=== PATIENT | male | born 1940 | race American Indian/Alaskan Native ===

== ENCOUNTER 2020-10-02 13:36 | Inpatient (IN) | payer MEDICARE ==
[2020-10-02] MEDS ORDERED: MIDAZOLAM 5 MG/5 ML INJ MDV IV ONE (13:39)
--- NOTE | 2020-10-02 13:55 | Emergency Department Report ---
ED Shortness of Breath HPI - General Stated Complaint: CARDIAC ARREST Time Seen by Provider: 10/02/20 13:39 - History of Present Illness Initial Comments: Chief complaint: Respiratory cardiac arrest HPI: This is an 80-year-old male with history of dementia who presents via EMS status post respiratory cardiac arrest. EMS was called for difficulty breathing. First responders found patient unresponsive. Cardiac arrest was witnessed. First responders. Chest compressions were initiated. Upon EMS arrival, patient had thready radial pulse with pulse rate 30 bpm. Patient was intubated with 7-0 ETT. Capnography confirmed successful intubation. Patient's heart rate and blood pressure normalized. Patient received Versed 5 mg in route. Patient also received 2 mg of naloxone. Patient is breathing spontaneously. He is moving his upper extremities. MD Complaint: shortness of breath -: Sudden Severity: severe Consistency: other (Intubated patient received chest compressions without medications) - Related Data Home Medications Medication Instructions Recorded Confirmed Last Taken No Known Home Medications [No 10/02/20 10/02/20 Unknown Reported Home Medications] Allergies Allergy/AdvReac Type Severity Reaction Status Date / Time No Known Allergies Allergy Unverified 10/02/20 16:50 ED Review of Systems ROS: Stated complaint: CARDIAC ARREST Other details as noted in HPI Comment: Unobtainable due to pts medical conditions (Cardiac arrest demented patient) ED Past Medical Hx - Past Medical History Previous Medical History?: Yes Additional medical history: Dementia - Medications Home Medications: Home Medications Medication Instructions Recorded Confirmed Last Taken Type No Known Home Medications [No 10/02/20 10/02/20 Unknown History Reported Home Medications] ED Physical Exam - General Limitations: Other (Intubated unresponsive patient) General appearance: other (Intubated eyes closed spontaneous respirations) - Head Head exam: Present: atraumatic, normocephalic - Eye Eye exam: Present: normal appearance - ENT ENT exam: Present: mucous membranes moist, other (ETT in place) - Neck Neck exam: Present: normal inspection, other (JVD) - Respiratory Respiratory exam: Present: rales, rhonchi, accessory muscle use - Cardiovascular Cardiovascular Exam: Present: regular rate, normal rhythm, normal heart sounds. Absent: systolic murmur, diastolic murmur, rubs, gallop - GI/Abdominal GI/Abdominal exam: Present: soft, normal bowel sounds. Absent: distended, tenderness, guarding, rebound - Rectal Rectal exam: Present: deferred - Extremities Exam Extremities exam: Present: normal inspection - Neurological Exam Neurological exam: Present: altered, other (Unresponsive to voice or pain) - Psychiatric Psychiatric exam: Present: other (Unresponsive to voice or pain) - Skin Skin exam: Present: warm, dry, intact, normal color. Absent: rash ED Course Vital Signs 10/02/20 10/02/20 10/02/20 13:42 13:46 13:55 Temperature Pulse Rate 67 68 63 Respiratory 19 20 Rate Blood Pressure 130/55 O2 Sat by Pulse 100 100 Oximetry 10/02/20 10/02/20 10/02/20 14:00 14:16 14:30 Temperature Pulse Rate 60 54 L 53 L Respiratory 15 15 19 Rate Blood Pressure 122/75 112/80 108/72 O2 Sat by Pulse 100 100 100 Oximetry 10/02/20 10/02/20 10/02/20 14:33 14:46 15:00 Temperature 96.3 F L Pulse Rate 56 L 61 Respiratory 18 19 Rate Blood Pressure 115/61 109/67 O2 Sat by Pulse 100 100 Oximetry 10/02/20 10/02/20 10/02/20 15:16 15:30 15:54 Temperature Pulse Rate 57 L 58 L 60 Respiratory 15 19 23 Rate Blood Pressure 146/61 142/61 109/67 O2 Sat by Pulse 100 100 100 Oximetry 10/02/20 10/02/20 10/02/20 16:00 16:01 16:16 Temperature Pulse Rate 58 L 58 L 60 Respiratory 22 19 Rate Blood Pressure 138/65 138/65 138/65 O2 Sat by Pulse 99 100 100 Oximetry 10/02/20 16:30 Temperature Pulse Rate 62 Respiratory 20 Rate Blood Pressure 139/63 O2 Sat by Pulse 100 Oximetry - ABG Interpretation Ph: 7.35 PCO2: 41 PO2: 543 Interpretation: normal ED Medical Decision Making - Lab Data Result diagrams: 10/02/20 13:45 10/02/20 13:45 - EKG Data -: EKG Interpreted by Ok EKG shows normal: sinus rhythm, intervals Rate: normal - EKG Data 10/02/20 16:54 EKG obtained at 1348 EKG interpreted by Rate 60 bpm left axis deviation normal intervals inferior Q waves poor R wave progression anterior leads 10/02/20 16:55 EKG obtained at 1348 EKG interpreted by me Rate 60 bpm left axis deviation normal intervals inferior Q waves poor R wave progression anterior leads - Radiology Data Radiology results: report reviewed CT head without contrast: Disproportionate temporoparietal lobe atrophy suggest possibility of Alzheimer's disease, moderate global parenchymal atrophy, no acute intracranial abnormalities Chest CT angiogram no evidence of pulmonary aneurysm, no evidence of acute findings Chest 1 view: Endotracheal tube #8 above the george. NG tube extending below the diaphragm. - Medical Decision Making Respiratory arrest leading to cardiac arrest pulseless electrical activity which responded to chest compressions without need for pharmacological resuscitation. Differential diagnosis includes sick sinus syndrome, heart failure, unintentional overdose progressive end-stage Alzheimer's dementia. No evidence of pulmonary embolism on CT scan, troponin negative. Patient continues to require mechanical ventilation. Patient is admitted to the hospital service in fair condition. Critical Care Time: Yes Critical care time in (mins) excluding proc time.: 40 Critical care attestation.: If time is entered above; I have spent that time in minutes in the direct care of this critically ill patient, excluding procedure time. 40 minutes of critical care time excluding procedures were used in the care of the patient. After hearing EMS report over the radio, I asked charge nurse to contact respiratory therapist. I met the patient in saw feeder team in treatment room upon arrival. I obtained history from EMS at the bedside. I discussed treatment plan with the nursing team members. I reviewed electronic record. I kept the family members informed. Patient required multiple interventions and reassessments. ED Disposition Clinical Impression: Acute hypoxemic respiratory failure, Cardiac arrest, Alzheimer's dementia Disposition: OP ADMIT IP TO THIS HOSP Is pt being admited?: Yes Does the pt Need Aspirin: No Condition: Fair
[2020-10-02] MEDS ORDERED: MIDAZOLAM 5 MG/5 ML INJ MDV IV NR (14:00)
[2020-10-02 14:19] LABS: Bilirubin,Urine NEG (Negative); Blood,Urine SM (Negative); Color,Urine Yellow (Yellow); Mucus,Urine FEW /HPF; Protein,Urine <15 mg/dL mg/dL (Negative); Urobilinogen,Urine < 2.0 mg/dL (<2.0)
[2020-10-02 14:25] LABS: Basophils % (Auto) 0.3 % (0.0-1.8); Eosinophils % (Auto) 0.4 % (0.0-4.3); Hematocrit 39.3 % (35.5-45.6); Hemoglobin 12.8 gm/dl (11.8-15.2); Lymphocytes # (Auto) 0.5 K/mm3 (1.2-5.4); Lymphocytes % (Auto) 7.6 % (13.4-35.0); Mean Corpuscular HGB Conc 33 % (32-34); Mean Corpuscular Volume 92 fl (84-94); Monocytes # (Auto) 0.6 K/mm3 (0.0-0.8); Monocytes % (Auto) 9.1 % (0.0-7.3); Platelet Count 187 K/mm3 (140-440); Red Blood Count 4.26 M/mm3 (3.65-5.03); Red Cell Distribution Width 16.2 % (13.2-15.2)
[2020-10-02 14:27] LABS: Amphetamine Screen,Urine Negative; Cannabinoid Screen,Urine Negative; Cocaine Screen,Urine Negative; Methadone Screen,Urine Negative; Opiate Screen,Urine Negative
[2020-10-02 14:44] LABS: Alanine Aminotransferase 10 units/L (7-56); Albumin 3.1 g/dL (3.9-5); BUN/Creatinine Ratio 15; Blood Urea Nitrogen 12 mg/dL (9-20); Calcium 9.2 mg/dL (8.4-10.2); Hemolysis Index 9
[2020-10-02 14:45] LABS: Benzodiazepines Screen,Urine PRESUMPTIVE POSITIVE
--- NOTE | 2020-10-02 14:51 | XRay Report ---
CHEST 1 VIEW 10/02/2020 2:42 PM INDICATION / CLINICAL INFORMATION: bradycardia respiratory arrest. COMPARISON: None available. FINDINGS: SUPPORT DEVICES: Endotracheal tube tip is about 5 cm above the george. NG tube is seen extending belo w the diaphragm. HEART / MEDIASTINUM: No significant abnormality. LUNGS / PLEURA: No significant pulmonary or pleural abnormality. No pneumothorax. ADDITIONAL FINDINGS: No significant additional findings. IMPRESSION: 1. No acute findings. Signer Name: Jimmy Duke MD Signed: 10/02/2020 2:47 PM Workstation Name: [email or web address]
--- NOTE | 2020-10-02 14:56 | History and Physical Report ---
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 Patient is intubated and ambulatory support at time of my evaluation and is unable to provide history. Patient history taken from EMS staff, ED staff, as well as patient family members who are made available via telephone. As per family the patient was found to be unresponsive today. EMS was notified and upon arrival the patient was found to be in distress and subsequently developed cardiac arrest. Patient treated" with ACLS protocol with eventual return of perfusing cardiac rhythm. Patient transported to [facility] for further care and evaluation. Patient seen and evaluated in the emergency department. All lab and imaging studies reviewed. Patient found to have acute respiratory failure secondary to cardiac arrest and is unable able to protect his airway. Patient intubated and placed on ventilatory support. Patient admitted to ICU for further care and evaluation. Critical care team consulted in ED. No further history is obtainable. No prior admission for review. No medication listed at time of admission for reconciliation. Advanced care planning conducted in ED. Past History Past Medical History: other (See HPI) Past Surgical History: No surgical history, Other (Unable to obtain) Social history: no significant social history, other (Unable to obtain) Family history: diabetes, hypertension Medications and Allergies Allergies Allergy/AdvReac Type Severity Reaction Status Date / Time Unable to Assess Allergy Unverified 10/02/20 14:26 Home Medications Medication Instructions Recorded Confirmed Last Taken Type No Known Home Medications [No 10/02/20 10/02/20 Unknown History Reported Home Medications] Active Meds: Active Medications Famotidine (Famotidine 20 Mg/2 Ml Inj) 20 mg IV BID MARCIE Hydrophilic Ointment (Lip Therapy Vaseline) 1 applic TP Q2HR PRN PRN Reason: Dry Lips Propofol (Diprivan 10 Mg/Ml) 1,000 mg in 100 mls @ 0 mls/hr IV TITR MARCIE; Protocol Midazolam HCl (Midazolam 5 Mg/5 Ml Inj Mdv) 5 mg IV ONCE NR Multi-Ingred Cream/Lotion/Oil/Oint (Mineral Oil/Petrolatum, White Ophth Oint 3.5 Gm) 1 applic OU Q4HR PRN PRN Reason: Dry Eye(s) Senna/Docusate Sodium (Sennosides/Docusate Sodium 8.6/50 Mg Tab) 1 tab FEEDTUBE BID MARCIE Review of Systems ROS unobtainable: due to endotracheal tube, due to mental status Exam - Constitutional Vitals: Temp Pulse Resp BP Pulse Ox 96.3 F L 56 L 18 115/61 100 10/02/20 14:33 10/02/20 14:46 10/02/20 14:46 10/02/20 14:46 10/02/20 14:46 General appearance: Present: severe distress - EENT Eyes: Present: miosis ENT: hearing decreased - Neck Neck: Present: supple, normal ROM - Respiratory Respiratory effort: labored Respiratory: bilateral: diminished, rhonchi - Cardiovascular Heart Sounds: Present: S1 & S2. Absent: rub, click - Extremities Extremities: pulses symmetrical, No edema Peripheral Pulses: within normal limits - Abdominal General gastrointestinal: Present: soft, non-tender, non-distended, normal bowel sounds Male genitourinary: Present: normal - Integumentary Integumentary: Present: clear, dry, clammy, decreased turgor - Musculoskeletal Musculoskeletal: generalized weakness - Psychiatric Psychiatric: no appropriate mood/affect, no intact judgment & insight, no memory intact - Neurologic Neurologic: CNII-XII intact, no focal deficits, moves all extremities, no gait normal HEART Score - HEART Score Troponin: Troponin T < 0.010 ng/mL (0.00-0.029) 10/02/20 13:45 Results - Labs CBC & Chem 7: 10/02/20 13:45 10/02/20 13:45 Labs: Abnormal lab results 10/02/20 10/02/20 10/02/20 Range/Units 13:45 13:45 14:00 RDW 16.2 H (13.2-15.2) % Lymph % (Auto) 7.6 L (13.4-35.0) % [place] % (Auto) 9.1 H (0.0-7.3) % Lymph # (Auto) 0.5 L (1.2-5.4) K/mm3 Seg Neutrophils % 82.6 H (40.0-70.0) % POC ABG pO2 543.4 H (83-108) mmHg ABG Hemoglobin 11.7 L (12.0-17.5) ABG Oxyhemoglobin 99.4 H (94-98) ABG Potassium 3.3 L (3.40-4.50) mmol/L ABG Chloride 110.0 H (98-107) mmol/L ABG Glucose 102 H (65-95) mg/dL Carboxyhemoglobin 0.3 L (0.5-1.5) Potassium 3.4 L (3.6-5.0) mmol/L Carbon Dioxide 21 L (22-30) mmol/L Glucose 112 H (75-100) mg/dL Total Protein 5.7 L (6.3-8.2) g/dL Albumin 3.1 L (3.9-5) g/dL Arterial Blood Glucose 102 H (65-95) mg/dL Assessment and Plan - Patient Problems (1) Acute hypoxemic respiratory failure Status: Acute Plan to address problem: Patient independent ambulatory support, wean vent as tolerated, daily spontaneous breathing trial, sedation holiday, critical care team consulted in ED. The high probability of a clinically significant, sudden or life threatening deterioration of the [neuro, pulmonary,] system(s) required my full and direct attention, intervention and personal management. The aggregate critical care time was [65] minutes. This time is in addition to time spent performing reported procedures but includes the following: [x] Data Review and interpretation [x] Patient assessment and monitoring of vital signs [x] Documentation [x] Medication orders and management (2) Cardiac arrest Status: Acute Plan to address problem: Patient treated) protocol with return of perfusing cardiac rhythm. Remote telemetry, continue medical management. (3) Malnutrition Status: Acute Qualifiers: Protein-calorie malnutrition severity: moderate Plan to address problem: Increase protein intake, dietary segmentation. (4) DVT prophylaxis Status: Acute Plan to address problem: SCDs bilateral lower extremities while in bed, prophylactic anticoagulation (5) Advance care planning Status: Acute Plan to address problem: Disease education conducted, care plan discussed, diagnoses discussed, poor prognosis discussed, patient is full code, patient family knowledges understanding and agreement with care plan, +30 minutes.
[2020-10-02] MEDS ORDERED: HYDROmorphone 1 MG/1 ML INJ IV PRN (15:30)
[2020-10-02] MEDS ORDERED: MINERAL OIL/PETROLATUM, WHITE OPHTH OINT 3.5 GM OU PRN (15:30)
[2020-10-02] MEDS ORDERED: LIP THERAPY VASELINE TP PRN (16:00)
[2020-10-02] MEDS ORDERED: oxyCODONE /ACETAMINOPHEN 5-325MG TAB PO PRN (16:00)
--- NOTE | 2020-10-02 16:13 | Cat Scan Report ---
CT HEAD WITHOUT CONTRAST INDICATION / CLINICAL INFORMATION: Unresponsive patient following cardiac arrest. TECHNIQUE: All CT scans at this location are performed using CT dose reduction for ALARA by means of automated e xposure control. COMPARISON: None available. FINDINGS: HEMORRHAGE: No evidence of intracranial hemorrhage or extra-axial fluid collection. EXTRA-AXIAL SPACES: Cortical sulci and sylvian fissures are enlarged reflecting a degree of parenchym al volume loss which is prominent even given the patient's age of 80 years. There is pronounced dispr oportionate bilateral temporal and parietal lobe atrophy suggesting a diagnosis of Alzheimer's scar ia. Basilar cisterns have an unremarkable appearance. VENTRICULAR SYSTEM: The third and lateral ventricles are mildly enlarged reflecting presence of age r elated parenchymal volume loss. CEREBRAL PARENCHYMA: Periventricular and deep white matter lucency is observed. This is probably seco ndary to microvascular ischemic change. There is no indication of recent infarction. No areas of ence phalomalacia are identified. MIDLINE SHIFT OR HERNIATION: There is no mass effect. CEREBELLUM / BRAINSTEM: Brainstem has an unremarkable appearance. Age related cerebellar atrophy is n oted. MIDLINE STRUCTURES:Pituitary gland has an unremarkable appearance. No abnormalities are seen in the p ineal region. INTRACRANIAL VESSELS: No significant abnormalities identified on this noncontrast head CT examination .. ORBITS: Status post left-sided cataract surgery. No additional abnormality. SOFT TISSUES of HEAD: No significant abnormality. CALVARIUM: Evaluation of bone windows reveals no abnormalities. PARANASAL SINUSES / MASTOID AIR CELLS: Paranasal sinuses are free from inflammatory mucosal disease. Mastoid air cells are normally pneumatized. IMPRESSION: 1. Disproportionate temporal and parietal lobe atrophy suggests possibility of Alzheimer's dementia. 2. Moderate global parenchymal atrophy. 3. No acute intracranial abnormalities are identified. Signer Name: Dwaine Irizarry MD Signed: 10/02/2020 4:09 PM Workstation Name: [id number]
--- NOTE | 2020-10-02 16:27 | Cat Scan Report ---
CTA CHEST WITH CONTRAST INDICATION / CLINICAL INFORMATION: OMNI 350 100 ML respiratory cardiac arrest. TECHNIQUE: Axial CT images were obtained through the chest after injection of 100 cc of Omnipaque 350 IV contrast. 3 plane MIP and/or 3D reconstructions were produced. All CT scans at this location are performed using CT dose reduction for ALARA by means of automated exposure control. COMPARISON: None available. FINDINGS: PULMONARY ARTERIES: No pulmonary emboli. THORACIC AORTA: No significant abnormality. HEART: No significant abnormality. CORONARY ARTERY CALCIFICATION: None. MEDIASTINUM / ROXIE: No significant abnormality. PLEURA: No pleural effusion. No pneumothorax. LUNGS: There is mild dependent atelectasis. ADDITIONAL FINDINGS: Endotracheal tube and nasogastric tube appear in satisfactory position. UPPER ABDOMEN: No acute findings. SKELETAL STRUCTURES: No acute abnormality IMPRESSION: 1. No CT evidence for pulmonary embolism. 2. No acute findings. Signer Name: Gopal Morales MD Signed: 10/02/2020 4:23 PM Workstation Name: [id number]
[2020-10-02] MEDS ORDERED: ALBUTEROL 2.5 MG/3 ML NEBU IH PRN (17:00)
[2020-10-02] MEDS: FAMOTIDINE 20 MG/2 ML INJ IV SCH ×2 (17:11→21:59)
[2020-10-02] MEDS: SENNOSIDES/DOCUSATE SODIUM 8.6/50 MG TAB FEEDTUBE SCH ×2 (17:11→21:59)
--- NOTE | 2020-10-03 03:03 | XRay Report ---
XR chest 1V ap INDICATION / CLINICAL INFORMATION: follow up respiratory failure. COMPARISON: Radiograph from yesterday. FINDINGS: SUPPORT DEVICES: Unchanged. HEART /PULMONARY VASCULATURE: No significant abnormality. LUNGS / PLEURA: Lungs are clear. No pneumothorax. IMPRESSION: 1. No acute findings. No interval change. Signer Name: Manjit Mantilla MD Signed: 10/03/2020 2:58 AM Workstation Name: [employer] [id number]
[2020-10-03 05:10] LABS: Basophils % (Auto) 0.2 % (0.0-1.8); Hematocrit 38.1 % (35.5-45.6); Hemoglobin 12.6 gm/dl (11.8-15.2); Lymphocytes # (Auto) 0.7 K/mm3 (1.2-5.4); Lymphocytes % (Auto) 5.1 % (13.4-35.0); Mean Corpuscular HGB Conc 33 % (32-34); Mean Corpuscular Volume 91 fl (84-94); Monocytes % (Auto) 7.9 % (0.0-7.3); Platelet Count 201 K/mm3 (140-440); Red Cell Distribution Width 15.9 % (13.2-15.2)
[2020-10-03 05:32] LABS: Alanine Aminotransferase 13 units/L (7-56); Albumin 3.4 g/dL (3.9-5); Blood Urea Nitrogen 13 mg/dL (9-20); Calcium 10.3 mg/dL (8.4-10.2); Hemolysis Index 19
[2020-10-03 05:36] LABS: BUN/Creatinine Ratio 19
--- NOTE | 2020-10-03 07:26 | Consultation ---
History of Present Illness Consult date: 10/03/20 Requesting physician: JULIO NESS Reason for consult: other (Cardiopulmoanry arrest with ROSC, critical care management) History of present illness: HISTORY PER MEDICAL RECORDS 80 YO Male with Vascular Dementia, Cerebral Atherosclerosis, Malnutrition presents to ED for evaluation. Patient is intubated and ambulatory support at time of my evaluation and is unable to provide history. Patient history taken from EMS staff, ED staff, as well as patient family members who are made available via telephone. As per family the patient was found to be unresponsive today. EMS was notified and upon arrival the patient was found to be in distress and subsequently developed cardiac arrest. Patient treated" with ACLS protocol with eventual return of perfusing cardiac rhythm. Patient transported to [facility] for further care and evaluation. Patient seen and evaluated in the emergency department. All lab and imaging studies reviewed. Patient found to have acute respiratory failure secondary to cardiac arrest and is unable able to protect his airway. Patient intubated and placed on ventilatory support. Patient admitted to ICU for further care and evaluation. Critical care team consulted in ED. No further history is obtainable. No prior admission for review. No medication listed at time of admission for reconciliation. Advanced care planning conducted in ED. Patient seen and examined. Vitals, labs, medications, chart and imaging reviewed. He is orally intubated, on Propofol infusion. Discussed with nursing and respiratory staff. No acute overnight events reported. Past History Past Medical History: other (See HPI) Past Surgical History: No surgical history, Other (Unable to obtain) Social history: no significant social history, other (Unable to obtain) Family history: diabetes, hypertension Medications and Allergies Allergies Allergy/AdvReac Type Severity Reaction Status Date / Time No Known Allergies Allergy Unverified 10/02/20 16:50 Home Medications Medication Instructions Recorded Confirmed Last Taken Type Aspirin [Aspirin BABY CHEW TAB] 81 mg PO QDAY 10/02/20 10/02/20 Unknown History Donepezil HCl [Donepezil HCl Odt] 10 mg PO QDAY 10/02/20 10/02/20 Unknown History Finasteride [Proscar] 5 mg PO QDAY 10/02/20 10/02/20 Unknown History Tamsulosin [Flomax] 0.8 mg PO QDAY 10/02/20 10/02/20 Unknown History amLODIPine [Norvasc] 5 mg PO DAILY 10/02/20 10/02/20 Unknown History Active Meds: Active Medications Acetaminophen (Acetaminophen 650 Mg Rect Supp) 650 mg [place] Q6H PRN PRN Reason: Pain MILD(1-3)/Fever >100.5/HERNANDEZ Albuterol (Albuterol 2.5 Mg/3 Ml Nebu) 2.5 mg IH Q3HRT PRN PRN Reason: Shortness Of Breath Famotidine (Famotidine 20 Mg/2 Ml Inj) 20 mg IV BID [facility] Last Admin: 10/02/20 21:59 Dose: 20 mg Documented by: Hydromorphone HCl (Hydromorphone 1 Mg/1 Ml Inj) 0.5 mg IV Q12H PRN PRN Reason: Pain , Severe (7-10) Hydrophilic Ointment (Lip Therapy Vaseline) 1 applic TP Q2HR PRN PRN Reason: Dry Lips Propofol (Diprivan 10 Mg/Ml) 1,000 mg in 100 mls @ 1.905 mls/hr IV TITR [facility]; Protocol Last Admin: 10/03/20 04:03 Dose: 15 mcg/kg/min, 5.715 mls/hr Documented by: Multi-Ingred Cream/Lotion/Oil/Oint (Mineral Oil/Petrolatum, White Ophth Oint 3.5 Gm) 1 applic OU Q4H PRN PRN Reason: Dry Eye(s) Oxycodone/Acetaminophen (Oxycodone /Acetaminophen 5-325mg Tab) 1 tab PO Q12H PRN PRN Reason: Pain, Moderate (4-6) Senna/Docusate Sodium (Sennosides/Docusate Sodium 8.6/50 Mg Tab) 1 tab FEEDTUBE BID [facility] Last Admin: 10/02/20 21:59 Dose: 1 tab Documented by: Sodium Chloride (Sodium Chloride 0.9% 10 Ml Flush Syringe) 10 ml IV BID [facility] Last Admin: 10/02/20 22:00 Dose: 10 ml Documented by: Sodium Chloride (Sodium Chloride 0.9% 10 Ml Flush Syringe) 10 ml IV PRN PRN PRN Reason: LINE FLUSH Review of Systems ROS unobtainable: due to endotracheal tube, due to mental status Physical Examination Vital signs: Vital Signs Pulse Resp 67 19 10/02/20 13:42 10/02/20 13:42 General appearance: no acute distress, other (elderly) Eyes: non-icteric ENT: oropharynx dry, other (ETT 23 cm at the lip) Neck: supple, no lymphadenopathy, no JVD Effort: normal Ascultation: Bilateral: diminished breath sounds Cardiovascular: regular rate and rhythm, other (S1,S2) Gastrointestinal: normoactive bowel sounds, soft, non-tender Integumentary: normal Extremities: no cyanosis, no edema, pulses normal pupils equal and round, other (awake, alert, obeys simple commands) affect normal Results - Laboratory Findings CBC and BMP: 10/03/20 04:35 10/03/20 04:35 ABG ABG pH 7.478 (7.320-7.450) H 10/03/20 03:04 POC ABG pCO2 35.1 mmHg (32.0-48.0) 10/03/20 03:04 POC ABG pO2 173.1 mmHg (83-108) H 10/03/20 03:04 POC ABG HCO3 25.4 10/03/20 03:04 ABG O2 Saturation 99.5 (0-100) 10/03/20 03:04 PT/INR, D-dimer D-Dimer 5468.25 ng/mlDDU (0-234) H 10/02/20 13:45 Abnormal lab findings: Abnormal Labs 10/02/20 10/02/20 10/02/20 13:45 13:45 13:45 WBC RDW 16.2 H Lymph % (Auto) 7.6 L [place] % (Auto) 9.1 H Lymph # (Auto) 0.5 L [place] # (Auto) Seg Neutrophils % 82.6 H Seg Neutrophils # D-Dimer 5468.25 H ABG pH POC ABG pO2 ABG Hemoglobin ABG Oxyhemoglobin ABG Sodium ABG Potassium ABG Chloride ABG Glucose Carboxyhemoglobin Potassium 3.4 L Carbon Dioxide 21 L Creatinine Glucose 112 H Calcium Total Protein 5.7 L Albumin 3.1 L Arterial Blood Glucose 10/02/20 10/03/20 10/03/20 14:00 03:04 04:35 WBC 13.2 H RDW 15.9 H Lymph % (Auto) 5.1 L [place] % (Auto) 7.9 H Lymph # (Auto) 0.7 L [place] # (Auto) 1.0 H Seg Neutrophils % 86.8 H Seg Neutrophils # 11.5 H D-Dimer ABG pH 7.478 H POC ABG pO2 543.4 H 173.1 H ABG Hemoglobin 11.7 L ABG Oxyhemoglobin 99.4 H 98.8 H ABG Sodium 131.7 L ABG Potassium 3.3 L ABG Chloride 110.0 H ABG Glucose 102 H 124 H Carboxyhemoglobin 0.3 L Potassium Carbon Dioxide Creatinine Glucose Calcium Total Protein Albumin Arterial Blood Glucose 102 H 124 H 10/03/20 04:35 WBC RDW Lymph % (Auto) [place] % (Auto) Lymph # (Auto) [place] # (Auto) Seg Neutrophils % Seg Neutrophils # D-Dimer ABG pH POC ABG pO2 ABG Hemoglobin ABG Oxyhemoglobin ABG Sodium ABG Potassium ABG Chloride ABG Glucose Carboxyhemoglobin Potassium Carbon Dioxide Creatinine 0.7 L Glucose 109 H Calcium 10.3 H Total Protein Albumin 3.4 L Arterial Blood Glucose - Diagnostic Findings Chest x-ray: image reviewed CT scan - chest: image reviewed Additional studies: CT head without contrast: Disproportionate temporoparietal lobe atrophy suggest possibility of Alzheimer's disease, moderate global parenchymal atrophy, no acute intracranial abnormalities Chest CT angiogram no evidence of pulmonary aneurysm, no evidence of acute findings Assessment and Plan Acute hypoxemic respiratory failure on MVS Cardiopulmonary arrest with ROSC Protein calorie malnutrition h/o Dementia -Titrate supplemental oxygen to keep SpO2 89-92% -VAP bundle addressed, aspiration precautions HOB >30 -Lung protective strategies -Stop Propofol for SAT and to assess neurology post cardiac arrest -SBT today -Get transthoracic echocardiogram to evaluate for valvular heart disease, assess LVEF and pulmonary pressures -Nutritional support- Custom Furrier for tube feeding -VTE prophylaxis -Stress ulcer prophylaxis -Mobility, off loading with frequent turning per facility protocol for pressure ulcer prevention (he is a high risk patient) -Nutritional support, OGT in place . Will start enteric nutritional support -Avoid delirium, maintain sleep-wake cycle, avoid benzodiazepines -Supportive transfusions to keep HgB >7g/dL -Chronic home medications as clinically indicated CONDITION: CRITICAL PROGNOSIS: GUARDED CODE STATUS: FULL CODE The high probability of a clinically significant, sudden or life threatening deterioration of the [pulmonary,cardiovascular, neurology] system(s) required my full and direct attention, intervention and personal management. The aggregate critical care time was [45] minutes. This time is in addition to time spent performing reported procedures but includes the following: [x] Data Review and interpretation [x] Patient assessment and monitoring of vital signs [x] Documentation [x] Medication orders and management
[2020-10-03] MEDS: FAMOTIDINE 20 MG/2 ML INJ IV SCH ×2 (11:14→21:47)
[2020-10-03] MEDS: SENNOSIDES/DOCUSATE SODIUM 8.6/50 MG TAB FEEDTUBE SCH ×2 (11:14→21:47)
[2020-10-03 11:55] LABS: ABG Base Excess -0.6 mmol/L (-2.0-3.0); ABG HCO3 23.3 mmol/L (20.0-26.0); ABG Methemoglobin 0.6 % (0.0-1.5); ABG Oxygen Saturation 98.1 % (95.0-99.0); ABG PCO2 35.7 mm Hg; ABG PH 7.432 pH Units (7.350-7.450); ABG PO2 109.5 mm Hg (80.0-90.0)
[2020-10-03] MEDS ORDERED: amLODIPine 5 MG TAB PO ONE (12:00)
--- NOTE | 2020-10-03 12:03 | Progress Note ---
Assessment and Plan Assessment and plan: 80 YO Male with Vascular Dementia, Cerebral Atherosclerosis, Malnutrition presents to ED for evaluation. Patient is intubated and ambulatory support at time of my evaluation and is unable to provide history. Patient history taken from EMS staff, ED staff, as well as patient family members who are made available via telephone. As per family the patient was found to be unresponsive today. EMS was notified and upon arrival the patient was found to be in distress and subsequently developed cardiac arrest. Patient treated" with ACLS protocol with eventual return of perfusing cardiac rhythm. Patient transported to [facility] for further care and evaluation. Patient seen and evaluated in the emergency department. All lab and imaging studies reviewed. Patient found to have acute respiratory failure secondary to cardiac arrest and is unable able to protect his airway. Patient intubated and placed on ventilatory support. Patient admitted to ICU for further care and evaluation. Critical care team consulted in ED. No further history is obtainable. No prior admission for review. No medication listed at time of admission for reconciliation. Advanced care planning conducted in ED. 10/03: Continue supportive care, noted leukoctosis, ?reactive. Will continue to assess, consult cardiology in am. 1) Acute hypoxemic respiratory failure Status: Acute Plan to address problem: Patient independent ambulatory support, wean vent as tolerated, daily spontaneous breathing trial, sedation holiday, critical care team consulted in ED. (2) Cardiac arrest Status: Acute Plan to address problem: Patient treated) protocol with return of perfusing cardiac rhythm. Remote telemetry, continue medical management. (3) Malnutrition Status: Acute Qualifiers: Protein-calorie malnutrition severity: moderate Plan to address problem: Increase protein intake, dietary segmentation. (4) DVT prophylaxis Status: Acute Plan to address problem: SCDs bilateral lower extremities while in bed, prophylactic anticoagulation (5) Advance care planning Status: Acute Plan to address problem: Disease education conducted, care plan discussed, diagnoses discussed, poor prognosis discussed, patient is full code, patient family knowledges understand ing and agreement with care plan, +30 minutes. The high probability of a clinically significant, sudden or life threatening deterioration of the [neuro, pulmonary,] system(s) required my full and direct attention, intervention and personal management. The aggregate critical care time was [65] minutes. This time is in addition to time spent performing reported procedures but includes the following: [x] Data Review and interpretation [x] Patient assessment and monitoring of vital signs [x] Documentation [x] Medication orders and management History Interval history: Patient seen and examined, remains on the ventilator, following commands. No new acute issues reported Hospitalist Physical - Physical exam Narrative exam: General appearance: Present: Resting on the ventilator - EENT- Eyes: Present: miosis ENT: hearing decreased - Neck Neck: Present: supple, normal ROM - Respiratory Respiratory effort:stable on Mechanical ventilation Respiratory: bilateral: diminished, rhonchi - Cardiovascular Heart Sounds: Present: S1 & S2. Absent: rub, click - Extremities Extremities: pulses symmetrical, No edema Peripheral Pulses: within normal limits - Abdominal General gastrointestinal: Present: soft, non-tender, non-distended, normal bowel sounds Male genitourinary: Present: normal - Integumentary Integumentary: Present: clear, dry, clammy, decreased turgor - Musculoskeletal Musculoskeletal: generalized weakness - Psychiatric Psychiatric: no appropriate mood/affect, no intact judgment & insight, no memory intact - Neurologic Neurologic: CNII-XII intact, no focal deficits, moves all extremities, no gait normal - Constitutional Vitals: Temp Pulse Resp BP Pulse Ox 99.9 F H 66 12 169/84 100 10/03/20 07:52 10/03/20 11:47 10/03/20 11:10 10/03/20 11:47 10/03/20 11:10 General appearance: Present: severe distress HEART Score - HEART Score Troponin: Troponin T < 0.010 ng/mL (0.00-0.029) 10/02/20 13:45 Results - Labs CBC & Chem 7: 10/03/20 04:35 10/03/20 04:35 Labs: Laboratory Last Values WBC 13.2 K/mm3 (4.5-11.0) H 10/03/20 04:35 RBC 4.20 M/mm3 (3.65-5.03) 10/03/20 04:35 Hgb 12.6 gm/dl (11.8-15.2) 10/03/20 04:35 Hct 38.1 % (35.5-45.6) 10/03/20 04:35 MCV 91 fl (84-94) 10/03/20 04:35 MCH 30 pg (28-32) 10/03/20 04:35 MCHC 33 % (32-34) 10/03/20 04:35 RDW 15.9 % (13.2-15.2) H 10/03/20 04:35 Plt Count 201 K/mm3 (140-440) 10/03/20 04:35 Lymph % (Auto) 5.1 % (13.4-35.0) L 10/03/20 04:35 [place] % (Auto) 7.9 % (0.0-7.3) H 10/03/20 04:35 Eos % (Auto) 0.0 % (0.0-4.3) 10/03/20 04:35 Baso % (Auto) 0.2 % (0.0-1.8) 10/03/20 04:35 Lymph # (Auto) 0.7 K/mm3 (1.2-5.4) L 10/03/20 04:35 [place] # (Auto) 1.0 K/mm3 (0.0-0.8) H 10/03/20 04:35 Eos # (Auto) 0.0 K/mm3 (0.0-0.4) 10/03/20 04:35 Baso # (Auto) 0.0 K/mm3 (0.0-0.1) 10/03/20 04:35 Seg Neutrophils % 86.8 % (40.0-70.0) H 10/03/20 04:35 Seg Neutrophils # 11.5 K/mm3 (1.8-7.7) H 10/03/20 04:35 D-Dimer 5468.25 ng/mlDDU (0-234) H 10/02/20 13:45 ABG pH 7.432 pH Units (7.350-7.450) 10/03/20 11:20 POC ABG pCO2 35.1 mmHg (32.0-48.0) 10/03/20 03:04 ABG pCO2 35.7 mm Hg 10/03/20 11:20 POC ABG pO2 173.1 mmHg (83-108) H 10/03/20 03:04 ABG pO2 109.5 mm Hg (80.0-90.0) H 10/03/20 11:20 POC ABG HCO3 25.4 10/03/20 03:04 ABG HCO3 23.3 mmol/L (20.0-26.0) 10/03/20 11:20 ABG O2 Saturation 98.1 % (95.0-99.0) 10/03/20 11:20 ABG O2 Content 16.0 (0.0-44) 10/03/20 11:20 POC ABG Base Excess 2.2 10/03/20 03:04 ABG Base Excess -0.6 mmol/L (-2.0-3.0) 10/03/20 11:20 ABG Hemoglobin 11.7 gm/dl (14.0-18.0) L 10/03/20 11:20 ABG Oxyhemoglobin 98.8 (94-98) H 10/03/20 03:04 ABG Carboxyhemoglobin 1.4 % (0.0-5.0) 10/03/20 11:20 ABG Methemoglobin 0.6 % (0.0-1.5) 10/03/20 11:20 ABG Sodium 131.7 mmol/L (136.0-145.0) L 10/03/20 03:04 ABG Potassium 3.9 mmol/L (3.40-4.50) 10/03/20 03:04 ABG Chloride 105.0 mmol/L (98-107) 10/03/20 03:04 ABG Glucose 124 mg/dL (65-95) H 10/03/20 03:04 ABG Lactate 1.32 (0.18-30.0) 10/02/20 14:00 Oxyhemoglobin 96.2 % (95.0-99.0) 10/03/20 11:20 Carboxyhemoglobin 0.6 (0.5-1.5) 10/03/20 03:04 FiO2 25 % 10/03/20 11:20 FiO2 % 40.0 10/03/20 03:04 Sodium 140 mmol/L (137-145) 10/03/20 04:35 Potassium 4.3 mmol/L (3.6-5.0) D 10/03/20 04:35 Chloride 103.8 mmol/L (98-107) 10/03/20 04:35 Carbon Dioxide 26 mmol/L (22-30) 10/03/20 04:35 Anion Gap 15 mmol/L 10/03/20 04:35 BUN 13 mg/dL (9-20) 10/03/20 04:35 Creatinine 0.7 mg/dL (0.8-1.3) L 10/03/20 04:35 Estimated GFR > 60 ml/min 10/03/20 04:35 BUN/Creatinine Ratio 19 % 10/03/20 04:35 Glucose 109 mg/dL (75-100) H 10/03/20 04:35 POC Glucose 103 mg/dL (70-105) 10/03/20 11:55 Calcium 10.3 mg/dL (8.4-10.2) H 10/03/20 04:35 Total Bilirubin 0.90 mg/dL (0.1-1.2) 10/03/20 04:35 AST 38 units/L (5-40) 10/03/20 04:35 ALT 13 units/L (7-56) 10/03/20 04:35 Alkaline Phosphatase 93 units/L (35-129) 10/03/20 04:35 Troponin T < 0.010 ng/mL (0.00-0.029) 10/02/20 13:45 NT-Pro-B Natriuret Pep 208.4 pg/mL (0-900) 10/02/20 13:45 Total Protein 6.4 g/dL (6.3-8.2) 10/03/20 04:35 Albumin 3.4 g/dL (3.9-5) L 10/03/20 04:35 Albumin/Globulin Ratio 1.1 % 10/03/20 04:35 Arterial Blood Glucose 124 mg/dL (65-95) H 10/03/20 03:04 Arterial Blood Ionized Calcium 5.2 mg/dL (4.6-5.3) 10/03/20 03:04 Urine Color Yellow (Yellow) 10/02/20 14:00 Urine Turbidity Clear (Clear) 10/02/20 14:00 Urine pH 5.0 (5.0-7.0) 10/02/20 14:00 Ur Specific [place] 1.014 (1.003-1.030) 10/02/20 14:00 Urine Protein <15 mg/dl mg/dL (Negative) 10/02/20 14:00 Urine Glucose (UA) Neg mg/dL (Negative) 10/02/20 14:00 Urine Ketones Neg mg/dL (Negative) 10/02/20 14:00 Urine Blood Sm (Negative) 10/02/20 14:00 Urine Nitrite Neg (Negative) 10/02/20 14:00 Urine Bilirubin Neg (Negative) 10/02/20 14:00 Urine Urobilinogen < 2.0 mg/dL (<2.0) 10/02/20 14:00 Ur Leukocyte Esterase Neg (Negative) 10/02/20 14:00 Urine WBC (Auto) 2.0 /HPF (0.0-6.0) 10/02/20 14:00 Urine RBC (Auto) 2.0 /HPF (0.0-6.0) 10/02/20 14:00 U Epithel Cells (Auto) < 1.0 /HPF (0-13.0) 10/02/20 14:00 Urine Mucus Few /HPF 10/02/20 14:00 Urine Opiates Screen Negative 10/02/20 14:00 Urine Methadone Screen Negative 10/02/20 14:00 Ur Barbiturates Screen Negative 10/02/20 14:00 Ur Phencyclidine Scrn Negative 10/02/20 14:00 Ur Amphetamines Screen Negative 10/02/20 14:00 U Benzodiazepines Scrn Presumptive positive 10/02/20 14:00 Urine Cocaine Screen Negative 10/02/20 14:00 U Marijuana (THC) Screen Negative 10/02/20 14:00 Drugs of Abuse Note Disclamer 10/02/20 14:00 [place]/IV: Voiding Method Indwelling Catheter Active Medications - Current Medications Current Medications: Generic Name Dose Route Start Last Admin Trade Name Freq PRN Reason Stop Dose Admin Acetaminophen 650 mg 10/02/20 15:30 Acetaminophen 650 Mg Rect Supp [place] Q6H PRN Pain MILD(1-3)/Fever >100.5/HERNANDEZ Albuterol 2.5 mg 10/02/20 17:00 Albuterol 2.5 Mg/3 Ml Nebu IH Q3HRT PRN Shortness Of Breath Famotidine 20 mg 10/02/20 16:00 10/03/20 11:14 Famotidine 20 Mg/2 Ml Inj IV 20 mg BID MARCIE Administration Hydromorphone HCl 0.5 mg 10/02/20 15:30 Hydromorphone 1 Mg/1 Ml Inj IV Q12H PRN Pain , Severe (7-10) Hydrophilic Ointment 1 applic 10/02/20 16:00 Lip Therapy Vaseline TP Q2HR PRN Dry Lips Propofol 1,000 mg in 100 mls @ 1.905 mls/hr 10/02/20 15:30 10/03/20 07:43 Diprivan 10 Mg/Ml IV 0 mcg/kg/min TITR MARCIE 0 mls/hr Titration Protocol 5 MCG/KG/MIN Multi-Ingred Cream/Lotion/Oil/Oint 1 applic 10/02/20 15:30 Mineral Oil/Petrolatum, White Ophth Oint 3.5 Gm OU Q4H PRN Dry Eye(s) Oxycodone/Acetaminophen 1 tab 10/02/20 16:00 Oxycodone /Acetaminophen 5-325mg Tab PO Q12H PRN Pain, Moderate (4-6) Senna/Docusate Sodium 1 tab 10/02/20 16:00 10/03/20 11:14 Sennosides/Docusate Sodium 8.6/50 Mg Tab FEEDTUBE 1 tab BID MARCIE Administration Sodium Chloride 10 ml 10/02/20 22:00 10/03/20 11:14 Sodium Chloride 0.9% 10 Ml Flush Syringe IV 10 ml BID MARCIE Administration Sodium Chloride 10 ml 10/02/20 15:30 Sodium Chloride 0.9% 10 Ml Flush Syringe IV PRN PRN LINE FLUSH
[2020-10-03] MEDS ORDERED: hydrALAZINE 10 MG TAB PO PRN (15:17)
--- NOTE | 2020-10-04 04:25 | XRay Report ---
XR chest 1V ap INDICATION / CLINICAL INFORMATION: follow up respiratory failure. COMPARISON: Radiograph from yesterday. FINDINGS: SUPPORT DEVICES: Unchanged. HEART /PULMONARY VASCULATURE: Unchanged. LUNGS / PLEURA: Lungs are clear. No pneumothorax. IMPRESSION: 1. No acute findings. No interval change. Signer Name: Manjit Mantilla MD Signed: 10/04/2020 4:21 AM Workstation Name: [id number]
[2020-10-04 08:48] LABS: Basophils % (Auto) 0.3 % (0.0-1.8); Eosinophils % (Auto) 0.1 % (0.0-4.3); Hematocrit 39.2 % (35.5-45.6); Hemoglobin 13.2 gm/dl (11.8-15.2); Lymphocytes # (Auto) 0.8 K/mm3 (1.2-5.4); Lymphocytes % (Auto) 8.5 % (13.4-35.0); Mean Corpuscular HGB Conc 34 % (32-34); Mean Corpuscular Volume 90 fl (84-94); Monocytes # (Auto) 1.2 K/mm3 (0.0-0.8); Monocytes % (Auto) 12.7 % (0.0-7.3); Platelet Count 219 K/mm3 (140-440); Red Blood Count 4.35 M/mm3 (3.65-5.03); Red Cell Distribution Width 15.4 % (13.2-15.2)
--- NOTE | 2020-10-04 09:03 | Progress Note ---
Assessment and Plan Assessment and plan: 80 YO Male with Vascular Dementia, Cerebral Atherosclerosis, Malnutrition presents to ED for evaluation. Patient is intubated and ambulatory support at time of my evaluation and is unable to provide history. Patient history taken from EMS staff, ED staff, as well as patient family members who are made available via telephone. As per family the patient was found to be unresponsive today. EMS was notified and upon arrival the patient was found to be in distress and subsequently developed cardiac arrest. Patient treated" with ACLS protocol with eventual return of perfusing cardiac rhythm. Patient transported to [facility] for further care and evaluation. Patient seen and evaluated in the emergency department. All lab and imaging studies reviewed. Patient found to have acute respiratory failure secondary to cardiac arrest and is unable able to protect his airway. Patient intubated and placed on ventilatory support. Patient admitted to ICU for further care and evaluation. Critical care team consulted in ED. No further history is obtainable. No prior admission for review. No medication listed at time of admission for reconciliation. Advanced care planning conducted in ED. 10/03: Continue supportive care, noted leukoctosis, ?reactive. Will continue to assess, consult cardiology in am. 10/04: Continues on full ventilatory support awake alert oriented will attempt extubation today according to the nursing staff plan discussed with colorman. Curtain Worker consulted for further input considering out of hospital cardiac arrest. Echocardiogram completed awaiting results 1) Acute hypoxemic respiratory failure Status: Acute Plan to address problem: Patient independent ambulatory support, wean vent as tolerated, daily spontaneous breathing trial, sedation holiday, critical care team consulted in ED. (2) Cardiac arrest Status: Acute Plan to address problem: Patient treated) protocol with return of perfusing cardiac rhythm. Remote telemetry, continue medical management. (3) Malnutrition Status: Acute Qualifiers: Protein-calorie malnutrition severity: moderate Plan to address problem: Increase protein intake, dietary segmentation. (4) DVT prophylaxis Status: Acute Plan to address problem: SCDs bilateral lower extremities while in bed, prophylactic anticoagulation (5) Advance care planning Status: Acute Plan to address problem: Disease education conducted, care plan discussed, diagnoses discussed, poor prognosis discussed, patient is full code, patient family knowledges understanding and agreement with care plan, +30 minutes. The high probability of a clinically significant, sudden or life threatening deterioration of the [neuro, pulmonary,] system(s) required my full and direct attention, intervention and personal management. The aggregate critical care time was [65] minutes. This time is in addition to time spent performing reported procedures but includes the following: [x] Data Review and interpretation [x] Patient assessment and monitoring of vital signs [x] Documentation [x] Medication orders and management History Interval history: Patient seen and examined, remains on the ventilator, following commands. No new acute issues reported per nursing staff plan will be to extubate today if able. Hospitalist Physical - Physical exam Narrative exam: General appearance: Present: Resting on the ventilator - EENT- Eyes: Present: miosis ENT: hearing decreased - Neck Neck: Present: supple, normal ROM - Respiratory Respiratory effort:stable on Mechanical ventilation Respiratory: bilateral: diminished, rhonchi - Cardiovascular Heart Sounds: Present: S1 & S2. Absent: rub, click - Extremities Extremities: pulses symmetrical, No edema Peripheral Pulses: within normal limits - Abdominal General gastrointestinal: Present: soft, non-tender, non-distended, normal bowel sounds Male genitourinary: Present: normal - Integumentary Integumentary: Present: clear, dry, clammy, decreased turgor - Musculoskeletal Musculoskeletal: generalized weakness - Psychiatric Psychiatric: no appropriate mood/affect, no intact judgment & insight, no memory intact - Neurologic Neurologic: CNII-XII intact, no focal deficits, moves all extremities, no gait normal - Constitutional Vitals: Temp Pulse Resp BP Pulse Ox 98.7 F 73 19 148/87 100 10/04/20 08:03 10/04/20 08:29 10/04/20 08:29 10/04/20 08:29 10/04/20 08:29 General appearance: Present: severe distress HEART Score - HEART Score Troponin: Troponin T < 0.010 ng/mL (0.00-0.029) 10/02/20 13:45 Results - Labs CBC & Chem 7: 10/04/20 08:32 10/03/20 04:35 Labs: Laboratory Last Values WBC 9.4 K/mm3 (4.5-11.0) 10/04/20 08:32 RBC 4.35 M/mm3 (3.65-5.03) 10/04/20 08:32 Hgb 13.2 gm/dl (11.8-15.2) 10/04/20 08:32 Hct 39.2 % (35.5-45.6) 10/04/20 08:32 MCV 90 fl (84-94) 10/04/20 08:32 MCH 30 pg (28-32) 10/04/20 08:32 MCHC 34 % (32-34) 10/04/20 08:32 RDW 15.4 % (13.2-15.2) H 10/04/20 08:32 Plt Count 219 K/mm3 (140-440) 10/04/20 08:32 Lymph % (Auto) 8.5 % (13.4-35.0) L 10/04/20 08:32 [place] % (Auto) 12.7 % (0.0-7.3) H 10/04/20 08:32 Eos % (Auto) 0.1 % (0.0-4.3) 10/04/20 08:32 Baso % (Auto) 0.3 % (0.0-1.8) 10/04/20 08:32 Lymph # (Auto) 0.8 K/mm3 (1.2-5.4) L 10/04/20 08:32 [place] # (Auto) 1.2 K/mm3 (0.0-0.8) H 10/04/20 08:32 Eos # (Auto) 0.0 K/mm3 (0.0-0.4) 10/04/20 08:32 Baso # (Auto) 0.0 K/mm3 (0.0-0.1) 10/04/20 08:32 Seg Neutrophils % 78.4 % (40.0-70.0) H 10/04/20 08:32 Seg Neutrophils # 7.3 K/mm3 (1.8-7.7) 10/04/20 08:32 D-Dimer 5468.25 ng/mlDDU (0-234) H 10/02/20 13:45 ABG pH 7.432 pH Units (7.350-7.450) 10/03/20 11:20 POC ABG pCO2 35.1 mmHg (32.0-48.0) 10/03/20 03:04 ABG pCO2 35.7 mm Hg 10/03/20 11:20 POC ABG pO2 173.1 mmHg (83-108) H 10/03/20 03:04 ABG pO2 109.5 mm Hg (80.0-90.0) H 10/03/20 11:20 POC ABG HCO3 25.4 10/03/20 03:04 ABG HCO3 23.3 mmol/L (20.0-26.0) 10/03/20 11:20 ABG O2 Saturation 98.1 % (95.0-99.0) 10/03/20 11:20 ABG O2 Content 16.0 (0.0-44) 10/03/20 11:20 POC ABG Base Excess 2.2 10/03/20 03:04 ABG Base Excess -0.6 mmol/L (-2.0-3.0) 10/03/20 11:20 ABG Hemoglobin 11.7 gm/dl (14.0-18.0) L 10/03/20 11:20 ABG Oxyhemoglobin 98.8 (94-98) H 10/03/20 03:04 ABG Carboxyhemoglobin 1.4 % (0.0-5.0) 10/03/20 11:20 ABG Methemoglobin 0.6 % (0.0-1.5) 10/03/20 11:20 ABG Sodium 131.7 mmol/L (136.0-145.0) L 10/03/20 03:04 ABG Potassium 3.9 mmol/L (3.40-4.50) 10/03/20 03:04 ABG Chloride 105.0 mmol/L (98-107) 10/03/20 03:04 ABG Glucose 124 mg/dL (65-95) H 10/03/20 03:04 ABG Lactate 1.32 (0.18-30.0) 10/02/20 14:00 Oxyhemoglobin 96.2 % (95.0-99.0) 10/03/20 11: Carboxyhemoglobin 0.6 (0.5-1.5) 10/03/20 03:04 FiO2 25 % 10/03/20 11:20 FiO2 % 40.0 10/03/20 03:04 Sodium 140 mmol/L (137-145) 10/03/20 04:35 Potassium 4.3 mmol/L (3.6-5.0) D 10/03/20 04:35 Chloride 103.8 mmol/L (98-107) 10/03/20 04:35 Carbon Dioxide 26 mmol/L (22-30) 10/03/20 04:35 Anion Gap 15 mmol/L 10/03/20 04:35 BUN 13 mg/dL (9-20) 10/03/20 04:35 Creatinine 0.7 mg/dL (0.8-1.3) L 10/03/20 04:35 Estimated GFR > 60 ml/min 10/03/20 04:35 BUN/Creatinine Ratio 19 % 10/03/20 04:35 Glucose 109 mg/dL (75-100) H 10/03/20 04:35 POC Glucose 110 mg/dL (70-105) H 10/03/20 23:18 Calcium 10.3 mg/dL (8.4-10.2) H 10/03/20 04:35 Total Bilirubin 0.90 mg/dL (0.1-1.2) 10/03/20 04:35 AST 38 units/L (5-40) 10/03/20 04:35 ALT 13 units/L (7-56) 10/03/20 04:35 Alkaline Phosphatase 93 units/L (35-129) 10/03/20 04:35 Troponin T < 0.010 ng/mL (0.00-0.029) 10/02/20 13:45 NT-Pro-B Natriuret Pep 208.4 pg/mL (0-900) 10/02/20 13:45 Total Protein 6.4 g/dL (6.3-8.2) 10/03/20 04:35 Albumin 3.4 g/dL (3.9-5) L 10/03/20 04:35 Albumin/Globulin Ratio 1.1 % 10/03/20 04:35 Arterial Blood Glucose 124 mg/dL (65-95) H 10/03/20 03:04 Arterial Blood Ionized Calcium 5.2 mg/dL (4.6-5.3) 10/03/20 03:04 Urine Color Yellow (Yellow) 10/02/20 14:00 Urine Turbidity Clear (Clear) 10/02/20 14:00 Urine pH 5.0 (5.0-7.0) 10/02/20 14:00 Ur Specific [place] 1.014 (1.003-1.030) 10/02/20 14:00 Urine Protein <15 mg/dl mg/dL (Negative) 10/02/20 14:00 Urine Glucose (UA) Neg mg/dL (Negative) 10/02/20 14:00 Urine Ketones Neg mg/dL (Negative) 10/02/20 14:00 Urine Blood Sm (Negative) 10/02/20 14:00 Urine Nitrite Neg (Negative) 10/02/20 14:00 Urine Bilirubin Neg (Negative) 10/02/20 14:00 Urine Urobilinogen < 2.0 mg/dL (<2.0) 10/02/20 14:00 Ur Leukocyte Esterase Neg (Negative) 10/02/20 14:00 Urine WBC (Auto) 2.0 /HPF (0.0-6.0) 10/02/20 14:00 Urine RBC (Auto) 2.0 /HPF (0.0-6.0) 10/02/20 14:00 U Epithel Cells (Auto) < 1.0 /HPF (0-13.0) 10/02/20 14:00 Urine Mucus Few /HPF 10/02/20 14:00 Urine Opiates Screen Negative 10/02/20 14:00 Urine Methadone Screen Negative 10/02/20 14:00 Ur Barbiturates Screen Negative 10/02/20 14:00 Ur Phencyclidine Scrn Negative 10/02/20 14:00 Ur Amphetamines Screen Negative 10/02/20 14:00 U Benzodiazepines Scrn Presumptive positive 10/02/20 14:00 Urine Cocaine Screen Negative 10/02/20 14:00 U Marijuana (THC) Screen Negative 10/02/20 14:00 Drugs of Abuse Note Disclamer 10/02/20 14:00 Microbiology: Microbiology 10/02/20 16:00 Tracheal Aspirate Sputum Culture - Preliminary [place]/IV: Voiding Method Indwelling Catheter Active Medications - Current Medications Current Medications: Generic Name Dose Route Start Last Admin Trade Name Freq PRN Reason Stop Dose Admin Acetaminophen 650 mg 10/02/20 15:30 Acetaminophen 650 Mg Rect Supp MS Q6H PRN Pain MILD(1-3)/Fever >100.5/HERNANDEZ Albuterol 2.5 mg 10/02/20 17:00 Albuterol 2.5 Mg/3 Ml Nebu IH Q3HRT PRN Shortness Of Breath Famotidine 20 mg 10/02/20 16:00 10/03/20 21:47 Famotidine 20 Mg/2 Ml Inj IV 20 mg BID MARCIE Administration Hydralazine HCl 10 mg 10/03/20 15:17 10/04/20 03:40 Hydralazine 10 Mg Tab PO 10 mg Q6H PRN Administration Hypertension SBP > 160 Hydromorphone HCl 0.5 mg 10/02/20 15:30 Hydromorphone 1 Mg/1 Ml Inj IV Q12H PRN Pain , Severe (7-10) Hydrophilic Ointment 1 applic 10/02/20 16:00 Lip Therapy Vaseline TP Q2HR PRN Dry Lips Propofol 1,000 mg in 100 mls @ 1.905 mls/hr 10/02/20 15:30 10/03/20 17:54 Diprivan 10 Mg/Ml IV 0 mcg/kg/min TITR MARCIE 0 mls/hr Titration Protocol 5 MCG/KG/MIN Multi-Ingred Cream/Lotion/Oil/Oint 1 applic 10/02/20 15:30 Mineral Oil/Petrolatum, White Ophth Oint 3.5 Gm OU Q4H PRN Dry Eye(s) Oxycodone/Acetaminophen 1 tab 10/02/20 16:00 Oxycodone /Acetaminophen 5-325mg Tab PO Q12H PRN Pain, Moderate (4-6) Senna/Docusate Sodium 1 tab 10/02/20 16:00 10/03/20 21:47 Sennosides/Docusate Sodium 8.6/50 Mg Tab FEEDTUBE 1 tab BID MARCIE Administration Sodium Chloride 10 ml 10/02/20 22:00 10/03/20 21:47 Sodium Chloride 0.9% 10 Ml Flush Syringe IV 10 ml BID MARCIE Administration Sodium Chloride 10 ml 10/02/20 15:30 Sodium Chloride 0.9% 10 Ml Flush Syringe IV PRN PRN LINE FLUSH Nutrition/Malnutrition Assess - Dietary Evaluation Nutrition/Malnutrition Findings: Nutrition Notes Start: 10/03/20 12:08 Freq: Status: Active Protocol: Document 10/03/20 12:08 CW (Rec: 10/03/20 12:19 CW [id number]) Nutrition Notes Need for Assessment generated from: MD Order Initial or Follow up Assessment Current Diagnosis Respiratory Failure Other Pertinent Diagnosis cardiac arrest, malnutrition, alzheimer's Current Diet NPO Labs/Tests reviewed Pertinent Medications senokot propofol (not running at this time but ordered) Height 5 ft 11 in Weight 61.4 kg [place] Body Weight (kg) 78.18 BMI 18.8 Weight Status Underweight Subjective/Other Information MD consult for evaluate nutritional intake. Pt is currently on mechanical vent. Recommend initiating nutrition support. GI Symptoms None Difficulty In Swallowing Current % PO Negligible Minimum of two criteria No physical signs of malnutrition #1 Nutrition Diagnosis Inadequate oral intake Etiology respiratory failure As Evidenced by Signs and Symptoms pt on mechanical vent at this time Is patient on ventilator? Yes Is Patient Ambulatory and/or Out of Bed No REE-([facility]-confined to bed) 1616.388 Kcal/Kg value to use for calculation 35 Approximate Energy Requirements Using 2149 kcal/Kg Calculation Used for Recommendations Kcal/kg Additional Notes protein needs: 74 - 123 g (1.2 - 2g/kg) fluids needs: 1 ml/kcal or per MD Nutrition Intervention Change Diet Order: Diet advancement if medically feasible or nutrition support Nutrition Support: Vital AF at 65 ml/hr with a free water flush of 100 ml q4h . Kcal 1,872 Protein (gm) 117 Fluid (mL) 1,265 Goal #1 Initiate feeding Goal #2 Meet at least 75% of kcal and protein needs Anticipated Discharge Needs: unable to determine at this time Follow-Up By: 10/05/20 Additional Comments F/U extubation or TF consult
[2020-10-04 09:07] LABS: Blood Urea Nitrogen 20 mg/dL (9-20); Calcium 10.3 mg/dL (8.4-10.2); Hemolysis Index 5
[2020-10-04 09:08] LABS: BUN/Creatinine Ratio 29
[2020-10-04] MEDS: FAMOTIDINE 20 MG/2 ML INJ IV SCH ×2 (09:33→22:18)
[2020-10-04] MEDS: SENNOSIDES/DOCUSATE SODIUM 8.6/50 MG TAB FEEDTUBE SCH ×2 (09:33→22:11)
--- NOTE | 2020-10-04 11:20 | Progress Note ---
Assessment and Plan Acute hypoxemic respiratory failure on MVS Cardiopulmonary arrest with ROSC Protein calorie malnutrition h/o Dementia SBT today with plan to liberate from MVS if he tolerates it and meets weaning criteria -Titrate supplemental oxygen to keep SpO2 89-92% -VAP bundle addressed, aspiration precautions HOB >30 -Lung protective strategies -Follow up transthoracic echocardiogram - essentially normal -Nutritional support- Environmental Solutions Engineer for tube feeding. If liberated will get HIGH RIGGER for swallow evaluation, PT/OT to evaluate and treat -VTE prophylaxis -Stress ulcer prophylaxis -Mobility, off loading with frequent turning per facility protocol for pressure ulcer prevention (he is a high risk patient) -Nutritional support, OGT in place . Will start enteric nutritional support -Continue to avoid delirium, maintain sleep-wake cycle, avoid benzodiazepines -Supportive transfusions to keep HgB >7g/dL -Chronic home medications as clinically indicated CONDITION: CRITICAL PROGNOSIS: GUARDED CODE STATUS: FULL CODE The high probability of a clinically significant, sudden or life threatening deterioration of the [pulmonary,cardiovascular, neurology] system(s) required my full and direct attention, intervention and personal management. The aggregate critical care time was [33] minutes. This time is in addition to time spent performing reported procedures but includes the following: [x] Data Review and interpretation [x] Patient assessment and monitoring of vital signs [x] Documentation [x] Medication orders and management Subjective Date of service: 10/04/20 Interval history: Follow up for Cardiopulmonary arrest with ROSC, acute hypoxemic resp failure on MVS Seen and examined. Vitals, labs, medications, chart reviewed. Discussed with nursing and respiratory staff. No adverse overnight events. Patient is resting peacefully in bed, remains on mechanical vent support but obeys simple commands. No fevers, no diarrhea, no vomiting. NGT to LIS, no drainage Objective Vital Signs - 12hr 10/03/20 10/03/20 10/04/20 23:34 23:43 00:00 Temperature 99.2 F Pulse Rate 65 74 Respiratory 16 Rate Blood Pressure 157/84 160/85 O2 Sat by Pulse 100 99 Oximetry 10/04/20 10/04/20 10/04/20 00:05 00:06 01:00 Temperature Pulse Rate 78 69 Respiratory 18 17 Rate Blood Pressure 160/85 169/96 O2 Sat by Pulse 100 100 100 Oximetry 10/04/20 10/04/20 10/04/20 02:00 03:01 03:40 Temperature Pulse Rate 72 57 L 70 Respiratory 17 16 Rate Blood Pressure 185/102 172/85 172/85 O2 Sat by Pulse 100 100 Oximetry 10/04/20 10/04/20 10/04/20 04:00 04:20 05:00 Temperature 97.5 F L Pulse Rate 66 68 66 Respiratory 16 12 12 Rate Blood Pressure 160/86 160/86 160/86 O2 Sat by Pulse 100 100 100 Oximetry 10/04/20 10/04/20 10/04/20 06:00 07:00 08:00 Temperature Pulse Rate 101 H 66 70 Respiratory 19 17 13 Rate Blood Pressure 185/102 132/79 148/87 O2 Sat by Pulse 100 100 100 Oximetry 10/04/20 10/04/20 10/04/20 08:03 08:29 09:00 Temperature 98.7 F Pulse Rate 73 65 Respiratory 19 13 Rate Blood Pressure 148/87 136/76 O2 Sat by Pulse 100 100 Oximetry Constitutional: no acute distress, other (elderly) Eyes: non-icteric ENT: oropharynx dry, other (ETT 23 cm at the lip) Neck: supple, no lymphadenopathy, no JVD Effort: normal Ascultation: Bilateral: diminished breath sounds Cardiovascular: regular rate and rhythm, other (S1,S2) Gastrointestinal: normoactive bowel sounds, soft, non-tender Integumentary: normal Extremities: no cyanosis, no edema, pulses normal Neurologic: pupils equal and round, other (awake, alert, obeys simple commands) Psychiatric: affect normal CBC and BMP: 10/04/20 08:32 10/04/20 08:32 ABG, PT/INR, D-dimer: ABG ABG pH 7.432 pH Units (7.350-7.450) 10/03/20 11:20 POC ABG pCO2 35.1 mmHg (32.0-48.0) 10/03/20 03:04 ABG pCO2 35.7 mm Hg 10/03/20 11:20 POC ABG pO2 173.1 mmHg (83-108) H 10/03/20 03:04 ABG pO2 109.5 mm Hg (80.0-90.0) H 10/03/20 11:20 POC ABG HCO3 25.4 10/03/20 03:04 ABG O2 Saturation 98.1 % (95.0-99.0) 10/03/20 11:20 PT/INR, D-dimer D-Dimer 5468.25 ng/mlDDU (0-234) H 10/02/20 13:45 Abnormal lab findings: Abnormal Labs 10/02/20 10/02/20 10/02/20 13:45 13:45 13:45 WBC RDW 16.2 H Lymph % (Auto) 7.6 L [place] % (Auto) 9.1 H Lymph # (Auto) 0.5 L [place] # (Auto) Seg Neutrophils % 82.6 H Seg Neutrophils # D-Dimer 5468.25 H ABG pH POC ABG pO2 ABG pO2 ABG Hemoglobin ABG Oxyhemoglobin ABG Sodium ABG Potassium ABG Chloride ABG Glucose Carboxyhemoglobin Potassium 3.4 L Carbon Dioxide 21 L Creatinine Glucose 112 H POC Glucose Calcium Total Protein 5.7 L Albumin 3.1 L Arterial Blood Glucose 10/02/20 10/03/20 10/03/20 14:00 03:04 04:35 WBC 13.2 H RDW 15.9 H Lymph % (Auto) 5.1 L [place] % (Auto) 7.9 H Lymph # (Auto) 0.7 L [place] # (Auto) 1.0 H Seg Neutrophils % 86.8 H Seg Neutrophils # 11.5 H D-Dimer ABG pH 7.478 H POC ABG pO2 543.4 H 173.1 H ABG pO2 ABG Hemoglobin 11.7 L ABG Oxyhemoglobin 99.4 H 98.8 H ABG Sodium 131.7 L ABG Potassium 3.3 L ABG Chloride 110.0 H ABG Glucose 102 H 124 H Carboxyhemoglobin 0.3 L Potassium Carbon Dioxide Creatinine Glucose POC Glucose Calcium Total Protein Albumin Arterial Blood Glucose 102 H 124 H 10/03/20 10/03/20 10/03/20 04:35 11:20 23:18 WBC RDW Lymph % (Auto) [place] % (Auto) Lymph # (Auto) [place] # (Auto) Seg Neutrophils % Seg Neutrophils # D-Dimer ABG pH POC ABG pO2 ABG pO2 109.5 H ABG Hemoglobin 11.7 L ABG Oxyhemoglobin ABG Sodium ABG Potassium ABG Chloride ABG Glucose Carboxyhemoglobin Potassium Carbon Dioxide Creatinine 0.7 L Glucose 109 H POC Glucose 110 H Calcium 10.3 H Total Protein Albumin 3.4 L Arterial Blood Glucose 10/04/20 10/04/20 08:32 08:32 WBC RDW 15.4 H Lymph % (Auto) 8.5 L [place] % (Auto) 12.7 H Lymph # (Auto) 0.8 L [place] # (Auto) 1.2 H Seg Neutrophils % 78.4 H Seg Neutrophils # D-Dimer ABG pH POC ABG pO2 ABG pO2 ABG Hemoglobin ABG Oxyhemoglobin ABG Sodium ABG Potassium ABG Chloride ABG Glucose Carboxyhemoglobin Potassium Carbon Dioxide Creatinine 0.7 L Glucose POC Glucose Calcium 10.3 H Total Protein Albumin Arterial Blood Glucose Chest x-ray: image reviewed Allied health notes reviewed: RT
--- NOTE | 2020-10-04 12:48 | Consultation ---
History of Present Illness Consult date: 10/04/20 Requesting physician: MARK CALVERT Consult reason: cardiac arrest History of present illness: This patient is a 83-year-old male with a significant history of dementia, cerebral atherosclerosis, malnutrition. He is previously unknown to our practice. Patient presents to [facility] ER via EMS s/p cardiac arrest of unknown rhythm. ROSC was obtained in the field. Patient was intubated due to respiratory failure secondary to cardiac arrest but has been extubated at this point. Thus history is obtained via the chart. Cardiology is consulted for post cardiac arrest care. At time of interview patient was awake and interactive but unable to answer questions due to to confusion. Past History Past Medical History: other (See HPI) Past Surgical History: No surgical history, Other (Unable to obtain) Social history: no significant social history, other (Unable to obtain) Family history: diabetes, hypertension Medications and Allergies Allergies Allergy/AdvReac Type Severity Reaction Status Date / Time No Known Allergies Allergy Unverified 10/02/20 16:50 Home Medications Medication Instructions Recorded Confirmed Last Taken Type Aspirin [Aspirin BABY CHEW TAB] 81 mg PO QDAY 10/02/20 10/02/20 Unknown History Donepezil HCl [Donepezil HCl Odt] 10 mg PO QDAY 10/02/20 10/02/20 Unknown History Finasteride [Proscar] 5 mg PO QDAY 10/02/20 10/02/20 Unknown History Tamsulosin [Flomax] 0.8 mg PO QDAY 10/02/20 10/02/20 Unknown History amLODIPine [Norvasc] 5 mg PO DAILY 10/02/20 10/02/20 Unknown History Active Meds: Active Medications Acetaminophen (Acetaminophen 650 Mg Rect Supp) 650 mg IA Q6H PRN PRN Reason: Pain MILD(1-3)/Fever >100.5/HERNANDEZ Albuterol (Albuterol 2.5 Mg/3 Ml Nebu) 2.5 mg IH Q3HRT PRN PRN Reason: Shortness Of Breath Famotidine (Famotidine 20 Mg/2 Ml Inj) 20 mg IV BID MARCIE Last Admin: 10/04/20 09:33 Dose: 20 mg Documented by: Hydralazine HCl (Hydralazine 10 Mg Tab) 10 mg PO Q6H PRN PRN Reason: Hypertension SBP > 160 Last Admin: 10/04/20 03:40 Dose: 10 mg Documented by: Hydromorphone HCl (Hydromorphone 1 Mg/1 Ml Inj) 0.5 mg IV Q12H PRN PRN Reason: Pain , Severe (7-10) Hydrophilic Ointment (Lip Therapy Vaseline) 1 applic TP Q2HR PRN PRN Reason: Dry Lips Propofol (Diprivan 10 Mg/Ml) 1,000 mg in 100 mls @ 1.905 mls/hr IV TITR [facility]; Protocol Last Titration: 10/03/20 17:54 Dose: 0 mcg/kg/min, 0 mls/hr Documented by: Multi-Ingred Cream/Lotion/Oil/Oint (Mineral Oil/Petrolatum, White Ophth Oint 3.5 Gm) 1 applic OU Q4H PRN PRN Reason: Dry Eye(s) Oxycodone/Acetaminophen (Oxycodone /Acetaminophen 5-325mg Tab) 1 tab PO Q12H PRN PRN Reason: Pain, Moderate (4-6) Senna/Docusate Sodium (Sennosides/Docusate Sodium 8.6/50 Mg Tab) 1 tab FEEDTUBE BID [facility] Last Admin: 10/04/20 09:33 Dose: 1 tab Documented by: Sodium Chloride (Sodium Chloride 0.9% 10 Ml Flush Syringe) 10 ml IV BID [facility] Last Admin: 10/04/20 09:33 Dose: 10 ml Documented by: Sodium Chloride (Sodium Chloride 0.9% 10 Ml Flush Syringe) 10 ml IV PRN PRN PRN Reason: LINE FLUSH Review of Systems ROS unobtainable: due to mental status Physical Examination Last Vital Signs Temp 98.8 F 10/04/20 11:56 Pulse 76 10/04/20 12:00 Resp 16 10/04/20 12:00 BP 143/89 10/04/20 12:00 Pulse Ox 99 10/04/20 12:00 General appearance: no acute distress HEENT: Positive: Normocephaly, Mucus Membranes Moist Neck: Positive: neck supple, trachea midline Cardiac: Positive: Reg Rate and Rhythm, S1/S2 Lungs: Positive: Normal Exam, Normal Breath Sounds Neuro: Positive: Grossly Intact Abdomen: Positive: Unremarkable, Soft Skin: Negative: Rash Musculoskeletal: No Pain Extremities: Present: upper extr. pulses, lower extr. pulses. Absent: edema Results 10/04/20 08:32 10/04/20 08:32 CBC 10/04/20 Range/Units 08:32 WBC 9.4 (4.5-11.0) K/mm3 RBC 4.35 (3.65-5.03) M/mm3 Hgb 13.2 (11.8-15.2) gm/dl Hct 39.2 (35.5-45.6) % Plt Count 219 (140-440) K/mm3 Lymph # (Auto) 0.8 L (1.2-5.4) K/mm3 [place] # (Auto) 1.2 H (0.0-0.8) K/mm3 Eos # (Auto) 0.0 (0.0-0.4) K/mm3 Baso # (Auto) 0.0 (0.0-0.1) K/mm3 Comprehensive Metabolic Panel 10/04/20 Range/Units 08:32 Sodium 138 (137-145) mmol/L Potassium 4.2 (3.6-5.0) mmol/L Chloride 102.6 (98-107) mmol/L Carbon Dioxide 25 (22-30) mmol/L BUN 20 (9-20) mg/dL Creatinine 0.7 L (0.8-1.3) mg/dL Glucose 94 (75-100) mg/dL Calcium 10.3 H (8.4-10.2) mg/dL - Imaging and Cardiology Echo: report reviewed (Echocardiogram 10/03/2020: LVEF is 55 to 60%. LV normal size. LV SF normal. RV SF normal. No valvular abnormalities) EKG: report reviewed, image reviewed EKG interpretations - Telemetry EKG Rhythm: Sinus Rhythm - EKG Sinus rhythms and dysrhythmias: sinus rhythm Assessment and Plan S/p cardiac arrest with ROSC in the field * Cardiac arrhythmia during arrest is unknown. Patient is currently extubated and interactive, but unable to answer questions due to advanced dementia/conf usion * Review of telemetry shows sinus rhythm 85 with no events. Continue to monitor on telemetry * Patient is in no apparent distress. Twelve-lead ECG shows sinus rhythm 64 with no acute ischemic changes. Troponins negative x1. Will repeat troponin. * Echocardiogram 10/03/2020: LVEF is 55 to 60%. LV normal size. LV SF normal. RV SF normal. No valvular abnormalities We will follow This patient was seen in conjunction with Dr Espinoza who agrees with this assessment and plan of care - Patient Problems (1) Acute hypoxemic respiratory failure Current Visit: Yes Status: Acute (2) Alzheimer's dementia Current Visit: Yes Status: Chronic (3) Cardiac arrest Current Visit: Yes Status: Acute (4) DVT prophylaxis Current Visit: Yes Status: Acute
[2020-10-04] MEDS: ACETAMINOPHEN 650 MG RECT SUPP PR PRN (20:18)
[2020-10-05 05:21] LABS: Hemoglobin 13.9 gm/dl (11.8-15.2); Mean Corpuscular HGB Conc 33 % (32-34); Mean Corpuscular Volume 91 fl (84-94); Platelet Count 227 K/mm3 (140-440); Red Blood Count 4.65 M/mm3 (3.65-5.03); Red Cell Distribution Width 15.5 % (13.2-15.2)
[2020-10-05 05:36] LABS: Blood Urea Nitrogen 24 mg/dL (9-20); Calcium 10.2 mg/dL (8.4-10.2); Hemolysis Index 7
[2020-10-05 05:41] LABS: BUN/Creatinine Ratio 34
--- NOTE | 2020-10-05 06:21 | XRay Report ---
XR chest 1V ap INDICATION / CLINICAL INFORMATION: follow up respiratory failure. COMPARISON: Radiograph from yesterday. FINDINGS: Patient is rotated to the right. SUPPORT DEVICES: Endotracheal tube and enteric catheter has been removed. HEART /PULMONARY VASCULATURE: The thoracic aorta is tortuous. There is mild cardiac enlargement witho ut pulmonary vasculature congestion. LUNGS / PLEURA: New moderate right pleural effusion and adjacent airspace opacity. No pneumothorax. IMPRESSION: New moderate right pleural effusion and adjacent airspace opacity, which may reflect atelectasis or p neumonia. Signer Name: Manjit Mantilla MD Signed: 10/05/2020 6:17 AM Workstation Name: [id number]
[2020-10-05] MEDS ORDERED: HALOPERIDOL LACTATE 5 MG/1 ML INJ IV PRN (08:52)
--- NOTE | 2020-10-05 09:50 | Progress Note ---
Assessment and Plan Acute hypoxemic respiratory failure s/p MVS -extubated 10/04/2020 Cardiopulmonary arrest with ROSC Protein calorie malnutrition h/o Dementia -Titrate supplemental oxygen to keep SpO2 89-92% -Aspiration precautions, HOB >30 -Airway clearance, incentive spirometry -If he fails dysphagia screen today, will place a small bowel feeding tube for nutritional support -Resume Flomax/Proscar and discontinue [place] catheter -VTE prophylaxis -Stress ulcer prophylaxis -Mobility, off loading with frequent turning per facility protocol for pressure ulcer prevention (he is a high risk patient) -Continue to avoid delirium, maintain sleep-wake cycle, avoid benzodiazepines -Supportive transfusions to keep HgB >7g/dL -Chronic home medications as clinically indicated -Discharge planning CONDITION: FAIR PROGNOSIS: FAIR CODE STATUS: FULL CODE Subjective Date of service: 10/05/20 Interval history: Follow up for Cardiopulmonary arrest with ROSC, acute hypoxemic resp failure s/p MVS Seen and examined. Vitals, labs, medications, chart reviewed. Discussed with nursing and respiratory staff. No adverse overnight events. Patient is resting peacefully in bed, extubated yesterday and is doing well. Has required NT suctioning, voice has a nasal quality. Very soft voice. Failed dysphagia screen by [employer] yesterday No fevers, no diarrhea, no vomiting. Discussed in MDR Objective Vital Signs - 12hr 10/04/20 10/04/20 10/05/20 22:00 23:00 00:00 Temperature 97.8 F Pulse Rate 105 H 103 H 102 H Pulse Rate [ 102 H From Monitor] Respiratory 32 H 43 H 29 H Rate Blood Pressure 134/83 143/87 154/95 O2 Sat by Pulse 97 95 93 Oximetry 10/05/20 10/05/20 10/05/20 00:04 01:00 02:00 Temperature Pulse Rate 102 H 99 H 89 Pulse Rate [ From Monitor] Respiratory 35 H 28 H 25 H Rate Blood Pressure 154/95 150/93 147/88 O2 Sat by Pulse 94 94 96 Oximetry 10/05/20 10/05/20 10/05/20 03:00 04:00 05:00 Temperature 98 F Pulse Rate 79 81 73 Pulse Rate [ 69 From Monitor] Respiratory 24 26 H 25 H Rate Blood Pressure 148/88 149/93 149/83 O2 Sat by Pulse 97 96 96 Oximetry 10/05/20 10/05/20 10/05/20 06:00 07:00 08:00 Temperature 98.2 F Pulse Rate 69 62 73 Pulse Rate [ 69 From Monitor] Respiratory 23 20 25 H Rate Blood Pressure 156/80 159/68 154/78 O2 Sat by Pulse 95 97 95 Oximetry 10/05/20 10/05/20 08:22 09:00 Temperature Pulse Rate 81 Pulse Rate [ From Monitor] Respiratory 26 H Rate Blood Pressure 154/82 O2 Sat by Pulse 96 97 Oximetry Constitutional: no acute distress, alert Eyes: non-icteric ENT: oropharynx dry, other (soft voice) Neck: supple, no lymphadenopathy, no JVD Effort: normal Ascultation: Bilateral: diminished breath sounds Cardiovascular: regular rate and rhythm, other (S1,S2) Gastrointestinal: normoactive bowel sounds, soft, non-tender Integumentary: normal Extremities: no cyanosis, no edema, pulses normal Neurologic: normal mental status, non-focal exam, pupils equal and round, CN II- XII normal, motor strength normal and Psychiatric: mood appropriate, affect normal CBC and BMP: 10/05/20 04:43 10/05/20 04:43 ABG, PT/INR, D-dimer: ABG ABG pH 7.432 pH Units (7.350-7.450) 10/03/20 11:20 POC ABG pCO2 35.1 mmHg (32.0-48.0) 10/03/20 03:04 ABG pCO2 35.7 mm Hg 10/03/20 11:20 POC ABG pO2 173.1 mmHg (83-108) H 10/03/20 03:04 ABG pO2 109.5 mm Hg (80.0-90.0) H 10/03/20 11:20 POC ABG HCO3 25.4 10/03/20 03:04 ABG O2 Saturation 98.1 % (95.0-99.0) 10/03/20 11:20 PT/INR, D-dimer D-Dimer 5468.25 ng/mlDDU (0-234) H 10/02/20 13:45 Abnormal lab findings: Abnormal Labs 10/02/20 10/02/20 10/02/20 13:45 13:45 13:45 WBC RDW 16.2 H Lymph % (Auto) 7.6 L Cherry % (Auto) 9.1 H Lymph # (Auto) 0.5 L Cherry # (Auto) Seg Neutrophils % 82.6 H Seg Neutrophils # D-Dimer 5468.25 H ABG pH POC ABG pO2 ABG pO2 ABG Hemoglobin ABG Oxyhemoglobin ABG Sodium ABG Potassium ABG Chloride ABG Glucose Carboxyhemoglobin Potassium 3.4 L Carbon Dioxide 21 L BUN Creatinine Glucose 112 H POC Glucose Calcium Total Protein 5.7 L Albumin 3.1 L Arterial Blood Glucose 10/02/20 10/03/20 10/03/20 14:00 03:04 04:35 WBC 13.2 H RDW 15.9 H Lymph % (Auto) 5.1 L Cherry % (Auto) 7.9 H Lymph # (Auto) 0.7 L Cherry # (Auto) 1.0 H Seg Neutrophils % 86.8 H Seg Neutrophils # 11.5 H D-Dimer ABG pH 7.478 H POC ABG pO2 543.4 H 173.1 H ABG pO2 ABG Hemoglobin 11.7 L ABG Oxyhemoglobin 99.4 H 98.8 H ABG Sodium 131.7 L ABG Potassium 3.3 L ABG Chloride 110.0 H ABG Glucose 102 H 124 H Carboxyhemoglobin 0.3 L Potassium Carbon Dioxide BUN Creatinine Glucose POC Glucose Calcium Total Protein Albumin Arterial Blood Glucose 102 H 124 H 10/03/20 10/03/20 10/03/20 04:35 11:20 23:18 WBC RDW Lymph % (Auto) Cherry % (Auto) Lymph # (Auto) Cherry # (Auto) Seg Neutrophils % Seg Neutrophils # D-Dimer ABG pH POC ABG pO2 ABG pO2 109.5 H ABG Hemoglobin 11.7 L ABG Oxyhemoglobin ABG Sodium ABG Potassium ABG Chloride ABG Glucose Carboxyhemoglobin Potassium Carbon Dioxide BUN Creatinine 0.7 L Glucose 109 H POC Glucose 110 H Calcium 10.3 H Total Protein Albumin 3.4 L Arterial Blood Glucose 10/04/20 10/04/20 10/05/20 08:32 08:32 04:43 WBC 12.8 H RDW 15.4 H 15.5 H Lymph % (Auto) 8.5 L Cherry % (Auto) 12.7 H Lymph # (Auto) 0.8 L [place] # (Auto) 1.2 H Seg Neutrophils % 78.4 H Seg Neutrophils # D-Dimer ABG pH POC ABG pO2 ABG pO2 ABG Hemoglobin ABG Oxyhemoglobin ABG Sodium ABG Potassium ABG Chloride ABG Glucose Carboxyhemoglobin Potassium Carbon Dioxide BUN Creatinine 0.7 L Glucose POC Glucose Calcium 10.3 H Total Protein Albumin Arterial Blood Glucose 10/05/20 04:43 WBC RDW Lymph % (Auto) Cherry % (Auto) Lymph # (Auto) [place] # (Auto) Seg Neutrophils % Seg Neutrophils # D-Dimer ABG pH POC ABG pO2 ABG pO2 ABG Hemoglobin ABG Oxyhemoglobin ABG Sodium ABG Potassium ABG Chloride ABG Glucose Carboxyhemoglobin Potassium Carbon Dioxide BUN 24 H Creatinine 0.7 L Glucose 104 H POC Glucose Calcium Total Protein Albumin Arterial Blood Glucose Allied health notes reviewed: RT
[2020-10-05] MEDS ORDERED: DONEPEZIL 10 MG TAB PO SCH (10:00)
[2020-10-05] MEDS ORDERED: amLODIPine 5 MG TAB PO SCH (10:00)
[2020-10-05] MEDS: FAMOTIDINE 20 MG/2 ML INJ IV SCH ×2 (11:09→21:11)
[2020-10-05] MEDS: TAMSULOSIN 0.4 MG CAP PO SCH (11:09)
[2020-10-05] MEDS: FINASTERIDE 5 MG TAB PO SCH (12:43)
--- NOTE | 2020-10-05 12:58 | Progress Note ---
Assessment and Plan S/p cardiac arrest with ROSC in the field * Cardiac arrhythmia during arrest is unknown. Patient is currently extubated and interactive, but unable to answer questions due to advanced dementia/confusion * Patient is in no apparent distress. Twelve-lead ECG shows sinus rhythm 64 with no acute ischemic changes. Troponins negative x2. AMI ruled out * Echocardiogram 10/03/2020: LVEF is 55 to 60%. LV normal size. LV SF normal. RV SF normal. No valvular abnormalities CODE BLUE was called and the 1452 this day. Initial rhythm appears to be A. fib with significant ventricular ectopy versus polymorphic V. tach. ROSC was obtained after several rounds of ACLS. Patient is currently intubated with central venous line placed. Patient received 2 g of mag after ROSC. Stat twelve-lead EKG and repeat labs are pending. Post ROSC telemetry reveals atrial fibrillation RVR with a rate of 140 with frequent PVCs. Will initiate amiodarone drip with 150 mg loading dose with target heart rate under 110. Recommend discontinuing QT prolonging medications Aricept and Haldol. Caution with other QT prolonging medications. Review of telemetry shows no ectopy. Will follow This patient was seen in conjunction with Dr Espinoza who agrees with this assessment and plan of care - Patient Problems (1) Acute hypoxemic respiratory failure Current Visit: Yes Status: Acute (2) Alzheimer's dementia Current Visit: Yes Status: Chronic (3) Cardiac arrest Current Visit: Yes Status: Acute (4) DVT prophylaxis Current Visit: Yes Status: Acute Subjective Date of service: 10/05/20 Principal diagnosis: s/p cardiac arrest Interval history: Patient resting in bed alert and confused. Unknown baseline mental status in setting of known severe dementia Telemetry reviewed shows sinus rhythm 66. No events Objective Last Vital Signs Temp 99.7 F H 10/05/20 12:00 Pulse 81 10/05/20 09:00 Resp 26 H 10/05/20 09:00 BP 154/82 10/05/20 09:00 Pulse Ox 97 10/05/20 09:00 - Physical Examination HEENT: Positive: Normocephaly, Mucus Membranes Moist Neck: Positive: neck supple, trachea midline Cardiac: Positive: Reg Rate and Rhythm, S1/S2 Lungs: Positive: Normal Exam, Normal Breath Sounds Neuro: Positive: Grossly Intact Abdomen: Positive: Unremarkable, Soft Skin: Negative: Rash Musculoskeletal: No Pain Extremities: Present: upper extr. pulses, lower extr. pulses. Absent: edema - Labs and Meds CBC 10/05/20 Range/Units 04:43 WBC 12.8 H (4.5-11.0) K/mm3 RBC 4.65 (3.65-5.03) M/mm3 Hgb 13.9 (11.8-15.2) gm/dl Hct 42.0 (35.5-45.6) % Plt Count 227 (140-440) K/mm3 Comprehensive Metabolic Panel 10/05/20 Range/Units 04:43 Sodium 141 (137-145) mmol/L Potassium 4.1 (3.6-5.0) mmol/L Chloride 105.4 (98-107) mmol/L Carbon Dioxide 25 (22-30) mmol/L BUN 24 H (9-20) mg/dL Creatinine 0.7 L (0.8-1.3) mg/dL Glucose 104 H (75-100) mg/dL Calcium 10.2 (8.4-10.2) mg/dL - Imaging and Cardiology EKG: report reviewed, image reviewed Echo: report reviewed (Echocardiogram 10/03/2020: LVEF is 55 to 60%. LV normal size. LV SF normal. RV SF normal. No valvular abnormalities) - Telemetry EKG Rhythm: Sinus Rhythm - EKG Sinus rhythms and dysrhythmias: sinus rhythm - Allied health notes Allied health notes reviewed: RT
[2020-10-05] MEDS ORDERED: EPINEPHrine 1 MG/10 ML SYRINGE ONE (14:00)
[2020-10-05] MEDS ORDERED: ATROPINE 0.1% (1 MG/10 ML) CARDIAC SYRINGE ONE (14:41)
[2020-10-05] MEDS ORDERED: DOPamine/D5W 800 MG/250 ML 800 MG/250 ML BAG IV ONE (14:43)
[2020-10-05] MEDS ORDERED: LACTATED RINGERS 1,000 ML ONE (14:49)
[2020-10-05] MEDS ORDERED: NORepinephrine/NS 4 MG-250 ML 4 MG/250 ML BAG IV ONE (14:50)
[2020-10-05] MEDS ORDERED: ATROPINE 0.1% (1 MG/10 ML) CARDIAC SYRINGE IV ONE (14:58)
[2020-10-05] MEDS ORDERED: SUCCINYLCHOLINE CHLORIDE 200 MG/10 ML INJ MDV ONE (14:58)
[2020-10-05] MEDS ORDERED: ROCURONIUM 50 MG/5 ML INJ IV ONE (14:58)
[2020-10-05] MEDS ORDERED: ETOMIDATE 20 MG/10 ML INJ IV ONE ×2 (14:58→15:21)
[2020-10-05] MEDS ORDERED: LACTATED RINGERS 1,000 ML IV ONE ×2 (15:00→20:15)
[2020-10-05] MEDS ORDERED: NORepinephrine/NS 4 MG-250 ML 4 MG/250 ML BAG IV SCH (15:00)
--- NOTE | 2020-10-05 15:21 | Event Note ---
Date: 10/05/20 LONNIE LLOYD was called and the 1452 this day. Initial rhythm appears to be A. fib with significant ventricular ectopy versus polymorphic V. tach. ROSC was obtained after several rounds of ACLS. Patient is currently intubated with central venous line placed. Patient received 2 g of mag after ROSC. Stat twelve-lead EKG and repeat labs are pending. Post ROSC telemetry reveals atrial fibrillation RVR with a rate of 140 with frequent PVCs. Will initiate amiodarone drip with 150 mg loading dose with target heart rate under 110. Recommend discontinuing QT prolonging medications Aricept and Haldol. Caution with other QT prolonging medications. NELLIE Baptiste [facility] heart specialists collaborating with Dr Espinoza [facility] heart specialists
[2020-10-05 15:50] LABS: Basophils % (Auto) 0.4 % (0.0-1.8); Eosinophils % (Auto) 0.1 % (0.0-4.3); Hematocrit 39.4 % (35.5-45.6); Hemoglobin 12.5 gm/dl (11.8-15.2); Lymphocytes % (Auto) 8.3 % (13.4-35.0); Mean Corpuscular HGB Conc 32 % (32-34); Mean Corpuscular Volume 93 fl (84-94); Monocytes % (Auto) 8.4 % (0.0-7.3); Platelet Count 220 K/mm3 (140-440); Red Blood Count 4.25 M/mm3 (3.65-5.03); Red Cell Distribution Width 15.4 % (13.2-15.2)
[2020-10-05] MEDS ORDERED: SUCCINYLCHOLINE CHLORIDE 200 MG/10 ML INJ MDV IV ONE (15:51)
[2020-10-05] MEDS ORDERED: AMIODARONE 150 MG in DEXTROSE 5% IN WATER 97 ML IV ONE (16:00)
[2020-10-05] MEDS ORDERED: MAGNESIUM SULFATE 2 GM/50 ML BAG IV ONE (16:00)
[2020-10-05] MEDS ORDERED: AMIODARONE 900 MG in DEXTROSE 5% IN WATER 482 ML IV SCH (16:00)
[2020-10-05] MEDS ORDERED: VASOPRESSIN 20 UNIT in SODIUM CHLORIDE 0.9% 100 ML IV SCH (16:00)
--- NOTE | 2020-10-05 16:11 | XRay Report ---
CHEST 1 VIEW 10/05/2020 3:04 PM INDICATION / CLINICAL INFORMATION: intubation/ right femoral central line/ NG tube. COMPARISON: 10/05/2020, 0556 hours FINDINGS: Patient is rotated SUPPORT DEVICES: Tip of endotracheal tube is approximately 5 cm above the george. Nasogastric tube pr ojects over the left aspect of the mediastinum and the tip descends below the diaphragm. The tip belo w the level of the radiograph. HEART / MEDIASTINUM: No significant abnormality. LUNGS / PLEURA: Patchy airspace opacity noted in the right lower lung zone in the left base. No pneum othorax. ADDITIONAL FINDINGS: No significant additional findings. IMPRESSION: 1. No pneumothorax is seen. There is patchy airspace opacity in the right lower lung zone and the lef t Signer Name: Gopal Morales MD Signed: 10/05/2020 4:07 PM Workstation Name: [id number]
--- NOTE | 2020-10-05 16:14 | Event Note ---
Date: 10/05/20 Approx 1450--Called to pt's room for SB to 38 with hypotension (MAP 40) AMS, not following commands unable to control secretions- drooling initially femoral pulse was palpable QT < 500 per EKG Atropine x 1 given for bradycardia 1L LR pacing pads placed dopamine started- HR increased HR then became tachycardic with torsades (short run) ... then afib RVR but with no pulse (PEA) CPR started per ACLS protocol epi x 1 given See code sheet Cardiology on the unit- orders noted Dr Chacon at bedside On first pulse check pt had regained femoral pulse NE started for MAP goal 70 Medicated with etomidate and succinycholine given pre intubation Intubated with 7.5 ETT 22 cm at teeth with glidescope cords visualized; on first attempt Color change noted on end tidal monitor xray ordered pulm critical care updated on events horace esqueda placed r fem central line and l radial joao inserted by Lady Bustillo RN CARDIOVASCULAR family updated on events PLAN stat labs EKG culture- blood, sputum, urine vanc/cefipime initiated
--- NOTE | 2020-10-05 16:27 | Procedure Note ---
Date of procedure: 10/05/20 Pre-op diagnosis: s/p cardiac arrest, acute respiratory failure s/p MV Post-op diagnosis: same Procedure: Right radial joao inserted using sterile technique. Ulnar pulse palpable. David test completed. Area prepped with chlorhexidine and the site was infiltrated with 1ml 1% lidocaine. Arterial line was placed using ultrasound; catheter advanced without difficulty. Line was sutured, biopatch placed and tegaderm dressing applied. No stat-lock a vailable to be applied. Arm board placed. Arterial waveform observed on bedside monitor. Line flushed and zeroed. RN at bedside. Pt tolerated procedure well. Anesthesia: local Surgeon: IGLESIA PADILLA Pelts Skinner: SHONA LOONEY Estimated blood loss: minimal Pathology: none Condition: critical Disposition: ICU
[2020-10-05 16:31] LABS: INR 1.21 (0.87-1.13)
--- NOTE | 2020-10-05 16:32 | Procedure Note ---
Date of procedure: 10/05/20 Post-op diagnosis: same Procedure: Emergent femoral central venous line placement during Respiratory arrest Right femoral CVL TLC placed, over the wire without difficulty using ultrasound guidance. Area prepped with chlorhexidine. Line was sutured, biopatch placed and tegaderm dressing applied. Pt tolerated procedure well. VS remained stable throughout procedure. (time spent placing line not included in daily critical care time) Anesthesia: local Surgeon: IGLESIA PADILLA Order Schedule Clerk: SHONA LOONEY Estimated blood loss: minimal Condition: critical Disposition: ICU
--- NOTE | 2020-10-05 16:42 | Progress Note ---
Assessment and Plan Assessment and plan: This is a 80 year old male with Vascular Dementia, Cerebral Atherosclerosis, with malnutrition admitted post cardiac arrest, acute hypoxic respiratory failure now s/p cardio-resp arrest on 10/05 Neuro: Vascular Dementia -10/02 CT head shows disproportionate temporal and parietal lobe atrophy suggests possibility of Alzheimer's dementia, moderate global parenchymal atrophy, no acute intracranial abnormalities are identified. -Fall aspiration precautions -Resume home Aricept -Currently on fentanyl gtt -B wrist restraints in place for safety CV: s/p cardiac arrest -Cardiology consulted, appreciate recommendations -10/04 Echo shows EF 55-60%, transmitral Doppler flow pattern suggests impaired LV function Afib -Amio bolus and gtt -Cardiology consulted Short Runs of Vtach/Possible torsades -noted during arrest 10/05 -2g Mag -Mag level pending -Trend BMP/Mag Hypotension -Given 1 L NS bolus today -Levophed gtt for map>65 Respiratory: s/p Cardio respiratory arrest on 10/05 -reuntibated -Cardio and CCM following, appreciate recommendations Acute hypoxemic respiratory failure -CCM consulted, appreciate recommendations -Extuabted 10/04 but reintubated 10/05 -VAP bundle -10/05 Tracheal aspirate culture -SBT per protocol -Wean as tolerated FEN/GI Malnutrition -ST eval, cleared for puree diet -NGT for now -Ntr consult for TF -Trend BMP -Nutritional supplements Urinary Retention -Resume home Proscar and Flomax -De [place] in place, asses ability to remove tomorrow Skin NAD GI/DVT prophylaxis: PPI, lovenox subq, SCDs to BLE while in bed Dispo: ICU Lines: Right Femoral CVL TLC (10/05), Right radial joao (10/05) The high probability of a clinically significant, sudden or life threatening deterioration of the [neuro, pulmonary,] system(s) required my full and direct attention, intervention and personal management. The aggregate critical care time was [65] minutes. This time is in addition to time spent performing reported procedures but includes the following: [x] Data Review and interpretation [x] Patient assessment and monitoring of vital signs [x] Documentation [x] Medication orders and management History Interval history: 80 YO Male with Vascular Dementia, Cerebral Atherosclerosis, Malnutrition who presented to the ED on 10/02 via EMS after being found unresponsive by family and upon arrival the patient was found to be in distress and subsequently developed cardiac arrest and was treated with ACLS protocol with eventual return of perfusing cardiac rhythm and transported to [facility]. Upon arrival to the ED he was found to be in acute respiratory failure secondary to cardiac arrest and unable able to protect his airway. Patient was intubated and placed on ventilatory support. Patient admitted to ICU for further care and evaluation. Critical care team consulted in ED. 10/03: Continue supportive care, noted leukoctosis, ?reactive. Will continue to assess, consult cardiology in am. 10/04: Continues on full ventilatory support awake alert oriented will attempt extubation today according to the nursing staff plan discussed with beam doffer. Nuclear Unit Operator consulted for further input considering out of hospital cardiac arrest. Echocardiogram completed awaiting results 10/05: Patient was extubated yesterday and was cleared for puree diet by . Patient was to be downgraded from the ICU. This evening the patient was noted to be SB and responded to atropine. Patient was gargling and dopamine gtt was started briefly and stopped r/t tachycardia, short runs of vtach then the patient was noted to be in PEA. See code sheet and event note for details. I updated daughter over phone of current events. Started on empiric abx, femoral TLC and joao placed. Cultures sent. Cardio ordered amio and mag was given. Hospitalist Physical - Constitutional Vitals: Temp Pulse Resp BP Pulse Ox 99.7 F H 77 25 H 141/79 98 10/05/20 12:00 10/05/20 13:00 10/05/20 13:00 10/05/20 13:00 10/05/20 13:00 General appearance: Present: no acute distress, other (sedated) - EENT Eyes: Present: PERRL ENT: poor dentition - Neck Neck: Present: normal ROM - Respiratory Respiratory effort: normal Respiratory: bilateral: diminished, rhonchi - Cardiovascular Rhythm: regular Heart Sounds: Present: S1 & S2. Absent: systolic murmur, diastolic murmur - Extremities Extremities: no ischemia, pulses intact, pulses symmetrical, No edema, normal temperature, normal color Peripheral Pulses: within normal limits - Abdominal General gastrointestinal: soft, non-tender, non-distended, normal bowel sounds - Integumentary Integumentary: Present: warm, dry - Psychiatric Psychiatric: cooperative (in the morning, during my morning rounds. ) - Neurologic Neurologic: focal deficits, no moves all extremities (does not move left side to command, prior CVA) - Allied Health Allied health notes reviewed: nursing, ST, RT, social work HEART Score - HEART Score Troponin: Troponin T < 0.010 ng/mL (0.00-0.029) 10/05/20 04:43 Results - Labs CBC & Chem 7: 10/05/20 15:34 07 04:43 Labs: Laboratory Last Values WBC 12.3 K/mm3 (4.5-11.0) H 10/05/20 15:34 RBC 4.25 M/mm3 (3.65-5.03) 10/05/20 15:34 Hgb 12.5 gm/dl (11.8-15.2) 10/05/20 15:34 Hct 39.4 % (35.5-45.6) 10/05/20 15:34 MCV 93 fl (84-94) 10/05/20 15:34 MCH 30 pg (28-32) 10/05/20 15:34 MCHC 32 % (32-34) 10/05/20 15:34 RDW 15.4 % (13.2-15.2) H 10/05/20 15:34 Plt Count 220 K/mm3 (140-440) 10/05/20 15:34 Lymph % (Auto) 8.3 % (13.4-35.0) L 10/05/20 15:34 [place] % (Auto) 8.4 % (0.0-7.3) H 10/05/20 15:34 Eos % (Auto) 0.1 % (0.0-4.3) 10/05/20 15:34 Baso % (Auto) 0.4 % (0.0-1.8) 10/05/20 15:34 Lymph # (Auto) 1.0 K/mm3 (1.2-5.4) L 10/05/20 15:34 [place] # (Auto) 1.0 K/mm3 (0.0-0.8) H 10/05/20 15:34 Eos # (Auto) 0.0 K/mm3 (0.0-0.4) 10/05/20 15:34 Baso # (Auto) 0.0 K/mm3 (0.0-0.1) 10/05/20 15:34 Seg Neutrophils % 82.8 % (40.0-70.0) H 10/05/20 15:34 Seg Neutrophils # 10.2 K/mm3 (1.8-7.7) H 10/05/20 15:34 PT 15.8 Sec. (12.2-14.9) H 10/05/20 15:36 INR 1.21 (0.87-1.13) H 10/05/20 15:36 D-Dimer 5468.25 ng/mlDDU (0-234) H 10/02/20 13:45 ABG pH 7.432 pH Units (7.350-7.450) 10/03/20 11:20 POC ABG pCO2 35.1 mmHg (32.0-48.0) 10/03/20 03:04 ABG pCO2 35.7 mm Hg 10/03/20 11:20 POC ABG pO2 173.1 mmHg (83-108) H 10/03/20 03:04 ABG pO2 109.5 mm Hg (80.0-90.0) H 10/03/20 11:20 POC ABG HCO3 25.4 10/03/20 03:04 ABG HCO3 23.3 mmol/L (20.0-26.0) 10/03/20 11:20 ABG O2 Saturation 98.1 % (95.0-99.0) 10/03/20 11:20 ABG O2 Content 16.0 (0.0-44) 10/03/20 11:20 POC ABG Base Excess 2.2 10/03/20 03:04 ABG Base Excess -0.6 mmol/L (-2.0-3.0) 10/03/20 11:20 ABG Hemoglobin 11.7 gm/dl (14.0-18.0) L 10/03/20 11:20 ABG Oxyhemoglobin 98.8 (94-98) H 10/03/20 03:04 ABG Carboxyhemoglobin 1.4 % (0.0-5.0) 10/03/20 11:20 ABG Methemoglobin 0.6 % (0.0-1.5) 10/03/20 11:20 ABG Sodium 131.7 mmol/L (136.0-145.0) L 10/03/20 03:04 ABG Potassium 3.9 mmol/L (3.40-4.50) 10/03/20 03:04 ABG Chloride 105.0 mmol/L (98-107) 10/03/20 03:04 ABG Glucose 124 mg/dL (65-95) H 10/03/20 03:04 ABG Lactate 1.32 (0.18-30.0) 10/02/20 14:00 Oxyhemoglobin 96.2 % (95.0-99.0) 10/03/20 11:20 Carboxyhemoglobin 0.6 (0.5-1.5) 10/03/20 03:04 FiO2 25 % 10/03/20 11:20 FiO2 % 40.0 10/03/20 03:04 Sodium 141 mmol/L (137-145) 10/05/20 04:43 Potassium 4.1 mmol/L (3.6-5.0) 10/05/20 04:43 Chloride 105.4 mmol/L (98-107) 10/05/20 04:43 Carbon Dioxide 25 mmol/L (22-30) 10/05/20 04:43 Anion Gap 15 mmol/L 10/05/20 04:43 BUN 24 mg/dL (9-20) H 10/05/20 04:43 Creatinine 0.7 mg/dL (0.8-1.3) L 10/05/20 04:43 Estimated GFR > 60 ml/min 10/05/20 04:43 BUN/Creatinine Ratio 34 % 10/05/20 04:43 Glucose 104 mg/dL (75-100) H 10/05/20 04:43 POC Glucose 139 mg/dL (70-105) H 10/05/20 14:49 Calcium 10.2 mg/dL (8.4-10.2) 10/05/20 04:43 Total Bilirubin 0.90 mg/dL (0.1-1.2) 10/03/20 04:35 AST 38 units/L (5-40) 10/03/20 04:35 ALT 13 units/L (7-56) 10/03/20 04:35 Alkaline Phosphatase 93 units/L (35-129) 10/03/20 04:35 Troponin T < 0.010 ng/mL (0.00-0.029) 10/05/20 04:43 NT-Pro-B Natriuret Pep 208.4 pg/mL (0-900) 10/02/20 13:45 Total Protein 6.4 g/dL (6.3-8.2) 10/03/20 04:35 Albumin 3.4 g/dL (3.9-5) L 10/03/20 04:35 Albumin/Globulin Ratio 1.1 % 10/03/20 04:35 Arterial Blood Glucose 124 mg/dL (65-95) H 10/03/20 03:04 Arterial Blood Ionized Calcium 5.2 mg/dL (4.6-5.3) 10/03/20 03:04 Urine Color Yellow (Yellow) 10/02/20 14:00 Urine Turbidity Clear (Clear) 10/02/20 14:00 Urine pH 5.0 (5.0-7.0) 10/02/20 14:00 Ur Specific [place] 1.014 (1.003-1.030) 10/02/20 14:00 Urine Protein <15 mg/dl mg/dL (Negative) 10/02/20 14:00 Urine Glucose (UA) Neg mg/dL (Negative) 10/02/20 14:00 Urine Ketones Neg mg/dL (Negative) 10/02/20 14:00 Urine Blood Sm (Negative) 10/02/20 14:00 Urine Nitrite Neg (Negative) 10/02/20 14:00 Urine Bilirubin Neg (Negative) 10/02/20 14:00 Urine Urobilinogen < 2.0 mg/dL (<2.0) 10/02/20 14:00 Ur Leukocyte Esterase Neg (Negative) 10/02/20 14:00 Urine WBC (Auto) 2.0 /HPF (0.0-6.0) 10/02/20 14:00 Urine RBC (Auto) 2.0 /HPF (0.0-6.0) 10/02/20 14:00 U Epithel Cells (Auto) < 1.0 /HPF (0-13.0) 10/02/20 14:00 Urine Mucus Few /HPF 10/02/20 14:00 Urine Opiates Screen Negative 10/02/20 14:00 Urine Methadone Screen Negative 10/02/20 14:00 Ur Barbiturates Screen Negative 10/02/20 14:00 Ur Phencyclidine Scrn Negative 10/02/20 14:00 Ur Amphetamines Screen Negative 10/02/20 14:00 U Benzodiazepines Scrn Presumptive positive 10/02/20 14:00 Urine Cocaine Screen Negative 10/02/20 14:00 U Marijuana (THC) Screen Negative 10/02/20 14:00 Drugs of Abuse Note Disclamer 10/02/20 14:00 Microbiology: Microbiology 10/02/20 16:00 Tracheal Aspirate Sputum Culture - Final [place]/IV: Voiding Method Indwelling Catheter Active Medications - Current Medications Current Medications: Generic Name Dose Route Start Last Admin Trade Name Freq PRN Reason Stop Dose Admin Acetaminophen 650 mg 10/02/20 15:30 10/04/20 20:18 Acetaminophen 650 Mg Rect Supp NV 650 mg Q6H PRN Administration Pain MILD(1-3)/Fever >100.5/HERNANDEZ Albuterol 2.5 mg 10/02/20 17:00 Albuterol 2.5 Mg/3 Ml Nebu IH Q3HRT PRN Shortness Of Breath Donepezil HCl 10 mg 10/05/20 10:00 10/05/20 11:09 Donepezil 10 Mg Tab PO 10 mg QDAY MARCIE Administration Famotidine 20 mg 10/02/20 16:00 10/05/20 11:09 Famotidine 20 Mg/2 Ml Inj IV 20 mg BID MARCIE Administration Finasteride 5 mg 10/05/20 10:00 10/05/20 12:43 Finasteride 5 Mg Tab PO 5 mg QDAY MARCIE Administration Hydralazine HCl 10 mg 10/03/20 15:17 10/04/20 03:40 Hydralazine 10 Mg Tab PO 10 mg Q6H PRN Administration Hypertension SBP > 160 Hydrophilic Ointment 1 applic 10/02/20 16:00 Lip Therapy Vaseline TP Q2HR PRN Dry Lips Norepinephrine 4 mg in 250 mls @ 7.5 mls/hr 10/05/20 15:00 Levophed Drip 4 Mg/Ns 250 Ml IV TITR MARCIE Protocol 2 MCG/MIN Vasopressin 20 unit/ Sodium 101 mls @ 9.09 mls/hr 10/05/20 16:00 Chloride IV TITR MARCIE Protocol 0.03 UNITS/MIN Magnesium Sulfate 2 gm in 50 mls @ 25 mls/hr 10/05/20 16:00 10/05/20 16:36 Magnesium Sulfate 2gm/50ml IV 10/05/20 17:59 25 mls/hr ONCE ONE Administration Amiodarone HCl 900 mg/ 500 mls @ 33.333 mls/hr 10/05/20 16:00 Dextrose IV DIRECT MARCIE Protocol 1 MG/MIN Fentanyl Citrate 2,000 mcg in 100 mls @ 3.07 mls/hr 10/05/20 17:00 Fentanyl Drip Premix IV TITR MARCIE Protocol 1 MCG/KG/HR Multi-Ingred Cream/Lotion/Oil/Oint 1 applic 10/02/20 15:30 Mineral Oil/Petrolatum, White Ophth Oint 3.5 Gm OU Q4H PRN Dry Eye(s) Sodium Chloride 10 ml 10/02/20 22:00 10/05/20 11:10 Sodium Chloride 0.9% 10 Ml Flush Syringe IV 10 ml BID MARCIE Administration Sodium Chloride 10 ml 10/02/20 15:30 Sodium Chloride 0.9% 10 Ml Flush Syringe IV PRN PRN LINE FLUSH Tamsulosin HCl 0.8 mg 10/05/20 10:00 10/05/20 11:09 Tamsulosin 0.4 Mg Cap PO 0.8 mg QDAY MARCIE Administration Nutrition/Malnutrition Assess - Dietary Evaluation Nutrition/Malnutrition Findings: Nutrition Notes Start: 10/03/20 12:08 Freq: Status: Active Protocol: Document 10/05/20 12:24 (Rec: 10/05/20 12:25 [email or web address]) Nutrition Notes Initial or Follow up Brief Note Current Diagnosis Respiratory Failure Other Pertinent Diagnosis cardiac arrest, malnutrition, alzheimer's Current Diet NPO Subjective/Other Information STITCHER STANDARD MACHINE to eval pt today. Nutrition Intervention Follow-Up By: 10/06/20 Additional Comments FU for STITCHER STANDARD MACHINE recommendations and diet advancement or TF
[2020-10-05] MEDS ORDERED: VANCOMYCIN 1,000 MG in SODIUM CHLORIDE 0.9% 500 ML 500 ML IV ONE (16:47)
[2020-10-05] MEDS ORDERED: CEFEPIME/NS 2 GM/100 ML 2 GM/100 ML BAG IV SCH (17:00)
[2020-10-05] MEDS ORDERED: VANCOMYCIN PHARMACY TO DOSE IV SCH (17:00)
[2020-10-05] MEDS ORDERED: fentaNYL DRIP Premix 2,000 MCG/100 ML BAG IV SCH (17:00)
[2020-10-05] MEDS: CEFEPIME/NS 2 GM/100 ML 2 GM/100 ML BAG IV SCH (17:27)
--- NOTE | 2020-10-05 17:43 | Electrocardiograph Report ---
[facility] Test Date: 2020-10-02 Test Time: 13:48:13 Pat Name: SALVATORE WATTERS JR Department: Room: A263 1 Gender: M Printing Table Hand: DANIA : 1940 Requested By: MARK CALVERT Order Number: [id number] Reading MD: Leandro Ramey Measurements Intervals [place] Rate: 64 P: 6 NV: 165 QRS: -73 QRSD: 85 T: 88 QT: 417 QTc: 429 Interpretive Statements Sinus rhythm Inferior infarct, old Consider old anterior infarct Abnormal ECG No previous ECG available for comparison Electronically Signed On 10-05-2020 17:43:08 EDT by Leandro Ramey
[2020-10-05 18:14] LABS: Albumin 2.9 g/dL (3.9-5); Bilirubin,Direct 0.3 mg/dL (0-0.2)
[2020-10-05 18:17] LABS: Alanine Aminotransferase 13 units/L (7-56); Albumin 2.8 g/dL (3.9-5); BUN/Creatinine Ratio 29; Blood Urea Nitrogen 26 mg/dL (9-20); Calcium 9.7 mg/dL (8.4-10.2); Hemolysis Index 12
[2020-10-05] MEDS: VANCOMYCIN 1,250 MG in SODIUM CHLORIDE 0.9% 250ML 250 ML IV SCH (18:36)
--- NOTE | 2020-10-05 19:48 | Event Note ---
A CODE BLUE was called. I presented to bedside. Patient was found to be diastolic arrest. Patient treated" with ACLS protocol with return of perfusing cardiac rhythm. 65 minutes critical care time dedicated to bedside patient care.
[2020-10-05 23:59] LABS: BUN/Creatinine Ratio 34; Blood Urea Nitrogen 27 mg/dL (9-20); Calcium 9.7 mg/dL (8.4-10.2); Hemolysis Index 16
--- NOTE | 2020-10-06 05:08 | XRay Report ---
XR chest 1V ap INDICATION / CLINICAL INFORMATION: follow up respiratory failure. COMPARISON: Radiograph from yesterday. FINDINGS: SUPPORT DEVICES: Unchanged. HEART /PULMONARY VASCULATURE: Unchanged. LUNGS / PLEURA: Improved lung aeration. Patchy airspace opacity within the right lung persists. No si zable pleural effusion. No pneumothorax. IMPRESSION: Improved lung aeration with persistent patchy airspace opacity in the right lung base. Signer Name: Manjit Mantilla MD Signed: 10/06/2020 5:04 AM Workstation Name: [id number]
[2020-10-06] MEDS: CEFEPIME/NS 2 GM/100 ML 2 GM/100 ML BAG IV SCH ×2 (06:54→17:50)
[2020-10-06 09:19] LABS: Hematocrit 36.9 % (35.5-45.6); Hemoglobin 12.2 gm/dl (11.8-15.2); Mean Corpuscular HGB Conc 33 % (32-34); Mean Corpuscular Volume 91 fl (84-94); Platelet Count 201 K/mm3 (140-440); Red Blood Count 4.07 M/mm3 (3.65-5.03); Red Cell Distribution Width 15.2 % (13.2-15.2)
[2020-10-06] MEDS: TAMSULOSIN 0.4 MG CAP PO SCH (09:31)
[2020-10-06] MEDS: FAMOTIDINE 20 MG/2 ML INJ IV SCH ×2 (09:33→22:04)
[2020-10-06] MEDS ORDERED: SIMPLE SYRUP 15 ML FEEDTUBE PRN ×2 (09:38)
[2020-10-06] MEDS ORDERED: SODIUM BICARBONATE 325 MG TAB FEEDTUBE PRN (09:38)
[2020-10-06] MEDS ORDERED: LIPASE 10,500/PROTEASE 25,000/AMYLASE 43,750 (UNITS) DR CAP FEEDTUBE PRN (09:38)
[2020-10-06] MEDS: FINASTERIDE 5 MG TAB PO SCH (09:39)
[2020-10-06] MEDS: ENOXAPARIN 40 MG/0.4 ML INJ SUB-Q SCH (09:39)
[2020-10-06 09:40] LABS: BUN/Creatinine Ratio 39; Blood Urea Nitrogen 31 mg/dL (9-20); Calcium 10.7 mg/dL (8.4-10.2); Hemolysis Index 4
--- NOTE | 2020-10-06 10:59 | Electrocardiograph Report ---
[facility] Test Date: 2020-10-06 Test Time: 08:17:19 Pat Name: SALVATORE WATTERS JR Department: Room: A263 1 Gender: M Sonar Subsystem Equipment Operator: FRANCHESKA : 1940 Requested By: SHONA LOONEY Order Number: [id number] Reading MD: Jesus Espinoza Measurements Intervals [place] Rate: 56 P: 17 OR: 149 QRS: -74 QRSD: 86 T: 67 QT: 399 QTc: 386 Interpretive Statements Sinus rhythm Inferior infarct, old Consider anteroseptal infarct Compared to ECG 10/02/2020 13:48:13 No significant changes Electronically Signed On 10-06-2020 10:58:29 EDT by Jesus Espinoza
[2020-10-06] MEDS ORDERED: AMIODARONE 200 MG TAB PO SCH (11:00)
[2020-10-06] MEDS ORDERED: SODIUM PHOSPHATE 15 MMOL in SODIUM CHLORIDE 0.9% 250ML 150 ML IV ONE (11:00)
--- NOTE | 2020-10-06 12:01 | Progress Note ---
Assessment and Plan Acute hypoxemic respiratory failure on MVS (extubated 10/04/2020 Cardiopulmonary arrest with ROSC Protein calorie malnutrition h/o Dementia - 2D ECHO reviewed and addressed (normal LVEF) - resume SBT's as tolerated (get ABG after 2 hours to assess ventilation - tentative extubation in am if tolerates - reduce set rate on MVS to 12/min - continue care as below otherwise; - continue to wean supplemental oxygen for target O2 sat's > 90% acutely - VAP bundle addressed - continue lung protective strategies - continue Daily SAT and SBT assessment as tolerated - continue bronchodilators with pulmonary hygiene per RT - wean per pulmonary driven protocols otherwise - continue accuchecks with glycemic control per SSI (While critically ill target blood glucose of 140-180 mg/dL; avoid hypoglycemia) - sedation prn for target RASS 0 to -1 - avoid nephrotoxins, renally dose all medications - continue to avoid benzodiazepine's, reduce the possibility of delirium - complete AB's per ID rec's - prn analgesia per CPOT score - supportive transfusions to keep HgB >7g/dL - mobility, off loading with frequent turning per facility protocol for pressure ulcer prevention - continue chronic home medications as clinically indicated - Maintenance of sleep-wake cycle, avoid delirium - continue enteral nutritional support at goal rate as tolerated - G.I. & VTE prophylaxis - PT/OT/ROM exercises - continue mobility protocols for pressure ulcer prophylaxis - Monitor hemodynamics closely - continue other care per attending / other consultants - discharge planning ongoing concurrently COVID SPECIFIC INTERVENTIONS - COVID-19 PCR negative .... Re-evaluate in am & prn CONDITION: CRITICAL PROGNOSIS: GUARDED CODE STATUS: FULL CODE The high probability of a clinically significant, sudden or life threatening deterioration of the [pulmonary,cardiovascular, neurology] system(s) required my full and direct attention, intervention and personal management. The aggregate critical care time was [35] minutes. This time is in addition to time spent performing reported procedures but includes the following: [x] Data Review and interpretation [x] Patient assessment and monitoring of vital signs [x] Documentation [x] Medication orders and management Subjective Date of service: 10/06/20 Principal diagnosis: Ac. hypoxemic resp failure; Cardiac arrest with ROSC; Dementia Interval history: Patient is seen today for: Ac. hypoxemic resp failure on MVS; Cardiopulmonary arrest with ROSC; Protein calorie malnutrition; h/o Dementia Seen and examined at bedside; 24hour events reviewed; nursing and respiratory care staff consulted; no adverse overnight events reported to me; resting in bed; remains on MVS; follows simple commands and tolerated bedside SBT; no N/V/F/C; remains on amiodarone drip and no arrythmia's reported Objective Vital Signs - 12hr 10/06/20 10/06/20 10/06/20 00:11 01:00 02:00 Temperature Pulse Rate 56 L 55 L 54 L Pulse Rate [ From Monitor] Respiratory 20 20 Rate Blood Pressure 117/50 120/67 128/67 O2 Sat by Pulse 100 100 100 Oximetry 10/06/20 10/06/20 10/06/20 03:00 04:00 04:07 Temperature 98.0 F Pulse Rate 59 L 55 L 57 L Pulse Rate [ 54 L From Monitor] Respiratory 20 19 Rate Blood Pressure 139/70 125/65 127/51 O2 Sat by Pulse 100 100 99 Oximetry 10/06/20 10/06/20 10/06/20 05:00 06:00 07:00 Temperature Pulse Rate 57 L 53 L 57 L Pulse Rate [ From Monitor] Respiratory 20 20 20 Rate Blood Pressure 79/53 121/61 117/59 O2 Sat by Pulse 99 100 100 Oximetry 10/06/20 10/06/20 10/06/20 07:52 08:00 08:26 Temperature 98.7 F Pulse Rate 57 L 56 L 62 Pulse Rate [ 57 L From Monitor] Respiratory 12 16 Rate Blood Pressure 129/62 128/62 O2 Sat by Pulse 100 100 100 Oximetry 10/06/20 10/06/20 10/06/20 09:00 10:00 11:00 Temperature Pulse Rate 63 59 L 58 L Pulse Rate [ From Monitor] Respiratory 21 21 17 Rate Blood Pressure 121/62 124/62 123/66 O2 Sat by Pulse 100 100 100 Oximetry Constitutional: no acute distress, lethargic, other (elderly male with normal respiratory effort at rest) Eyes: non-icteric ENT: oropharynx moist, other (ETT 23 cm SARA) Neck: supple, no lymphadenopathy, no JVD Effort: normal Ascultation: Bilateral: clear, diminished breath sounds Percussion: Bilateral: not dull Cardiovascular: regular rate and rhythm, other (S1,S2) Gastrointestinal: normoactive bowel sounds, soft, non-tender, non-distended Integumentary: normal Extremities: no cyanosis, no edema, pulses normal, no ischemia or petechiae Neurologic: non-focal exam (grossly), pupils equal and round, CN II-XII normal, motor strength normal and, other (somnolent) Psychiatric: mood appropriate, affect normal CBC and BMP: 10/07/20 05:20 10/07/20 05:20 ABG, PT/INR, D-dimer: ABG ABG pH 7.431 (7.320-7.450) 10/06/20 04:00 POC ABG pCO2 40.8 mmHg (32.0-48.0) 10/06/20 04:00 ABG pCO2 35.7 mm Hg 10/03/20 11:20 POC ABG pO2 170.7 mmHg (83-108) H 10/06/20 04:00 ABG pO2 109.5 mm Hg (80.0-90.0) H 10/03/20 11:20 POC ABG HCO3 26.5 10/06/20 04:00 ABG O2 Saturation 99.5 (0-100) 10/06/20 04:00 PT/INR, D-dimer PT 15.8 Sec. (12.2-14.9) H 10/05/20 15:36 INR 1.21 (0.87-1.13) H 10/05/20 15:36 D-Dimer 5468.25 ng/mlDDU (0-234) H 10/02/20 13:45 Abnormal lab findings: Abnormal Labs 10/02/20 10/02/20 10/02/20 13:45 13:45 13:45 WBC RDW 16.2 H Lymph % (Auto) 7.6 L Scott % (Auto) 9.1 H Lymph # (Auto) 0.5 L Scott # (Auto) Seg Neutrophils % 82.6 H Seg Neutrophils # PT INR D-Dimer 5468.25 H ABG pH POC ABG pO2 ABG pO2 ABG Hemoglobin ABG Oxyhemoglobin ABG Sodium ABG Potassium ABG Chloride ABG Glucose Carboxyhemoglobin Potassium 3.4 L Carbon Dioxide 21 L BUN Creatinine Glucose 112 H POC Glucose Calcium Phosphorus Direct Bilirubin Total Protein 5.7 L Albumin 3.1 L Arterial Blood Glucose Arterial Blood Ionized Calcium 10/02/20 10/03/20 10/03/20 14:00 03:04 04:35 WBC 13.2 H RDW 15.9 H Lymph % (Auto) 5.1 L Scott % (Auto) 7.9 H Lymph # (Auto) 0.7 L Scott # (Auto) 1.0 H Seg Neutrophils % 86.8 H Seg Neutrophils # 11.5 H PT INR D-Dimer ABG pH 7.478 H POC ABG pO2 543.4 H 173.1 H ABG pO2 ABG Hemoglobin 11.7 L ABG Oxyhemoglobin 99.4 H 98.8 H ABG Sodium 131.7 L ABG Potassium 3.3 L ABG Chloride 110.0 H ABG Glucose 102 H 124 H Carboxyhemoglobin 0.3 L Potassium Carbon Dioxide BUN Creatinine Glucose POC Glucose Calcium Phosphorus Direct Bilirubin Total Protein Albumin Arterial Blood Glucose 102 H 124 H Arterial Blood Ionized Calcium 10/03/20 10/03/20 10/03/20 04:35 11:20 23:18 WBC RDW Lymph % (Auto) Scott % (Auto) Lymph # (Auto) Scott # (Auto) Seg Neutrophils % Seg Neutrophils # PT INR D-Dimer ABG pH POC ABG pO2 ABG pO2 109.5 H ABG Hemoglobin 11.7 L ABG Oxyhemoglobin ABG Sodium ABG Potassium ABG Chloride ABG Glucose Carboxyhemoglobin Potassium Carbon Dioxide BUN Creatinine 0.7 L Glucose 109 H POC Glucose 110 H Calcium 10.3 H Phosphorus Direct Bilirubin Total Protein Albumin 3.4 L Arterial Blood Glucose Arterial Blood Ionized Calcium 10/04/20 10/04/20 10/05/20 08:32 08:32 04:43 WBC 12.8 H RDW 15.4 H 15.5 H Lymph % (Auto) 8.5 L Scott % (Auto) 12.7 H Lymph # (Auto) 0.8 L Scott # (Auto) 1.2 H Seg Neutrophils % 78.4 H Seg Neutrophils # PT INR D-Dimer ABG pH POC ABG pO2 ABG pO2 ABG Hemoglobin ABG Oxyhemoglobin ABG Sodium ABG Potassium ABG Chloride ABG Glucose Carboxyhemoglobin Potassium Carbon Dioxide BUN Creatinine 0.7 L Glucose POC Glucose Calcium 10.3 H Phosphorus Direct Bilirubin Total Protein Albumin Arterial Blood Glucose Arterial Blood Ionized Calcium 10/05/20 10/05/20 10/05/20 04:43 14:49 15:34 WBC 12.3 H RDW 15.4 H Lymph % (Auto) 8.3 L Scott % (Auto) 8.4 H Lymph # (Auto) 1.0 L Scott # (Auto) 1.0 H Seg Neutrophils % 82.8 H Seg Neutrophils # 10.2 H PT INR D-Dimer ABG pH POC ABG pO2 ABG pO2 ABG Hemoglobin ABG Oxyhemoglobin ABG Sodium ABG Potassium ABG Chloride ABG Glucose Carboxyhemoglobin Potassium Carbon Dioxide BUN 24 H Creatinine 0.7 L Glucose 104 H POC Glucose 139 H Calcium Phosphorus Direct Bilirubin Total Protein Albumin Arterial Blood Glucose Arterial Blood Ionized Calcium 10/05/20 10/05/20 10/05/20 15:36 15:36 15:36 WBC RDW Lymph % (Auto) Scott % (Auto) Lymph # (Auto) Scott # (Auto) Seg Neutrophils % Seg Neutrophils # PT 15.8 H INR 1.21 H D-Dimer ABG pH POC ABG pO2 ABG pO2 ABG Hemoglobin ABG Oxyhemoglobin ABG Sodium ABG Potassium ABG Chloride ABG Glucose Carboxyhemoglobin Potassium Carbon Dioxide BUN 26 H Creatinine Glucose 142 H POC Glucose Calcium Phosphorus 4.70 H Direct Bilirubin Total Protein 6.0 L Albumin 2.8 L Arterial Blood Glucose Arterial Blood Ionized Calcium 10/05/20 10/05/20 10/05/20 15:36 16:15 23:15 WBC RDW Lymph % (Auto) Scott % (Auto) Lymph # (Auto) Scott # (Auto) Seg Neutrophils % Seg Neutrophils # PT INR D-Dimer ABG pH POC ABG pO2 228.0 H ABG pO2 ABG Hemoglobin ABG Oxyhemoglobin 98.9 H ABG Sodium ABG Potassium ABG Chloride ABG Glucose 154 H Carboxyhemoglobin Potassium Carbon Dioxide BUN 27 H Creatinine Glucose 113 H POC Glucose Calcium Phosphorus Direct Bilirubin 0.3 H Total Protein 5.7 L Albumin 2.9 L Arterial Blood Glucose 154 H Arterial Blood Ionized Calcium 10/05/20 10/06/20 10/06/20 23:26 04:00 09:11 WBC RDW Lymph % (Auto) Scott % (Auto) Lymph # (Auto) Scott # (Auto) Seg Neutrophils % Seg Neutrophils # PT INR D-Dimer ABG pH POC ABG pO2 170.7 H ABG pO2 ABG Hemoglobin ABG Oxyhemoglobin 98.8 H ABG Sodium 134.3 L ABG Potassium ABG Chloride ABG Glucose 115 H Carboxyhemoglobin 0.4 L Potassium Carbon Dioxide BUN 31 H Creatinine Glucose 110 H POC Glucose 116 H Calcium 10.7 H Phosphorus 2.30 L D Direct Bilirubin Total Protein Albumin Arterial Blood Glucose 115 H Arterial Blood Ionized Calcium 5.5 H 10/06/20 11:48 WBC RDW Lymph % (Auto) Scott % (Auto) Lymph # (Auto) Scott # (Auto) Seg Neutrophils % Seg Neutrophils # PT INR D-Dimer ABG pH POC ABG pO2 ABG pO2 ABG Hemoglobin ABG Oxyhemoglobin ABG Sodium ABG Potassium ABG Chloride ABG Glucose Carboxyhemoglobin Potassium Carbon Dioxide BUN Creatinine Glucose POC Glucose 115 H Calcium Phosphorus Direct Bilirubin Total Protein Albumin Arterial Blood Glucose Arterial Blood Ionized Calcium Chest x-ray: image reviewed (ETT uin good position; no new infiltrate) Allied health notes reviewed: nursing
--- NOTE | 2020-10-06 12:21 | Progress Note ---
Assessment and Plan S/p cardiac arrest with ROSC in the field * Cardiac arrhythmia during arrest is unknown. Patient is currently extubated and interactive, but unable to answer questions due to advanced dementia/confusion * Patient is in no apparent distress. Twelve-lead ECG shows sinus rhythm 64 with no acute ischemic changes. Troponins negative x2. AMI ruled out * Echocardiogram 10/03/2020: LVEF is 55 to 60%. LV normal size. LV SF normal. RV SF normal. No valvular abnormalities * Patient is status post cardiac arrest yesterday afternoon believed to be caused by aspiration subsequently followed by bradycardia. See code sheet for further details. Immediately post event patient was observed to be A. fib 140s with frequent ventricular ectopy and short run of polymorphic V. tach. Patient was given magnesium and initiated on amiodarone drip. Review of telemetry shows no further atrial fibrillation or ventricular ectopy. Patient is currently sinus rhythm heart rate 60s with episodes of bradycardia in the 40s. We will discontinue amiodarone at this point. Continue to monitor on telemetry. We will discontinue amiodarone and continue to monitor on telemetry. Will follow This patient was seen in conjunction with Dr Espinoza who agrees with this assessment and plan of care - Patient Problems (1) Acute hypoxemic respiratory failure Current Visit: Yes Status: Acute (2) Alzheimer's dementia Current Visit: Yes Status: Chronic (3) Cardiac arrest Current Visit: Yes Status: Acute (4) DVT prophylaxis Current Visit: Yes Status: Acute Subjective Date of service: 10/06/20 Principal diagnosis: s/p cardiac arrest Interval history: Patient is currently intubated, altered mental status confused. Review of telemetry shows sinus rhythm 64 with episodes of sinus bradycardia as low as 45. No further episodes of atrial fibrillation, ventricular ectopy since cardiac arrest event yesterday afternoon Objective Last Vital Signs Temp 98.7 F 10/06/20 08:00 Pulse 59 L 10/06/20 12:11 Resp 17 10/06/20 12:00 BP 127/63 10/06/20 12:11 Pulse Ox 100 10/06/20 12:11 - Physical Examination HEENT: Positive: Normocephaly, Mucus Membranes Moist Neck: Positive: neck supple, trachea midline Cardiac: Positive: Reg Rate and Rhythm, S1/S2 Lungs: Positive: Ventilated Respirations Neuro: Positive: Grossly Intact Abdomen: Positive: Unremarkable, Soft Skin: Negative: Rash Musculoskeletal: No Pain Extremities: Present: upper extr. pulses, lower extr. pulses. Absent: edema - Labs and Meds Cardiac Enzymes 10/05/20 10/05/20 Range/Units 15:36 15:36 AST 19 21 (5-40) units/L Coagulation 10/05/20 Range/Units 15:36 PT 15.8 H (12.2-14.9) Sec. INR 1.21 H (0.87-1.13) CBC 10/05/20 10/06/20 Range/Units 15:34 09:11 WBC 12.3 H 10.1 (4.5-11.0) K/mm3 RBC 4.25 4.07 (3.65-5.03) M/mm3 Hgb 12.5 12.2 (11.8-15.2) gm/dl Hct 39.4 36.9 (35.5-45.6) % Plt Count 220 201 (140-440) K/mm3 Lymph # (Auto) 1.0 L (1.2-5.4) K/mm3 Wilson # (Auto) 1.0 H (0.0-0.8) K/mm3 Eos # (Auto) 0.0 (0.0-0.4) K/mm3 Baso # (Auto) 0.0 (0.0-0.1) K/mm3 Comprehensive Metabolic Panel 10/05/20 10/05/20 10/05/20 Range/Units 15:36 15:36 23:15 Sodium 141 140 (137-145) mmol/L Potassium 4.6 4.6 (3.6-5.0) mmol/L Chloride 105.6 106.0 (98-107) mmol/L Carbon Dioxide 25 26 (22-30) mmol/L BUN 26 H 27 H (9-20) mg/dL Creatinine 0.9 0.8 (0.8-1.3) mg/dL Glucose 142 H 113 H (75-100) mg/dL Calcium 9.7 9.7 (8.4-10.2) mg/dL Direct Bilirubin 0.3 H (0-0.2) mg/dL Indirect Bilirubin 0.5 mg/dL AST 19 21 (5-40) units/L ALT 13 14 (7-56) units/L Alkaline Phosphatase 74 79 (35-129) units/L Total Protein 6.0 L 5.7 L (6.3-8.2) g/dL Albumin 2.8 L 2.9 L (3.9-5) g/dL 10/06/20 Range/Units 09:11 Sodium 141 (137-145) mmol/L Potassium 4.3 (3.6-5.0) mmol/L Chloride 106.0 (98-107) mmol/L Carbon Dioxide 29 (22-30) mmol/L BUN 31 H (9-20) mg/dL Creatinine 0.8 (0.8-1.3) mg/dL Glucose 110 H (75-100) mg/dL Calcium 10.7 H (8.4-10.2) mg/dL Direct Bilirubin (0-0.2) mg/dL Indirect Bilirubin mg/dL AST (5-40) units/L ALT (7-56) units/L Alkaline Phosphatase (35-129) units/L Total Protein (6.3-8.2) g/dL Albumin (3.9-5) g/dL - Imaging and Cardiology EKG: report reviewed, image reviewed Echo: report reviewed (Echocardiogram 10/03/2020: LVEF is 55 to 60%. LV normal size. LV SF normal. RV SF normal. No valvular abnormalities) - Telemetry EKG Rhythm: Sinus Rhythm - EKG Sinus rhythms and dysrhythmias: sinus rhythm - Allied health notes Allied health notes reviewed: RT
--- NOTE | 2020-10-06 13:59 | Progress Note ---
Assessment and Plan 80 YO Male with Vascular Dementia, Cerebral Atherosclerosis, Malnutrition who presented to the ED on 10/02 via EMS after being found unresponsive by family and upon arrival the patient was found to be in distress and subsequently developed cardiac arrest and was treated with ACLS protocol with eventual return of perfusing cardiac rhythm and transported to [facility]. Upon arrival to the ED he was found to be in acute respiratory failure secondary to cardiac arrest and unable able to protect his airway. Patient was intubated and placed on ventilatory support. Patient admitted to ICU for further care and evaluation. Critical care team consulted in ED. 10/03: Continue supportive care, noted leukoctosis, ?reactive. Will continue to assess, consult cardiology in am. 10/04: Continues on full ventilatory support awake alert oriented will attempt extubation today according to the nursing staff plan discussed with nurses' association counselor. Blockers Skiver consulted for further input considering out of hospital cardiac arrest. Echocardiogram completed awaiting results; EXTUBATED 10/05: This evening the patient was noted to be SB and responded to atropine. Patient was gargling and dopamine gtt was started briefly and stopped r/t tachycardia, short runs of vtach then the patient was noted to be in PEA. See code sheet and event note for details. I updated daughter over phone of current events. Started on empiric abx, femoral TLC and joao placed. Cultures sent. Cardio ordered amio and mag was given. SEE CODE SHEET AND EVENT NOTES 10/06 nodding appropriately; CPAP trials Assessment and plan: This is a 80 year old male with Vascular Dementia, Cerebral Atherosclerosis, with malnutrition admitted post cardiac arrest, acute hypoxic respiratory failure now s/p cardio-resp arrest on 10/05 Neuro: Vascular Dementia -10/02 CT head shows disproportionate temporal and parietal lobe atrophy suggests possibility of Alzheimer's dementia, moderate global parenchymal atrophy, no acute intracranial abnormalities are identified. -Fall aspiration precautions -Resume home Aricept -B wrist restraints in place for safety -nodding appropriately -pt has hx CVA with baseline right sided weakness -will need aggressive pt/ot -family updated on plan of care CV: s/p cardiac arrest -Cardiology consulted, appreciate recommendations -10/04 Echo shows EF 55-60%, transmitral Doppler flow pattern suggests impaired LV function Afib -amio drip dc due to bradycardia -QT < 500 -Cardiology consulted Off pressors -SR 70's Respiratory: s/p Cardio respiratory arrest on 10/05 -reintubated 10/05 -cpap trials today - tolerating well when extubated pt was drooling and unable to control secretions. He had generalized weakness and a weak cough. speech did see and initially failed him then pt passed Acute hypoxemic respiratory failure -CCM consulted, appreciate recommendations -Extubated 10/04 but reintubated 10/05 -VAP bundle -10/05 Tracheal aspirate culture pending -trending ABG -trend daily chest xray FEN/GI Malnutrition -NGT for now -Ntr consult for TF -started today Urinary Retention hx -Resume home Proscar and Flomax when clinically appropriate -[place] in place -strict I/O -follow and replace electrolytes as needed -trend Cr Heme VTE lovenox and SCD trends CBC ID cultures pending MRSA swab pending- if neg - dc vanc cefpime follow cultures xray concerning for aspiration event r fem triple lumen dc - given placed during code- replaced LIJ TLC Endo follow blood glucose avoid hypoglycemia Subjective Date of service: 10/06/20 Principal diagnosis: s/p cardiac arrest Interval history: reintubated yesterday afternoon due to inability to maintain airway Objective - Constitutional Vitals: Vital Signs - 12hr 10/06/20 10/06/20 10/06/20 02:00 03:00 04:00 Temperature 98.0 F Pulse Rate 54 L 59 L 55 L Pulse Rate [ 54 L From Monitor] Respiratory 20 20 19 Rate Blood Pressure 128/67 139/70 125/65 O2 Sat by Pulse 100 100 100 Oximetry 10/06/20 10/06/20 10/06/20 04:07 05:00 06:00 Temperature Pulse Rate 57 L 57 L 53 L Pulse Rate [ From Monitor] Respiratory 20 20 Rate Blood Pressure 127/51 79/53 121/61 O2 Sat by Pulse 99 99 100 Oximetry 10/06/20 10/06/20 10/06/20 07:00 07:52 08:00 Temperature 98.7 F Pulse Rate 57 L 57 L 56 L Pulse Rate [ 57 L From Monitor] Respiratory 20 12 16 Rate Blood Pressure 117/59 129/62 O2 Sat by Pulse 100 100 100 Oximetry 10/06/20 10/06/20 10/06/20 08:26 09:00 10:00 Temperature Pulse Rate 62 63 59 L Pulse Rate [ From Monitor] Respiratory 21 21 Rate Blood Pressure 128/62 121/62 124/62 O2 Sat by Pulse 100 100 100 Oximetry 10/06/20 10/06/20 10/06/20 11:00 11:54 12:00 Temperature 98.2 F Pulse Rate 58 L 64 59 L Pulse Rate [ 64 From Monitor] Respiratory 17 14 17 Rate Blood Pressure 123/66 129/67 O2 Sat by Pulse 100 100 100 Oximetry 10/06/20 10/06/20 10/06/20 12:11 13:00 13:17 Temperature Pulse Rate 59 L 59 L 59 L Pulse Rate [ From Monitor] Respiratory 13 10 L Rate Blood Pressure 127/63 118/63 122/64 O2 Sat by Pulse 100 100 100 Oximetry General appearance: Present: no acute distress - EENT Eyes: PERRL, EOM intact ENT: clear oral mucosa - Neck Neck: supple - Respiratory Respiratory effort: normal - Breasts Breasts: normal - Cardiovascular Rhythm: regular Heart Sounds: Present: S1 & S2 Extremities: no ischemia - Gastrointestinal General gastrointestinal: Present: soft, non-tender Rectal Exam: deferred - Genitourinary Male genitourinary: deferred - Integumentary Integumentary: clear, warm, dry - Psychiatric Psychiatric: other - Allied health notes Allied health notes reviewed: nursing, social work, case management - Labs CBC & Chem 7: 10/06/20 09:11 10/06/20 09:11 Labs: Abnormal lab results 10/05/20 10/05/20 10/05/20 Range/Units 14:49 15:34 15:36 WBC 12.3 H (4.5-11.0) K/mm3 RDW 15.4 H (13.2-15.2) % Lymph % (Auto) 8.3 L (13.4-35.0) % [place] % (Auto) 8.4 H (0.0-7.3) % Lymph # (Auto) 1.0 L (1.2-5.4) K/mm3 [place] # (Auto) 1.0 H (0.0-0.8) K/mm3 Seg Neutrophils % 82.8 H (40.0-70.0) % Seg Neutrophils # 10.2 H (1.8-7.7) K/mm3 PT (12.2-14.9) Sec. INR (0.87-1.13) POC ABG pO2 (83-108) mmHg ABG Oxyhemoglobin (94-98) ABG Sodium (136.0-145.0) mmol/L ABG Glucose (65-95) mg/dL Carboxyhemoglobin (0.5-1.5) BUN 26 H (9-20) mg/dL Glucose 142 H (75-100) mg/dL POC Glucose 139 H (70-105) mg/dL Calcium (8.4-10.2) mg/dL Phosphorus (2.5-4.5) mg/dL Direct Bilirubin (0-0.2) mg/dL Total Protein 6.0 L (6.3-8.2) g/dL Albumin 2.8 L (3.9-5) g/dL Arterial Blood Glucose (65-95) mg/dL Arterial Blood Ionized Calcium (4.6-5.3) mg/dL 10/05/20 10/05/20 10/05/20 Range/Units 15:36 15:36 15:36 WBC (4.5-11.0) K/mm3 RDW (13.2-15.2) % Lymph % (Auto) (13.4-35.0) % [place] % (Auto) (0.0-7.3) % Lymph # (Auto) (1.2-5.4) K/mm3 [place] # (Auto) (0.0-0.8) K/mm3 Seg Neutrophils % (40.0-70.0) % Seg Neutrophils # (1.8-7.7) K/mm3 PT 15.8 H (12.2-14.9) Sec. INR 1.21 H (0.87-1.13) POC ABG pO2 (83-108) mmHg ABG Oxyhemoglobin (94-98) ABG Sodium (136.0-145.0) mmol/L ABG Glucose (65-95) mg/dL Carboxyhemoglobin (0.5-1.5) BUN (9-20) mg/dL Glucose (75-100) mg/dL POC Glucose (70-105) mg/dL Calcium (8.4-10.2) mg/dL Phosphorus 4.70 H (2.5-4.5) mg/dL Direct Bilirubin 0.3 H (0-0.2) mg/dL Total Protein 5.7 L (6.3-8.2) g/dL Albumin 2.9 L (3.9-5) g/dL Arterial Blood Glucose (65-95) mg/dL Arterial Blood Ionized Calcium (4.6-5.3) mg/dL 10/05/20 10/05/20 10/05/20 Range/Units 16:15 23:15 23:26 WBC (4.5-11.0) K/mm3 RDW (13.2-15.2) % Lymph % (Auto) (13.4-35.0) % [place] % (Auto) (0.0-7.3) % Lymph # (Auto) (1.2-5.4) K/mm3 [place] # (Auto) (0.0-0.8) K/mm3 Seg Neutrophils % (40.0-70.0) % Seg Neutrophils # (1.8-7.7) K/mm3 PT (12.2-14.9) Sec. INR (0.87-1.13) POC ABG pO2 228.0 H (83-108) mmHg ABG Oxyhemoglobin 98.9 H (94-98) ABG Sodium (136.0-145.0) mmol/L ABG Glucose 154 H (65-95) mg/dL Carboxyhemoglobin (0.5-1.5) BUN 27 H (9-20) mg/dL Glucose 113 H (75-100) mg/dL POC Glucose 116 H (70-105) mg/dL Calcium (8.4-10.2) mg/dL Phosphorus (2.5-4.5) mg/dL Direct Bilirubin (0-0.2) mg/dL Total Protein (6.3-8.2) g/dL Albumin (3.9-5) g/dL Arterial Blood Glucose 154 H (65-95) mg/dL Arterial Blood Ionized Calcium (4.6-5.3) mg/dL 10/06/20 10/06/20 10/06/20 Range/Units 04:00 09:11 11:48 WBC (4.5-11.0) K/mm3 RDW (13.2-15.2) % Lymph % (Auto) (13.4-35.0) % [place] % (Auto) (0.0-7.3) % Lymph # (Auto) (1.2-5.4) K/mm3 [place] # (Auto) (0.0-0.8) K/mm3 Seg Neutrophils % (40.0-70.0) % Seg Neutrophils # (1.8-7.7) K/mm3 PT (12.2-14.9) Sec. INR (0.87-1.13) POC ABG pO2 170.7 H (83-108) mmHg ABG Oxyhemoglobin 98.8 H (94-98) ABG Sodium 134.3 L (136.0-145.0) mmol/L ABG Glucose 115 H (65-95) mg/dL Carboxyhemoglobin 0.4 L (0.5-1.5) BUN 31 H (9-20) mg/dL Glucose 110 H (75-100) mg/dL POC Glucose 115 H (70-105) mg/dL Calcium 10.7 H (8.4-10.2) mg/dL Phosphorus 2.30 L D (2.5-4.5) mg/dL Direct Bilirubin (0-0.2) mg/dL Total Protein (6.3-8.2) g/dL Albumin (3.9-5) g/dL Arterial Blood Glucose 115 H (65-95) mg/dL Arterial Blood Ionized Calcium 5.5 H (4.6-5.3) mg/dL HEART Score - HEART Score History: Slightly suspicious EKG: Normal Age: < 45 Risk factors: No known risk factors Troponin: Troponin T < 0.010 ng/mL (0.00-0.029) 10/06/20 09:11 Troponin: < normal limit HEART Score: 0
[2020-10-06 14:51] LABS: Bilirubin,Urine NEG (Negative); Blood,Urine MOD (Negative); Color,Urine Yellow (Yellow); Mucus,Urine 1+ /HPF; Protein,Urine <15 mg/dL mg/dL (Negative); Urobilinogen,Urine < 2.0 mg/dL (<2.0)
[2020-10-06] MEDS ORDERED: LORazepam 2 MG/ML VIAL IV NR (15:45)
[2020-10-06] MEDS ORDERED: LORazepam 2 MG/ML VIAL ONE (15:46)
[2020-10-06] MEDS ORDERED: LORazepam 2 MG/ML VIAL IV ONE (15:51)
--- NOTE | 2020-10-06 17:48 | XRay Report ---
XR chest 1V ap INDICATION / CLINICAL INFORMATION: sp line placement. COMPARISON: Radiograph from earlier same day. FINDINGS: SUPPORT DEVICES: Internal jugular central venous access catheter terminates in the SVC. Endotracheal tube terminates appropriately at the level of the clavicular heads. Enteric tube courses beneath the diaphragm with tip terminating in the proximal stomach, side-port in the distal esophagus. HEART / MEDIASTINUM: Unchanged. LUNGS / PLEURA: Lung parenchyma is not significantly changed. No pneumothorax. Costophrenic sulci ar e sharp. ADDITIONAL FINDINGS: No significant additional findings. IMPRESSION: 1. LIJ CVC terminating in the SVC. 2. Side-port of the enteric tube terminates in the distal esophagus/GE junction. Recommend advancing further for optimal placement. Signer Name: Garrett Kamara MD Signed: 10/06/2020 5:44 PM Workstation Name: [id number]
[2020-10-06] MEDS: VANCOMYCIN 1,250 MG in SODIUM CHLORIDE 0.9% 250ML 250 ML IV SCH (17:54)
--- NOTE | 2020-10-06 18:44 | Procedure Note ---
Date of procedure: 10/06/20 Pre-op diagnosis: acute hypoxic resp faiure, s/p cardiac arrest Post-op diagnosis: same Procedure: LIJ CVL TLC placed to replace emegent Femoral CVL placed 10/05 Left IJ CVL TLC placed, over the wire with difficulty using ultrasound guidance. Attempts for line placement 2. Area prepped with chlorhexidine and full body draping utilized. Site infiltrated with 2% lidocaine. Line was sutured, biopatch placed and tegaderm dressing applied. Pt tolerated procedure well. VS remained stable throughout procedure. Chest xray to confirm placement. No pneumothorax. RN called to bedside. Pt tolerated procedure well. VS remained stable throughout procedure. (time spent placing line not included in daily critical care time) Anesthesia: local Surgeon: IGLESIA PADILLA Paper Slitter: SHONA LOONEY Estimated blood loss: minimal Condition: stable Disposition: ICU
[2020-10-06] MEDS ORDERED: DONEPEZIL 10 MG TAB PO SCH (22:00)
[2020-10-06] MEDS: DOCUSATE SODIUM 100 MG/10 ML ORAL LIQD PO SCH (22:04)
[2020-10-06] MEDS: DONEPEZIL 10 MG TAB PO SCH (22:04)
--- NOTE | 2020-10-07 03:15 | XRay Report ---
XR chest 1V ap INDICATION / CLINICAL INFORMATION: intubated/hypoxia. COMPARISON: Radiograph from yesterday. FINDINGS: SUPPORT DEVICES: Enteric catheter side-port remains located at the distal esophagus/GE junction. Othe r support devices are also stable. HEART /PULMONARY VASCULATURE: Unchanged. LUNGS / PLEURA: Right basilar airspace opacity is unchanged. No pneumothorax. IMPRESSION: Stable appearance of the chest lines and tubes, as above. Signer Name: Manjit Mantilla MD Signed: 10/07/2020 3:10 AM Workstation Name: [id number]
[2020-10-07] MEDS: CEFEPIME/NS 2 GM/100 ML 2 GM/100 ML BAG IV SCH (05:32)
[2020-10-07 06:09] LABS: Hemoglobin 11.3 gm/dl (11.8-15.2); Mean Corpuscular HGB Conc 33 % (32-34); Mean Corpuscular Volume 91 fl (84-94); Platelet Count 181 K/mm3 (140-440); Red Blood Count 3.74 M/mm3 (3.65-5.03); Red Cell Distribution Width 15.4 % (13.2-15.2)
[2020-10-07 06:30] LABS: Alanine Aminotransferase 15 units/L (7-56); Albumin 2.5 g/dL (3.9-5); Blood Urea Nitrogen 32 mg/dL (9-20); Calcium 9.9 mg/dL (8.4-10.2); Hemolysis Index 3
[2020-10-07 06:47] LABS: BUN/Creatinine Ratio 46
[2020-10-07] MEDS: FAMOTIDINE 20 MG/2 ML INJ IV SCH ×2 (09:03→21:49)
[2020-10-07] MEDS: DOCUSATE SODIUM 100 MG/10 ML ORAL LIQD PO SCH ×2 (09:04→21:48)
[2020-10-07] MEDS: ENOXAPARIN 40 MG/0.4 ML INJ SUB-Q SCH (09:05)
--- NOTE | 2020-10-07 09:48 | Electrocardiograph Report ---
[facility] Test Date: 2020-10-06 Test Time: 12:57:14 Pat Name: SALVATORE WATTERS JR Department: Room: A263 1 Gender: M Validation Consultant: ANNI : [id number] Requested By: SHONA LOONEY Order Number: [id number] Reading MD: Jesus Espinoza Measurements Intervals [place] Rate: 61 P: -34 CT: 129 QRS: -74 QRSD: 96 T: 76 QT: 447 QTc: 452 Interpretive Statements Sinus rhythm Inferior infarct, old Compared to ECG 10/06/2020 08:17:19 No significant changes Electronically Signed On 10-07-2020 9:48:18 EDT by Jesus Espinoza
[2020-10-07] MEDS ORDERED: SODIUM PHOSPHATE 15 MMOL in SODIUM CHLORIDE 0.9% 250ML 150 ML IV ONE (10:00)
--- NOTE | 2020-10-07 11:06 | Progress Note ---
Assessment and Plan Acute hypoxemic respiratory failure on MVS (extubated 10/04/2020 Cardiopulmonary arrest with ROSC Protein calorie malnutrition h/o Dementia - get ABG after 2 hours on PSV - repeat Mg level in am (re: arrhythmia history) - Amiodarone stopped - tentative extubation in am if tolerates SBT better today - keep set rate on MVS at 12/min - continue care as below otherwise; - continue to wean supplemental oxygen for target O2 sat's > 90% acutely - VAP bundle addressed - continue lung protective strategies - continue Daily SAT and SBT assessment as tolerated - continue bronchodilators with pulmonary hygiene per RT - wean per pulmonary driven protocols otherwise - continue accuchecks with glycemic control per SSI (While critically ill target blood glucose of 140-180 mg/dL; avoid hypoglycemia) - sedation prn for target RASS 0 to -1 - avoid nephrotoxins, renally dose all medications - continue to avoid benzodiazepine's, reduce the possibility of delirium - complete AB's per ID rec's - prn analgesia per CPOT score - supportive transfusions to keep HgB >7g/dL - mobility, off loading with frequent turning per facility protocol for pressure ulcer prevention - continue chronic home medications as clinically indicated - Maintenance of sleep-wake cycle, avoid delirium - continue enteral nutritional support at goal rate as tolerated - G.I. & VTE prophylaxis - PT/OT/ROM exercises - continue mobility protocols for pressure ulcer prophylaxis - Monitor hemodynamics closely - continue other care per attending / other consultants - discharge planning ongoing concurrently COVID SPECIFIC INTERVENTIONS - COVID-19 PCR negative .... Re-evaluate in am & prn CONDITION: CRITICAL PROGNOSIS: GUARDED CODE STATUS: FULL CODE The high probability of a clinically significant, sudden or life threatening deterioration of the [pulmonary,cardiovascular, neurology] system(s) required my full and direct attention, intervention and personal management. The aggregate critical care time was [32] minutes. This time is in addition to time spent performing reported procedures but includes the following: [x] Data Review and interpretation [x] Patient assessment and monitoring of vital signs [x] Documentation [x] Medication orders and management Subjective Date of service: 10/07/20 Principal diagnosis: Ac. hypoxemic resp failure; Cardiac arrest with ROSC; Dementia Interval history: Patient is seen today for: Ac. hypoxemic resp failure on MVS; Cardiopulmonary arrest with ROSC; Protein calorie malnutrition; h/o Dementia Seen and examined at bedside; 24hour events reviewed; nursing and respiratory care staff consulted; no adverse overnight events reported to me; resting in bed; remains on MVS; failed SBT earlier with Apneic spell but placed back on PSV with p-supp reduced from 20 to 10 cm H2O and tolerating well; denies acute pain; denies N/V/F/C Objective Vital Signs - 12hr 10/06/20 10/06/20 10/07/20 23:34 23:37 00:00 Temperature 98.5 F Pulse Rate 75 72 Pulse Rate [ 64 From Monitor] Respiratory 20 17 Rate Blood Pressure 134/78 O2 Sat by Pulse 100 100 Oximetry 10/07/20 10/07/20 10/07/20 00:10 01:00 02:00 Temperature Pulse Rate 74 73 70 Pulse Rate [ From Monitor] Respiratory 20 21 Rate Blood Pressure 132/56 134/72 129/67 O2 Sat by Pulse 100 100 100 Oximetry 10/07/20 10/07/20 10/07/20 03:00 03:42 04:00 Temperature 98.8 F Pulse Rate 72 72 Pulse Rate [ 64 From Monitor] Respiratory 20 19 Rate Blood Pressure 117/67 130/71 O2 Sat by Pulse 100 100 Oximetry 10/07/20 10/07/20 10/07/20 04:10 05:00 06:00 Temperature Pulse Rate 80 75 74 Pulse Rate [ From Monitor] Respiratory 13 21 Rate Blood Pressure 136/59 139/70 130/75 O2 Sat by Pulse 100 100 100 Oximetry 10/07/20 10/07/20 10/07/20 07:00 07:47 08:00 Temperature 99.8 F H Pulse Rate 70 76 71 Pulse Rate [ From Monitor] Respiratory 21 16 Rate Blood Pressure 130/77 137/58 129/70 O2 Sat by Pulse 100 100 100 Oximetry 10/07/20 10/07/20 10/07/20 08:08 09:00 10:00 Temperature Pulse Rate 69 70 76 Pulse Rate [ 69 From Monitor] Respiratory 16 22 26 H Rate Blood Pressure 128/69 133/73 O2 Sat by Pulse 100 100 100 Oximetry Constitutional: no acute distress, other (elderly male with normal respiratory effort at rest) Eyes: non-icteric ENT: oropharynx moist, other (ETT 23 cm SARA) Neck: supple, no lymphadenopathy, no JVD Effort: normal Ascultation: Bilateral: clear, diminished breath sounds Percussion: Bilateral: not dull Cardiovascular: regular rate and rhythm, other (S1,S2) Gastrointestinal: normoactive bowel sounds, soft, non-tender, non-distended Integumentary: normal Extremities: no cyanosis, no edema, pulses normal, no ischemia or petechiae Neurologic: non-focal exam (grossly), pupils equal and round, CN II-XII normal, motor strength normal and, other (somnolent) Psychiatric: mood appropriate, affect normal CBC and BMP: 10/07/20 05:20 10/07/20 05:20 ABG, PT/INR, D-dimer: ABG ABG pH 7.468 (7.320-7.450) H 10/07/20 04:00 POC ABG pCO2 38.9 mmHg (32.0-48.0) 10/07/20 04:00 ABG pCO2 35.7 mm Hg 10/03/20 11:20 POC ABG pO2 89.7 mmHg (83-108) 10/07/20 04:00 ABG pO2 109.5 mm Hg (80.0-90.0) H 10/03/20 11:20 POC ABG HCO3 27.5 10/07/20 04:00 ABG O2 Saturation 97.5 (0-100) 10/07/20 04:00 PT/INR, D-dimer PT 15.8 Sec. (12.2-14.9) H 10/05/20 15:36 INR 1.21 (0.87-1.13) H 10/05/20 15:36 D-Dimer 5468.25 ng/mlDDU (0-234) H 10/02/20 13:45 Abnormal lab findings: Abnormal Labs 10/02/20 10/02/20 10/02/20 13:45 13:45 13:45 WBC Hgb Hct RDW 16.2 H Lymph % (Auto) 7.6 L [place] % (Auto) 9.1 H Lymph # (Auto) 0.5 L [place] # (Auto) Seg Neutrophils % 82.6 H Seg Neutrophils # PT INR D-Dimer 5468.25 H ABG pH POC ABG pO2 ABG pO2 ABG Hemoglobin ABG Oxyhemoglobin ABG Sodium ABG Potassium ABG Chloride ABG Glucose Carboxyhemoglobin Potassium 3.4 L Chloride Carbon Dioxide 21 L BUN Creatinine Glucose 112 H POC Glucose Calcium Phosphorus Direct Bilirubin Total Protein 5.7 L Albumin 3.1 L Arterial Blood Glucose Arterial Blood Ionized Calcium Urine WBC (Auto) 10/02/20 10/03/20 10/03/20 14:00 03:04 04:35 WBC 13.2 H Hgb Hct RDW 15.9 H Lymph % (Auto) 5.1 L [place] % (Auto) 7.9 H Lymph # (Auto) 0.7 L [place] # (Auto) 1.0 H Seg Neutrophils % 86.8 H Seg Neutrophils # 11.5 H PT INR D-Dimer ABG pH 7.478 H POC ABG pO2 543.4 H 173.1 H ABG pO2 ABG Hemoglobin 11.7 L ABG Oxyhemoglobin 99.4 H 98.8 H ABG Sodium 131.7 L ABG Potassium 3.3 L ABG Chloride 110.0 H ABG Glucose 102 H 124 H Carboxyhemoglobin 0.3 L Potassium Chloride Carbon Dioxide BUN Creatinine Glucose POC Glucose Calcium Phosphorus Direct Bilirubin Total Protein Albumin Arterial Blood Glucose 102 H 124 H Arterial Blood Ionized Calcium Urine WBC (Auto) 10/03/20 10/03/20 10/03/20 04:35 11:20 23:18 WBC Hgb Hct RDW Lymph % (Auto) [place] % (Auto) Lymph # (Auto) [place] # (Auto) Seg Neutrophils % Seg Neutrophils # PT INR D-Dimer ABG pH POC ABG pO2 ABG pO2 109.5 H ABG Hemoglobin 11.7 L ABG Oxyhemoglobin ABG Sodium ABG Potassium ABG Chloride ABG Glucose Carboxyhemoglobin Potassium Chloride Carbon Dioxide BUN Creatinine 0.7 L Glucose 109 H POC Glucose 110 H Calcium 10.3 H Phosphorus Direct Bilirubin Total Protein Albumin 3.4 L Arterial Blood Glucose Arterial Blood Ionized Calcium Urine WBC (Auto) 10/04/20 10/04/20 10/05/20 08:32 08:32 04:43 WBC 12.8 H Hgb Hct RDW 15.4 H 15.5 H Lymph % (Auto) 8.5 L [place] % (Auto) 12.7 H Lymph # (Auto) 0.8 L [place] # (Auto) 1.2 H Seg Neutrophils % 78.4 H Seg Neutrophils # PT INR D-Dimer ABG pH POC ABG pO2 ABG pO2 ABG Hemoglobin ABG Oxyhemoglobin ABG Sodium ABG Potassium ABG Chloride ABG Glucose Carboxyhemoglobin Potassium Chloride Carbon Dioxide BUN Creatinine 0.7 L Glucose POC Glucose Calcium 10.3 H Phosphorus Direct Bilirubin Total Protein Albumin Arterial Blood Glucose Arterial Blood Ionized Calcium Urine WBC (Auto) 10/05/20 10/05/20 10/05/20 04:43 14:49 15:34 WBC 12.3 H Hgb Hct RDW 15.4 H Lymph % (Auto) 8.3 L [place] % (Auto) 8.4 H Lymph # (Auto) 1.0 L [place] # (Auto) 1.0 H Seg Neutrophils % 82.8 H Seg Neutrophils # 10.2 H PT INR D-Dimer ABG pH POC ABG pO2 ABG pO2 ABG Hemoglobin ABG Oxyhemoglobin ABG Sodium ABG Potassium ABG Chloride ABG Glucose Carboxyhemoglobin Potassium Chloride Carbon Dioxide BUN 24 H Creatinine 0.7 L Glucose 104 H POC Glucose 139 H Calcium Phosphorus Direct Bilirubin Total Protein Albumin Arterial Blood Glucose Arterial Blood Ionized Calcium Urine WBC (Auto) 10/05/20 10/05/20 10/05/20 15:36 15:36 15:36 WBC Hgb Hct RDW Lymph % (Auto) [place] % (Auto) Lymph # (Auto) [place] # (Auto) Seg Neutrophils % Seg Neutrophils # PT 15.8 H INR 1.21 H D-Dimer ABG pH POC ABG pO2 ABG pO2 ABG Hemoglobin ABG Oxyhemoglobin ABG Sodium ABG Potassium ABG Chloride ABG Glucose Carboxyhemoglobin Potassium Chloride Carbon Dioxide BUN 26 H Creatinine Glucose 142 H POC Glucose Calcium Phosphorus 4.70 H Direct Bilirubin Total Protein 6.0 L Albumin 2.8 L Arterial Blood Glucose Arterial Blood Ionized Calcium Urine WBC (Auto) 10/05/20 10/05/20 10/05/20 15:36 16:15 23:15 WBC Hgb Hct RDW Lymph % (Auto) [place] % (Auto) Lymph # (Auto) [place] # (Auto) Seg Neutrophils % Seg Neutrophils # PT INR D-Dimer ABG pH POC ABG pO2 228.0 H ABG pO2 ABG Hemoglobin ABG Oxyhemoglobin 98.9 H ABG Sodium ABG Potassium ABG Chloride ABG Glucose 154 H Carboxyhemoglobin Potassium Chloride Carbon Dioxide BUN 27 H Creatinine Glucose 113 H POC Glucose Calcium Phosphorus Direct Bilirubin 0.3 H Total Protein 5.7 L Albumin 2.9 L Arterial Blood Glucose 154 H Arterial Blood Ionized Calcium Urine WBC (Auto) 10/05/20 10/06/20 10/06/20 23:26 04:00 09:11 WBC Hgb Hct RDW Lymph % (Auto) [place] % (Auto) Lymph # (Auto) [place] # (Auto) Seg Neutrophils % Seg Neutrophils # PT INR D-Dimer ABG pH POC ABG pO2 170.7 H ABG pO2 ABG Hemoglobin ABG Oxyhemoglobin 98.8 H ABG Sodium 134.3 L ABG Potassium ABG Chloride ABG Glucose 115 H Carboxyhemoglobin 0.4 L Potassium Chloride Carbon Dioxide BUN 31 H Creatinine Glucose 110 H POC Glucose 116 H Calcium 10.7 H Phosphorus 2.30 L D Direct Bilirubin Total Protein Albumin Arterial Blood Glucose 115 H Arterial Blood Ionized Calcium 5.5 H Urine WBC (Auto) 10/06/20 10/06/20 10/06/20 11:48 14:20 15:40 WBC Hgb Hct RDW Lymph % (Auto) [place] % (Auto) Lymph # (Auto) [place] # (Auto) Seg Neutrophils % Seg Neutrophils # PT INR D-Dimer ABG pH POC ABG pO2 ABG pO2 ABG Hemoglobin ABG Oxyhemoglobin ABG Sodium 134.1 L ABG Potassium ABG Chloride ABG Glucose 113 H Carboxyhemoglobin Potassium Chloride Carbon Dioxide BUN Creatinine Glucose POC Glucose 115 H Calcium Phosphorus Direct Bilirubin Total Protein Albumin Arterial Blood Glucose 113 H Arterial Blood Ionized Calcium 5.4 H Urine WBC (Auto) 10.0 H 10/06/20 10/07/20 10/07/20 17:16 04:00 05:20 WBC Hgb 11.3 L Hct 34.0 L RDW 15.4 H Lymph % (Auto) [place] % (Auto) Lymph # (Auto) [place] # (Auto) Seg Neutrophils % Seg Neutrophils # PT INR D-Dimer ABG pH 7.468 H POC ABG pO2 ABG pO2 ABG Hemoglobin 11.9 L ABG Oxyhemoglobin ABG Sodium ABG Potassium ABG Chloride 109.0 H ABG Glucose 112 H Carboxyhemoglobin Potassium Chloride Carbon Dioxide BUN Creatinine Glucose POC Glucose 110 H Calcium Phosphorus Direct Bilirubin Total Protein Albumin Arterial Blood Glucose 112 H Arterial Blood Ionized Calcium 5.6 H Urine WBC (Auto) 10/07/20 05:20 WBC Hgb Hct RDW Lymph % (Auto) [place] % (Auto) Lymph # (Auto) [place] # (Auto) Seg Neutrophils % Seg Neutrophils # PT INR D-Dimer ABG pH POC ABG pO2 ABG pO2 ABG Hemoglobin ABG Oxyhemoglobin ABG Sodium ABG Potassium ABG Chloride ABG Glucose Carboxyhemoglobin Potassium Chloride 108.4 H Carbon Dioxide BUN 32 H Creatinine 0.7 L Glucose 116 H POC Glucose Calcium Phosphorus 2.10 L Direct Bilirubin Total Protein 5.8 L Albumin 2.5 L Arterial Blood Glucose Arterial Blood Ionized Calcium Urine WBC (Auto) Chest x-ray: image reviewed (no new process) Allied health notes reviewed: nursing
--- NOTE | 2020-10-07 11:27 | Progress Note ---
<DERECKPAULA - Last Filed: 10/07/20 13:47> Assessment and Plan - Patient Problems (1) Acute hypoxemic respiratory failure Current Visit: Yes Status: Acute (2) Alzheimer's dementia Current Visit: Yes Status: Chronic (3) Cardiac arrest Current Visit: Yes Status: Acute (4) DVT prophylaxis Current Visit: Yes Status: Acute Objective - Labs and Meds Cardiac Enzymes 10/07/20 Range/Units 05:20 AST 22 (5-40) units/L CBC 10/07/20 Range/Units 05:20 WBC 9.9 (4.5-11.0) K/mm3 RBC 3.74 (3.65-5.03) M/mm3 Hgb 11.3 L (11.8-15.2) gm/dl Hct 34.0 L (35.5-45.6) % Plt Count 181 (140-440) K/mm3 Comprehensive Metabolic Panel 10/07/20 Range/Units 05:20 Sodium 142 (137-145) mmol/L Potassium 3.9 (3.6-5.0) mmol/L Chloride 108.4 H (98-107) mmol/L Carbon Dioxide 26 (22-30) mmol/L BUN 32 H (9-20) mg/dL Creatinine 0.7 L (0.8-1.3) mg/dL Glucose 116 H (75-100) mg/dL Calcium 9.9 (8.4-10.2) mg/dL AST 22 (5-40) units/L ALT 15 (7-56) units/L Alkaline Phosphatase 66 (35-129) units/L Total Protein 5.8 L (6.3-8.2) g/dL Albumin 2.5 L (3.9-5) g/dL <AMANDA OLIVER - Last Filed: 10/07/20 13:48> Assessment and Plan S/p cardiac arrest with ROSC in the field * Cardiac arrhythmia during arrest is unknown. Patient is currently intubated and unable to answer questions due intubation and to advanced dementia/confusion * Patient is in no apparent distress. Twelve-lead ECG shows sinus rhythm 64 with no acute ischemic changes. Troponins negative x2. AMI ruled out * Echocardiogram 10/03/2020: LVEF is 55 to 60%. LV normal size. LV SF normal. RV SF normal. No valvular abnormalities * Patient is status post cardiac arrest on 10/05 in the afternoon believed to be caused by aspiration subsequently followed by bradycardia. See code sheet for further details. Immediately post event patient was observed to be A. fib 140s with frequent ventricular ectopy and short run of polymorphic V. tach. Patient was given magnesium and initiated on amiodarone drip. Review of telemetry shows no further atrial fibrillation or ventricular ectopy. Patient is currently sinus rhythm heart rate 60s-70s. After discontinuing amiodarone patient cardiac status appears stable at this point. Continue to monitor on telemetry. We will see patient as needed. This patient was seen in conjunction with Dr Espinoza who agrees with this assessment and plan of care - Patient Problems (1) Acute hypoxemic respiratory failure Current Visit: Yes Status: Acute (2) Cardiac arrest Current Visit: Yes Status: Acute (3) DVT prophylaxis Current Visit: Yes Status: Acute (4) Alzheimer's dementia Current Visit: Yes Status: Chronic Subjective Date of service: 10/07/20 Principal diagnosis: Ac. hypoxemic resp failure; Cardiac arrest with ROSC; Dementia Interval history: Patient sleeping in bed Patient was sinus rhythm on monitor with no events Objective Last Vital Signs Temp 99.8 F H 10/07/20 08:00 Pulse 68 10/07/20 13:00 Resp 16 10/07/20 13:00 BP 139/72 10/07/20 13:00 Pulse Ox 100 10/07/20 13:00 - Physical Examination General: No Apparent Distress HEENT: Positive: Normocephaly, Mucus Membranes Moist Neck: Positive: neck supple, trachea midline Cardiac: Positive: Reg Rate and Rhythm Lungs: Positive: Ventilated Respirations Neuro: Positive: Grossly Intact Abdomen: Positive: Unremarkable, Soft Skin: Negative: Rash Musculoskeletal: No Pain Extremities: Present: upper extr. pulses, lower extr. pulses. Absent: edema - Labs and Meds Cardiac Enzymes 10/07/20 Range/Units 05:20 AST 22 (5-40) units/L CBC 10/07/20 Range/Units 05:20 WBC 9.9 (4.5-11.0) K/mm3 RBC 3.74 (3.65-5.03) M/mm3 Hgb 11.3 L (11.8-15.2) gm/dl Hct 34.0 L (35.5-45.6) % Plt Count 181 (140-440) K/mm3 Comprehensive Metabolic Panel 10/07/20 Range/Units 05:20 Sodium 142 (137-145) mmol/L Potassium 3.9 (3.6-5.0) mmol/L Chloride 108.4 H (98-107) mmol/L Carbon Dioxide 26 (22-30) mmol/L BUN 32 H (9-20) mg/dL Creatinine 0.7 L (0.8-1.3) mg/dL Glucose 116 H (75-100) mg/dL Calcium 9.9 (8.4-10.2) mg/dL AST 22 (5-40) units/L ALT 15 (7-56) units/L Alkaline Phosphatase 66 (35-129) units/L Total Protein 5.8 L (6.3-8.2) g/dL Albumin 2.5 L (3.9-5) g/dL - Imaging and Cardiology EKG: report reviewed, image reviewed Echo: report reviewed (Echocardiogram 10/03/2020: LVEF is 55 to 60%. LV normal size. LV SF normal. RV SF normal. No valvular abnormalities) - Telemetry EKG Rhythm: Sinus Rhythm - EKG Sinus rhythms and dysrhythmias: sinus rhythm - Allied health notes Allied health notes reviewed: nursing
--- NOTE | 2020-10-07 12:22 | Progress Note ---
<VALERIEIGLESIA BeaverRonnie - Last Filed: 10/07/20 16:25> Assessment and Plan This is a 80 year old male with Vascular Dementia, Cerebral Atherosclerosis, with malnutrition admitted post cardiac arrest, acute hypoxic respiratory failure now s/p cardio-resp arrest on 10/05 Neuro: Vascular Dementia -10/02 CT head shows disproportionate temporal and parietal lobe atrophy suggests possibility of Alzheimer's dementia, moderate global parenchymal atrophy, no acute intracranial abnormalities are identified. -Fall aspiration precautions -Resume home Aricept -B wrist restraints in place for safety -nodding appropriately -pt has hx CVA with baseline right sided weakness -will need aggressive pt/ot -family updated on plan of care CV: s/p cardiac arrest -Cardiology consulted, appreciate recommendations -10/04 Echo shows EF 55-60%, transmitral Doppler flow pattern suggests impaired LV function Afib -amio drip dc due to bradycardia -QT < 500 -Cardiology consulted -Off pressors -SR 70's Respiratory: s/p Cardio respiratory arrest on 10/05 -reintubated 10/05 -CPAP trials daily- when extubated pt was drooling and unable to control secretions. He had generalized weakness and a weak cough. speech did see and initially failed him then pt passed to puree diet Acute hypoxemic respiratory failure -CCM consulted, appreciate recommendations -Extubated 10/04 but reintubated 10/05 -VAP bundle -10/05 Tracheal aspirate culture pending -trending ABG -trend daily chest xray FEN/GI Malnutrition -NGT for now -Ntr consult for TF Hypophosphatemia -Replete phosphate -Trend phosphate Urinary Retention hx -Resume home Proscar and Flomax when clinically appropriate -Pierce in place -strict I/O -follow and replace electrolytes as needed -trend Cr Heme -VTE lovenox and SCD -trend CBC ID -cultures pending -MRSA swab pending- if neg - dc vanc -Cefpime, vanc follow cultures xray concerning for aspiration event Endo -SSI, accucheck q 6 -avoid hypoglycemia GI/DVT prophylaxis: PPI, lovenox subq, SCDs to BLE while in bed Dispo: ICU Lines: LIJ TLC (10/06), Right radial joao (10/05). pierce (10/02) The high probability of a clinically significant, sudden or life threatening deterioration of the [neuro, pulmonary,] system(s) required my full and direct attention, intervention and personal management. The aggregate critical care time was [35] minutes. This time is in addition to time spent performing reported procedures but includes the following: [x] Data Review and interpretation [x] Patient assessment and monitoring of vital signs [x] Documentation [x] Medication orders and management Subjective Date of service: 10/07/20 Principal diagnosis: Ac. hypoxemic resp failure; Cardiac arrest with ROSC; Dementia Interval history: 80 YO Male with Vascular Dementia, Cerebral Atherosclerosis, Malnutrition who presented to the ED on 10/02 via EMS after being found unresponsive by family and upon arrival the patient was found to be in distress and subsequently developed cardiac arrest and was treated with ACLS protocol with eventual return of perfusing cardiac rhythm and transported to [facility]. Upon arrival to the ED he was found to be in acute respiratory failure secondary to cardiac arrest and unable able to protect his airway. Patient was intubated and placed on ventilatory support. Patient admitted to ICU for further care and evaluation. Critical care team consulted in ED. 10/03: Continue supportive care, noted leukoctosis, ?reactive. Will continue to assess, consult cardiology in am. 10/04: Continues on full ventilatory support awake alert oriented will attempt extubation today according to the nursing staff plan discussed with access liaison. Sleeve Fixer consulted for further input considering out of hospital cardiac arrest. Echocardiogram completed awaiting results 10/05: Patient was extubated yesterday and was cleared for puree diet by . Patient was to be downgraded from the ICU. This evening the patient was noted to be SB and responded to atropine. Patient was gargling and dopamine gtt was started briefly and stopped r/t tachycardia, short runs of vtach then the patient was noted to be in PEA. See code sheet and event note for details. I updated daughter over phone of current events. Started on empiric abx, femoral TLC and joao placed. Cultures sent. Cardio ordered amio and mag was given. 10/06 nodding appropriately; CPAP trials 10/07: failed PSV on PS 20 so CCM decreased PS to 10 and will obtain ABG 1300, CCM will try to extubate tomorrow. Hypophostemia repleted. Objective - Constitutional Vitals: Vital Signs - 12hr 10/07/20 10/07/20 10/07/20 01:00 02:00 03:00 Temperature Pulse Rate 73 70 72 Pulse Rate [ From Monitor] Respiratory 20 21 20 Rate Blood Pressure 134/72 129/67 117/67 O2 Sat by Pulse 100 100 100 Oximetry 10/07/20 10/07/20 10/07/20 03:42 04:00 04:10 Temperature 98.8 F Pulse Rate 72 80 Pulse Rate [ 64 From Monitor] Respiratory 19 Rate Blood Pressure 130/71 136/59 O2 Sat by Pulse 100 100 Oximetry 10/07/20 10/07/20 10/07/20 05:00 06:00 07:00 Temperature Pulse Rate 75 74 70 Pulse Rate [ From Monitor] Respiratory 13 21 21 Rate Blood Pressure 139/70 130/75 130/77 O2 Sat by Pulse 100 100 100 Oximetry 10/07/20 10/07/20 10/07/20 07:47 08:00 08:08 Temperature 99.8 F H Pulse Rate 76 71 69 Pulse Rate [ 69 From Monitor] Respiratory 16 16 Rate Blood Pressure 137/58 129/70 O2 Sat by Pulse 100 100 100 Oximetry 10/07/20 10/07/20 10/07/20 09:00 10:00 11:23 Temperature Pulse Rate 70 76 75 Pulse Rate [ From Monitor] Respiratory 22 26 H 17 Rate Blood Pressure 128/69 133/73 133/55 O2 Sat by Pulse 100 100 100 Oximetry General appearance: Present: no acute distress - EENT Eyes: PERRL, EOM intact ENT: poor dentition - Neck Neck: normal ROM - Respiratory Respiratory effort: normal Respiratory: bilateral: diminished - Cardiovascular Rhythm: regular Heart Sounds: Present: S1 & S2. Absent: systolic murmur, diastolic murmur Extremities: no ischemia, pulses intact, pulses symmetrical, No edema, normal temperature, normal color - Gastrointestinal General gastrointestinal: Present: soft, non-tender, non-distended, normal bowel sounds - Integumentary Integumentary: warm, dry - Musculoskeletal Musculoskeletal: left sided weakness - Neurologic Neurologic: CNII-XII intact - Psychiatric Psychiatric: cooperative - Allied health notes Allied health notes reviewed: nursing, RT - Labs CBC & Chem 7: 10/07/20 05:20 10/07/20 05:20 Labs: Abnormal lab results 10/06/20 10/06/20 10/06/20 Range/Units 14:20 15:40 17:16 Hgb (11.8-15.2) gm/dl Hct (35.5-45.6) % RDW (13.2-15.2) % ABG pH (7.320-7.450) ABG Hemoglobin (12.0-17.5) ABG Sodium 134.1 L (136.0-145.0) mmol/L ABG Chloride (98-107) mmol/L ABG Glucose 113 H (65-95) mg/dL Chloride (98-107) mmol/L BUN (9-20) mg/dL Creatinine (0.8-1.3) mg/dL Glucose (75-100) mg/dL POC Glucose 110 H (70-105) mg/dL Phosphorus (2.5-4.5) mg/dL Total Protein (6.3-8.2) g/dL Albumin (3.9-5) g/dL Arterial Blood Glucose 113 H (65-95) mg/dL Arterial Blood Ionized Calcium 5.4 H (4.6-5.3) mg/dL Urine WBC (Auto) 10.0 H (0.0-6.0) /HPF 10/07/20 10/07/20 10/07/20 Range/Units 04:00 05:20 05:20 Hgb 11.3 L (11.8-15.2) gm/dl Hct 34.0 L (35.5-45.6) % RDW 15.4 H (13.2-15.2) % ABG pH 7.468 H (7.320-7.450) ABG Hemoglobin 11.9 L (12.0-17.5) ABG Sodium (136.0-145.0) mmol/L ABG Chloride 109.0 H (98-107) mmol/L ABG Glucose 112 H (65-95) mg/dL Chloride 108.4 H (98-107) mmol/L BUN 32 H (9-20) mg/dL Creatinine 0.7 L (0.8-1.3) mg/dL Glucose 116 H (75-100) mg/dL POC Glucose (70-105) mg/dL Phosphorus 2.10 L (2.5-4.5) mg/dL Total Protein 5.8 L (6.3-8.2) g/dL Albumin 2.5 L (3.9-5) g/dL Arterial Blood Glucose 112 H (65-95) mg/dL Arterial Blood Ionized Calcium 5.6 H (4.6-5.3) mg/dL Urine WBC (Auto) (0.0-6.0) /HPF HEART Score - HEART Score EKG: Normal Age: < 45 Risk factors: No known risk factors Troponin: Troponin T < 0.010 ng/mL (0.00-0.029) 10/07/20 05:20 Troponin: < normal limit <ALIZA SIMS - Last Filed: 10/08/20 11:57> Assessment and Plan Agree with assessment and plan as outlined by nurse practitioner as above. I have examined the patient personally. Patient continues on the vent, critical care to wean patient off. Updated family pertaining to patient's prognosis. Objective - Constitutional Vitals: Vital Signs - 12hr 10/08/20 10/08/20 10/08/20 00:00 01:00 02:00 Temperature 98.6 F Pulse Rate 72 77 76 Pulse Rate [ 74 From Monitor] Respiratory 17 20 20 Rate Blood Pressure 140/71 139/68 137/68 O2 Sat by Pulse 100 100 99 Oximetry 10/08/20 10/08/20 10/08/20 02:57 03:00 04:00 Temperature 99.5 F Pulse Rate 75 73 70 Pulse Rate [ 70 From Monitor] Respiratory 19 17 Rate Blood Pressure 137/68 138/69 139/70 O2 Sat by Pulse 100 100 100 Oximetry 10/08/20 10/08/20 10/08/20 05:00 06:00 07:00 Temperature Pulse Rate 104 H 70 77 Pulse Rate [ From Monitor] Respiratory 22 17 17 Rate Blood Pressure 153/88 138/69 151/73 O2 Sat by Pulse 100 100 100 Oximetry 10/08/20 10/08/20 10/08/20 07:47 08:00 09:00 Temperature 99.8 F H Pulse Rate 78 81 82 Pulse Rate [ 78 From Monitor] Respiratory 13 16 13 Rate Blood Pressure 138/52 148/77 150/76 O2 Sat by Pulse 100 99 98 Oximetry 10/08/20 10/08/20 10:00 11:00 Temperature Pulse Rate 81 79 Pulse Rate [ From Monitor] Respiratory 19 20 Rate Blood Pressure 147/76 142/71 O2 Sat by Pulse 99 100 Oximetry - Labs CBC & Chem 7: 10/07/20 05:20 10/08/20 06:13 Labs: Abnormal lab results 10/07/20 10/08/20 Range/Units 13:00 06:13 ABG pH 7.456 H (7.320-7.450) ABG Hemoglobin 11.3 L (12.0-17.5) ABG Chloride 109.0 H (98-107) mmol/L ABG Glucose 109 H (65-95) mg/dL Carboxyhemoglobin 0.4 L (0.5-1.5) Sodium 146 H (137-145) mmol/L Chloride 110.7 H (98-107) mmol/L Carbon Dioxide 33 H D (22-30) mmol/L BUN 30 H (9-20) mg/dL Creatinine 0.7 L (0.8-1.3) mg/dL Phosphorus 2.30 L (2.5-4.5) mg/dL Arterial Blood Glucose 109 H (65-95) mg/dL Arterial Blood Ionized Calcium 5.5 H (4.6-5.3) mg/dL HEART Score - HEART Score Troponin: Troponin T < 0.010 ng/mL (0.00-0.029) 10/07/20 05:20
[2020-10-07] MEDS: VANCOMYCIN 1,250 MG in SODIUM CHLORIDE 0.9% 250ML 250 ML IV SCH (17:20)
[2020-10-07] MEDS: HYDROmorphone 1 MG/1 ML INJ IV PRN (21:48)
[2020-10-07] MEDS: DONEPEZIL 10 MG TAB PO SCH (21:49)
[2020-10-08] MEDS: CEFEPIME/NS 2 GM/100 ML 2 GM/100 ML BAG IV SCH ×2 (00:42→06:18)
--- NOTE | 2020-10-08 04:31 | XRay Report ---
XR chest 1V ap INDICATION / CLINICAL INFORMATION: follow up respiratory failure. COMPARISON: Radiograph from yesterday. FINDINGS: SUPPORT DEVICES: Unchanged. HEART /PULMONARY VASCULATURE: Unchanged. LUNGS / PLEURA: Right basilar airspace opacity is unchanged. Left lung is clear. No pneumothorax. IMPRESSION: 1. No significant interval change. Signer Name: Manjit Mantilla MD Signed: 10/08/2020 4:26 AM Workstation Name: [id number]
[2020-10-08] MEDS: HYDROmorphone 1 MG/1 ML INJ IV PRN (05:14)
[2020-10-08 07:48] LABS: Blood Urea Nitrogen 30 mg/dL (9-20); Calcium 10.2 mg/dL (8.4-10.2); Hemolysis Index 4
[2020-10-08 08:02] LABS: BUN/Creatinine Ratio 43
--- NOTE | 2020-10-08 10:45 | Electrocardiograph Report ---
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 LEFT AXIS DEVIATION no longer noted. Electronically Signed On 10-08-2020 10:44:51 EDT by Jesus Espinoza
[2020-10-08] MEDS: DOCUSATE SODIUM 100 MG/10 ML ORAL LIQD PO SCH ×2 (10:55→21:36)
[2020-10-08] MEDS: ENOXAPARIN 40 MG/0.4 ML INJ SUB-Q SCH (10:55)
[2020-10-08] MEDS: FAMOTIDINE 20 MG TAB PO SCH ×2 (10:55→21:36)
[2020-10-08] MEDS: PHOS-NAK POWDER PACKET PO SCH ×2 (10:55→21:36)
--- NOTE | 2020-10-08 12:43 | Progress Note ---
Assessment and Plan This is a 80 year old male with Vascular Dementia, Cerebral Atherosclerosis, with malnutrition admitted post cardiac arrest, acute hypoxic respiratory failure now s/p cardio-resp arrest on 10/05 Neuro: Vascular Dementia -10/02 CT head shows disproportionate temporal and parietal lobe atrophy suggests possibility of Alzheimer's dementia, moderate global parenchymal atrophy, no acute intracranial abnormalities are identified. -Fall aspiration precautions -Resume home Aricept -nodding appropriately -pt has hx CVA with baseline right sided weakness -will need aggressive pt/ot -family updated on plan of care CV: s/p cardiac arrest -Cardiology consulted, appreciate recommendations -10/04 Echo shows EF 55-60%, transmitral Doppler flow pattern suggests impaired LV function Afib -amio drip dc due to bradycardia -QT < 500 -Cardiology consulted -Off pressors -SR Respiratory: s/p Cardio respiratory arrest on 10/05 -reintubated 10/05, extuabted 10/08 -10/05 when extubated pt was drooling and unable to control secretions. He had generalized weakness and a weak cough. speech did see and initially failed him then pt passed to puree diet Acute hypoxemic respiratory failure -CCM consulted, appreciate recommendations -Extubated 10/04 but reintubated 10/05, extubated 10/08 -VAP bundle -10/05 Tracheal aspirate culture usual respiratory ramone -trend chest xray FEN/GI Malnutrition -NGT for now -Ntr consult for TF; ST had cleared for pureed diet but will hold off PO for a couple more days Hypophosphatemia -Replete phosphate -Trend phosphate Urinary Retention hx -Resume home Proscar and Flomax and Remove pierce -strict I/O -follow and replace electrolytes as needed -trend Cr Heme -VTE lovenox and SCD -trend CBC ID -cultures NGTD -MRSA swab pending -Cefpime stopped; 10/05 xray concerning for aspiration event Endo -SSI, accucheck q 6 -avoid hypoglycemia GI/DVT prophylaxis: PPI, lovenox subq, SCDs to BLE while in bed Dispo: ICU Lines: L IJ TLC (10/06), Right radial joao (10/05). pierce (10/02)-ordered to be removed The high probability of a clinically significant, sudden or life threatening deterioration of the [neuro, pulmonary,] system(s) required my full and direct attention, intervention and personal management. The aggregate critical care time was [35] minutes. This time is in addition to time spent performing reported procedures but includes the following: [x] Data Review and interpretation [x] Patient assessment and monitoring of vital signs [x] Documentation [x] Medication orders and management Subjective Date of service: 10/08/20 Principal diagnosis: Ac. hypoxemic resp failure; Cardiac arrest with ROSC; Dementia Interval history: 80 YO Male with Vascular Dementia, Cerebral Atherosclerosis, Malnutrition who presented to the ED on 10/02 via EMS after being found unresponsive by family and upon arrival the patient was found to be in distress and subsequently developed cardiac arrest and was treated with ACLS protocol with eventual return of perfusing cardiac rhythm and transported to [facility]. Upon arrival to the ED he was found to be in acute respiratory failure secondary to cardiac arrest and unable able to protect his airway. Patient was intubated and placed on ventilatory support. Patient admitted to ICU for further care and evaluation. Critical care team consulted in ED. 10/03: Continue supportive care, noted leukoctosis, ?reactive. Will continue to assess, consult cardiology in am. 10/04: Continues on full ventilatory support awake alert oriented will attempt extubation today according to the nursing staff plan discussed with signals intelligence superintendent. Instrument Sterilizer consulted for further input considering out of hospital cardiac arrest. Echocardiogram completed awaiting results 10/05: Patient was extubated yesterday and was cleared for puree diet by . Patient was to be downgraded from the ICU. This evening the patient was noted to be SB and responded to atropine. Patient was gargling and dopamine gtt was sta rted briefly and stopped r/t tachycardia, short runs of vtach then the patient was noted to be in PEA. See code sheet and event note for details. I updated daughter over phone of current events. Started on empiric abx, femoral TLC and joao placed. Cultures sent. Cardio ordered amio and mag was given. 10/06 nodding appropriately; CPAP trials 10/07: failed PSV on PS 20 so CCM decreased PS to 10 and will obtain ABG 1300, CCM will try to extubate tomorrow. Hypophostemia repleted. 10/08: Trial extubation per [facility]. Hypophosphatemia to be treated. No acute events overnight. Objective - Constitutional Vitals: Vital Signs - 12hr 10/08/20 10/08/2021 01:00 02:00 02:57 Temperature Pulse Rate 77 76 75 Pulse Rate [ From Monitor] Respiratory 20 20 Rate Blood Pressure 139/68 137/68 137/68 O2 Sat by Pulse 100 99 100 Oximetry 10/08/20 10/08/20 10/08/20 03:00 04:00 05:00 Temperature 99.5 F Pulse Rate 73 70 104 H Pulse Rate [ 70 From Monitor] Respiratory 19 17 22 Rate Blood Pressure 138/69 139/70 153/88 O2 Sat by Pulse 100 100 100 Oximetry 10/08/20 10/08/20 10/08/20 06:00 07:00 07:47 Temperature Pulse Rate 70 77 78 Pulse Rate [ From Monitor] Respiratory 17 17 13 Rate Blood Pressure 138/69 151/73 138/52 O2 Sat by Pulse 100 100 100 Oximetry 10/08/20 10/08/20 10/08/20 08:00 09:00 10:00 Temperature 99.8 F H Pulse Rate 81 82 81 Pulse Rate [ 78 From Monitor] Respiratory 16 13 19 Rate Blood Pressure 148/77 150/76 147/76 O2 Sat by Pulse 99 98 99 Oximetry 10/08/20 11:00 Temperature Pulse Rate 79 Pulse Rate [ From Monitor] Respiratory 20 Rate Blood Pressure 142/71 O2 Sat by Pulse 100 Oximetry General appearance: Present: no acute distress - EENT Eyes: PERRL, EOM intact ENT: hearing intact, dentition normal - Neck Neck: normal ROM - Respiratory Respiratory effort: normal Respiratory: bilateral: CTA - Cardiovascular Rhythm: regular Heart Sounds: Present: S1 & S2. Absent: systolic murmur, diastolic murmur Extremities: no ischemia, pulses intact, pulses symmetrical, No edema, normal temperature, normal color - Integumentary Integumentary: clear, warm, dry - Musculoskeletal Musculoskeletal: right sided weakness - Neurologic Neurologic: CNII-XII intact - Psychiatric Psychiatric: cooperative - Allied health notes Allied health notes reviewed: nursing, RT - Labs CBC & Chem 7: 10/07/20 05:20 10/08/20 06:13 Labs: Abnormal lab results 10/07/20 10/08/20 10/08/20 Range/Units 13:00 06:13 11:51 ABG pH 7.456 H (7.320-7.450) POC ABG pO2 (83-108) mmHg ABG Hemoglobin 11.3 L (12.0-17.5) ABG Chloride 109.0 H (98-107) mmol/L ABG Glucose 109 H (65-95) mg/dL Carboxyhemoglobin 0.4 L (0.5-1.5) Sodium 146 H (137-145) mmol/L Chloride 110.7 H (98-107) mmol/L Carbon Dioxide 33 H D (22-30) mmol/L BUN 30 H (9-20) mg/dL Creatinine 0.7 L (0.8-1.3) mg/dL POC Glucose 106 H (70-105) mg/dL Phosphorus 2.30 L (2.5-4.5) mg/dL Arterial Blood Glucose 109 H (65-95) mg/dL Arterial Blood Ionized Calcium 5.5 H (4.6-5.3) mg/dL 10/08/20 Range/Units 12:04 ABG pH (7.320-7.450) POC ABG pO2 77.5 L (83-108) mmHg ABG Hemoglobin (12.0-17.5) ABG Chloride 109.0 H (98-107) mmol/L ABG Glucose 113 H (65-95) mg/dL Carboxyhemoglobin (0.5-1.5) Sodium (137-145) mmol/L Chloride (98-107) mmol/L Carbon Dioxide (22-30) mmol/L BUN (9-20) mg/dL Creatinine (0.8-1.3) mg/dL POC Glucose (70-105) mg/dL Phosphorus (2.5-4.5) mg/dL Arterial Blood Glucose 113 H (65-95) mg/dL Arterial Blood Ionized Calcium 5.6 H (4.6-5.3) mg/dL HEART Score - HEART Score EKG: Normal Age: < 45 Risk factors: No known risk factors Troponin: Troponin T < 0.010 ng/mL (0.00-0.029) 10/07/20 05:20 Troponin: < normal limit
--- NOTE | 2020-10-08 13:04 | Progress Note ---
Assessment and Plan Acute hypoxemic respiratory failure on MVS (extubated 10/04/2020 Cardiopulmonary arrest with ROSC Protein calorie malnutrition h/o Dementia - get ABG now - extubate if acceptable - repeat Mg level WNL - continue care as below otherwise; - continue to wean supplemental oxygen for target O2 sat's > 90% acutely - VAP bundle addressed - continue lung protective strategies - continue Daily SAT and SBT assessment as tolerated - continue bronchodilators with pulmonary hygiene per RT - wean per pulmonary driven protocols otherwise - continue accuchecks with glycemic control per SSI (While critically ill target blood glucose of 140-180 mg/dL; avoid hypoglycemia) - sedation prn for target RASS 0 to -1 - avoid nephrotoxins, renally dose all medications - continue to avoid benzodiazepine's, reduce the possibility of delirium - complete AB's per ID rec's - prn analgesia per CPOT score - supportive transfusions to keep HgB >7g/dL - mobility, off loading with frequent turning per facility protocol for pressure ulcer prevention - continue chronic home medications as clinically indicated - Maintenance of sleep-wake cycle, avoid delirium - continue enteral nutritional support at goal rate as tolerated - G.I. & VTE prophylaxis - PT/OT/ROM exercises - continue mobility protocols for pressure ulcer prophylaxis - Monitor hemodynamics closely - continue other care per attending / other consultants - discharge planning ongoing concurrently COVID SPECIFIC INTERVENTIONS - COVID-19 PCR negative .... Re-evaluate in am & prn CONDITION: CRITICAL PROGNOSIS: GUARDED CODE STATUS: FULL CODE The high probability of a clinically significant, sudden or life threatening deterioration of the [pulmonary,cardiovascular, neurology] system(s) required my full and direct attention, intervention and personal management. The aggregate critical care time was [36] minutes. This time is in addition to time spent performing reported procedures but includes the following: [x] Data Review and interpretation [x] Patient assessment and monitoring of vital signs [x] Documentation [x] Medication orders and management Subjective Date of service: 10/08/20 Principal diagnosis: Ac. hypoxemic resp failure; Cardiac arrest with ROSC; Dementia Interval history: Patient is seen today for: Ac. hypoxemic resp failure on MVS; Cardiopulmonary arrest with ROSC; Protein calorie malnutrition; h/o Dementia Seen and examined at bedside; 24hour events reviewed; nursing and respiratory care staff consulted; no adverse overnight events reported to me; resting in bed; remains on MVS; tolerating SBT well; follows simp[le commands; no emesis or overt aspiration; afebrile Objective Vital Signs - 12hr 10/08/20 10/08/20 10/08/20 02:00 02:57 03:00 Temperature Pulse Rate 76 75 73 Pulse Rate [ From Monitor] Respiratory 20 19 Rate Blood Pressure 137/68 137/68 138/69 O2 Sat by Pulse 99 100 100 Oximetry 10/08/20 10/08/20 10/08/20 04:00 05:00 06:00 Temperature 99.5 F Pulse Rate 70 104 H 70 Pulse Rate [ 70 From Monitor] Respiratory 17 22 17 Rate Blood Pressure 139/70 153/88 138/69 O2 Sat by Pulse 100 100 100 Oximetry 10/08/20 10/08/20 10/08/20 07:00 07:47 08:00 Temperature 99.8 F H Pulse Rate 77 78 81 Pulse Rate [ 78 From Monitor] Respiratory 17 13 16 Rate Blood Pressure 151/73 138/52 148/77 O2 Sat by Pulse 100 100 99 Oximetry 10/08/20 10/08/20 10/08/20 09:00 10:00 11:00 Temperature Pulse Rate 82 81 79 Pulse Rate [ From Monitor] Respiratory 13 19 20 Rate Blood Pressure 150/76 147/76 142/71 O2 Sat by Pulse 98 99 100 Oximetry 10/08/20 12:37 Temperature Pulse Rate Pulse Rate [ From Monitor] Respiratory Rate Blood Pressure O2 Sat by Pulse 100 Oximetry Constitutional: no acute distress, other (elderly male with normal respiratory effort at rest on MVS) Eyes: non-icteric ENT: oropharynx moist, other (ETT 23 cm SARA) Neck: supple, no lymphadenopathy, no JVD Effort: normal Ascultation: Bilateral: clear, diminished breath sounds Percussion: Bilateral: not dull Cardiovascular: regular rate and rhythm, other (S1,S2) Gastrointestinal: normoactive bowel sounds, soft, non-tender, non-distended Integumentary: normal Extremities: no cyanosis, no edema, pulses normal, no ischemia or petechiae Neurologic: non-focal exam (grossly), pupils equal and round, CN II-XII normal, motor strength normal and, other (somnolent) Psychiatric: mood appropriate, affect normal CBC and BMP: 10/07/20 05:20 10/08/20 06:13 ABG, PT/INR, D-dimer: ABG ABG pH 7.441 (7.320-7.450) 10/08/20 12:04 POC ABG pCO2 39.0 mmHg (32.0-48.0) 10/08/20 12:04 ABG pCO2 35.7 mm Hg 10/03/20 11:20 POC ABG pO2 77.5 mmHg (83-108) L 10/08/20 12:04 ABG pO2 109.5 mm Hg (80.0-90.0) H 10/03/20 11:20 POC ABG HCO3 26.0 10/08/20 12:04 ABG O2 Saturation 95.9 (0-100) 10/08/20 12:04 PT/INR, D-dimer PT 15.8 Sec. (12.2-14.9) H 10/05/20 15:36 INR 1.21 (0.87-1.13) H 10/05/20 15:36 D-Dimer 5468.25 ng/mlDDU (0-234) H 10/02/20 13:45 Abnormal lab findings: Abnormal Labs 10/02/20 10/02/20 10/02/20 13:45 13:45 13:45 WBC Hgb Hct RDW 16.2 H Lymph % (Auto) 7.6 L [place] % (Auto) 9.1 H Lymph # (Auto) 0.5 L [place] # (Auto) Seg Neutrophils % 82.6 H Seg Neutrophils # PT INR D-Dimer 5468.25 H ABG pH POC ABG pO2 ABG pO2 ABG Hemoglobin ABG Oxyhemoglobin ABG Sodium ABG Potassium ABG Chloride ABG Glucose Carboxyhemoglobin Sodium Potassium 3.4 L Chloride Carbon Dioxide 21 L BUN Creatinine Glucose 112 H POC Glucose Calcium Phosphorus Direct Bilirubin Total Protein 5.7 L Albumin 3.1 L Arterial Blood Glucose Arterial Blood Ionized Calcium Urine WBC (Auto) 10/02/20 10/03/20 10/03/20 14:00 03:04 04:35 WBC 13.2 H Hgb Hct RDW 15.9 H Lymph % (Auto) 5.1 L [place] % (Auto) 7.9 H Lymph # (Auto) 0.7 L [place] # (Auto) 1.0 H Seg Neutrophils % 86.8 H Seg Neutrophils # 11.5 H PT INR D-Dimer ABG pH 7.478 H POC ABG pO2 543.4 H 173.1 H ABG pO2 ABG Hemoglobin 11.7 L ABG Oxyhemoglobin 99.4 H 98.8 H ABG Sodium 131.7 L ABG Potassium 3.3 L ABG Chloride 110.0 H ABG Glucose 102 H 124 H Carboxyhemoglobin 0.3 L Sodium Potassium Chloride Carbon Dioxide BUN Creatinine Glucose POC Glucose Calcium Phosphorus Direct Bilirubin Total Protein Albumin Arterial Blood Glucose 102 H 124 H Arterial Blood Ionized Calcium Urine WBC (Auto) 10/03/20 10/03/20 10/03/20 04:35 11:20 23:18 WBC Hgb Hct RDW Lymph % (Auto) [place] % (Auto) Lymph # (Auto) [place] # (Auto) Seg Neutrophils % Seg Neutrophils # PT INR D-Dimer ABG pH POC ABG pO2 ABG pO2 109.5 H ABG Hemoglobin 11.7 L ABG Oxyhemoglobin ABG Sodium ABG Potassium ABG Chloride ABG Glucose Carboxyhemoglobin Sodium Potassium Chloride Carbon Dioxide BUN Creatinine 0.7 L Glucose 109 H POC Glucose 110 H Calcium 10.3 H Phosphorus Direct Bilirubin Total Protein Albumin 3.4 L Arterial Blood Glucose Arterial Blood Ionized Calcium Urine WBC (Auto) 10/04/20 10/04/20 10/05/20 08:32 08:32 04:43 WBC 12.8 H Hgb Hct RDW 15.4 H 15.5 H Lymph % (Auto) 8.5 L [place] % (Auto) 12.7 H Lymph # (Auto) 0.8 L [place] # (Auto) 1.2 H Seg Neutrophils % 78.4 H Seg Neutrophils # PT INR D-Dimer ABG pH POC ABG pO2 ABG pO2 ABG Hemoglobin ABG Oxyhemoglobin ABG Sodium ABG Potassium ABG Chloride ABG Glucose Carboxyhemoglobin Sodium Potassium Chloride Carbon Dioxide BUN Creatinine 0.7 L Glucose POC Glucose Calcium 10.3 H Phosphorus Direct Bilirubin Total Protein Albumin Arterial Blood Glucose Arterial Blood Ionized Calcium Urine WBC (Auto) 10/05/20 10/05/20 10/05/20 04:43 14:49 15:34 WBC 12.3 H Hgb Hct RDW 15.4 H Lymph % (Auto) 8.3 L [place] % (Auto) 8.4 H Lymph # (Auto) 1.0 L [place] # (Auto) 1.0 H Seg Neutrophils % 82.8 H Seg Neutrophils # 10.2 H PT INR D-Dimer ABG pH POC ABG pO2 ABG pO2 ABG Hemoglobin ABG Oxyhemoglobin ABG Sodium ABG Potassium ABG Chloride ABG Glucose Carboxyhemoglobin Sodium Potassium Chloride Carbon Dioxide BUN 24 H Creatinine 0.7 L Glucose 104 H POC Glucose 139 H Calcium Phosphorus Direct Bilirubin Total Protein Albumin Arterial Blood Glucose Arterial Blood Ionized Calcium Urine WBC (Auto) 10/05/20 10/05/20 10/05/20 15:36 15:36 15:36 WBC Hgb Hct RDW Lymph % (Auto) [place] % (Auto) Lymph # (Auto) [place] # (Auto) Seg Neutrophils % Seg Neutrophils # PT 15.8 H INR 1.21 H D-Dimer ABG pH POC ABG pO2 ABG pO2 ABG Hemoglobin ABG Oxyhemoglobin ABG Sodium ABG Potassium ABG Chloride ABG Glucose Carboxyhemoglobin Sodium Potassium Chloride Carbon Dioxide BUN 26 H Creatinine Glucose 142 H POC Glucose Calcium Phosphorus 4.70 H Direct Bilirubin Total Protein 6.0 L Albumin 2.8 L Arterial Blood Glucose Arterial Blood Ionized Calcium Urine WBC (Auto) 10/05/20 10/05/20 10/05/20 15:36 16:15 23:15 WBC Hgb Hct RDW Lymph % (Auto) [place] % (Auto) Lymph # (Auto) [place] # (Auto) Seg Neutrophils % Seg Neutrophils # PT INR D-Dimer ABG pH POC ABG pO2 228.0 H ABG pO2 ABG Hemoglobin ABG Oxyhemoglobin 98.9 H ABG Sodium ABG Potassium ABG Chloride ABG Glucose 154 H Carboxyhemoglobin Sodium Potassium Chloride Carbon Dioxide BUN 27 H Creatinine Glucose 113 H POC Glucose Calcium Phosphorus Direct Bilirubin 0.3 H Total Protein 5.7 L Albumin 2.9 L Arterial Blood Glucose 154 H Arterial Blood Ionized Calcium Urine WBC (Auto) 10/05/20 10/06/20 10/06/20 23:26 04:00 09:11 WBC Hgb Hct RDW Lymph % (Auto) [place] % (Auto) Lymph # (Auto) [place] # (Auto) Seg Neutrophils % Seg Neutrophils # PT INR D-Dimer ABG pH POC ABG pO2 170.7 H ABG pO2 ABG Hemoglobin ABG Oxyhemoglobin 98.8 H ABG Sodium 134.3 L ABG Potassium ABG Chloride ABG Glucose 115 H Carboxyhemoglobin 0.4 L Sodium Potassium Chloride Carbon Dioxide BUN 31 H Creatinine Glucose 110 H POC Glucose 116 H Calcium 10.7 H Phosphorus 2.30 L D Direct Bilirubin Total Protein Albumin Arterial Blood Glucose 115 H Arterial Blood Ionized Calcium 5.5 H Urine WBC (Auto) 10/06/20 10/06/20 10/06/20 11:48 14:20 15:40 WBC Hgb Hct RDW Lymph % (Auto) [place] % (Auto) Lymph # (Auto) [place] # (Auto) Seg Neutrophils % Seg Neutrophils # PT INR D-Dimer ABG pH POC ABG pO2 ABG pO2 ABG Hemoglobin ABG Oxyhemoglobin ABG Sodium 134.1 L ABG Potassium ABG Chloride ABG Glucose 113 H Carboxyhemoglobin Sodium Potassium Chloride Carbon Dioxide BUN Creatinine Glucose POC Glucose 115 H Calcium Phosphorus Direct Bilirubin Total Protein Albumin Arterial Blood Glucose 113 H Arterial Blood Ionized Calcium 5.4 H Urine WBC (Auto) 10.0 H 10/06/20 10/07/20 10/07/20 17:16 04:00 05:20 WBC Hgb 11.3 L Hct 34.0 L RDW 15.4 H Lymph % (Auto) [place] % (Auto) Lymph # (Auto) [place] # (Auto) Seg Neutrophils % Seg Neutrophils # PT INR D-Dimer ABG pH 7.468 H POC ABG pO2 ABG pO2 ABG Hemoglobin 11.9 L ABG Oxyhemoglobin ABG Sodium ABG Potassium ABG Chloride 109.0 H ABG Glucose 112 H Carboxyhemoglobin Sodium Potassium Chloride Carbon Dioxide BUN Creatinine Glucose POC Glucose 110 H Calcium Phosphorus Direct Bilirubin Total Protein Albumin Arterial Blood Glucose 112 H Arterial Blood Ionized Calcium 5.6 H Urine WBC (Auto) 10/07/20 10/07/20 10/08/20 05:20 13:00 06:13 WBC Hgb Hct RDW Lymph % (Auto) [place] % (Auto) Lymph # (Auto) [place] # (Auto) Seg Neutrophils % Seg Neutrophils # PT INR D-Dimer ABG pH 7.456 H POC ABG pO2 ABG pO2 ABG Hemoglobin 11.3 L ABG Oxyhemoglobin ABG Sodium ABG Potassium ABG Chloride 109.0 H ABG Glucose 109 H Carboxyhemoglobin 0.4 L Sodium 146 H Potassium Chloride 108.4 H 110.7 H Carbon Dioxide 33 H D BUN 32 H 30 H Creatinine 0.7 L 0.7 L Glucose 116 H POC Glucose Calcium Phosphorus 2.10 L 2.30 L Direct Bilirubin Total Protein 5.8 L Albumin 2.5 L Arterial Blood Glucose 109 H Arterial Blood Ionized Calcium 5.5 H Urine WBC (Auto) 10/08/20 10/08/20 11:51 12:04 WBC Hgb Hct RDW Lymph % (Auto) [place] % (Auto) Lymph # (Auto) [place] # (Auto) Seg Neutrophils % Seg Neutrophils # PT INR D-Dimer ABG pH POC ABG pO2 77.5 L ABG pO2 ABG Hemoglobin ABG Oxyhemoglobin ABG Sodium ABG Potassium ABG Chloride 109.0 H ABG Glucose 113 H Carboxyhemoglobin Sodium Potassium Chloride Carbon Dioxide BUN Creatinine Glucose POC Glucose 106 H Calcium Phosphorus Direct Bilirubin Total Protein Albumin Arterial Blood Glucose 113 H Arterial Blood Ionized Calcium 5.6 H Urine WBC (Auto) Chest x-ray: image reviewed Allied health notes reviewed: nursing
[2020-10-08] MEDS ORDERED: propofoL 200 MG/20 ML VIAL IV ONE (13:15)
--- NOTE | 2020-10-08 13:25 | Event Note ---
Date: 10/08/20 CODE BLUE (PEA arrest) CPR & ACLS protocol initiated Epinephrine X 1 BVM ventilation ROSC at 1st pulse check Good BP (A-line in place) Intubated RSI with glideoscope Propofol 4 mls IVP for sedation 2 gms MgSO4 given for torsades type rhythm that developed post epinephrine - family notification by attending
--- NOTE | 2020-10-08 13:34 | Event Note ---
<IGLESIA PADILLA - Last Filed: 10/09/20 07:27> Date: 10/08/20 Alerted by RT that the SpO2 was reading the 60s. Entered room with Carmina MOORE. Patient seemed to be drooling. No pulse found. CPR initiated by So MOORE. Patient was intubated by Dr. Tobias at bedside. See code sheet for details. ROSC was achieved. Cardiology is aware and reviewing rhythm strips. [facility] ordered mag sulfate for what seems to be torsades-like rhythm on the monitor post epinephrine. Dr. Sorenson to call family. <ALIZA SORENSON - Last Filed: 10/10/20 11:10> Agree with noted events as above. Saturations were decreased, patient went into PEA, ACLS was performed, epinephrine given. ROSC achieved, pending EKG, cardiology has been consulted. Spoke with critical care, will need to speak with the family pertaining to patient's secretions which he is not able to control, patient may need trach and PEG.
[2020-10-08] MEDS ORDERED: SODIUM CHLORIDE 0.9% 500 ML 500 ML ONE (13:43)
[2020-10-08] MEDS ORDERED: MAGNESIUM SULFATE 2 GM/50 ML BAG IV ONE (14:00)
[2020-10-08] MEDS: fentaNYL DRIP Premix 2,000 MCG/100 ML BAG IV SCH (14:15)
[2020-10-08] MEDS ORDERED: fentaNYL DRIP Premix 2,000 MCG/100 ML BAG IV ONE (14:19)
[2020-10-08] MEDS ORDERED: fentaNYL 100 MCG/2 ML INJ IV PRN (14:50)
[2020-10-08] MEDS: SCOPOLAMINE TRANSDERMAL PATCH 72 HR TD SCH (15:18)
[2020-10-08] MEDS ORDERED: EPINEPHrine 1 MG/10 ML SYRINGE ONE (15:25)
[2020-10-08] MEDS: TAMSULOSIN 0.4 MG CAP PO SCH (15:51)
[2020-10-08] MEDS: FINASTERIDE 5 MG TAB PO SCH (16:37)
[2020-10-08 16:42] LABS: ABG Base Excess 2.1 mmol/L (-2.0-3.0); ABG HCO3 29.2 mmol/L (20.0-26.0); ABG Methemoglobin 0.6 % (0.0-1.5); ABG Oxygen Saturation 99.4 % (95.0-99.0); ABG PCO2 56.3 mm Hg; ABG PH 7.333 pH Units (7.350-7.450)
[2020-10-08 16:45] LABS: ABG PO2 263.1 mm Hg (80.0-90.0)
[2020-10-08] MEDS: DONEPEZIL 10 MG TAB PO SCH (21:36)
--- NOTE | 2020-10-09 00:58 | XRay Report ---
XR chest 1V ap INDICATION / CLINICAL INFORMATION: follow up respiratory failure. COMPARISON: Radiograph from yesterday. FINDINGS: SUPPORT DEVICES: Unchanged. HEART /PULMONARY VASCULATURE: Unchanged. LUNGS / PLEURA: Mild improvement in right basilar airspace disease. No pneumothorax. IMPRESSION: Improved right basilar airspace disease. Signer Name: Manjit Mantilla MD Signed: 10/09/2020 12:53 AM Workstation Name: [id number]
[2020-10-09] MEDS: fentaNYL DRIP Premix 2,000 MCG/100 ML BAG IV SCH ×2 (05:05→20:56)
[2020-10-09 05:10] LABS: BUN/Creatinine Ratio 41; Blood Urea Nitrogen 33 mg/dL (9-20); Calcium 9.9 mg/dL (8.4-10.2); Hemolysis Index 8
--- NOTE | 2020-10-09 08:40 | Event Note ---
Date: 10/09/20 10/08/2020 patient experienced cardiac arrest event with ROSC at first rhythm check. Review of rhythm strips revealed progressive hypoxia with reflex bradycardia over several minutes prior to loss of pulse. Post ROSC patient was briefly in A. fib RVR which rapidly normalized to sinus tach 100s to 110s. Post event twelve-lead shows no acute ischemic changes. Will order repeat troponins and magnesium level. NELLIE Plaza [facility] heart specialists collaborating with Dr Espinoza [facility] heart specialists
[2020-10-09] MEDS ORDERED: SODIUM PHOSPHATE 15 MMOL in SODIUM CHLORIDE 0.9% 250ML 250 ML IV ONE (10:00)
[2020-10-09] MEDS: TAMSULOSIN 0.4 MG CAP PO SCH (10:03)
[2020-10-09] MEDS: FAMOTIDINE 20 MG TAB PO SCH ×2 (10:03→23:17)
[2020-10-09] MEDS: DOCUSATE SODIUM 100 MG/10 ML ORAL LIQD PO SCH ×2 (10:03→23:17)
[2020-10-09] MEDS: ENOXAPARIN 40 MG/0.4 ML INJ SUB-Q SCH (10:03)
[2020-10-09] MEDS: FINASTERIDE 5 MG TAB PO SCH (10:03)
--- NOTE | 2020-10-09 10:15 | Electrocardiograph Report ---
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
--- NOTE | 2020-10-09 12:47 | Progress Note ---
Assessment and Plan Acute hypoxemic respiratory failure on MVS (extubated 10/04/2020 Cardiopulmonary arrest with ROSC Protein calorie malnutrition h/o Dementia - will need trach and PEN re: failed extubation X 2 - will consult general surgery - continue care as below otherwise; - continue to wean supplemental oxygen for target O2 sat's > 90% acutely - VAP bundle addressed - continue lung protective strategies - continue Daily SAT and SBT assessment as tolerated - continue bronchodilators with pulmonary hygiene per RT - wean per pulmonary driven protocols otherwise - continue accuchecks with glycemic control per SSI (While critically ill target blood glucose of 140-180 mg/dL; avoid hypoglycemia) - sedation prn for target RASS 0 to -1 - avoid nephrotoxins, renally dose all medications - continue to avoid benzodiazepine's, reduce the possibility of delirium - complete AB's per ID rec's - prn analgesia per CPOT score - supportive transfusions to keep HgB >7g/dL - mobility, off loading with frequent turning per facility protocol for pressure ulcer prevention - continue chronic home medications as clinically indicated - Maintenance of sleep-wake cycle, avoid delirium - continue enteral nutritional support at goal rate as tolerated - G.I. & VTE prophylaxis - PT/OT/ROM exercises - continue mobility protocols for pressure ulcer prophylaxis - Monitor hemodynamics closely - continue other care per attending / other consultants - discharge planning ongoing concurrently COVID SPECIFIC INTERVENTIONS - COVID-19 PCR negative .... Re-evaluate in am & prn CONDITION: CRITICAL PROGNOSIS: GUARDED CODE STATUS: FULL CODE The high probability of a clinically significant, sudden or life threatening deterioration of the [pulmonary,cardiovascular, neurology] system(s) required my full and direct attention, intervention and personal management. The aggregate critical care time was [32] minutes. This time is in addition to time spent performing reported procedures but includes the following: [x] Data Review and interpretation [x] Patient assessment and monitoring of vital signs [x] Documentation [x] Medication orders and management Subjective Date of service: 10/09/20 Principal diagnosis: Ac. hypoxemic resp failure; Cardiac arrest with ROSC; Dementia Interval history: Patient is seen today for: Ac. hypoxemic resp failure on MVS; Cardiopulmonary arrest with ROSC; Protein calorie malnutrition; h/o Dementia Seen and examined at bedside; 24hour events reviewed; nursing and respiratory care staff consulted; no adverse overnight events reported to me; resting in bed; remains on MVS s/p CODE BLUE; sedated; less responsive overall; PO4 level low and has been replaced Objective Vital Signs - 12hr 10/09/20 10/09/20 10/09/20 01:00 02:00 03:00 Temperature Pulse Rate 91 H 89 91 H Pulse Rate [ From Monitor] Respiratory 20 20 20 Rate Blood Pressure 119/67 117/67 110/65 O2 Sat by Pulse 100 100 100 Oximetry 10/09/20 10/09/20 10/09/20 04:00 04:08 05:00 Temperature 98.7 F Pulse Rate 86 84 88 Pulse Rate [ 84 From Monitor] Respiratory 20 20 Rate Blood Pressure 126/72 126/72 114/64 O2 Sat by Pulse 100 100 100 Oximetry 10/09/20 10/09/20 10/09/20 06:00 07:00 07:39 Temperature Pulse Rate 90 82 79 Pulse Rate [ From Monitor] Respiratory 20 20 Rate Blood Pressure 109/73 109/73 115/49 O2 Sat by Pulse 100 100 100 Oximetry 10/09/20 10/09/20 10/09/20 08:00 09:00 10:00 Temperature 98.8 F Pulse Rate 82 82 82 Pulse Rate [ 82 From Monitor] Respiratory 20 20 20 Rate Blood Pressure 112/65 125/70 113/69 O2 Sat by Pulse 100 100 100 Oximetry 10/09/20 10/09/20 10/09/20 11:00 11:39 12:00 Temperature 99.4 F Pulse Rate 78 76 78 Pulse Rate [ From Monitor] Respiratory 20 20 Rate Blood Pressure 119/66 119/66 121/66 O2 Sat by Pulse 100 100 100 Oximetry Constitutional: no acute distress, other (elderly male with normal respiratory effort at rest on MVS) Eyes: non-icteric ENT: oropharynx moist, other (ETT 23 cm SARA) Neck: supple, no lymphadenopathy, no JVD Effort: normal Ascultation: Bilateral: diminished breath sounds, rhonchi (scant) Percussion: Bilateral: not dull Cardiovascular: regular rate and rhythm, other (S1,S2) Gastrointestinal: normoactive bowel sounds, soft, non-tender, non-distended Integumentary: normal Extremities: no cyanosis, no edema, pulses normal, no ischemia or petechiae Neurologic: non-focal exam (grossly), pupils equal and round, CN II-XII normal, motor strength normal and, other (sedated) Psychiatric: mood appropriate, affect normal CBC and BMP: 10/10/20 04:40 10/10/20 04:40 ABG, PT/INR, D-dimer: ABG ABG pH 7.426 (7.320-7.450) 10/09/20 03:33 POC ABG pCO2 37.6 mmHg (32.0-48.0) 10/09/20 03:33 ABG pCO2 56.3 mm Hg 10/08/20 16:20 POC ABG pO2 91.4 mmHg (83-108) 10/09/20 03:33 ABG pO2 263.1 mm Hg (80.0-90.0) H 10/08/20 16:20 POC ABG HCO3 24.2 10/09/20 03:33 ABG O2 Saturation 97.4 (0-100) 10/09/20 03:33 PT/INR, D-dimer PT 15.8 Sec. (12.2-14.9) H 10/05/20 15:36 INR 1.21 (0.87-1.13) H 10/05/20 15:36 D-Dimer 5468.25 ng/mlDDU (0-234) H 10/02/20 13:45 Abnormal lab findings: Abnormal Labs 10/02/20 10/02/20 10/02/20 13:45 13:45 13:45 WBC Hgb Hct RDW 16.2 H Lymph % (Auto) 7.6 L [place] % (Auto) 9.1 H Lymph # (Auto) 0.5 L [place] # (Auto) Seg Neutrophils % 82.6 H Seg Neutrophils # PT INR D-Dimer 5468.25 H ABG pH POC ABG pO2 ABG pO2 ABG HCO3 ABG O2 Saturation ABG Hemoglobin ABG Oxyhemoglobin ABG Sodium ABG Potassium ABG Chloride ABG Glucose Carboxyhemoglobin Sodium Potassium 3.4 L Chloride Carbon Dioxide 21 L BUN Creatinine Glucose 112 H POC Glucose Calcium Phosphorus Magnesium Direct Bilirubin Total Protein 5.7 L Albumin 3.1 L Arterial Blood Glucose Arterial Blood Ionized Calcium Urine WBC (Auto) 10/02/20 10/03/20 10/03/20 14:00 03:04 04:35 WBC 13.2 H Hgb Hct RDW 15.9 H Lymph % (Auto) 5.1 L [place] % (Auto) 7.9 H Lymph # (Auto) 0.7 L [place] # (Auto) 1.0 H Seg Neutrophils % 86.8 H Seg Neutrophils # 11.5 H PT INR D-Dimer ABG pH 7.478 H POC ABG pO2 543.4 H 173.1 H ABG pO2 ABG HCO3 ABG O2 Saturation ABG Hemoglobin 11.7 L ABG Oxyhemoglobin 99.4 H 98.8 H ABG Sodium 131.7 L ABG Potassium 3.3 L ABG Chloride 110.0 H ABG Glucose 102 H 124 H Carboxyhemoglobin 0.3 L Sodium Potassium Chloride Carbon Dioxide BUN Creatinine Glucose POC Glucose Calcium Phosphorus Magnesium Direct Bilirubin Total Protein Albumin Arterial Blood Glucose 102 H 124 H Arterial Blood Ionized Calcium Urine WBC (Auto) 10/03/20 10/03/20 10/03/20 04:35 11:20 23:18 WBC Hgb Hct RDW Lymph % (Auto) [place] % (Auto) Lymph # (Auto) [place] # (Auto) Seg Neutrophils % Seg Neutrophils # PT INR D-Dimer ABG pH POC ABG pO2 ABG pO2 109.5 H ABG HCO3 ABG O2 Saturation ABG Hemoglobin 11.7 L ABG Oxyhemoglobin ABG Sodium ABG Potassium ABG Chloride ABG Glucose Carboxyhemoglobin Sodium Potassium Chloride Carbon Dioxide BUN Creatinine 0.7 L Glucose 109 H POC Glucose 110 H Calcium 10.3 H Phosphorus Magnesium Direct Bilirubin Total Protein Albumin 3.4 L Arterial Blood Glucose Arterial Blood Ionized Calcium Urine WBC (Auto) 10/04/20 10/04/20 10/05/20 08:32 08:32 04:43 WBC 12.8 H Hgb Hct RDW 15.4 H 15.5 H Lymph % (Auto) 8.5 L [place] % (Auto) 12.7 H Lymph # (Auto) 0.8 L [place] # (Auto) 1.2 H Seg Neutrophils % 78.4 H Seg Neutrophils # PT INR D-Dimer ABG pH POC ABG pO2 ABG pO2 ABG HCO3 ABG O2 Saturation ABG Hemoglobin ABG Oxyhemoglobin ABG Sodium ABG Potassium ABG Chloride ABG Glucose Carboxyhemoglobin Sodium Potassium Chloride Carbon Dioxide BUN Creatinine 0.7 L Glucose POC Glucose Calcium 10.3 H Phosphorus Magnesium Direct Bilirubin Total Protein Albumin Arterial Blood Glucose Arterial Blood Ionized Calcium Urine WBC (Auto) 10/05/20 10/05/20 10/05/20 04:43 14:49 15:34 WBC 12.3 H Hgb Hct RDW 15.4 H Lymph % (Auto) 8.3 L [place] % (Auto) 8.4 H Lymph # (Auto) 1.0 L [place] # (Auto) 1.0 H Seg Neutrophils % 82.8 H Seg Neutrophils # 10.2 H PT INR D-Dimer ABG pH POC ABG pO2 ABG pO2 ABG HCO3 ABG O2 Saturation ABG Hemoglobin ABG Oxyhemoglobin ABG Sodium ABG Potassium ABG Chloride ABG Glucose Carboxyhemoglobin Sodium Potassium Chloride Carbon Dioxide BUN 24 H Creatinine 0.7 L Glucose 104 H POC Glucose 139 H Calcium Phosphorus Magnesium Direct Bilirubin Total Protein Albumin Arterial Blood Glucose Arterial Blood Ionized Calcium Urine WBC (Auto) 10/05/20 10/05/20 10/05/20 15:36 15:36 15:36 WBC Hgb Hct RDW Lymph % (Auto) [place] % (Auto) Lymph # (Auto) [place] # (Auto) Seg Neutrophils % Seg Neutrophils # PT 15.8 H INR 1.21 H D-Dimer ABG pH POC ABG pO2 ABG pO2 ABG HCO3 ABG O2 Saturation ABG Hemoglobin ABG Oxyhemoglobin ABG Sodium ABG Potassium ABG Chloride ABG Glucose Carboxyhemoglobin Sodium Potassium Chloride Carbon Dioxide BUN 26 H Creatinine Glucose 142 H POC Glucose Calcium Phosphorus 4.70 H Magnesium Direct Bilirubin Total Protein 6.0 L Albumin 2.8 L Arterial Blood Glucose Arterial Blood Ionized Calcium Urine WBC (Auto) 10/05/20 10/05/20 10/05/20 15:36 16:15 23:15 WBC Hgb Hct RDW Lymph % (Auto) [place] % (Auto) Lymph # (Auto) [place] # (Auto) Seg Neutrophils % Seg Neutrophils # PT INR D-Dimer ABG pH POC ABG pO2 228.0 H ABG pO2 ABG HCO3 ABG O2 Saturation ABG Hemoglobin ABG Oxyhemoglobin 98.9 H ABG Sodium ABG Potassium ABG Chloride ABG Glucose 154 H Carboxyhemoglobin Sodium Potassium Chloride Carbon Dioxide BUN 27 H Creatinine Glucose 113 H POC Glucose Calcium Phosphorus Magnesium Direct Bilirubin 0.3 H Total Protein 5.7 L Albumin 2.9 L Arterial Blood Glucose 154 H Arterial Blood Ionized Calcium Urine WBC (Auto) 10/05/20 10/06/20 10/06/20 23:26 04:00 09:11 WBC Hgb Hct RDW Lymph % (Auto) [place] % (Auto) Lymph # (Auto) [place] # (Auto) Seg Neutrophils % Seg Neutrophils # PT INR D-Dimer ABG pH POC ABG pO2 170.7 H ABG pO2 ABG HCO3 ABG O2 Saturation ABG Hemoglobin ABG Oxyhemoglobin 98.8 H ABG Sodium 134.3 L ABG Potassium ABG Chloride ABG Glucose 115 H Carboxyhemoglobin 0.4 L Sodium Potassium Chloride Carbon Dioxide BUN 31 H Creatinine Glucose 110 H POC Glucose 116 H Calcium 10.7 H Phosphorus 2.30 L D Magnesium Direct Bilirubin Total Protein Albumin Arterial Blood Glucose 115 H Arterial Blood Ionized Calcium 5.5 H Urine WBC (Auto) 10/06/20 10/06/20 10/06/20 11:48 14:20 15:40 WBC Hgb Hct RDW Lymph % (Auto) [place] % (Auto) Lymph # (Auto) [place] # (Auto) Seg Neutrophils % Seg Neutrophils # PT INR D-Dimer ABG pH POC ABG pO2 ABG pO2 ABG HCO3 ABG O2 Saturation ABG Hemoglobin ABG Oxyhemoglobin ABG Sodium 134.1 L ABG Potassium ABG Chloride ABG Glucose 113 H Carboxyhemoglobin Sodium Potassium Chloride Carbon Dioxide BUN Creatinine Glucose POC Glucose 115 H Calcium Phosphorus Magnesium Direct Bilirubin Total Protein Albumin Arterial Blood Glucose 113 H Arterial Blood Ionized Calcium 5.4 H Urine WBC (Auto) 10.0 H 10/06/20 10/07/20 10/07/20 17:16 04:00 05:20 WBC Hgb 11.3 L Hct 34.0 L RDW 15.4 H Lymph % (Auto) [place] % (Auto) Lymph # (Auto) [place] # (Auto) Seg Neutrophils % Seg Neutrophils # PT INR D-Dimer ABG pH 7.468 H POC ABG pO2 ABG pO2 ABG HCO3 ABG O2 Saturation ABG Hemoglobin 11.9 L ABG Oxyhemoglobin ABG Sodium ABG Potassium ABG Chloride 109.0 H ABG Glucose 112 H Carboxyhemoglobin Sodium Potassium Chloride Carbon Dioxide BUN Creatinine Glucose POC Glucose 110 H Calcium Phosphorus Magnesium Direct Bilirubin Total Protein Albumin Arterial Blood Glucose 112 H Arterial Blood Ionized Calcium 5.6 H Urine WBC (Auto) 10/07/20 10/07/20 10/08/20 05:20 13:00 06:13 WBC Hgb Hct RDW Lymph % (Auto) [place] % (Auto) Lymph # (Auto) [place] # (Auto) Seg Neutrophils % Seg Neutrophils # PT INR D-Dimer ABG pH 7.456 H POC ABG pO2 ABG pO2 ABG HCO3 ABG O2 Saturation ABG Hemoglobin 11.3 L ABG Oxyhemoglobin ABG Sodium ABG Potassium ABG Chloride 109.0 H ABG Glucose 109 H Carboxyhemoglobin 0.4 L Sodium 146 H Potassium Chloride 108.4 H 110.7 H Carbon Dioxide 33 H D BUN 32 H 30 H Creatinine 0.7 L 0.7 L Glucose 116 H POC Glucose Calcium Phosphorus 2.10 L 2.30 L Magnesium Direct Bilirubin Total Protein 5.8 L Albumin 2.5 L Arterial Blood Glucose 109 H Arterial Blood Ionized Calcium 5.5 H Urine WBC (Auto) 10/08/20 10/08/20 10/08/20 11:51 12:04 16:20 WBC Hgb Hct RDW Lymph % (Auto) [place] % (Auto) Lymph # (Auto) [place] # (Auto) Seg Neutrophils % Seg Neutrophils # PT INR D-Dimer ABG pH 7.333 L POC ABG pO2 77.5 L ABG pO2 263.1 H ABG HCO3 29.2 H ABG O2 Saturation 99.4 H ABG Hemoglobin 13.5 L ABG Oxyhemoglobin ABG Sodium ABG Potassium ABG Chloride 109.0 H ABG Glucose 113 H Carboxyhemoglobin Sodium Potassium Chloride Carbon Dioxide BUN Creatinine Glucose POC Glucose 106 H Calcium Phosphorus Magnesium Direct Bilirubin Total Protein Albumin Arterial Blood Glucose 113 H Arterial Blood Ionized Calcium 5.6 H Urine WBC (Auto) 10/09/20 10/09/20 10/09/20 03:33 04:30 06:30 WBC Hgb Hct RDW Lymph % (Auto) [place] % (Auto) Lymph # (Auto) [place] # (Auto) Seg Neutrophils % Seg Neutrophils # PT INR D-Dimer ABG pH POC ABG pO2 ABG pO2 ABG HCO3 ABG O2 Saturation ABG Hemoglobin 11.6 L ABG Oxyhemoglobin ABG Sodium ABG Potassium ABG Chloride 109.0 H ABG Glucose 116 H Carboxyhemoglobin Sodium Potassium Chloride 108.5 H Carbon Dioxide BUN 33 H Creatinine Glucose 115 H POC Glucose 115 H Calcium Phosphorus 2.30 L Magnesium Direct Bilirubin Total Protein Albumin Arterial Blood Glucose 116 H Arterial Blood Ionized Calcium 5.5 H Urine WBC (Auto) 10/09/20 10:50 WBC Hgb Hct RDW Lymph % (Auto) [place] % (Auto) Lymph # (Auto) [place] # (Auto) Seg Neutrophils % Seg Neutrophils # PT INR D-Dimer ABG pH POC ABG pO2 ABG pO2 ABG HCO3 ABG O2 Saturation ABG Hemoglobin ABG Oxyhemoglobin ABG Sodium ABG Potassium ABG Chloride ABG Glucose Carboxyhemoglobin Sodium Potassium Chloride Carbon Dioxide BUN Creatinine Glucose POC Glucose Calcium Phosphorus Magnesium 2.40 H Direct Bilirubin Total Protein Albumin Arterial Blood Glucose Arterial Blood Ionized Calcium Urine WBC (Auto) Chest x-ray: image reviewed (no focal infiltrate) Allied health notes reviewed: nursing
--- NOTE | 2020-10-09 13:07 | Progress Note ---
Assessment and Plan S/p cardiac arrest with ROSC in the field * Cardiac arrhythmia during arrest is unknown. Patient is currently intubated and unable to answer questions due intubation and to advanced dementia/confusion * Patient is in no apparent distress. Twelve-lead ECG shows sinus rhythm 64 with no acute ischemic changes. Troponins negative x2. AMI ruled out * Echocardiogram 10/03/2020: LVEF is 55 to 60%. LV normal size. LV SF normal. RV SF normal. No valvular abnormalities * Patient is status post cardiac arrest on 10/05 in the afternoon believed to be caused by aspiration subsequently followed by bradycardia. See code sheet for further details. Immediately post event patient was observed to be A. fib 140s with frequent ventricular ectopy and short run of polymorphic V. tach. Patient was given magnesium and initiated on amiodarone drip. Review of telemetry shows no further atrial fibrillation or ventricular ectopy. Patient is currently sinus rhythm heart rate 60s-70s. After discontinuing amiodarone patient cardiac status appears stable at this point. Continue to monitor on telemetry. We will see patient as needed over the weekened. This patient was seen in conjunction with Dr Espinoza who agrees with this assessment and plan of care - Patient Problems (1) Acute hypoxemic respiratory failure Current Visit: Yes Status: Acute (2) Cardiac arrest Current Visit: Yes Status: Acute (3) DVT prophylaxis Current Visit: Yes Status: Acute (4) Alzheimer's dementia Current Visit: Yes Status: Chronic Subjective Date of service: 10/09/20 Principal diagnosis: Ac. hypoxemic resp failure; Cardiac arrest with ROSC; Dementia Interval history: Patient is intubated Patient was sinus rhythm on monitor with no events Objective Last Vital Signs Temp 99.4 F 10/09/20 12:00 Pulse 78 10/09/20 12:00 Resp 20 10/09/20 12:00 BP 121/66 10/09/20 12:00 Pulse Ox 100 10/09/20 12:00 - Physical Examination General: No Apparent Distress HEENT: Positive: Normocephaly, Mucus Membranes Moist Neck: Positive: neck supple, trachea midline Cardiac: Positive: Reg Rate and Rhythm Lungs: Positive: Ventilated Respirations Neuro: Positive: Grossly Intact Abdomen: Positive: Unremarkable, Soft Skin: Negative: Rash Musculoskeletal: No Pain Extremities: Present: upper extr. pulses, lower extr. pulses. Absent: edema - Labs and Meds Comprehensive Metabolic Panel 10/09/20 Range/Units 04:30 Sodium 144 (137-145) mmol/L Potassium 4.0 (3.6-5.0) mmol/L Chloride 108.5 H (98-107) mmol/L Carbon Dioxide 28 (22-30) mmol/L BUN 33 H (9-20) mg/dL Creatinine 0.8 (0.8-1.3) mg/dL Glucose 115 H (75-100) mg/dL Calcium 9.9 (8.4-10.2) mg/dL - Imaging and Cardiology EKG: report reviewed, image reviewed Echo: report reviewed (Echocardiogram 10/03/2020: LVEF is 55 to 60%. LV normal size. LV SF normal. RV SF normal. No valvular abnormalities) - EKG Sinus rhythms and dysrhythmias: sinus rhythm - Allied health notes Allied health notes reviewed: nursing
--- NOTE | 2020-10-09 16:40 | XRay Report ---
CHEST 1 VIEW 10/08/2020 1:39 PM INDICATION / CLINICAL INFORMATION: PT CODED BLUE.. COMPARISON: Exam done earlier on 10/08/2020 FINDINGS: SUPPORT DEVICES: Stable, satisfactory device positioning. HEART / MEDIASTINUM: Stable. LUNGS / PLEURA: Interval development of right upper lobe atelectasis. No pneumothorax. ADDITIONAL FINDINGS: No significant additional findings. IMPRESSION: 1. Right upper lobe atelectasis. Signer Name: Jimmy Duke MD Signed: 10/09/2020 4:36 PM Workstation Name: [id number]
--- NOTE | 2020-10-09 17:01 | Progress Note ---
<VALERIEIGLESIA BeaverRonnie - Last Filed: 10/09/20 16:58> Assessment and Plan Assessment and plan: This is a 80 year old male with Vascular Dementia, Cerebral Atherosclerosis, with malnutrition admitted post cardiac arrest, acute hypoxic respiratory failure now s/p cardio-resp arrest on 10/05 and again on 10/08 Neuro: Vascular Dementia -10/02 CT head shows disproportionate temporal and parietal lobe atrophy suggests possibility of Alzheimer's dementia, moderate global parenchymal atrophy, no acute intracranial abnormalities are identified. -Fall aspiration precautions -Resume home Aricept -nodding appropriately -pt has hx CVA with baseline right sided weakness -will need aggressive pt/ot -family updated on plan of care CV: s/p cardiac arrest -Cardiology consulted, appreciate recommendations -10/04 Echo shows EF 55-60%, transmitral Doppler flow pattern suggests impaired LV function Afib -amio drip dc due to bradycardia -QT < 500 -Cardiology consulted -Off pressors -SR Respiratory: s/p Cardio respiratory arrest on 10/05 -reintubated 10/05, extuabted 10/08 -10/05 when extubated pt was drooling and unable to control secretions. He had generalized weakness and a weak cough. speech did see and initially failed him then pt passed to puree diet Acute hypoxemic respiratory failure -CCM consulted, appreciate recommendations -Extubated 10/04 but reintubated 10/05, extubated 10/08 -VAP bundle -10/05 Tracheal aspirate culture usual respiratory ramone -trend chest xray FEN/GI Malnutrition -NGT for now -Ntr consult for TF; ST had cleared for pureed diet but will hold off PO for a couple more days Hypophosphatemia -Replete phosphate -Trend phosphate Urinary Retention hx -Resume home Proscar and Flomax -strict I/O -follow and replace electrolytes as needed -trend Cr Heme -VTE lovenox and SCD -trend CBC ID -cultures NGTD -MRSA swab pending -Cefpime stopped; 10/05 xray concerning for aspiration event Endo -SSI, accucheck q 6 -avoid hypoglycemia GI/DVT prophylaxis: PPI, lovenox subq, SCDs to BLE while in bed Dispo: ICU Lines: L IJ TLC (10/06), Right radial joao (10/05). The high probability of a clinically significant, sudden or life threatening deterioration of the [neuro, pulmonary,] system(s) required my full and direct attention, intervention and personal management. The aggregate critical care time was [35] minutes. This time is in addition to time spent performing reported procedures but includes the following: [x] Data Review and interpretation [x] Patient assessment and monitoring of vital signs [x] Documentation [x] Medication orders and management History Interval history: 80 YO Male with Vascular Dementia, Cerebral Atherosclerosis, Malnutrition who presented to the ED on 10/02 via EMS after being found unresponsive by family and upon arrival the patient was found to be in distress and subsequently developed cardiac arrest and was treated with ACLS protocol with eventual return of perfusing cardiac rhythm and transported to [facility]. Upon arrival to the ED he was found to be in acute respiratory failure secondary to cardiac arrest and unable able to protect his airway. Patient was intubated and placed on ventilatory support. Patient admitted to ICU for further care and evaluation. Critical care team consulted in ED. 10/03: Continue supportive care, noted leukoctosis, ?reactive. Will continue to assess, consult cardiology in am. 10/04: Continues on full ventilatory support awake alert oriented will attempt extubation today according to the nursing staff plan discussed with reroller hand. [employer] In [employer] consulted for further input considering out of hospital cardiac arrest. Echocardiogram completed awaiting results 10/05: Patient was extubated yesterday and was cleared for puree diet by . Patient was to be downgraded from the ICU. This evening the patient was noted to be SB and responded to atropine. Patient was gargling and dopamine gtt was started briefly and stopped r/t tachycardia, short runs of vtach then the patient was noted to be in PEA. See code sheet and event note for details. I updated daughter over phone of current events. Started on empiric abx, femoral TLC and joao placed. Cultures sent. Cardio ordered amio and mag was given. 10/06 nodding appropriately; CPAP trials 10/07: failed PSV on PS 20 so CCM decreased PS to 10 and will obtain ABG 1300, [facility] will try to extubate tomorrow. Hypophostemia repleted. 10/08: Trial extubation per [facility]. Hypophosphatemia to be treated. No acute events overnight. 10/09: Patient had a cardio-resp arrest yesterday evening and was reintubated. He has hypophosphatemia and hyperchloremia. No acute events noted overnight. Hospitalist Physical - Constitutional Vitals: Temp Pulse Resp BP Pulse Ox 98.5 F 76 20 125/52 100 10/09/20 16:00 10/09/20 16:03 10/09/20 16:00 10/09/20 16:03 10/09/20 16:03 General appearance: Present: no acute distress, other (resting on vent) - EENT Eyes: Present: PERRL, EOM intact ENT: poor dentition - Neck Neck: Present: normal ROM - Respiratory Respiratory effort: normal Respiratory: bilateral: diminished - Cardiovascular Rhythm: regular Heart Sounds: Present: S1 & S2. Absent: systolic murmur, diastolic murmur - Extremities Extremities: no ischemia, pulses intact, pulses symmetrical, No edema, normal temperature, normal color Peripheral Pulses: within normal limits - Abdominal General gastrointestinal: soft, non-tender, non-distended, normal bowel sounds - Integumentary Integumentary: Present: warm, dry - Psychiatric Psychiatric: cooperative - Neurologic Neurologic: CNII-XII intact, focal deficits - Allied Health Allied health notes reviewed: nursing, RT, social work HEART Score - HEART Score EKG: Normal Age: < 45 Risk factors: No known risk factors Troponin: Troponin T 0.015 ng/mL (0.00-0.029) 10/09/20 10:50 Troponin: < normal limit Results - Labs CBC & Chem 7: 10/07/20 05:20 10/09/20 04:30 Labs: Laboratory Last Values WBC 9.9 K/mm3 (4.5-11.0) 10/07/20 05:20 RBC 3.74 M/mm3 (3.65-5.03) 10/07/20 05:20 Hgb 11.3 gm/dl (11.8-15.2) L 10/07/20 05:20 Hct 34.0 % (35.5-45.6) L 10/07/20 05:20 MCV 91 fl (84-94) 10/07/20 05:20 MCH 30 pg (28-32) 10/07/20 05:20 MCHC 33 % (32-34) 10/07/20 05:20 RDW 15.4 % (13.2-15.2) H 10/07/20 05:20 Plt Count 181 K/mm3 (140-440) 10/07/20 05:20 Lymph % (Auto) 8.3 % (13.4-35.0) L 10/05/20 15:34 [place] % (Auto) 8.4 % (0.0-7.3) H 10/05/20 15:34 Eos % (Auto) 0.1 % (0.0-4.3) 10/05/20 15:34 Baso % (Auto) 0.4 % (0.0-1.8) 10/05/20 15:34 Lymph # (Auto) 1.0 K/mm3 (1.2-5.4) L 10/05/20 15:34 [place] # (Auto) 1.0 K/mm3 (0.0-0.8) H 10/05/20 15:34 Eos # (Auto) 0.0 K/mm3 (0.0-0.4) 10/05/20 15:34 Baso # (Auto) 0.0 K/mm3 (0.0-0.1) 10/05/20 15:34 Seg Neutrophils % 82.8 % (40.0-70.0) H 10/05/20 15:34 Seg Neutrophils # 10.2 K/mm3 (1.8-7.7) H 10/05/20 15:34 PT 15.8 Sec. (12.2-14.9) H 10/05/20 15:36 INR 1.21 (0.87-1.13) H 10/05/20 15:36 D-Dimer 5468.25 ng/mlDDU (0-234) H 10/02/20 13:45 ABG pH 7.426 (7.320-7.450) 10/09/20 03:33 POC ABG pCO2 37.6 mmHg (32.0-48.0) 10/09/20 03:33 ABG pCO2 56.3 mm Hg 10/08/20 16:20 POC ABG pO2 91.4 mmHg (83-108) 10/09/20 03:33 ABG pO2 263.1 mm Hg (80.0-90.0) H 10/08/20 16:20 POC ABG HCO3 24.2 10/09/20 03:33 ABG HCO3 29.2 mmol/L (20.0-26.0) H 10/08/20 16:20 ABG O2 Saturation 97.4 (0-100) 10/09/20 03:33 ABG O2 Content 19.2 (0.0-44) 10/08/20 16:20 POC ABG Base Excess 0 10/09/20 03:33 ABG Base Excess 2.1 mmol/L (-2.0-3.0) 10/08/20 16:20 ABG Hemoglobin 11.6 (12.0-17.5) L 10/09/20 03:33 ABG Oxyhemoglobin 96.6 (94-98) 10/09/20 03:33 ABG Carboxyhemoglobin 1.1 % (0.0-5.0) 10/08/20 16:20 ABG Methemoglobin 0.3 (0.0-1.5) 10/09/20 03:33 ABG Sodium 140.2 mmol/L (136.0-145.0) 10/09/20 03:33 ABG Potassium 4.0 mmol/L (3.40-4.50) 10/09/20 03:33 ABG Chloride 109.0 mmol/L (98-107) H 10/09/20 03:33 ABG Glucose 116 mg/dL (65-95) H 10/09/20 03:33 ABG Lactate 1.32 (0.18-30.0) 10/02/20 14:00 Oxyhemoglobin 97.8 % (95.0-99.0) 10/08/20 16:20 Carboxyhemoglobin 0.5 (0.5-1.5) 10/09/20 03:33 FiO2 80 % 10/08/20 16:20 FiO2 % 30.0 10/09/20 03:33 Sodium 144 mmol/L (137-145) 10/09/20 04:30 Potassium 4.0 mmol/L (3.6-5.0) 10/09/20 04:30 Chloride 108.5 mmol/L (98-107) H 10/09/20 04:30 Carbon Dioxide 28 mmol/L (22-30) 10/09/20 04:30 Anion Gap 12 mmol/L 10/09/20 04:30 BUN 33 mg/dL (9-20) H 10/09/20 04:30 Creatinine 0.8 mg/dL (0.8-1.3) 10/09/20 04:30 Estimated GFR > 60 ml/min 10/09/20 04:30 BUN/Creatinine Ratio 41 % 10/09/20 04:30 Glucose 115 mg/dL (75-100) H 10/09/20 04:30 POC Glucose 101 mg/dL (70-105) 10/09/20 11:16 Calcium 9.9 mg/dL (8.4-10.2) 10/09/20 04:30 Phosphorus 2.30 mg/dL (2.5-4.5) L 10/09/20 04:30 Magnesium 2.40 mg/dL (1.7-2.3) H 10/09/20 10:50 Total Bilirubin 0.50 mg/dL (0.1-1.2) 10/07/20 05:20 Direct Bilirubin 0.3 mg/dL (0-0.2) H 10/05/20 15:36 Indirect Bilirubin 0.5 mg/dL 10/05/20 15:36 AST 22 units/L (5-40) 10/07/20 05:20 ALT 15 units/L (7-56) 10/07/20 05:20 Alkaline Phosphatase 66 units/L (35-129) 10/07/20 05:20 Troponin T 0.015 ng/mL (0.00-0.029) 10/09/20 10:50 NT-Pro-B Natriuret Pep 208.4 pg/mL (0-900) 10/02/20 13:45 Total Protein 5.8 g/dL (6.3-8.2) L 10/07/20 05:20 Albumin 2.5 g/dL (3.9-5) L 10/07/20 05:20 Albumin/Globulin Ratio 0.8 % 10/07/20 05:20 Arterial Blood Glucose 116 mg/dL (65-95) H 10/09/20 03:33 Arterial Blood Ionized Calcium 5.5 mg/dL (4.6-5.3) H 10/09/20 03:33 Urine Color Yellow (Yellow) 10/06/20 14:20 Urine Turbidity Clear (Clear) 10/06/20 14:20 Urine pH 6.0 (5.0-7.0) 10/06/20 14:20 Ur Specific [place] 1.030 (1.003-1.030) 10/06/20 14:20 Urine Protein <15 mg/dl mg/dL (Negative) 10/06/20 14:20 Urine Glucose (UA) Neg mg/dL (Negative) 10/06/20 14:20 Urine Ketones Neg mg/dL (Negative) 10/06/20 14:20 Urine Blood Mod (Negative) 10/06/20 14:20 Urine Nitrite Neg (Negative) 10/06/20 14:20 Urine Bilirubin Neg (Negative) 10/06/20 14:20 Urine Urobilinogen < 2.0 mg/dL (<2.0) 10/06/20 14:20 Ur Leukocyte Esterase Neg (Negative) 10/06/20 14:20 Urine WBC (Auto) 10.0 /HPF (0.0-6.0) H 10/06/20 14:20 Urine RBC (Auto) 7.0 /HPF (0.0-6.0) 10/06/20 14:20 U Epithel Cells (Auto) < 1.0 /HPF (0-13.0) 10/02/20 14:00 Urine Mucus 1+ /HPF 10/06/20 14:20 Nasal Screen MRSA (PCR) Negative (Negative) 10/06/20 14:40 Urine Opiates Screen Negative 10/02/20 14:00 Urine Methadone Screen Negative 10/02/20 14:00 Ur Barbiturates Screen Negative 10/02/20 14:00 Ur Phencyclidine Scrn Negative 10/02/20 14:00 Ur Amphetamines Screen Negative 10/02/20 14:00 U Benzodiazepines Scrn Presumptive positive 10/02/20 14:00 Urine Cocaine Screen Negative 10/02/20 14:00 U Marijuana (THC) Screen Negative 10/02/20 14:00 Drugs of Abuse Note Disclamer 10/02/20 14:00 Microbiology: Microbiology 10/05/20 15:34 Peripheral/Venous Blood Culture - Preliminary NO GROWTH AFTER 4 DAYS 10/05/20 15:34 Peripheral/Venous Blood Culture - Preliminary NO GROWTH AFTER 4 DAYS De Los Santos/IV: Voiding Method Indwelling Catheter Active Medications - Current Medications Current Medications: Generic Name Dose Route Start Last Admin Trade Name Freq PRN Reason Stop Dose Admin Acetaminophen 650 mg 10/02/20 15:30 10/04/20 20:18 Acetaminophen 650 Mg Rect Supp ME 650 mg Q6H PRN Administration Pain MILD(1-3)/Fever >100.5/HERNANDEZ Albuterol 2.5 mg 10/02/20 17:00 Albuterol 2.5 Mg/3 Ml Nebu IH Q3HRT PRN Shortness Of Breath Lipase/Protease/Amylase 1 each 10/06/20 09:38 Lipase 10,500/Protease 25,000/Amylase 43,750 (Units) Dr Cap FEEDTUBE PRN PRN For Clogged Feeding Tube Docusate Sodium 100 mg 10/06/20 22:00 10/09/20 10:03 Docusate Sodium 100 Mg/10 Ml Oral Liqd PO 100 mg BID MARCIE Administration Donepezil HCl 10 mg 10/06/20 22:00 10/08/20 21:36 Donepezil 10 Mg Tab PO 10 mg QHS MARCIE Administration Enoxaparin Sodium 40 mg 10/06/20 10:00 10/09/20 10:03 Enoxaparin 40 Mg/0.4 Ml Inj SUB-Q 40 mg QDAY@1000 MARCIE Administration Protocol Famotidine 20 mg 10/08/20 10:00 10/09/20 10:03 Famotidine 20 Mg Tab PO 20 mg BID MARCIE Administration Fentanyl 50 mcg 10/08/20 14:50 10/08/20 15:30 Fentanyl 100 Mcg/2 Ml Inj IV 50 mcg Q10MIN PRN Administration ANALGESIA Finasteride 5 mg 10/08/20 13:00 10/09/20 10:03 Finasteride 5 Mg Tab PO 5 mg QDAY MARCIE Administration Hydralazine HCl 10 mg 10/03/20 15:17 10/04/20 03:40 Hydralazine 10 Mg Tab PO 10 mg Q6H PRN Administration Hypertension SBP > 160 Hydromorphone HCl 0.5 mg 10/07/20 21:31 10/08/20 05:14 Hydromorphone 1 Mg/1 Ml Inj IV 0.5 mg Q3H PRN Administration Pain, Moderate (4-6) Hydrophilic Ointment 1 applic 10/02/20 16:00 Lip Therapy Vaseline TP Q2HR PRN Dry Lips Fentanyl Citrate 2,000 mcg in 100 mls @ 3.1 mls/hr 10/08/20 15:00 10/09/20 05:05 Fentanyl Drip Premix IV 2 mcg/kg/hr TITR MARCIE 6.2 mls/hr Administration Protocol 1 MCG/KG/HR Multi-Ingred Cream/Lotion/Oil/Oint 1 applic 10/02/20 15:30 Mineral Oil/Petrolatum, White Ophth Oint 3.5 Gm OU Q4H PRN Dry Eye(s) Scopolamine 1 each 10/08/20 15:00 10/08/20 15:18 Scopolamine Transdermal Patch 72 Hr TD 1 each Q72H MACRIE Administration Simple Syrup 15 ml 10/06/20 09:38 Simple Syrup 15 Ml FEEDTUBE PRN PRN Hypoglycemia Simple Syrup 30 ml 10/06/20 09:38 Simple Syrup 15 Ml FEEDTUBE PRN PRN Hypoglycemia Sodium Bicarbonate 325 mg 10/06/20 09:38 Sodium Bicarbonate 325 Mg Tab FEEDTUBE PRN PRN For Clogged Feeding Tube Sodium Chloride 10 ml 10/02/20 22:00 10/09/20 10:03 Sodium Chloride 0.9% 10 Ml Flush Syringe IV 10 ml BID MARCIE Administration Sodium Chloride 10 ml 10/02/20 15:30 Sodium Chloride 0.9% 10 Ml Flush Syringe IV PRN PRN LINE FLUSH Tamsulosin HCl 0.8 mg 10/08/20 13:00 10/09/20 10:03 Tamsulosin 0.4 Mg Cap PO 0.8 mg QDAY MARCIE Administration Nutrition/Malnutrition Assess - Dietary Evaluation Nutrition/Malnutrition Findings: Nutrition Notes Start: 10/03/20 12:08 Freq: Status: Active Protocol: Document 10/08/20 10:55 (Rec: 10/08/20 10:58 [id number]) Nutrition Notes Initial or Follow up Reassessment Current Diagnosis Respiratory Failure Other Pertinent Diagnosis cardiac arrest, malnutrition, alzheimer's Current Diet Vital AF 1.2 at 65 ml/hr Labs/Tests Na 146 BUN 30 Cr 0.7 Phos 2.3 Pertinent Medications Phos Nak Height 5 ft 11 in Weight 62 kg [place] Body Weight (kg) 78.18 BMI 19.1 Weight Status Underweight Subjective/Other Information Observed TF running at goal rate. Pt tolerating. Pt may be extubated today. Percent of energy/protein needs met: 100%/100% Burn Absent Trauma Absent GI Symptoms None Difficulty In Swallowing Current % PO Negligible Minimum of two criteria No physical signs of malnutrition #1 Nutrition Diagnosis Inadequate oral intake Diagnosis Progress(for reassessment Continues documentation) Is patient on ventilator? Yes Is Patient Ambulatory and/or Out of Bed No REE-([facility]-confined to bed) 1623.588 Kcal/Kg value to use for calculation 30 Approximate Energy Requirements Using 1860 kcal/Kg Calculation Used for Recommendations Kcal/kg Additional Notes protein needs: 74-123 g (1.2- 2g/kg) fluids needs: 1 ml/kcal or per MD Nutrition Intervention Nutrition Support: Vital AF at 65 ml/hr with a free water flush of 100 ml q4h . Kcal 1,872 Protein (gm) 117 Fluid (mL) 1,265 Goal #1 Meet at least 75% of kcal and protein needs via TF regimen Anticipated Discharge Needs: unable to determine at this time Follow-Up By: 10/13/20 Additional Comments FU for TF tolerance or extubation <ALIZA SIMS - Last Filed: 10/10/20 11:01> Assessment and Plan Assessment and plan: Agree with assessment and plan as outlined by nurse practitioner as above, events noted for reintubation, patient went to PEA after being extubated yester day. Family was informed, patient may need trach and PEG, Dr. Stanton, general surgery is spoken with the patient family, they will make a decision tomorrow as to the next step. Hospitalist Physical - Constitutional Vitals: Temp Pulse Resp BP Pulse Ox 100.2 F H 74 20 126/62 100 10/10/20 03:48 10/10/20 08:50 10/10/20 08:50 10/10/20 08:00 10/10/20 08:50 HEART Score - HEART Score Troponin: Troponin T 0.015 ng/mL (0.00-0.029) 10/09/20 10:50 Results - Labs CBC & Chem 7: 10/10/20 04:40 10/10/20 04:40 Labs: Laboratory Last Values WBC 12.8 K/mm3 (4.5-11.0) H 10/10/20 04:40 RBC 3.35 M/mm3 (3.65-5.03) L 10/10/20 04:40 Hgb 9.9 gm/dl (11.8-15.2) L 10/10/20 04:40 Hct 30.4 % (35.5-45.6) L 10/10/20 04:40 MCV 91 fl (84-94) 10/10/20 04:40 MCH 30 pg (28-32) 10/10/20 04:40 MCHC 33 % (32-34) 10/10/20 04:40 RDW 15.7 % (13.2-15.2) H 10/10/20 04:40 Plt Count 189 K/mm3 (140-440) 10/10/20 04:40 Lymph % (Auto) 8.3 % (13.4-35.0) L 10/05/20 15:34 [place] % (Auto) 8.4 % (0.0-7.3) H 10/05/20 15:34 Eos % (Auto) 0.1 % (0.0-4.3) 10/05/20 15:34 Baso % (Auto) 0.4 % (0.0-1.8) 10/05/20 15:34 Lymph # (Auto) 1.0 K/mm3 (1.2-5.4) L 10/05/20 15:34 [place] # (Auto) 1.0 K/mm3 (0.0-0.8) H 10/05/20 15:34 Eos # (Auto) 0.0 K/mm3 (0.0-0.4) 10/05/20 15:34 Baso # (Auto) 0.0 K/mm3 (0.0-0.1) 10/05/20 15:34 Seg Neutrophils % 82.8 % (40.0-70.0) H 10/05/20 15:34 Seg Neutrophils # 10.2 K/mm3 (1.8-7.7) H 10/05/20 15:34 PT 15.8 Sec. (12.2-14.9) H 10/05/20 15:36 INR 1.21 (0.87-1.13) H 10/05/20 15:36 D-Dimer 5468.25 ng/mlDDU (0-234) H 10/02/20 13:45 ABG pH 7.483 (7.320-7.450) H 10/10/20 03:46 POC ABG pCO2 40.0 mmHg (32.0-48.0) 10/10/20 03:46 ABG pCO2 56.3 mm Hg 10/08/20 16:20 POC ABG pO2 95.2 mmHg (83-108) 10/10/20 03:46 ABG pO2 263.1 mm Hg (80.0-90.0) H 10/08/20 16:20 POC ABG HCO3 29.3 10/10/20 03:46 ABG HCO3 29.2 mmol/L (20.0-26.0) H 10/08/20 16:20 ABG O2 Saturation 97.8 (0-100) 10/10/20 03:46 ABG O2 Content 19.2 (0.0-44) 10/08/20 16:20 POC ABG Base Excess 5.5 10/10/20 03:46 ABG Base Excess 2.1 mmol/L (-2.0-3.0) 10/08/20 16:20 ABG Hemoglobin 10.1 (12.0-17.5) L 10/10/20 03:46 ABG Oxyhemoglobin 97.0 (94-98) 10/10/20 03:46 ABG Carboxyhemoglobin 1.1 % (0.0-5.0) 10/08/20 16:20 ABG Methemoglobin 0.3 (0.0-1.5) 10/10/20 03:46 ABG Sodium 141.5 mmol/L (136.0-145.0) 10/10/20 03:46 ABG Potassium 3.7 mmol/L (3.40-4.50) 10/10/20 03:46 ABG Chloride 111.0 mmol/L (98-107) H 10/10/20 03:46 ABG Glucose 114 mg/dL (65-95) H 10/10/20 03:46 ABG Lactate 1.32 (0.18-30.0) 10/02/20 14:00 Oxyhemoglobin 97.8 % (95.0-99.0) 10/08/20 16:20 Carboxyhemoglobin 0.5 (0.5-1.5) 10/10/20 03:46 FiO2 80 % 10/08/20 16:20 FiO2 % 30.0 10/10/20 03:46 Sodium 145 mmol/L (137-145) 10/10/20 04:40 Potassium 3.8 mmol/L (3.6-5.0) 10/10/20 04:40 Chloride 111.2 mmol/L (98-107) H 10/10/20 04:40 Carbon Dioxide 28 mmol/L (22-30) 10/10/20 04:40 Anion Gap 10 mmol/L 10/10/20 04:40 BUN 35 mg/dL (9-20) H 10/10/20 04:40 Creatinine 0.8 mg/dL (0.8-1.3) 10/10/20 04:40 Estimated GFR > 60 ml/min 10/10/20 04:40 BUN/Creatinine Ratio 44 % 10/10/20 04:40 Glucose 103 mg/dL (75-100) H 10/10/20 04:40 POC Glucose 95 mg/dL (70-105) 10/10/20 05:13 Calcium 9.5 mg/dL (8.4-10.2) 10/10/20 04:40 Phosphorus 2.40 mg/dL (2.5-4.5) L 10/10/20 04:40 Magnesium 2.40 mg/dL (1.7-2.3) H 10/09/20 10:50 Total Bilirubin 0.50 mg/dL (0.1-1.2) 10/07/20 05:20 Direct Bilirubin 0.3 mg/dL (0-0.2) H 10/05/20 15:36 Indirect Bilirubin 0.5 mg/dL 10/05/20 15:36 AST 22 units/L (5-40) 10/07/20 05:20 ALT 15 units/L (7-56) 10/07/20 05:20 Alkaline Phosphatase 66 units/L (35-129) 10/07/20 05:20 Troponin T 0.015 ng/mL (0.00-0.029) 10/09/20 10:50 NT-Pro-B Natriuret Pep 208.4 pg/mL (0-900) 10/02/20 13:45 Total Protein 5.8 g/dL (6.3-8.2) L 10/07/20 05:20 Albumin 2.5 g/dL (3.9-5) L 10/07/20 05:20 Albumin/Globulin Ratio 0.8 % 10/07/20 05:20 Arterial Blood Glucose 114 mg/dL (65-95) H 10/10/20 03:46 Arterial Blood Ionized Calcium 5.5 mg/dL (4.6-5.3) H 10/10/20 03:46 Urine Color Yellow (Yellow) 10/06/20 14:20 Urine Turbidity Clear (Clear) 10/06/20 14:20 Urine pH 6.0 (5.0-7.0) 10/06/20 14:20 Ur Specific [place] 1.030 (1.003-1.030) 10/06/20 14:20 Urine Protein <15 mg/dl mg/dL (Negative) 10/06/20 14:20 Urine Glucose (UA) Neg mg/dL (Negative) 10/06/20 14:20 Urine Ketones Neg mg/dL (Negative) 10/06/20 14:20 Urine Blood Mod (Negative) 10/06/20 14:20 Urine Nitrite Neg (Negative) 10/06/20 14:20 Urine Bilirubin Neg (Negative) 10/06/20 14:20 Urine Urobilinogen < 2.0 mg/dL (<2.0) 10/06/20 14:20 Ur Leukocyte Esterase Neg (Negative) 10/06/20 14:20 Urine WBC (Auto) 10.0 /HPF (0.0-6.0) H 10/06/20 14:20 Urine RBC (Auto) 7.0 /HPF (0.0-6.0) 10/06/20 14:20 U Epithel Cells (Auto) < 1.0 /HPF (0-13.0) 10/02/20 14:00 Urine Mucus 1+ /HPF 10/06/20 14:20 Nasal Screen MRSA (PCR) Negative (Negative) 10/06/20 14:40 Urine Opiates Screen Negative 10/02/20 14:00 Urine Methadone Screen Negative 10/02/20 14:00 Ur Barbiturates Screen Negative 10/02/20 14:00 Ur Phencyclidine Scrn Negative 10/02/20 14:00 Ur Amphetamines Screen Negative 10/02/20 14:00 U Benzodiazepines Scrn Presumptive positive 10/02/20 14:00 Urine Cocaine Screen Negative 10/02/20 14:00 U Marijuana (THC) Screen Negative 10/02/20 14:00 Drugs of Abuse Note Disclamer 10/02/20 14:00 Microbiology: Microbiology 10/05/20 15:34 Peripheral/Venous Blood Culture - Preliminary NO GROWTH AFTER 4 DAYS 10/05/20 15:34 Peripheral/Venous Blood Culture - Preliminary NO GROWTH AFTER 4 DAYS [place]/IV: Voiding Method Indwelling Catheter Active Medications - Current Medications Current Medications: Generic Name Dose Route Start Last Admin Trade Name Freq PRN Reason Stop Dose Admin Acetaminophen 650 mg 10/02/20 15:30 10/04/20 20:18 Acetaminophen 650 Mg Rect Supp ME 650 mg Q6H PRN Administration Pain MILD(1-3)/Fever >100.5/HERNANDEZ Albuterol 2.5 mg 10/02/20 17:00 Albuterol 2.5 Mg/3 Ml Nebu IH Q3HRT PRN Shortness Of Breath Lipase/Protease/Amylase 1 each 10/06/20 09:38 Lipase 10,500/Protease 25,000/Amylase 43,750 (Units) Dr Sumner FEEDTUBE PRN PRN For Clogged Feeding Tube Docusate Sodium 100 mg 10/06/20 22:00 10/10/20 10:09 Docusate Sodium 100 Mg/10 Ml Oral Liqd PO 100 mg BID MARCIE Administration Donepezil HCl 10 mg 10/06/20 22:00 10/09/20 23:17 Donepezil 10 Mg Tab PO 10 mg QHS MARCIE Administration Enoxaparin Sodium 40 mg 10/06/20 10:00 10/10/20 10:09 Enoxaparin 40 Mg/0.4 Ml Inj SUB-Q 40 mg QDAY@1000 MARCIE Administration Protocol Famotidine 20 mg 10/08/20 10:00 10/10/20 10:09 Famotidine 20 Mg Tab PO 20 mg BID MARCIE Administration Fentanyl 50 mcg 10/08/20 14:50 10/08/20 15:30 Fentanyl 100 Mcg/2 Ml Inj IV 50 mcg Q10MIN PRN Administration ANALGESIA Finasteride 5 mg 10/08/20 13:00 10/10/20 10:09 Finasteride 5 Mg Tab PO 5 mg QDAY MARCIE Administration Hydralazine HCl 10 mg 10/03/20 15:17 10/04/20 03:40 Hydralazine 10 Mg Tab PO 10 mg Q6H PRN Administration Hypertension SBP > 160 Hydromorphone HCl 0.5 mg 10/07/20 21:31 10/08/20 05:14 Hydromorphone 1 Mg/1 Ml Inj IV 0.5 mg Q3H PRN Administration Pain, Moderate (4-6) Hydrophilic Ointment 1 applic 10/02/20 16:00 Lip Therapy Vaseline TP Q2HR PRN Dry Lips Fentanyl Citrate 2,000 mcg in 100 mls @ 3.1 mls/hr 10/08/20 15:00 10/10/20 10:16 Fentanyl Drip Premix IV 2 mcg/kg/hr TITR MARCIE 6.2 mls/hr Administration Protocol 1 MCG/KG/HR Sodium Phosphate 15 mmol/ 255 mls @ 60 mls/hr 10/10/20 09:00 10/10/20 10:10 Sodium Chloride IV 10/10/20 13:14 60 mls/hr ONCE ONE Administration Dextrose/Sodium Chloride 1,000 mls @ 42 mls/hr 10/11/20 00:00 D5/0.45ns IV DIRECT MARCIE Multi-Ingred Cream/Lotion/Oil/Oint 1 applic 10/02/20 15:30 Mineral Oil/Petrolatum, White Ophth Oint 3.5 Gm OU Q4H PRN Dry Eye(s) Scopolamine 1 each 10/08/20 15:00 10/08/20 15:18 Scopolamine Transdermal Patch 72 Hr TD 1 each Q72H MARCIE Administration Simple Syrup 15 ml 10/06/20 09:38 Simple Syrup 15 Ml FEEDTUBE PRN PRN Hypoglycemia Simple Syrup 30 ml 10/06/20 09:38 Simple Syrup 15 Ml FEEDTUBE PRN PRN Hypoglycemia Sodium Bicarbonate 325 mg 10/06/20 09:38 Sodium Bicarbonate 325 Mg Tab FEEDTUBE PRN PRN For Clogged Feeding Tube Sodium Chloride 10 ml 10/02/20 22:00 10/10/20 10:12 Sodium Chloride 0.9% 10 Ml Flush Syringe IV 10 ml BID MARCIE Administration Sodium Chloride 10 ml 10/02/20 15:30 Sodium Chloride 0.9% 10 Ml Flush Syringe IV PRN PRN LINE FLUSH Tamsulosin HCl 0.8 mg 10/08/20 13:00 10/10/20 10:09 Tamsulosin 0.4 Mg Cap PO 0.8 mg QDAY MARCIE Administration Nutrition/Malnutrition Assess - Dietary Evaluation Nutrition/Malnutrition Findings: Nutrition Notes Start: 10/03/20 12: 08 Freq: Status: Active Protocol: Document 10/08/20 10:55 (Rec: 10/08/20 10:58 [email or web address]) Nutrition Notes Initial or Follow up Reassessment Current Diagnosis Respiratory Failure Other Pertinent Diagnosis cardiac arrest, malnutrition, alzheimer's Current Diet Vital AF 1.2 at 65 ml/hr Labs/Tests Na 146 BUN 30 Cr 0.7 Phos 2.3 Pertinent Medications Phos Nak Height 5 ft 11 in Weight 62 kg [place] Body Weight (kg) 78.18 BMI 19.1 Weight Status Underweight Subjective/Other Information Observed TF running at goal rate. Pt tolerating. Pt may be extubated today. Percent of energy/protein needs met: 100%/100% Burn Absent Trauma Absent GI Symptoms None Difficulty In Swallowing Current % PO Negligible Minimum of two criteria No physical signs of malnutrition #1 Nutrition Diagnosis Inadequate oral intake Diagnosis Progress(for reassessment Continues documentation) Is patient on ventilator? Yes Is Patient Ambulatory and/or Out of Bed No REE-([place]-confined to bed) 1623.588 Kcal/Kg value to use for calculation 30 Approximate Energy Requirements Using 1860 kcal/Kg Calculation Used for Recommendations Kcal/kg Additional Notes protein needs: 74-123 g (1.2- 2g/kg) fluids needs: 1 ml/kcal or per MD Nutrition Intervention Nutrition Support: Vital AF at 65 ml/hr with a free water flush of 100 ml q4h . Kcal 1,872 Protein (gm) 117 Fluid (mL) 1,265 Goal #1 Meet at least 75% of kcal and protein needs via TF regimen Anticipated Discharge Needs: unable to determine at this time Follow-Up By: 10/13/20 Additional Comments FU for TF tolerance or extubation
--- NOTE | 2020-10-09 20:24 | Consultation ---
History of Present Illness Consult date: 10/09/20 Chief complaint: Chronic respiratory failure - History of present illness History of present illness: 80 yo male with dementia. Now with ventilator dependence. Has failed attempts at extubation. Has coded several times. Past History Past Medical History: other (See HPI) Past Surgical History: No surgical history, Other (Unable to obtain) Social history: no significant social history, other (Unable to obtain) Family history: diabetes, hypertension Medications and Allergies Allergies Allergy/AdvReac Type Severity Reaction Status Date / Time No Known Allergies Allergy Unverified 10/02/20 16:50 Home Medications Medication Instructions Recorded Confirmed Last Taken Type Aspirin [Aspirin BABY CHEW TAB] 81 mg PO QDAY 10/02/20 10/02/20 Unknown History Donepezil HCl [Donepezil HCl Odt] 10 mg PO QDAY 10/02/20 10/02/20 Unknown History Finasteride [Proscar] 5 mg PO QDAY 10/02/20 10/02/20 Unknown History Tamsulosin [Flomax] 0.8 mg PO QDAY 10/02/20 10/02/20 Unknown History amLODIPine [Norvasc] 5 mg PO DAILY 10/02/20 10/02/20 Unknown History Active Meds: Active Medications Acetaminophen (Acetaminophen 650 Mg Rect Supp) 650 mg WI Q6H PRN PRN Reason: Pain MILD(1-3)/Fever >100.5/HERNANDEZ Last Admin: 10/04/20 20:18 Dose: 650 mg Documented by: Albuterol (Albuterol 2.5 Mg/3 Ml Nebu) 2.5 mg IH Q3HRT PRN PRN Reason: Shortness Of Breath Lipase/Protease/Amylase (Lipase 10,500/Protease 25,000/Amylase 43,750 (Units) Dr Sumner) 1 each FEEDTUBE PRN PRN PRN Reason: For Clogged Feeding Tube Docusate Sodium (Docusate Sodium 100 Mg/10 Ml Oral Liqd) 100 mg PO BID [facility] Last Admin: 10/09/20 10:03 Dose: 100 mg Documented by: Donepezil HCl (Donepezil 10 Mg Tab) 10 mg PO QHS [facility] Last Admin: 10/08/20 21:36 Dose: 10 mg Documented by: Enoxaparin Sodium (Enoxaparin 40 Mg/0.4 Ml Inj) 40 mg SUB-Q QDAY@1000 [facility]; Protocol Last Admin: 10/09/20 10:03 Dose: 40 mg Documented by: Famotidine (Famotidine 20 Mg Tab) 20 mg PO BID [facility] Last Admin: 10/09/20 10:03 Dose: 20 mg Documented by: Fentanyl (Fentanyl 100 Mcg/2 Ml Inj) 50 mcg IV Q10MIN PRN PRN Reason: ANALGESIA Last Admin: 10/08/20 15:30 Dose: 50 mcg Documented by: Finasteride (Finasteride 5 Mg Tab) 5 mg PO QDAY [facility] Last Admin: 10/09/20 10:03 Dose: 5 mg Documented by: Hydralazine HCl (Hydralazine 10 Mg Tab) 10 mg PO Q6H PRN PRN Reason: Hypertension SBP > 160 Last Admin: 10/04/20 03:40 Dose: 10 mg Documented by: Hydromorphone HCl (Hydromorphone 1 Mg/1 Ml Inj) 0.5 mg IV Q3H PRN PRN Reason: Pain, Moderate (4-6) Last Admin: 10/08/20 05:14 Dose: 0.5 mg Documented by: Hydrophilic Ointment (Lip Therapy Vaseline) 1 applic TP Q2HR PRN PRN Reason: Dry Lips Fentanyl Citrate (Fentanyl Drip Premix) 2,000 mcg in 100 mls @ 3.1 mls/hr IV TITR [facility]; Protocol Last Admin: 10/09/20 05:05 Dose: 2 mcg/kg/hr, 6.2 mls/hr Documented by: Multi-Ingred Cream/Lotion/Oil/Oint (Mineral Oil/Petrolatum, White Ophth Oint 3.5 Gm) 1 applic OU Q4H PRN PRN Reason: Dry Eye(s) Scopolamine (Scopolamine Transdermal Patch 72 Hr) 1 each TD Q72H [facility] Last Admin: 10/08/20 15:18 Dose: 1 each Documented by: Simple Syrup (Simple Syrup 15 Ml) 15 ml FEEDTUBE PRN PRN PRN Reason: Hypoglycemia Simple Syrup (Simple Syrup 15 Ml) 30 ml FEEDTUBE PRN PRN PRN Reason: Hypoglycemia Sodium Bicarbonate (Sodium Bicarbonate 325 Mg Tab) 325 mg FEEDTUBE PRN PRN PRN Reason: For Clogged Feeding Tube Sodium Chloride (Sodium Chloride 0.9% 10 Ml Flush Syringe) 10 ml IV BID [facility] Last Admin: 10/09/20 10:03 Dose: 10 ml Documented by: Sodium Chloride (Sodium Chloride 0.9% 10 Ml Flush Syringe) 10 ml IV PRN PRN PRN Reason: LINE FLUSH Tamsulosin HCl (Tamsulosin 0.4 Mg Cap) 0.8 mg PO QDAY [facility] Last Admin: 10/09/20 10:03 Dose: 0.8 mg Documented by: Review of Systems ROS unobtainable: due to mental status Exam Vital Signs Pulse Resp 67 19 10/02/20 13:42 10/02/20 13:42 - General physical appearance Positive: well developed, well nourished, no distress - Eyes Positive: PERRL, normal occular movement - ENT Positive: normal pinna, normal nares, normal mucosa, no hearing loss, no congestion - Neck Positive: no masses, no bruits, trachea midline, no venous distension - Respiratory Positive: normal expansion, normal respiratory effort, clear to auscultation - Cardiovascular Rhythm: regular Heart Sounds: Present: S1 & S2. Absent: rub, click - Extremities Extremities: no ischemia, pulses symmetrical, No edema - Breasts Breasts: normal, no mass, no skin changes - Abdomen Abdomen: Present: soft, bowel sounds normal. Absent: tender, distended Hernia: none - Genitourinary Male Genitourinary: normal Female Genitourinary: normal - Integumentary no rash, no growths, no abnormal pigmentation Results - Labs 10/07/20 05:20 10/09/20 04:30 Abnormal lab results 10/09/20 10/09/20 10/09/20 Range/Units 03:33 04:30 06:30 ABG Hemoglobin 11.6 L (12.0-17.5) ABG Chloride 109.0 H (98-107) mmol/L ABG Glucose 116 H (65-95) mg/dL Chloride 108.5 H (98-107) mmol/L BUN 33 H (9-20) mg/dL Glucose 115 H (75-100) mg/dL POC Glucose 115 H (70-105) mg/dL Phosphorus 2.30 L (2.5-4.5) mg/dL Magnesium (1.7-2.3) mg/dL Arterial Blood Glucose 116 H (65-95) mg/dL Arterial Blood Ionized Calcium 5.5 H (4.6-5.3) mg/dL 10/09/20 10/09/20 Range/Units 10:50 17:31 ABG Hemoglobin (12.0-17.5) ABG Chloride (98-107) mmol/L ABG Glucose (65-95) mg/dL Chloride (98-107) mmol/L BUN (9-20) mg/dL Glucose (75-100) mg/dL POC Glucose 106 H (70-105) mg/dL Phosphorus (2.5-4.5) mg/dL Magnesium 2.40 H (1.7-2.3) mg/dL Arterial Blood Glucose (65-95) mg/dL Arterial Blood Ionized Calcium (4.6-5.3) mg/dL Diabetes panel 10/09/20 Range/Units 04:30 Sodium 144 (137-145) mmol/L Potassium 4.0 (3.6-5.0) mmol/L Chloride 108.5 H (98-107) mmol/L Carbon Dioxide 28 (22-30) mmol/L BUN 33 H (9-20) mg/dL Creatinine 0.8 (0.8-1.3) mg/dL Glucose 115 H (75-100) mg/dL Calcium 9.9 (8.4-10.2) mg/dL Calcium panel 10/09/20 Range/Units 04:30 Calcium 9.9 (8.4-10.2) mg/dL Phosphorus 2.30 L (2.5-4.5) mg/dL Pituitary panel 10/09/20 Range/Units 04:30 Sodium 144 (137-145) mmol/L Potassium 4.0 (3.6-5.0) mmol/L Chloride 108.5 H (98-107) mmol/L Carbon Dioxide 28 (22-30) mmol/L BUN 33 H (9-20) mg/dL Creatinine 0.8 (0.8-1.3) mg/dL Glucose 115 H (75-100) mg/dL Calcium 9.9 (8.4-10.2) mg/dL Adrenal panel 10/09/20 Range/Units 04:30 Sodium 144 (137-145) mmol/L Potassium 4.0 (3.6-5.0) mmol/L Chloride 108.5 H (98-107) mmol/L Carbon Dioxide 28 (22-30) mmol/L BUN 33 H (9-20) mg/dL Creatinine 0.8 (0.8-1.3) mg/dL Glucose 115 H (75-100) mg/dL Calcium 9.9 (8.4-10.2) mg/dL Assessment and Plan - Patient Problems (1) Acute hypoxemic respiratory failure Current Visit: Yes Status: Acute Plan to address problem: 1) Family will decide tomorrow as to whether or not they want to proceed with trach & PEG.
[2020-10-09] MEDS: DONEPEZIL 10 MG TAB PO SCH (23:17)
[2020-10-10 05:32] LABS: Hematocrit 30.4 % (35.5-45.6); Hemoglobin 9.9 gm/dl (11.8-15.2); Mean Corpuscular HGB Conc 33 % (32-34); Mean Corpuscular Volume 91 fl (84-94); Platelet Count 189 K/mm3 (140-440); Red Blood Count 3.35 M/mm3 (3.65-5.03); Red Cell Distribution Width 15.7 % (13.2-15.2)
[2020-10-10 05:54] LABS: BUN/Creatinine Ratio 44; Blood Urea Nitrogen 35 mg/dL (9-20); Calcium 9.5 mg/dL (8.4-10.2); Hemolysis Index 2
[2020-10-10] MEDS ORDERED: D5W/0.45% NACL 1,000 ML IV SCH (09:00)
[2020-10-10] MEDS ORDERED: SODIUM PHOSPHATE 15 MMOL in SODIUM CHLORIDE 0.9% 250ML 250 ML IV ONE (09:00)
--- NOTE | 2020-10-10 09:16 | XRay Report ---
CHEST 1 VIEW INDICATION / CLINICAL INFORMATION: resp failure. Dyspnea FINDINGS: SUPPORT DEVICES: No significant change in position. HEART / MEDIASTINUM: The cardiomediastinal silhouette has not significantly changed in the interim. LUNGS / PLEURA: Faint right lower lung airspace disease persists. No pneumothorax. Signer Name: Douglas Guerrero MD Signed: 10/10/2020 9:12 AM Workstation Name: [id number]
[2020-10-10] MEDS: ENOXAPARIN 40 MG/0.4 ML INJ SUB-Q SCH (10:09)
[2020-10-10] MEDS: FAMOTIDINE 20 MG TAB PO SCH ×2 (10:09→21:48)
[2020-10-10] MEDS: DOCUSATE SODIUM 100 MG/10 ML ORAL LIQD PO SCH ×2 (10:09→22:45)
[2020-10-10] MEDS: FINASTERIDE 5 MG TAB PO SCH (10:09)
[2020-10-10] MEDS: TAMSULOSIN 0.4 MG CAP PO SCH (10:09)
[2020-10-10] MEDS: fentaNYL DRIP Premix 2,000 MCG/100 ML BAG IV SCH ×2 (10:16→23:20)
--- NOTE | 2020-10-10 10:59 | Progress Note ---
Assessment and Plan - Patient Problems (1) Acute hypoxemic respiratory failure Current Visit: Yes Status: Acute Plan to address problem: 1) Family (daughter) has decided to proceed with trach & PEG. She stated "If he dies from the procedure, that's okay too." 2) NPO after MN 3) Trach & PEG tomorrow at 9 am. 4) Consent obtained. Subjective Date of service: 10/10/20 Patient Reports: Positive: no new complaints Objective Vital Signs - 12hr 10/09/20 10/09/20 10/10/20 23:00 23:33 00:00 Temperature 99.3 F Pulse Rate 70 73 Pulse Rate [ 79 From Monitor] Respiratory 20 20 Rate Blood Pressure 123/60 128/66 O2 Sat by Pulse 100 100 Oximetry 10/10/20 10/10/20 10/10/20 00:29 01:00 02:00 Temperature Pulse Rate 76 78 77 Pulse Rate [ From Monitor] Respiratory 20 20 Rate Blood Pressure 128/66 133/68 131/66 O2 Sat by Pulse 100 100 100 Oximetry 10/10/20 10/10/20 10/10/20 03:00 03:48 04:00 Temperature 100.2 F H Pulse Rate 79 77 Pulse Rate [ 78 From Monitor] Respiratory 20 20 Rate Blood Pressure 115/61 121/63 O2 Sat by Pulse 100 100 Oximetry 10/10/20 10/10/20 10/10/20 04:20 05:00 06:00 Temperature Pulse Rate 107 H 77 76 Pulse Rate [ From Monitor] Respiratory 20 20 Rate Blood Pressure 125/68 130/66 O2 Sat by Pulse 100 100 100 Oximetry 10/10/20 10/10/20 10/10/20 07:00 07:18 08:00 Temperature Pulse Rate 72 73 75 Pulse Rate [ From Monitor] Respiratory 20 14 Rate Blood Pressure 129/60 126/62 O2 Sat by Pulse 100 100 Oximetry 10/10/20 08:50 Temperature Pulse Rate Pulse Rate [ 74 From Monitor] Respiratory 20 Rate Blood Pressure O2 Sat by Pulse 100 Oximetry - Labs 10/10/20 04:40 10/10/20 04:40 Diabetes panel 10/10/20 Range/Units 04:40 Sodium 145 (137-145) mmol/L Potassium 3.8 (3.6-5.0) mmol/L Chloride 111.2 H (98-107) mmol/L Carbon Dioxide 28 (22-30) mmol/L BUN 35 H (9-20) mg/dL Creatinine 0.8 (0.8-1.3) mg/dL Glucose 103 H (75-100) mg/dL Calcium 9.5 (8.4-10.2) mg/dL Calcium panel 10/10/20 Range/Units 04:40 Calcium 9.5 (8.4-10.2) mg/dL Phosphorus 2.40 L (2.5-4.5) mg/dL Pituitary panel 10/10/20 Range/Units 04:40 Sodium 145 (137-145) mmol/L Potassium 3.8 (3.6-5.0) mmol/L Chloride 111.2 H (98-107) mmol/L Carbon Dioxide 28 (22-30) mmol/L BUN 35 H (9-20) mg/dL Creatinine 0.8 (0.8-1.3) mg/dL Glucose 103 H (75-100) mg/dL Calcium 9.5 (8.4-10.2) mg/dL Adrenal panel 10/10/20 Range/Units 04:40 Sodium 145 (137-145) mmol/L Potassium 3.8 (3.6-5.0) mmol/L Chloride 111.2 H (98-107) mmol/L Carbon Dioxide 28 (22-30) mmol/L BUN 35 H (9-20) mg/dL Creatinine 0.8 (0.8-1.3) mg/dL Glucose 103 H (75-100) mg/dL Calcium 9.5 (8.4-10.2) mg/dL
--- NOTE | 2020-10-10 11:07 | Progress Note ---
Assessment and Plan Acute hypoxemic respiratory failure on MVS (extubated 10/04/2020 Cardiopulmonary arrest with ROSC Protein calorie malnutrition h/o Dementia - Surgery evaluation ongoing - will need trach and PEG re: failed extubation X 2 - continue care as below otherwise; - continue to wean supplemental oxygen for target O2 sat's > 90% acutely - VAP bundle addressed - continue lung protective strategies - continue bronchodilators with pulmonary hygiene per RT - wean per pulmonary driven protocols otherwise - continue accuchecks with glycemic control per SSI (While critically ill target blood glucose of 140-180 mg/dL; avoid hypoglycemia) - sedation prn for target RASS 0 to -1 - avoid nephrotoxins, renally dose all medications - continue to avoid benzodiazepine's, reduce the possibility of delirium - complete AB's per ID rec's - prn analgesia per CPOT score - supportive transfusions to keep HgB >7g/dL - mobility, off loading with frequent turning per facility protocol for pressure ulcer prevention - continue chronic home medications as clinically indicated - Maintenance of sleep-wake cycle, avoid delirium - continue enteral nutritional support at goal rate as tolerated - G.I. & VTE prophylaxis - PT/OT/ROM exercises - continue mobility protocols for pressure ulcer prophylaxis - Monitor hemodynamics closely - continue other care per attending / other consultants - discharge planning ongoing concurrently COVID SPECIFIC INTERVENTIONS - COVID-19 PCR negative .... Re-evaluate in am & prn CONDITION: CRITICAL PROGNOSIS: GUARDED CODE STATUS: FULL CODE The high probability of a clinically significant, sudden or life threatening deterioration of the [pulmonary,cardiovascular, neurology] system(s) required my full and direct attention, intervention and personal management. The aggregate critical care time was [35] minutes. This time is in addition to time spent performing reported procedures but includes the following: [x] Data Review and interpretation [x] Patient assessment and monitoring of vital signs [x] Documentation [x] Medication orders and management Subjective Date of service: 10/10/20 Principal diagnosis: Ac. hypoxemic resp failure; Cardiac arrest with ROSC; Dementia Interval history: Patient is seen today for: Ac. hypoxemic resp failure on MVS; Cardiopulmonary arrest with ROSC; Protein calorie malnutrition; h/o Dementia Seen and examined at bedside; 24hour events reviewed; nursing and respiratory care staff consulted; no adverse overnight events reported to me; resting in bed; remains on MVS; seen by Surgeon; tentatively for trach and PEG; did not tolerate bedside SBT well; AMS is persistent Objective Vital Signs - 12hr 10/09/20 10/10/20 10/10/20 23:33 00:00 00:29 Temperature 99.3 F Pulse Rate 73 76 Pulse Rate [ 79 From Monitor] Respiratory 20 Rate Blood Pressure 128/66 128/66 O2 Sat by Pulse 100 100 Oximetry 10/10/20 10/10/20 10/10/20 01:00 02:00 03:00 Temperature Pulse Rate 78 77 79 Pulse Rate [ From Monitor] Respiratory 20 20 20 Rate Blood Pressure 133/68 131/66 115/61 O2 Sat by Pulse 100 100 100 Oximetry 10/10/20 10/10/20 10/10/20 03:48 04:00 04:20 Temperature 100.2 F H Pulse Rate 77 107 H Pulse Rate [ 78 From Monitor] Respiratory 20 Rate Blood Pressure 121/63 O2 Sat by Pulse 100 100 Oximetry 10/10/20 10/10/20 10/10/20 05:00 06:00 07:00 Temperature Pulse Rate 77 76 72 Pulse Rate [ From Monitor] Respiratory 20 20 20 Rate Blood Pressure 125/68 130/66 129/60 O2 Sat by Pulse 100 100 100 Oximetry 10/10/20 10/10/20 10/10/20 07:18 08:00 08:50 Temperature Pulse Rate 73 75 Pulse Rate [ 74 From Monitor] Respiratory 14 20 Rate Blood Pressure 126/62 O2 Sat by Pulse 100 100 Oximetry Constitutional: no acute distress, other (elderly male with mildly increased respiratory effort at rest on MVS) Eyes: non-icteric ENT: oropharynx moist, other (ETT 23 cm SARA) Neck: supple, no lymphadenopathy, no JVD Effort: normal Ascultation: Bilateral: diminished breath sounds, rhonchi (scant) Percussion: Bilateral: not dull Cardiovascular: regular rate and rhythm, other (S1,S2) Gastrointestinal: normoactive bowel sounds, soft, non-tender, non-distended Integumentary: normal Extremities: no cyanosis, no edema, pulses normal, no ischemia or petechiae Neurologic: non-focal exam (grossly), pupils equal and round, CN II-XII normal, motor strength normal and, other (sedated) Psychiatric: mood appropriate, affect normal CBC and BMP: 10/11/20 08:15 10/11/20 08:15 ABG, PT/INR, D-dimer: ABG ABG pH 7.483 (7.320-7.450) H 10/10/20 03:46 POC ABG pCO2 40.0 mmHg (32.0-48.0) 10/10/20 03:46 ABG pCO2 56.3 mm Hg 10/08/20 16:20 POC ABG pO2 95.2 mmHg (83-108) 10/10/20 03:46 ABG pO2 263.1 mm Hg (80.0-90.0) H 10/08/20 16:20 POC ABG HCO3 29.3 10/10/20 03:46 ABG O2 Saturation 97.8 (0-100) 10/10/20 03:46 PT/INR, D-dimer PT 15.8 Sec. (12.2-14.9) H 10/05/20 15:36 INR 1.21 (0.87-1.13) H 10/05/20 15:36 D-Dimer 5468.25 ng/mlDDU (0-234) H 10/02/20 13:45 Abnormal lab findings: Abnormal Labs 10/02/20 10/02/20 10/02/20 13:45 13:45 13:45 WBC RBC Hgb Hct RDW 16.2 H Lymph % (Auto) 7.6 L Long % (Auto) 9.1 H Lymph # (Auto) 0.5 L Long # (Auto) Seg Neutrophils % 82.6 H Seg Neutrophils # PT INR D-Dimer 5468.25 H ABG pH POC ABG pO2 ABG pO2 ABG HCO3 ABG O2 Saturation ABG Hemoglobin ABG Oxyhemoglobin ABG Sodium ABG Potassium ABG Chloride ABG Glucose Carboxyhemoglobin Sodium Potassium 3.4 L Chloride Carbon Dioxide 21 L BUN Creatinine Glucose 112 H POC Glucose Calcium Phosphorus Magnesium Direct Bilirubin Total Protein 5.7 L Albumin 3.1 L Arterial Blood Glucose Arterial Blood Ionized Calcium Urine WBC (Auto) 10/02/20 10/03/20 10/03/20 14:00 03:04 04:35 WBC 13.2 H RBC Hgb Hct RDW 15.9 H Lymph % (Auto) 5.1 L Long % (Auto) 7.9 H Lymph # (Auto) 0.7 L Long # (Auto) 1.0 H Seg Neutrophils % 86.8 H Seg Neutrophils # 11.5 H PT INR D-Dimer ABG pH 7.478 H POC ABG pO2 543.4 H 173.1 H ABG pO2 ABG HCO3 ABG O2 Saturation ABG Hemoglobin 11.7 L ABG Oxyhemoglobin 99.4 H 98.8 H ABG Sodium 131.7 L ABG Potassium 3.3 L ABG Chloride 110.0 H ABG Glucose 102 H 124 H Carboxyhemoglobin 0.3 L Sodium Potassium Chloride Carbon Dioxide BUN Creatinine Glucose POC Glucose Calcium Phosphorus Magnesium Direct Bilirubin Total Protein Albumin Arterial Blood Glucose 102 H 124 H Arterial Blood Ionized Calcium Urine WBC (Auto) 10/03/20 10/03/20 10/03/20 04:35 11:20 23:18 WBC RBC Hgb Hct RDW Lymph % (Auto) Long % (Auto) Lymph # (Auto) Long # (Auto) Seg Neutrophils % Seg Neutrophils # PT INR D-Dimer ABG pH POC ABG pO2 ABG pO2 109.5 H ABG HCO3 ABG O2 Saturation ABG Hemoglobin 11.7 L ABG Oxyhemoglobin ABG Sodium ABG Potassium ABG Chloride ABG Glucose Carboxyhemoglobin Sodium Potassium Chloride Carbon Dioxide BUN Creatinine 0.7 L Glucose 109 H POC Glucose 110 H Calcium 10.3 H Phosphorus Magnesium Direct Bilirubin Total Protein Albumin 3.4 L Arterial Blood Glucose Arterial Blood Ionized Calcium Urine WBC (Auto) 10/04/20 10/04/20 10/05/20 08:32 08:32 04:43 WBC 12.8 H RBC Hgb Hct RDW 15.4 H 15.5 H Lymph % (Auto) 8.5 L Long % (Auto) 12.7 H Lymph # (Auto) 0.8 L Long # (Auto) 1.2 H Seg Neutrophils % 78.4 H Seg Neutrophils # PT INR D-Dimer ABG pH POC ABG pO2 ABG pO2 ABG HCO3 ABG O2 Saturation ABG Hemoglobin ABG Oxyhemoglobin ABG Sodium ABG Potassium ABG Chloride ABG Glucose Carboxyhemoglobin Sodium Potassium Chloride Carbon Dioxide BUN Creatinine 0.7 L Glucose POC Glucose Calcium 10.3 H Phosphorus Magnesium Direct Bilirubin Total Protein Albumin Arterial Blood Glucose Arterial Blood Ionized Calcium Urine WBC (Auto) 10/05/20 10/05/20 10/05/20 04:43 14:49 15:34 WBC 12.3 H RBC Hgb Hct RDW 15.4 H Lymph % (Auto) 8.3 L Long % (Auto) 8.4 H Lymph # (Auto) 1.0 L Long # (Auto) 1.0 H Seg Neutrophils % 82.8 H Seg Neutrophils # 10.2 H PT INR D-Dimer ABG pH POC ABG pO2 ABG pO2 ABG HCO3 ABG O2 Saturation ABG Hemoglobin ABG Oxyhemoglobin ABG Sodium ABG Potassium ABG Chloride ABG Glucose Carboxyhemoglobin Sodium Potassium Chloride Carbon Dioxide BUN 24 H Creatinine 0.7 L Glucose 104 H POC Glucose 139 H Calcium Phosphorus Magnesium Direct Bilirubin Total Protein Albumin Arterial Blood Glucose Arterial Blood Ionized Calcium Urine WBC (Auto) 10/05/20 10/05/20 10/05/20 15:36 15:36 15:36 WBC RBC Hgb Hct RDW Lymph % (Auto) Long % (Auto) Lymph # (Auto) Long # (Auto) Seg Neutrophils % Seg Neutrophils # PT 15.8 H INR 1.21 H D-Dimer ABG pH POC ABG pO2 ABG pO2 ABG HCO3 ABG O2 Saturation ABG Hemoglobin ABG Oxyhemoglobin ABG Sodium ABG Potassium ABG Chloride ABG Glucose Carboxyhemoglobin Sodium Potassium Chloride Carbon Dioxide BUN 26 H Creatinine Glucose 142 H POC Glucose Calcium Phosphorus 4.70 H Magnesium Direct Bilirubin Total Protein 6.0 L Albumin 2.8 L Arterial Blood Glucose Arterial Blood Ionized Calcium Urine WBC (Auto) 10/05/20 10/05/20 10/05/20 15:36 16:15 23:15 WBC RBC Hgb Hct RDW Lymph % (Auto) Long % (Auto) Lymph # (Auto) Long # (Auto) Seg Neutrophils % Seg Neutrophils # PT INR D-Dimer ABG pH POC ABG pO2 228.0 H ABG pO2 ABG HCO3 ABG O2 Saturation ABG Hemoglobin ABG Oxyhemoglobin 98.9 H ABG Sodium ABG Potassium ABG Chloride ABG Glucose 154 H Carboxyhemoglobin Sodium Potassium Chloride Carbon Dioxide BUN 27 H Creatinine Glucose 113 H POC Glucose Calcium Phosphorus Magnesium Direct Bilirubin 0.3 H Total Protein 5.7 L Albumin 2.9 L Arterial Blood Glucose 154 H Arterial Blood Ionized Calcium Urine WBC (Auto) 10/05/20 10/06/20 10/06/20 23:26 04:00 09:11 WBC RBC Hgb Hct RDW Lymph % (Auto) Long % (Auto) Lymph # (Auto) Long # (Auto) Seg Neutrophils % Seg Neutrophils # PT INR D-Dimer ABG pH POC ABG pO2 170.7 H ABG pO2 ABG HCO3 ABG O2 Saturation ABG Hemoglobin ABG Oxyhemoglobin 98.8 H ABG Sodium 134.3 L ABG Potassium ABG Chloride ABG Glucose 115 H Carboxyhemoglobin 0.4 L Sodium Potassium Chloride Carbon Dioxide BUN 31 H Creatinine Glucose 110 H POC Glucose 116 H Calcium 10.7 H Phosphorus 2.30 L D Magnesium Direct Bilirubin Total Protein Albumin Arterial Blood Glucose 115 H Arterial Blood Ionized Calcium 5.5 H Urine WBC (Auto) 10/06/20 10/06/20 10/06/20 11:48 14:20 15:40 WBC RBC Hgb Hct RDW Lymph % (Auto) Long % (Auto) Lymph # (Auto) Long # (Auto) Seg Neutrophils % Seg Neutrophils # PT INR D-Dimer ABG pH POC ABG pO2 ABG pO2 ABG HCO3 ABG O2 Saturation ABG Hemoglobin ABG Oxyhemoglobin ABG Sodium 134.1 L ABG Potassium ABG Chloride ABG Glucose 113 H Carboxyhemoglobin Sodium Potassium Chloride Carbon Dioxide BUN Creatinine Glucose POC Glucose 115 H Calcium Phosphorus Magnesium Direct Bilirubin Total Protein Albumin Arterial Blood Glucose 113 H Arterial Blood Ionized Calcium 5.4 H Urine WBC (Auto) 10.0 H 10/06/20 10/07/20 10/07/20 17:16 04:00 05:20 WBC RBC Hgb 11.3 L Hct 34.0 L RDW 15.4 H Lymph % (Auto) Long % (Auto) Lymph # (Auto) Long # (Auto) Seg Neutrophils % Seg Neutrophils # PT INR D-Dimer ABG pH 7.468 H POC ABG pO2 ABG pO2 ABG HCO3 ABG O2 Saturation ABG Hemoglobin 11.9 L ABG Oxyhemoglobin ABG Sodium ABG Potassium ABG Chloride 109.0 H ABG Glucose 112 H Carboxyhemoglobin Sodium Potassium Chloride Carbon Dioxide BUN Creatinine Glucose POC Glucose 110 H Calcium Phosphorus Magnesium Direct Bilirubin Total Protein Albumin Arterial Blood Glucose 112 H Arterial Blood Ionized Calcium 5.6 H Urine WBC (Auto) 10/07/20 10/07/20 10/08/20 05:20 13:00 06:13 WBC RBC Hgb Hct RDW Lymph % (Auto) Long % (Auto) Lymph # (Auto) Long # (Auto) Seg Neutrophils % Seg Neutrophils # PT INR D-Dimer ABG pH 7.456 H POC ABG pO2 ABG pO2 ABG HCO3 ABG O2 Saturation ABG Hemoglobin 11.3 L ABG Oxyhemoglobin ABG Sodium ABG Potassium ABG Chloride 109.0 H ABG Glucose 109 H Carboxyhemoglobin 0.4 L Sodium 146 H Potassium Chloride 108.4 H 110.7 H Carbon Dioxide 33 H D BUN 32 H 30 H Creatinine 0.7 L 0.7 L Glucose 116 H POC Glucose Calcium Phosphorus 2.10 L 2.30 L Magnesium Direct Bilirubin Total Protein 5.8 L Albumin 2.5 L Arterial Blood Glucose 109 H Arterial Blood Ionized Calcium 5.5 H Urine WBC (Auto) 10/08/20 10/08/20 10/08/20 11:51 12:04 16:20 WBC RBC Hgb Hct RDW Lymph % (Auto) Long % (Auto) Lymph # (Auto) Long # (Auto) Seg Neutrophils % Seg Neutrophils # PT INR D-Dimer ABG pH 7.333 L POC ABG pO2 77.5 L ABG pO2 263.1 H ABG HCO3 29.2 H ABG O2 Saturation 99.4 H ABG Hemoglobin 13.5 L ABG Oxyhemoglobin ABG Sodium ABG Potassium ABG Chloride 109.0 H ABG Glucose 113 H Carboxyhemoglobin Sodium Potassium Chloride Carbon Dioxide BUN Creatinine Glucose POC Glucose 106 H Calcium Phosphorus Magnesium Direct Bilirubin Total Protein Albumin Arterial Blood Glucose 113 H Arterial Blood Ionized Calcium 5.6 H Urine WBC (Auto) 10/09/20 10/09/20 10/09/20 03:33 04:30 06:30 WBC RBC Hgb Hct RDW Lymph % (Auto) Long % (Auto) Lymph # (Auto) Long # (Auto) Seg Neutrophils % Seg Neutrophils # PT INR D-Dimer ABG pH POC ABG pO2 ABG pO2 ABG HCO3 ABG O2 Saturation ABG Hemoglobin 11.6 L ABG Oxyhemoglobin ABG Sodium ABG Potassium ABG Chloride 109.0 H ABG Glucose 116 H Carboxyhemoglobin Sodium Potassium Chloride 108.5 H Carbon Dioxide BUN 33 H Creatinine Glucose 115 H POC Glucose 115 H Calcium Phosphorus 2.30 L Magnesium Direct Bilirubin Total Protein Albumin Arterial Blood Glucose 116 H Arterial Blood Ionized Calcium 5.5 H Urine WBC (Auto) 10/09/20 10/09/20 10/10/20 10:50 17:31 03:46 WBC RBC Hgb Hct RDW Lymph % (Auto) Long % (Auto) Lymph # (Auto) Long # (Auto) Seg Neutrophils % Seg Neutrophils # PT INR D-Dimer ABG pH 7.483 H POC ABG pO2 ABG pO2 ABG HCO3 ABG O2 Saturation ABG Hemoglobin 10.1 L ABG Oxyhemoglobin ABG Sodium ABG Potassium ABG Chloride 111.0 H ABG Glucose 114 H Carboxyhemoglobin Sodium Potassium Chloride Carbon Dioxide BUN Creatinine Glucose POC Glucose 106 H Calcium Phosphorus Magnesium 2.40 H Direct Bilirubin Total Protein Albumin Arterial Blood Glucose 114 H Arterial Blood Ionized Calcium 5.5 H Urine WBC (Auto) 10/10/20 10/10/20 04:40 04:40 WBC 12.8 H RBC 3.35 L Hgb 9.9 L Hct 30.4 L RDW 15.7 H Lymph % (Auto) Long % (Auto) Lymph # (Auto) Long # (Auto) Seg Neutrophils % Seg Neutrophils # PT INR D-Dimer ABG pH POC ABG pO2 ABG pO2 ABG HCO3 ABG O2 Saturation ABG Hemoglobin ABG Oxyhemoglobin ABG Sodium ABG Potassium ABG Chloride ABG Glucose Carboxyhemoglobin Sodium Potassium Chloride 111.2 H Carbon Dioxide BUN 35 H Creatinine Glucose 103 H POC Glucose Calcium Phosphorus 2.40 L Magnesium Direct Bilirubin Total Protein Albumin Arterial Blood Glucose Arterial Blood Ionized Calcium Urine WBC (Auto) Chest x-ray: image reviewed (no new process) Allied health notes reviewed: nursing
--- NOTE | 2020-10-10 12:30 | XRay Report ---
Abdomen single view INDICATION: Abdominal pain IMPRESSION: No esophagogastric tube is appreciated. Signer Name: Douglas Guerrero MD Signed: 10/10/2020 12:25 PM Workstation Name: [id number]
--- NOTE | 2020-10-10 14:03 | XRay Report ---
XR abdomen 1V ap INDICATION: OGT placement verification. COMPARISON: None available. FINDINGS: The tip of the NG tube projects over the body of the stomach. Signer Name: Jimmy Duke MD Signed: 10/10/2020 1:59 PM Workstation Name: [id number]
--- NOTE | 2020-10-10 14:24 | Progress Note ---
<VALERIEIGLESIA SaranyaRonnie - Last Filed: 10/10/20 14:21> Assessment and Plan Assessment and plan: This is a 80 year old male with Vascular Dementia, Cerebral Atherosclerosis, with malnutrition admitted post cardiac arrest, acute hypoxic respiratory failure now s/p cardio-resp arrest on 10/05 and again on 10/08 Neuro: Vascular Dementia -10/02 CT head shows disproportionate temporal and parietal lobe atrophy suggests possibility of Alzheimer's dementia, moderate global parenchymal atrophy, no acute intracranial abnormalities are identified. -Fall aspiration precautions -Resume home Aricept -nodding appropriately -pt has hx CVA with baseline right sided weakness -will need aggressive pt/ot -family updated on plan of care CV: s/p cardiac arrest -Cardiology consulted, appreciate recommendations -10/04 Echo shows EF 55-60%, transmitral Doppler flow pattern suggests impaired LV function Afib -amio drip dc due to bradycardia -QT < 500 -Cardiology consulted -Off pressors -SR Respiratory: s/p Cardio respiratory arrest on 10/05 -reintubated 10/05, extuabted 10/08 -10/05 when extubated pt was drooling and unable to control secretions. He had generalized weakness and a weak cough. speech did see and initially failed him then pt passed to puree diet Acute hypoxemic respiratory failure -CCM consulted, appreciate recommendations -Extubated 10/04 but reintubated 10/05, extubated 10/08 -VAP bundle -10/05 Tracheal aspirate culture usual respiratory ramone -trend chest xray -Surgery to place trach 10/11 FEN/GI Malnutrition -NGT for now -Ntr consult for TF; ST had cleared for pureed diet but will hold off PO for a couple more days -Surgery to place PEG 10/11 -N.p.o. after midnight, IVF while n.p.o. Hypophosphatemia -Replete phosphate -Trend phosphate Urinary Retention hx -Resume home Proscar and Flomax -strict I/O -follow and replace electrolytes as needed -trend Cr Heme -VTE lovenox and SCD -trend CBC ID -cultures NGTD -MRSA swab pending -Cefpime stopped; 10/05 xray concerning for aspiration event Endo -SSI, accucheck q 6 -avoid hypoglycemia GI/DVT prophylaxis: PPI, lovenox subq, SCDs to BLE while in bed Dispo: ICU Lines: L IJ TLC (7/13), Right radial joao (10/05). The high probability of a clinically significant, sudden or life threatening deterioration of the [neuro, pulmonary,] system(s) required my full and direct attention, intervention and personal management. The aggregate critical care time was [35] minutes. This time is in addition to time spent performing reported procedures but includes the following: [x] Data Review and interpretation [x] Patient assessment and monitoring of vital signs [x] Documentation [x] Medication orders and management History Interval history: 80 YO Male with Vascular Dementia, Cerebral Atherosclerosis, Malnutrition who presented to the ED on 10/02 via EMS after being found unresponsive by family and upon arrival the patient was found to be in distress and subsequently developed cardiac arrest and was treated with ACLS protocol with eventual return of perfusing cardiac rhythm and transported to [facility]. Upon arrival to the ED he was found to be in acute respiratory failure secondary to cardiac arrest and unable able to protect his airway. Patient was intubated and placed on ventilatory support. Patient admitted to ICU for further care and evaluation. Critical care team consulted in ED. 10/03: Continue supportive care, noted leukoctosis, ?reactive. Will continue to assess, consult cardiology in am. 10/04: Continues on full ventilatory support awake alert oriented will attempt extubation today according to the nursing staff plan discussed with chief warden. [employer] consulted for further input considering out of hospital cardiac arrest. Echocardiogram completed awaiting results 10/05: Patient was extubated yesterday and was cleared for puree diet by . Patient was to be downgraded from the ICU. This evening the patient was noted to be SB and responded to atropine. Patient was gargling and dopamine gtt was started briefly and stopped r/t tachycardia, short runs of vtach then the patient was noted to be in PEA. See code sheet and event note for details. I updated daughter over phone of current events. Started on empiric abx, femoral TLC and joao placed. Cultures sent. No cardio ordered amio and mag was given. 10/06 nodding appropriately; CPAP trials 10/07: failed PSV on PS 20 so [facility] decreased PS to 10 and will obtain ABG 1300, [facility] will try to extubate tomorrow. Hypophostemia repleted. 10/08: Trial extubation per [facility]. Hypophosphatemia to be treated. No acute events overnight. 10/09: Patient had a cardio-resp arrest yesterday evening and was reintubated. He has hypophosphatemia and hyperchloremia. No acute events noted overnight. 10/10: Patient is not n.p.o. after midnight and family has decided to move forward with PEG/trach. Hypophosphatemia repleted. Patient scheduled for trach/PEG tomorrow with surgery. Hospitalist Physical - Constitutional Vitals: Temp Pulse Resp BP Pulse Ox 98.4 F 77 6 L 120/57 100 10/10/20 12:00 10/10/20 13:00 10/10/20 13:00 10/10/20 13:00 10/10/20 13:00 General appearance: Present: no acute distress, other (resting on vent) - EENT Eyes: Present: PERRL, EOM intact ENT: dentition normal - Neck Neck: Present: normal ROM - Respiratory Respiratory effort: normal Respiratory: bilateral: CTA, diminished - Cardiovascular Rhythm: regular Heart Sounds: Present: S1 & S2. Absent: systolic murmur, diastolic murmur - Extremities Extremities: no ischemia, pulses intact, pulses symmetrical, No edema, normal temperature, normal color Peripheral Pulses: within normal limits - Abdominal General gastrointestinal: soft, non-tender, non-distended, normal bowel sounds - Integumentary Integumentary: Present: warm, dry - Psychiatric Psychiatric: cooperative - Neurologic Neurologic: CNII-XII intact, moves all extremities - Allied Health Allied health notes reviewed: nursing, RT, social work HEART Score - HEART Score EKG: Normal Age: < 45 Risk factors: No known risk factors Troponin: Troponin T 0.015 ng/mL (0.00-0.029) 10/09/20 10:50 Troponin: < normal limit Results - Labs CBC & Chem 7: 10/10/20 04:40 10/10/20 04:40 Labs: Laboratory Last Values WBC 12.8 K/mm3 (4.5-11.0) H 10/10/20 04:40 RBC 3.35 M/mm3 (3.65-5.03) L 10/10/20 04:40 Hgb 9.9 gm/dl (11.8-15.2) L 10/10/20 04:40 Hct 30.4 % (35.5-45.6) L 10/10/20 04:40 MCV 91 fl (84-94) 10/10/20 04:40 MCH 30 pg (28-32) 10/10/20 04:40 MCHC 33 % (32-34) 10/10/20 04:40 RDW 15.7 % (13.2-15.2) H 10/10/20 04:40 Plt Count 189 K/mm3 (140-440) 10/10/20 04:40 Lymph % (Auto) 8.3 % (13.4-35.0) L 10/05/20 15:34 [place] % (Auto) 8.4 % (0.0-7.3) H 10/05/20 15:34 Eos % (Auto) 0.1 % (0.0-4.3) 10/05/20 15:34 Baso % (Auto) 0.4 % (0.0-1.8) 10/05/20 15:34 Lymph # (Auto) 1.0 K/mm3 (1.2-5.4) L 10/05/20 15:34 [place] # (Auto) 1.0 K/mm3 (0.0-0.8) H 10/05/20 15:34 Eos # (Auto) 0.0 K/mm3 (0.0-0.4) 10/05/20 15:34 Baso # (Auto) 0.0 K/mm3 (0.0-0.1) 10/05/20 15:34 Seg Neutrophils % 82.8 % (40.0-70.0) H 10/05/20 15:34 Seg Neutrophils # 10.2 K/mm3 (1.8-7.7) H 10/05/20 15:34 PT 15.8 Sec. (12.2-14.9) H 10/05/20 15:36 INR 1.21 (0.87-1.13) H 10/05/20 15:36 D-Dimer 5468.25 ng/mlDDU (0-234) H 10/02/20 13:45 ABG pH 7.483 (7.320-7.450) H 10/10/20 03:46 POC ABG pCO2 40.0 mmHg (32.0-48.0) 10/10/20 03:46 ABG pCO2 56.3 mm Hg 10/08/20 16:20 POC ABG pO2 95.2 mmHg (83-108) 10/10/20 03:46 ABG pO2 263.1 mm Hg (80.0-90.0) H 10/08/20 16:20 POC ABG HCO3 29.3 10/10/20 03:46 ABG HCO3 29.2 mmol/L (20.0-26.0) H 10/08/20 16:20 ABG O2 Saturation 97.8 (0-100) 10/10/20 03:46 ABG O2 Content 19.2 (0.0-44) 10/08/20 16:20 POC ABG Base Excess 5.5 10/10/20 03:46 ABG Base Excess 2.1 mmol/L (-2.0-3.0) 10/08/20 16:20 ABG Hemoglobin 10.1 (12.0-17.5) L 10/10/20 03:46 ABG Oxyhemoglobin 97.0 (94-98) 10/10/20 03:46 ABG Carboxyhemoglobin 1.1 % (0.0-5.0) 10/08/20 16:20 ABG Methemoglobin 0.3 (0.0-1.5) 10/10/20 03:46 ABG Sodium 141.5 mmol/L (136.0-145.0) 10/10/20 03:46 ABG Potassium 3.7 mmol/L (3.40-4.50) 10/10/20 03:46 ABG Chloride 111.0 mmol/L (98-107) H 10/10/20 03:46 ABG Glucose 114 mg/dL (65-95) H 10/10/20 03:46 ABG Lactate 1.32 (0.18-30.0) 10/02/20 14:00 Oxyhemoglobin 97.8 % (95.0-99.0) 10/08/20 16:20 Carboxyhemoglobin 0.5 (0.5-1.5) 10/10/20 03:46 FiO2 80 % 10/08/20 16:20 FiO2 % 30.0 10/10/20 03:46 Sodium 145 mmol/L (137-145) 10/10/20 04:40 Potassium 3.8 mmol/L (3.6-5.0) 10/10/20 04:40 Chloride 111.2 mmol/L (98-107) H 10/10/20 04:40 Carbon Dioxide 28 mmol/L (22-30) 10/10/20 04:40 Anion Gap 10 mmol/L 10/10/20 04:40 BUN 35 mg/dL (9-20) H 10/10/20 04:40 Creatinine 0.8 mg/dL (0.8-1.3) 10/10/20 04:40 Estimated GFR > 60 ml/min 10/10/20 04:40 BUN/Creatinine Ratio 44 % 10/10/20 04:40 Glucose 103 mg/dL (75-100) H 10/10/20 04:40 POC Glucose 93 mg/dL (70-105) 10/10/20 12:04 Calcium 9.5 mg/dL (8.4-10.2) 10/10/20 04:40 Phosphorus 2.40 mg/dL (2.5-4.5) L 10/10/20 04:40 Magnesium 2.40 mg/dL (1.7-2.3) H 10/09/20 10:50 Total Bilirubin 0.50 mg/dL (0.1-1.2) 10/07/20 05:20 Direct Bilirubin 0.3 mg/dL (0-0.2) H 10/05/20 15:36 Indirect Bilirubin 0.5 mg/dL 10/05/20 15:36 AST 22 units/L (5-40) 10/07/20 05:20 ALT 15 units/L (7-56) 10/07/20 05:20 Alkaline Phosphatase 66 units/L (35-129) 10/07/20 05:20 Troponin T 0.015 ng/mL (0.00-0.029) 10/09/20 10:50 NT-Pro-B Natriuret Pep 208.4 pg/mL (0-900) 10/02/20 13:45 Total Protein 5.8 g/dL (6.3-8.2) L 10/07/20 05:20 Albumin 2.5 g/dL (3.9-5) L 10/07/20 05:20 Albumin/Globulin Ratio 0.8 % 10/07/20 05:20 Arterial Blood Glucose 114 mg/dL (65-95) H 10/10/20 03:46 Arterial Blood Ionized Calcium 5.5 mg/dL (4.6-5.3) H 10/10/20 03:46 Urine Color Yellow (Yellow) 10/06/20 14:20 Urine Turbidity Clear (Clear) 10/06/20 14:20 Urine pH 6.0 (5.0-7.0) 10/06/20 14:20 Ur Specific [place] 1.030 (1.003-1.030) 10/06/20 14:20 Urine Protein <15 mg/dl mg/dL (Negative) 10/06/20 14:20 Urine Glucose (UA) Neg mg/dL (Negative) 10/06/20 14:20 Urine Ketones Neg mg/dL (Negative) 10/06/20 14:20 Urine Blood Mod (Negative) 10/06/20 14:20 Urine Nitrite Neg (Negative) 10/06/20 14:20 Urine Bilirubin Neg (Negative) 10/06/20 14:20 Urine Urobilinogen < 2.0 mg/dL (<2.0) 10/06/20 14:20 Ur Leukocyte Esterase Neg (Negative) 10/06/20 14:20 Urine WBC (Auto) 10.0 /HPF (0.0-6.0) H 10/06/20 14:20 Urine RBC (Auto) 7.0 /HPF (0.0-6.0) 10/06/20 14:20 U Epithel Cells (Auto) < 1.0 /HPF (0-13.0) 10/02/20 14:00 Urine Mucus 1+ /HPF 10/06/20 14:20 Nasal Screen MRSA (PCR) Negative (Negative) 10/06/20 14:40 Urine Opiates Screen Negative 10/02/20 14:00 Urine Methadone Screen Negative 10/02/20 14:00 Ur Barbiturates Screen Negative 10/02/20 14:00 Ur Phencyclidine Scrn Negative 10/02/20 14:00 Ur Amphetamines Screen Negative 10/02/20 14:00 U Benzodiazepines Scrn Presumptive positive 10/02/20 14:00 Urine Cocaine Screen Negative 10/02/20 14:00 U Marijuana (THC) Screen Negative 10/02/20 14:00 Drugs of Abuse Note Disclamer 10/02/20 14:00 Microbiology: Microbiology 10/05/20 15:34 Peripheral/Venous Blood Culture - Preliminary NO GROWTH AFTER 4 DAYS 10/05/20 15:34 Peripheral/Venous Blood Culture - Preliminary NO GROWTH AFTER 4 DAYS De Los Santos/IV: Voiding Method Indwelling Catheter Active Medications - Current Medications Current Medications: Generic Name Dose Route Start Last Admin Trade Name Freq PRN Reason Stop Dose Admin Acetaminophen 650 mg 10/02/20 15:30 10/04/20 20:18 Acetaminophen 650 Mg Rect Supp [place] 650 mg Q6H PRN Administration Pain MILD(1-3)/Fever >100.5/HERNANDEZ Albuterol 2.5 mg 10/02/20 17:00 Albuterol 2.5 Mg/3 Ml Nebu IH Q3HRT PRN Shortness Of Breath Lipase/Protease/Amylase 1 each 10/06/20 09:38 Lipase 10,500/Protease 25,000/Amylase 43,750 (Units) Dr Sumner FEEDTUBE PRN PRN For Clogged Feeding Tube Docusate Sodium 100 mg 10/06/20 22:00 10/10/20 10:09 Docusate Sodium 100 Mg/10 Ml Oral Liqd PO 100 mg BID MARCIE Administration Donepezil HCl 10 mg 10/06/20 22:00 10/09/20 23:17 Donepezil 10 Mg Tab PO 10 mg QHS MARCIE Administration Enoxaparin Sodium 40 mg 10/06/20 10:00 10/10/20 10:09 Enoxaparin 40 Mg/0.4 Ml Inj SUB-Q 40 mg QDAY@1000 MARCIE Administration Protocol Famotidine 20 mg 10/08/20 10:00 10/10/20 10:09 Famotidine 20 Mg Tab PO 20 mg BID MARCIE Administration Fentanyl 50 mcg 10/08/20 14:50 10/08/20 15:30 Fentanyl 100 Mcg/2 Ml Inj IV 50 mcg Q10MIN PRN Administration ANALGESIA Finasteride 5 mg 10/08/20 13:00 10/10/20 10:09 Finasteride 5 Mg Tab PO 5 mg QDAY MARCIE Administration Hydralazine HCl 10 mg 10/03/20 15:17 10/04/20 03:40 Hydralazine 10 Mg Tab PO 10 mg Q6H PRN Administration Hypertension SBP > 160 Hydromorphone HCl 0.5 mg 10/07/20 21:31 10/08/20 05:14 Hydromorphone 1 Mg/1 Ml Inj IV 0.5 mg Q3H PRN Administration Pain, Moderate (4-6) Hydrophilic Ointment 1 applic 10/02/20 16:00 Lip Therapy Vaseline TP Q2HR PRN Dry Lips Fentanyl Citrate 2,000 mcg in 100 mls @ 3.1 mls/hr 10/08/20 15:00 10/10/20 10:16 Fentanyl Drip Premix IV 2 mcg/kg/hr TITR MARCIE 6.2 mls/hr Administration Protocol 1 MCG/KG/HR Dextrose/Sodium Chloride 1,000 mls @ 42 mls/hr 10/11/20 00:00 D5/0.45ns IV DIRECT MARCIE Multi-Ingred Cream/Lotion/Oil/Oint 1 applic 10/02/20 15:30 Mineral Oil/Petrolatum, White Ophth Oint 3.5 Gm OU Q4H PRN Dry Eye(s) Scopolamine 1 each 10/08/20 15:00 10/08/20 15:18 Scopolamine Transdermal Patch 72 Hr TD 1 each Q72H MARCIE Administration Simple Syrup 15 ml 10/06/20 09:38 Simple Syrup 15 Ml FEEDTUBE PRN PRN Hypoglycemia Simple Syrup 30 ml 10/06/20 09:38 Simple Syrup 15 Ml FEEDTUBE PRN PRN Hypoglycemia Sodium Bicarbonate 325 mg 10/06/20 09:38 Sodium Bicarbonate 325 Mg Tab FEEDTUBE PRN PRN For Clogged Feeding Tube Sodium Chloride 10 ml 10/02/20 22:00 10/10/20 10:12 Sodium Chloride 0.9% 10 Ml Flush Syringe IV 10 ml BID MARCIE Administration Sodium Chloride 10 ml 10/02/20 15:30 Sodium Chloride 0.9% 10 Ml Flush Syringe IV PRN PRN LINE FLUSH Tamsulosin HCl 0.8 mg 10/08/20 13:00 10/10/20 10:09 Tamsulosin 0.4 Mg Cap PO 0.8 mg QDAY MARCIE Administration Nutrition/Malnutrition Assess - Dietary Evaluation Nutrition/Malnutrition Findings: Nutrition Notes Start: 10/03/20 12:08 Freq: Status: Active Protocol: Document 10/08/20 10:55 (Rec: 10/08/20 10:58 MK [id number]) Nutrition Notes Initial or Follow up Reassessment Current Diagnosis Respiratory Failure Other Pertinent Diagnosis cardiac arrest, malnutrition, alzheimer's Current Diet Vital AF 1.2 at 65 ml/hr Labs/Tests Na 146 BUN 30 Cr 0.7 Phos 2.3 Pertinent Medications Phos Nak Height 5 ft 11 in Weight 62 kg [place] Body Weight (kg) 78.18 BMI 19.1 Weight Status Underweight Subjective/Other Information Observed TF running at goal rate. Pt tolerating. Pt may be extubated today. Percent of energy/protein needs met: 100%/100% Burn Absent Trauma Absent GI Symptoms None Difficulty In Swallowing Current % PO Negligible Minimum of two criteria No physical signs of malnutrition #1 Nutrition Diagnosis Inadequate oral intake Diagnosis Progress(for reassessment Continues documentation) Is patient on ventilator? Yes Is Patient Ambulatory and/or Out of Bed No REE-([facility]-confined to bed) 1623.588 Kcal/Kg value to use for calculation 30 Approximate Energy Requirements Using 1860 kcal/Kg Calculation Used for Recommendations Kcal/kg Additional Notes protein needs: 74-123 g (1.2- 2g/kg) fluids needs: 1 ml/kcal or per MD Nutrition Intervention Nutrition Support: Vital AF at 65 ml/hr with a free water flush of 100 ml q4h . Kcal 1,872 Protein (gm) 117 Fluid (mL) 1,265 Goal #1 Meet at least 75% of kcal and protein needs via TF regimen Anticipated Discharge Needs: unable to determine at this time Follow-Up By: 10/13/20 Additional Comments FU for TF tolerance or extubation <ALIZA SIMS - Last Filed: 10/11/20 11:44> Assessment and Plan Assessment and plan: Agree with assessment and plan as outlined by nurse practitioner as above, I personally examined the patient, no changes at this time, patient remains intubated, family has opted to have trach and PEG for patient, however patient is not n.p.o. and tube feeds were continued, n.p.o. after midnight and surgery tomorrow. Hospitalist Physical - Constitutional Vitals: Temp Pulse Resp BP Pulse Ox 99 F 68 9 L 135/64 100 10/11/20 08:00 10/11/20 09:00 10/11/20 09:00 10/11/20 09:00 10/11/20 09:00 HEART Score - HEART Score Troponin: Troponin T 0.015 ng/mL (0.00-0.029) 10/09/20 10:50 Results - Labs CBC & Chem 7: 10/11/20 08:15 10/11/20 08:15 Labs: Laboratory Last Values WBC 13.3 K/mm3 (4.5-11.0) H 10/11/20 08:15 RBC 3.31 M/mm3 (3.65-5.03) L 10/11/20 08:15 Hgb 10.0 gm/dl (11.8-15.2) L 10/11/20 08:15 Hct 30.0 % (35.5-45.6) L 10/11/20 08:15 MCV 91 fl (84-94) 10/11/20 08:15 MCH 30 pg (28-32) 10/11/20 08:15 MCHC 33 % (32-34) 10/11/20 08:15 RDW 15.8 % (13.2-15.2) H 10/11/20 08:15 Plt Count 255 K/mm3 (140-440) 10/11/20 08:15 Lymph % (Auto) 8.3 % (13.4-35.0) L 10/05/20 15:34 [place] % (Auto) 8.4 % (0.0-7.3) H 10/05/20 15:34 Eos % (Auto) 0.1 % (0.0-4.3) 10/05/20 15:34 Baso % (Auto) 0.4 % (0.0-1.8) 10/05/20 15:34 Lymph # (Auto) 1.0 K/mm3 (1.2-5.4) L 10/05/20 15:34 [place] # (Auto) 1.0 K/mm3 (0.0-0.8) H 10/05/20 15:34 Eos # (Auto) 0.0 K/mm3 (0.0-0.4) 10/05/20 15:34 Baso # (Auto) 0.0 K/mm3 (0.0-0.1) 10/05/20 15:34 Seg Neutrophils % 82.8 % (40.0-70.0) H 10/05/20 15:34 Seg Neutrophils # 10.2 K/mm3 (1.8-7.7) H 10/05/20 15:34 PT 15.8 Sec. (12.2-14.9) H 10/05/20 15:36 INR 1.21 (0.87-1.13) H 10/05/20 15:36 D-Dimer 5468.25 ng/mlDDU (0-234) H 10/02/20 13:45 ABG pH 7.532 (7.320-7.450) H 10/11/20 04:00 POC ABG pCO2 36.0 mmHg (32.0-48.0) 10/11/20 04:00 ABG pCO2 56.3 mm Hg 10/08/20 16:20 POC ABG pO2 86.8 mmHg (83-108) 10/11/20 04:00 ABG pO2 263.1 mm Hg (80.0-90.0) H 10/08/20 16:20 POC ABG HCO3 29.5 10/11/20 04:00 ABG HCO3 29.2 mmol/L (20.0-26.0) H 10/08/20 16:20 ABG O2 Saturation 97.5 (0-100) 10/11/20 04:00 ABG O2 Content 19.2 (0.0-44) 10/08/20 16:20 POC ABG Base Excess 6.6 10/11/20 04:00 ABG Base Excess 2.1 mmol/L (-2.0-3.0) 10/08/20 16:20 ABG Hemoglobin 10.0 (12.0-17.5) L 10/11/20 04:00 ABG Oxyhemoglobin 96.5 (94-98) 10/11/20 04:00 ABG Carboxyhemoglobin 1.1 % (0.0-5.0) 10/08/20 16:20 ABG Methemoglobin 0.3 (0.0-1.5) 10/11/20 04:00 ABG Sodium 140.8 mmol/L (136.0-145.0) 10/11/20 04:00 ABG Potassium 4.0 mmol/L (3.40-4.50) 10/11/20 04:00 ABG Chloride 112.0 mmol/L (98-107) H 10/11/20 04:00 ABG Glucose 115 mg/dL (65-95) H 10/11/20 04:00 ABG Lactate 1.32 (0.18-30.0) 10/02/20 14:00 Oxyhemoglobin 97.8 % (95.0-99.0) 10/08/20 16:20 Carboxyhemoglobin 0.7 (0.5-1.5) 10/11/20 04:00 FiO2 80 % 10/08/20 16:20 FiO2 % 30.0 10/11/20 04:00 Sodium 144 mmol/L (137-145) 10/11/20 08:15 Potassium 4.1 mmol/L (3.6-5.0) 10/11/20 08:15 Chloride 107.8 mmol/L (98-107) H 10/11/20 08:15 Carbon Dioxide 33 mmol/L (22-30) H 10/11/20 08:15 Anion Gap 7 mmol/L 10/11/20 08:15 BUN 32 mg/dL (9-20) H 10/11/20 08:15 Creatinine 0.7 mg/dL (0.8-1.3) L 10/11/20 08:15 Estimated GFR > 60 ml/min 10/11/20 08:15 BUN/Creatinine Ratio 46 % 10/11/20 08:15 Glucose 108 mg/dL (75-100) H 10/11/20 08:15 POC Glucose 102 mg/dL (70-105) 10/11/20 05:44 Calcium 10.1 mg/dL (8.4-10.2) 10/11/20 08:15 Phosphorus 3.00 mg/dL (2.5-4.5) D 10/11/20 08:15 Magnesium 2.40 mg/dL (1.7-2.3) H 10/09/20 10:50 Total Bilirubin 0.50 mg/dL (0.1-1.2) 10/07/20 05:20 Direct Bilirubin 0.3 mg/dL (0-0.2) H 10/05/20 15:36 Indirect Bilirubin 0.5 mg/dL 10/05/20 15:36 AST 22 units/L (5-40) 10/07/20 05:20 ALT 15 units/L (7-56) 10/07/20 05:20 Alkaline Phosphatase 66 units/L (35-129) 10/07/20 05:20 Troponin T 0.015 ng/mL (0.00-0.029) 10/09/20 10:50 NT-Pro-B Natriuret Pep 208.4 pg/mL (0-900) 10/02/20 13:45 Total Protein 5.8 g/dL (6.3-8.2) L 10/07/20 05:20 Albumin 2.5 g/dL (3.9-5) L 10/07/20 05:20 Albumin/Globulin Ratio 0.8 % 10/07/20 05:20 Arterial Blood Glucose 115 mg/dL (65-95) H 10/11/20 04:00 Arterial Blood Ionized Calcium 5.5 mg/dL (4.6-5.3) H 10/11/20 04:00 Urine Color Yellow (Yellow) 10/06/20 14:20 Urine Turbidity Clear (Clear) 10/06/20 14:20 Urine pH 6.0 (5.0-7.0) 10/06/20 14:20 Ur Specific [place] 1.030 (1.003-1.030) 10/06/20 14:20 Urine Protein <15 mg/dl mg/dL (Negative) 10/06/20 14:20 Urine Glucose (UA) Neg mg/dL (Negative) 10/06/20 14:20 Urine Ketones Neg mg/dL (Negative) 10/06/20 14:20 Urine Blood Mod (Negative) 10/06/20 14:20 Urine Nitrite Neg (Negative) 10/06/20 14:20 Urine Bilirubin Neg (Negative) 10/06/20 14:20 Urine Urobilinogen < 2.0 mg/dL (<2.0) 10/06/20 14:20 Ur Leukocyte Esterase Neg (Negative) 10/06/20 14:20 Urine WBC (Auto) 10.0 /HPF (0.0-6.0) H 10/06/20 14:20 Urine RBC (Auto) 7.0 /HPF (0.0-6.0) 10/06/20 14:20 U Epithel Cells (Auto) < 1.0 /HPF (0-13.0) 10/02/20 14:00 Urine Mucus 1+ /HPF 10/06/20 14:20 Nasal Screen MRSA (PCR) Negative (Negative) 10/06/20 14:40 Urine Opiates Screen Negative 10/02/20 14:00 Urine Methadone Screen Negative 10/02/20 14:00 Ur Barbiturates Screen Negative 10/02/20 14:00 Ur Phencyclidine Scrn Negative 10/02/20 14:00 Ur Amphetamines Screen Negative 10/02/20 14:00 U Benzodiazepines Scrn Presumptive positive 10/02/20 14:00 Urine Cocaine Screen Negative 10/02/20 14:00 U Marijuana (THC) Screen Negative 10/02/20 14:00 Drugs of Abuse Note Disclamer 10/02/20 14:00 Microbiology: Microbiology 10/05/20 15:34 Peripheral/Venous Blood Culture - Final NO GROWTH AFTER 5 DAYS 10/05/20 15:34 Peripheral/Venous Blood Culture - Final NO GROWTH AFTER 5 DAYS [place]/IV: Voiding Method Indwelling Catheter Active Medications - Current Medications Current Medications: Generic Name Dose Route Start Last Admin Trade Name Freq PRN Reason Stop Dose Admin Acetaminophen 650 mg 10/02/20 15:30 10/11/20 03:51 Acetaminophen 650 Mg Rect Supp [place] 650 mg Q6H PRN Administration Pain MILD(1-3)/Fever >100.5/HERNANDEZ Albuterol 2.5 mg 10/02/20 17:00 Albuterol 2.5 Mg/3 Ml Nebu IH Q3HRT PRN Shortness Of Breath Lipase/Protease/Amylase 1 each 10/06/20 09:38 Lipase 10,500/Protease 25,000/Amylase 43,750 (Units) Dr Sumner FEEDTUBE PRN PRN For Clogged Feeding Tube Docusate Sodium 100 mg 10/06/20 22:00 10/10/20 10:09 Docusate Sodium 100 Mg/10 Ml Oral Liqd PO 100 mg BID MARCIE Administration Donepezil HCl 10 mg 10/06/20 22:00 10/10/20 21:48 Donepezil 10 Mg Tab PO 10 mg QHS MARCIE Administration Enoxaparin Sodium 40 mg 10/06/20 10:00 10/10/20 10:09 Enoxaparin 40 Mg/0.4 Ml Inj SUB-Q 40 mg QDAY@1000 MARCIE Administration Protocol Famotidine 20 mg 10/08/20 10:00 10/10/20 21:48 Famotidine 20 Mg Tab PO 20 mg BID MARCIE Administration Fentanyl 50 mcg 10/08/20 14:50 10/08/20 15:30 Fentanyl 100 Mcg/2 Ml Inj IV 50 mcg Q10MIN PRN Administration ANALGESIA Finasteride 5 mg 10/08/20 13:00 10/10/20 10:09 Finasteride 5 Mg Tab PO 5 mg QDAY MARCIE Administration Hydralazine HCl 10 mg 10/03/20 15:17 10/04/20 03:40 Hydralazine 10 Mg Tab PO 10 mg Q6H PRN Administration Hypertension SBP > 160 Hydromorphone HCl 0.5 mg 10/07/20 21:31 10/08/20 05:14 Hydromorphone 1 Mg/1 Ml Inj IV 0.5 mg Q3H PRN Administration Pain, Moderate (4-6) Hydrophilic Ointment 1 applic 10/02/20 16:00 Lip Therapy Vaseline TP Q2HR PRN Dry Lips Fentanyl Citrate 2,000 mcg in 100 mls @ 3.1 mls/hr 10/08/20 15:00 10/11/20 08:51 Fentanyl Drip Premix IV 2 mcg/kg/hr TITR MARCIE 6.2 mls/hr Administration Protocol 1 MCG/KG/HR Dextrose/Sodium Chloride 1,000 mls @ 42 mls/hr 10/11/20 00:00 10/11/20 00:48 D5/0.45ns IV 42 mls/hr DIRECT MARCIE Administration Multi-Ingred Cream/Lotion/Oil/Oint 1 applic 10/02/20 15:30 Mineral Oil/Petrolatum, White Ophth Oint 3.5 Gm OU Q4H PRN Dry Eye(s) Scopolamine 1 each 10/08/20 15:00 10/08/20 15:18 Scopolamine Transdermal Patch 72 Hr TD 1 each Q72H MARCIE Administration Simple Syrup 15 ml 10/06/20 09:38 Simple Syrup 15 Ml FEEDTUBE PRN PRN Hypoglycemia Simple Syrup 30 ml 10/06/20 09:38 Simple Syrup 15 Ml FEEDTUBE PRN PRN Hypoglycemia Sodium Bicarbonate 325 mg 10/06/20 09:38 Sodium Bicarbonate 325 Mg Tab FEEDTUBE PRN PRN For Clogged Feeding Tube Sodium Chloride 10 ml 10/02/20 22:00 07/17/21 10:12 Sodium Chloride 0.9% 10 Ml Flush Syringe IV 10 ml BID MARCIE Administration Sodium Chloride 10 ml 10/02/20 15:30 Sodium Chloride 0.9% 10 Ml Flush Syringe IV PRN PRN LINE FLUSH Tamsulosin HCl 0.8 mg 10/08/20 13:00 10/10/20 10:09 Tamsulosin 0.4 Mg Cap PO 0.8 mg QDAY MARCIE Administration Nutrition/Malnutrition Assess - Dietary Evaluation Nutrition/Malnutrition Findings: Nutrition Notes Start: 10/03/20 12:08 Freq: Status: Active Protocol: Document 10/08/20 10:55 (Rec: 10/08/20 10:58 [id number]) Nutrition Notes Initial or Follow up Reassessment Current Diagnosis Respiratory Failure Other Pertinent Diagnosis cardiac arrest, malnutrition, alzheimer's Current Diet Vital AF 1.2 at 65 ml/hr Labs/Tests Na 146 BUN 30 Cr 0.7 Phos 2.3 Pertinent Medications Phos Nak Height 5 ft 11 in Weight 62 kg [place] Body Weight (kg) 78.18 BMI 19.1 Weight Status Underweight Subjective/Other Information Observed TF running at goal rate. Pt tolerating. Pt may be extubated today. Percent of energy/protein needs met: 100%/100% Burn Absent Trauma Absent GI Symptoms None Difficulty In Swallowing Current % PO Negligible Minimum of two criteria No physical signs of malnutrition #1 Nutrition Diagnosis Inadequate oral intake Diagnosis Progress(for reassessment Continues documentation) Is patient on ventilator? Yes Is Patient Ambulatory and/or Out of Bed No REE-([facility]-confined to bed) 1623.588 Kcal/Kg value to use for calculation 30 Approximate Energy Requirements Using 1860 kcal/Kg Calculation Used for Recommendations Kcal/kg Additional Notes protein needs: 74-123 g (1.2- 2g/kg) fluids needs: 1 ml/kcal or per MD Nutrition Intervention Nutrition Support: Vital AF at 65 ml/hr with a free water flush of 100 ml q4h . Kcal 1,872 Protein (gm) 117 Fluid (mL) 1,265 Goal #1 Meet at least 75% of kcal and protein needs via TF regimen Anticipated Discharge Needs: unable to determine at this time Follow-Up By: 10/13/20 Additional Comments FU for TF tolerance or extubation
[2020-10-10] MEDS: DONEPEZIL 10 MG TAB PO SCH (21:48)
[2020-10-11] MEDS: D5W/0.45% NACL 1,000 ML IV SCH ×2 (00:48→22:56)
[2020-10-11] MEDS: ACETAMINOPHEN 650 MG RECT SUPP PR PRN (03:51)
--- NOTE | 2020-10-11 08:39 | Anesthesia Consultation ---
Anesthesia Consult and Med Hx Date of service: 10/11/20 - Airway Anesthetic Teeth Evaluation: Poor (pt intubted in ICU, S/P cardiac arrest.) ROM Head & Neck: Adequate Mental/Hyoid Distance: Adequate - Pulmonary Exam CTA: No - Cardiac Exam Cardiac Exam: RRR - Pre-Operative Health Status ASA Pre-Surgery Classification: ASA4 Proposed Anesthetic Plan: General - Pulmonary Hx Smoking: No Hx Sleep Apnea: No - Cardiovascular System Hx Hypertension: Yes - Additional Comments Anesthesia Medical History Comments: S/P cardiac arrest. Family verbalized understanding that pt may not survive surgery.
--- NOTE | 2020-10-11 08:39 | Anesthesia Day of Surgery ---
Anesthesia Day of Surgery - Day of Surgery Patient Examined: Yes Patient H&P Reviewed: Yes Patient is NPO: Yes
[2020-10-11] MEDS: fentaNYL DRIP Premix 2,000 MCG/100 ML BAG IV SCH ×2 (08:51→22:56)
[2020-10-11] MEDS ORDERED: LIDOCAINE 1%/EPINEPHRINE 1:100,000 VIAL (20 ML) INFILTRATI ONE ×2 (09:09→10:23)
[2020-10-11 09:15] LABS: Blood Urea Nitrogen 32 mg/dL (9-20); Calcium 10.1 mg/dL (8.4-10.2); Hemolysis Index 13
[2020-10-11 09:20] LABS: Mean Corpuscular HGB Conc 33 % (32-34); Mean Corpuscular Volume 91 fl (84-94); Platelet Count 255 K/mm3 (140-440); Red Blood Count 3.31 M/mm3 (3.65-5.03); Red Cell Distribution Width 15.8 % (13.2-15.2)
[2020-10-11 09:22] LABS: BUN/Creatinine Ratio 46
[2020-10-11] MEDS ORDERED: ROCURONIUM 50 MG/5 ML INJ IV ONE (10:06)
--- NOTE | 2020-10-11 10:07 | XRay Report ---
CHEST 1 VIEW 10/11/2020 9:00 AM INDICATION / CLINICAL INFORMATION: fever. COMPARISON: 10/10/2020 FINDINGS: SUPPORT DEVICES: Stable, satisfactory device positioning. HEART / MEDIASTINUM: Stable. LUNGS / PLEURA: Stable hazy right lower lung opacity. No pneumothorax. ADDITIONAL FINDINGS: No significant additional findings. IMPRESSION: 1. No adverse change from the prior exam. Signer Name: Jimmy Duke MD Signed: 10/11/2020 10:03 AM Workstation Name: [employer]
[2020-10-11] MEDS: DOCUSATE SODIUM 100 MG/10 ML ORAL LIQD PO SCH ×2 (10:16→22:48)
[2020-10-11] MEDS: FINASTERIDE 5 MG TAB PO SCH (10:17)
[2020-10-11] MEDS: TAMSULOSIN 0.4 MG CAP PO SCH (10:17)
[2020-10-11] MEDS: FAMOTIDINE 20 MG TAB PO SCH ×2 (10:17→22:48)
[2020-10-11] MEDS ORDERED: SODIUM CHLORIDE 0.9% IRR 1,500 ML BOTTLE IR ONE (10:23)
[2020-10-11] MEDS ORDERED: dexAMETHasone 20 MG/5 ML VIAL ONE (10:50)
[2020-10-11] MEDS ORDERED: PHENYLEPHRINE/NS 1,000 MCG/10 ML SYRINGE (OR USE) IV ONE (10:50)
[2020-10-11] MEDS ORDERED: ONDANSETRON 4 MG/2 ML INJ ONE (10:50)
[2020-10-11] MEDS ORDERED: PHENYLEPHRINE 10 MG/1 ML INJ SDV ONE (10:50)
--- NOTE | 2020-10-11 11:32 | Procedure Note ---
Date of procedure: 10/11/20 Pre-op diagnosis: Chronic respiratory failurfe Post-op diagnosis: same Procedure: 1) Open tracheostomy 2) PEG Description of procedure: Pt was placed supine on the OR table. Bite block was placed between pt's incisors. Endoscope was introduced into the pt's oropharynx and the esophagus intubated under direct vision. Scope was advanced into the stomach and the stomach maximally inflated. An appropriate location for PEG insertion was selected. LUQ was prepped and draped. Skin and SQ tissue at the proposed PEG site were infiltrated with 5 ml of 1% Lidocaine. A small skin incision was made. The introducer needle was advanced through the skin incision and then into the stomach on the first pass. Guide wire was inserted into the stomach and the guide wire grasped with the snare. The guide wire and scope were then removed via the oropharynx. PEG tubing was attached to the guide wire. External traction was applied to the guide wire via the LUQ until the internal bolster was snug up against the gastric and abdominal camarena. The external bolster, clamp and plug were placed on the PEG tubing. Repeat gastroscopy revealed the internal bolster to be in good position with no bleeding from the gastric puncture site. Betadine ointment was placed about the PEG exit site and a slitted gauze placed about the PEG tube. The PEG tubing external bolster position was 2 cm at the skin level. Pt's neck was maximally extended in the midline. The neck and upper chest were prepped and draped. The proposed collar incision was infiltrated with 5 ml of 1% Lidocaine with epinephrine. Skin was incised with a scalpel. SQ tissue and platysma were divided with the Bovie. Strap muscles were divided in the midline. Thyroid isthmus was divided with a Ligasure device. The 2nd tracheal ring was identified. An "H" type incision was made in the 2nd tracheal ring. A #8 cuffed tracheostomy tube was inserted into the trachea after the ET tube was withdrawn. The tracheostomy balloon was inflated. End tidal CO2 was normal. Strap muscles were approximated with interrupted sutures of 3-0 Vicryl. Platysma was approximated with interrupted sutures of 3-0 Vicryl. Skin was approximated with interrupted vertical mattress sutures of 3-0 Nylon. A slitted gauze was placed behind the tracheostomy cuff. The cuff was then secured about the pt's neck with a Velcro type strap. Pt tolerated both procedures well. Pt was immediately taken back to the ICU in stable condition. Anesthesia: GETA Surgeon: KEI TOTH Estimated blood loss: minimal Pathology: none Condition: stable Disposition: ICU
--- NOTE | 2020-10-11 11:39 | Post Anesthesia Evaluation ---
- Post Anesthesia Evaluation Patient Participated: No Airway Patent: Yes Stable Respiratory Function: Yes Nausea/Vomiting: No Temp > 96.8F: Yes Pain Manageable: Yes Adequeate Hydration: Yes Anesthesia Complications: No Block Receding Appropriately: Not Applicable Patient on Ventilator: Yes (Pt transported to ICU with trach, placed on vent per RT)
--- NOTE | 2020-10-11 12:24 | Progress Note ---
Assessment and Plan Acute hypoxemic respiratory failure on MVS (extubated 10/04/2020 Cardiopulmonary arrest with ROSC Protein calorie malnutrition h/o Dementia - for trach and PEG today - resume daily SATs & SBT assessments post-trach - LTAC evaluation pending - continue care as below otherwise; - continue to wean supplemental oxygen for target O2 sat's > 90% acutely - VAP bundle addressed - continue lung protective strategies - continue bronchodilators with pulmonary hygiene per RT - wean per pulmonary driven protocols otherwise - continue accuchecks with glycemic control per SSI (While critically ill target blood glucose of 140-180 mg/dL; avoid hypoglycemia) - sedation prn for target RASS 0 to -1 - avoid nephrotoxins, renally dose all medications - continue to avoid benzodiazepine's, reduce the possibility of delirium - complete AB's per ID rec's - prn analgesia per CPOT score - supportive transfusions to keep HgB >7g/dL - mobility, off loading with frequent turning per facility protocol for pressure ulcer prevention - continue chronic home medications as clinically indicated - Maintenance of sleep-wake cycle, avoid delirium - continue enteral nutritional support at goal rate as tolerated - G.I. & VTE prophylaxis - PT/OT/ROM exercises - continue mobility protocols for pressure ulcer prophylaxis - Monitor hemodynamics closely - continue other care per attending / other consultants - discharge planning ongoing concurrently COVID SPECIFIC INTERVENTIONS - COVID-19 PCR negative .... Re-evaluate in am & prn CONDITION: CRITICAL PROGNOSIS: GUARDED CODE STATUS: FULL CODE The high probability of a clinically significant, sudden or life threatening deterioration of the [pulmonary,cardiovascular, neurology] system(s) required my full and direct attention, intervention and personal management. The aggregate critical care time was [33] minutes. This time is in addition to time spent performing reported procedures but includes the following: [x] Data Review and interpretation [x] Patient assessment and monitoring of vital signs [x] Documentation [x] Medication orders and management Subjective Date of service: 10/11/20 Principal diagnosis: Ac. hypoxemic resp failure; Cardiac arrest with ROSC; Dementia Interval history: Patient is seen today for: Ac. hypoxemic resp failure on MVS; Cardiopulmonary arrest with ROSC; Protein calorie malnutrition; h/o Dementia Seen and examined at bedside; 24hour events reviewed; nursing and respiratory care staff consulted; no adverse overnight events reported to me; resting in bed; remains on MVS; s/p trach and PEG; on full support now; sedate; no emesis or overt aspiration and no high grade fevers Objective Vital Signs - 12hr 10/11/20 10/11/20 10/11/20 00:33 01:00 02:00 Temperature Pulse Rate 78 74 71 Pulse Rate [ From Monitor] Respiratory 10 L 11 L Rate Blood Pressure 123/63 128/64 124/63 O2 Sat by Pulse 100 100 100 Oximetry 10/11/20 10/11/20 10/11/20 03:00 03:33 04:00 Temperature 101.8 F H Pulse Rate 76 72 Pulse Rate [ 72 From Monitor] Respiratory 26 H 20 Rate Blood Pressure 123/64 117/62 O2 Sat by Pulse 100 100 Oximetry 10/11/20 10/11/20 10/11/20 04:17 05:00 06:00 Temperature Pulse Rate 74 71 59 L Pulse Rate [ From Monitor] Respiratory 18 20 Rate Blood Pressure 117/62 108/59 108/59 O2 Sat by Pulse 99 98 100 Oximetry 10/11/20 10/11/20 10/11/20 06:50 07:00 07:11 Temperature 99 F Pulse Rate 62 62 Pulse Rate [ 62 From Monitor] Respiratory 20 20 Rate Blood Pressure 99/50 O2 Sat by Pulse 100 100 Oximetry 10/11/20 10/11/20 10/11/20 07:40 08:00 09:00 Temperature 99 F Pulse Rate 76 64 68 Pulse Rate [ From Monitor] Respiratory 16 9 L Rate Blood Pressure 145/61 126/59 135/64 O2 Sat by Pulse 100 100 100 Oximetry 10/11/20 10/11/20 10/11/20 11:20 11:22 11:46 Temperature Pulse Rate 69 87 64 Pulse Rate [ 64 From Monitor] Respiratory 20 Rate Blood Pressure 109/60 135/64 O2 Sat by Pulse 100 100 Oximetry 10/11/20 12:00 Temperature 97.7 F Pulse Rate 62 Pulse Rate [ From Monitor] Respiratory 20 Rate Blood Pressure 128/68 O2 Sat by Pulse 100 Oximetry Constitutional: no acute distress, other (elderly male with mildly increased respiratory effort at rest on MVS) Eyes: non-icteric ENT: oropharynx moist, other (+ midline tracheostomy) Neck: supple, no lymphadenopathy, no JVD Effort: mildly labored Ascultation: Bilateral: diminished breath sounds, rhonchi (scant) Percussion: Bilateral: not dull Cardiovascular: regular rate and rhythm, other (S1,S2) Gastrointestinal: normoactive bowel sounds, soft, non-tender, non-distended Integumentary: normal Extremities: no cyanosis, no edema, pulses normal, no ischemia or petechiae Neurologic: non-focal exam (grossly), pupils equal and round, CN II-XII normal, motor strength normal and, other (sedated) Psychiatric: other (unable to assess re: AMS) CBC and BMP: 10/12/20 07:10 10/11/20 08:15 ABG, PT/INR, D-dimer: ABG ABG pH 7.532 (7.320-7.450) H 10/11/20 04:00 POC ABG pCO2 36.0 mmHg (32.0-48.0) 10/11/20 04:00 ABG pCO2 56.3 mm Hg 10/08/20 16:20 POC ABG pO2 86.8 mmHg (83-108) 10/11/20 04:00 ABG pO2 263.1 mm Hg (80.0-90.0) H 10/08/20 16:20 POC ABG HCO3 29.5 10/11/20 04:00 ABG O2 Saturation 97.5 (0-100) 10/11/20 04:00 PT/INR, D-dimer PT 15.8 Sec. (12.2-14.9) H 10/05/20 15:36 INR 1.21 (0.87-1.13) H 10/05/20 15:36 D-Dimer 5468.25 ng/mlDDU (0-234) H 10/02/20 13:45 Abnormal lab findings: Abnormal Labs 10/02/20 10/02/20 10/02/20 13:45 13:45 13:45 WBC RBC Hgb Hct RDW 16.2 H Lymph % (Auto) 7.6 L [place] % (Auto) 9.1 H Lymph # (Auto) 0.5 L [place] # (Auto) Seg Neutrophils % 82.6 H Seg Neutrophils # PT INR D-Dimer 5468.25 H ABG pH POC ABG pO2 ABG pO2 ABG HCO3 ABG O2 Saturation ABG Hemoglobin ABG Oxyhemoglobin ABG Sodium ABG Potassium ABG Chloride ABG Glucose Carboxyhemoglobin Sodium Potassium 3.4 L Chloride Carbon Dioxide 21 L BUN Creatinine Glucose 112 H POC Glucose Calcium Phosphorus Magnesium Direct Bilirubin Total Protein 5.7 L Albumin 3.1 L Arterial Blood Glucose Arterial Blood Ionized Calcium Urine WBC (Auto) 10/02/20 10/03/20 10/03/20 14:00 03:04 04:35 WBC 13.2 H RBC Hgb Hct RDW 15.9 H Lymph % (Auto) 5.1 L [place] % (Auto) 7.9 H Lymph # (Auto) 0.7 L [place] # (Auto) 1.0 H Seg Neutrophils % 86.8 H Seg Neutrophils # 11.5 H PT INR D-Dimer ABG pH 7.478 H POC ABG pO2 543.4 H 173.1 H ABG pO2 ABG HCO3 ABG O2 Saturation ABG Hemoglobin 11.7 L ABG Oxyhemoglobin 99.4 H 98.8 H ABG Sodium 131.7 L ABG Potassium 3.3 L ABG Chloride 110.0 H ABG Glucose 102 H 124 H Carboxyhemoglobin 0.3 L Sodium Potassium Chloride Carbon Dioxide BUN Creatinine Glucose POC Glucose Calcium Phosphorus Magnesium Direct Bilirubin Total Protein Albumin Arterial Blood Glucose 102 H 124 H Arterial Blood Ionized Calcium Urine WBC (Auto) 10/03/20 10/03/20 10/03/20 04:35 11:20 23:18 WBC RBC Hgb Hct RDW Lymph % (Auto) [place] % (Auto) Lymph # (Auto) [place] # (Auto) Seg Neutrophils % Seg Neutrophils # PT INR D-Dimer ABG pH POC ABG pO2 ABG pO2 109.5 H ABG HCO3 ABG O2 Saturation ABG Hemoglobin 11.7 L ABG Oxyhemoglobin ABG Sodium ABG Potassium ABG Chloride ABG Glucose Carboxyhemoglobin Sodium Potassium Chloride Carbon Dioxide BUN Creatinine 0.7 L Glucose 109 H POC Glucose 110 H Calcium 10.3 H Phosphorus Magnesium Direct Bilirubin Total Protein Albumin 3.4 L Arterial Blood Glucose Arterial Blood Ionized Calcium Urine WBC (Auto) 10/04/20 10/04/20 10/05/20 08:32 08:32 04:43 WBC 12.8 H RBC Hgb Hct RDW 15.4 H 15.5 H Lymph % (Auto) 8.5 L [place] % (Auto) 12.7 H Lymph # (Auto) 0.8 L [place] # (Auto) 1.2 H Seg Neutrophils % 78.4 H Seg Neutrophils # PT INR D-Dimer ABG pH POC ABG pO2 ABG pO2 ABG HCO3 ABG O2 Saturation ABG Hemoglobin ABG Oxyhemoglobin ABG Sodium ABG Potassium ABG Chloride ABG Glucose Carboxyhemoglobin Sodium Potassium Chloride Carbon Dioxide BUN Creatinine 0.7 L Glucose POC Glucose Calcium 10.3 H Phosphorus Magnesium Direct Bilirubin Total Protein Albumin Arterial Blood Glucose Arterial Blood Ionized Calcium Urine WBC (Auto) 10/05/20 10/05/20 10/05/20 04:43 14:49 15:34 WBC 12.3 H RBC Hgb Hct RDW 15.4 H Lymph % (Auto) 8.3 L [place] % (Auto) 8.4 H Lymph # (Auto) 1.0 L [place] # (Auto) 1.0 H Seg Neutrophils % 82.8 H Seg Neutrophils # 10.2 H PT INR D-Dimer ABG pH POC ABG pO2 ABG pO2 ABG HCO3 ABG O2 Saturation ABG Hemoglobin ABG Oxyhemoglobin ABG Sodium ABG Potassium ABG Chloride ABG Glucose Carboxyhemoglobin Sodium Potassium Chloride Carbon Dioxide BUN 24 H Creatinine 0.7 L Glucose 104 H POC Glucose 139 H Calcium Phosphorus Magnesium Direct Bilirubin Total Protein Albumin Arterial Blood Glucose Arterial Blood Ionized Calcium Urine WBC (Auto) 10/05/20 10/05/20 10/05/20 15:36 15:36 15:36 WBC RBC Hgb Hct RDW Lymph % (Auto) [place] % (Auto) Lymph # (Auto) [place] # (Auto) Seg Neutrophils % Seg Neutrophils # PT 15.8 H INR 1.21 H D-Dimer ABG pH POC ABG pO2 ABG pO2 ABG HCO3 ABG O2 Saturation ABG Hemoglobin ABG Oxyhemoglobin ABG Sodium ABG Potassium ABG Chloride ABG Glucose Carboxyhemoglobin Sodium Potassium Chloride Carbon Dioxide BUN 26 H Creatinine Glucose 142 H POC Glucose Calcium Phosphorus 4.70 H Magnesium Direct Bilirubin Total Protein 6.0 L Albumin 2.8 L Arterial Blood Glucose Arterial Blood Ionized Calcium Urine WBC (Auto) 10/05/20 10/05/20 10/05/20 15:36 16:15 23:15 WBC RBC Hgb Hct RDW Lymph % (Auto) [place] % (Auto) Lymph # (Auto) [place] # (Auto) Seg Neutrophils % Seg Neutrophils # PT INR D-Dimer ABG pH POC ABG pO2 228.0 H ABG pO2 ABG HCO3 ABG O2 Saturation ABG Hemoglobin ABG Oxyhemoglobin 98.9 H ABG Sodium ABG Potassium ABG Chloride ABG Glucose 154 H Carboxyhemoglobin Sodium Potassium Chloride Carbon Dioxide BUN 27 H Creatinine Glucose 113 H POC Glucose Calcium Phosphorus Magnesium Direct Bilirubin 0.3 H Total Protein 5.7 L Albumin 2.9 L Arterial Blood Glucose 154 H Arterial Blood Ionized Calcium Urine WBC (Auto) 10/05/20 10/06/20 10/06/20 23:26 04:00 09:11 WBC RBC Hgb Hct RDW Lymph % (Auto) [place] % (Auto) Lymph # (Auto) [place] # (Auto) Seg Neutrophils % Seg Neutrophils # PT INR D-Dimer ABG pH POC ABG pO2 170.7 H ABG pO2 ABG HCO3 ABG O2 Saturation ABG Hemoglobin ABG Oxyhemoglobin 98.8 H ABG Sodium 134.3 L ABG Potassium ABG Chloride ABG Glucose 115 H Carboxyhemoglobin 0.4 L Sodium Potassium Chloride Carbon Dioxide BUN 31 H Creatinine Glucose 110 H POC Glucose 116 H Calcium 10.7 H Phosphorus 2.30 L D Magnesium Direct Bilirubin Total Protein Albumin Arterial Blood Glucose 115 H Arterial Blood Ionized Calcium 5.5 H Urine WBC (Auto) 10/06/20 10/06/20 10/06/20 11:48 14:20 15:40 WBC RBC Hgb Hct RDW Lymph % (Auto) [place] % (Auto) Lymph # (Auto) [place] # (Auto) Seg Neutrophils % Seg Neutrophils # PT INR D-Dimer ABG pH POC ABG pO2 ABG pO2 ABG HCO3 ABG O2 Saturation ABG Hemoglobin ABG Oxyhemoglobin ABG Sodium 134.1 L ABG Potassium ABG Chloride ABG Glucose 113 H Carboxyhemoglobin Sodium Potassium Chloride Carbon Dioxide BUN Creatinine Glucose POC Glucose 115 H Calcium Phosphorus Magnesium Direct Bilirubin Total Protein Albumin Arterial Blood Glucose 113 H Arterial Blood Ionized Calcium 5.4 H Urine WBC (Auto) 10.0 H 10/06/20 10/07/20 10/07/20 17:16 04:00 05:20 WBC RBC Hgb 11.3 L Hct 34.0 L RDW 15.4 H Lymph % (Auto) [place] % (Auto) Lymph # (Auto) [place] # (Auto) Seg Neutrophils % Seg Neutrophils # PT INR D-Dimer ABG pH 7.468 H POC ABG pO2 ABG pO2 ABG HCO3 ABG O2 Saturation ABG Hemoglobin 11.9 L ABG Oxyhemoglobin ABG Sodium ABG Potassium ABG Chloride 109.0 H ABG Glucose 112 H Carboxyhemoglobin Sodium Potassium Chloride Carbon Dioxide BUN Creatinine Glucose POC Glucose 110 H Calcium Phosphorus Magnesium Direct Bilirubin Total Protein Albumin Arterial Blood Glucose 112 H Arterial Blood Ionized Calcium 5.6 H Urine WBC (Auto) 10/07/20 10/07/20 10/08/20 05:20 13:00 06:13 WBC RBC Hgb Hct RDW Lymph % (Auto) [place] % (Auto) Lymph # (Auto) [place] # (Auto) Seg Neutrophils % Seg Neutrophils # PT INR D-Dimer ABG pH 7.456 H POC ABG pO2 ABG pO2 ABG HCO3 ABG O2 Saturation ABG Hemoglobin 11.3 L ABG Oxyhemoglobin ABG Sodium ABG Potassium ABG Chloride 109.0 H ABG Glucose 109 H Carboxyhemoglobin 0.4 L Sodium 146 H Potassium Chloride 108.4 H 110.7 H Carbon Dioxide 33 H D BUN 32 H 30 H Creatinine 0.7 L 0.7 L Glucose 116 H POC Glucose Calcium Phosphorus 2.10 L 2.30 L Magnesium Direct Bilirubin Total Protein 5.8 L Albumin 2.5 L Arterial Blood Glucose 109 H Arterial Blood Ionized Calcium 5.5 H Urine WBC (Auto) 10/08/20 10/08/20 10/08/20 11:51 12:04 16:20 WBC RBC Hgb Hct RDW Lymph % (Auto) [place] % (Auto) Lymph # (Auto) [place] # (Auto) Seg Neutrophils % Seg Neutrophils # PT INR D-Dimer ABG pH 7.333 L POC ABG pO2 77.5 L ABG pO2 263.1 H ABG HCO3 29.2 H ABG O2 Saturation 99.4 H ABG Hemoglobin 13.5 L ABG Oxyhemoglobin ABG Sodium ABG Potassium ABG Chloride 109.0 H ABG Glucose 113 H Carboxyhemoglobin Sodium Potassium Chloride Carbon Dioxide BUN Creatinine Glucose POC Glucose 106 H Calcium Phosphorus Magnesium Direct Bilirubin Total Protein Albumin Arterial Blood Glucose 113 H Arterial Blood Ionized Calcium 5.6 H Urine WBC (Auto) 10/09/20 10/09/20 10/09/20 03:33 04:30 06:30 WBC RBC Hgb Hct RDW Lymph % (Auto) [place] % (Auto) Lymph # (Auto) [place] # (Auto) Seg Neutrophils % Seg Neutrophils # PT INR D-Dimer ABG pH POC ABG pO2 ABG pO2 ABG HCO3 ABG O2 Saturation ABG Hemoglobin 11.6 L ABG Oxyhemoglobin ABG Sodium ABG Potassium ABG Chloride 109.0 H ABG Glucose 116 H Carboxyhemoglobin Sodium Potassium Chloride 108.5 H Carbon Dioxide BUN 33 H Creatinine Glucose 115 H POC Glucose 115 H Calcium Phosphorus 2.30 L Magnesium Direct Bilirubin Total Protein Albumin Arterial Blood Glucose 116 H Arterial Blood Ionized Calcium 5.5 H Urine WBC (Auto) 10/09/20 10/09/20 10/10/20 10:50 17:31 03:46 WBC RBC Hgb Hct RDW Lymph % (Auto) [place] % (Auto) Lymph # (Auto) [place] # (Auto) Seg Neutrophils % Seg Neutrophils # PT INR D-Dimer ABG pH 7.483 H POC ABG pO2 ABG pO2 ABG HCO3 ABG O2 Saturation ABG Hemoglobin 10.1 L ABG Oxyhemoglobin ABG Sodium ABG Potassium ABG Chloride 111.0 H ABG Glucose 114 H Carboxyhemoglobin Sodium Potassium Chloride Carbon Dioxide BUN Creatinine Glucose POC Glucose 106 H Calcium Phosphorus Magnesium 2.40 H Direct Bilirubin Total Protein Albumin Arterial Blood Glucose 114 H Arterial Blood Ionized Calcium 5.5 H Urine WBC (Auto) 10/10/20 10/10/20 10/10/20 04:40 04:40 23:34 WBC 12.8 H RBC 3.35 L Hgb 9.9 L Hct 30.4 L RDW 15.7 H Lymph % (Auto) [place] % (Auto) Lymph # (Auto) [place] # (Auto) Seg Neutrophils % Seg Neutrophils # PT INR D-Dimer ABG pH POC ABG pO2 ABG pO2 ABG HCO3 ABG O2 Saturation ABG Hemoglobin ABG Oxyhemoglobin ABG Sodium ABG Potassium ABG Chloride ABG Glucose Carboxyhemoglobin Sodium Potassium Chloride 111.2 H Carbon Dioxide BUN 35 H Creatinine Glucose 103 H POC Glucose 108 H Calcium Phosphorus 2.40 L Magnesium Direct Bilirubin Total Protein Albumin Arterial Blood Glucose Arterial Blood Ionized Calcium Urine WBC (Auto) 10/11/20 10/11/20 10/11/20 04:00 08:15 08:15 WBC 13.3 H RBC 3.31 L Hgb 10.0 L Hct 30.0 L RDW 15.8 H Lymph % (Auto) [place] % (Auto) Lymph # (Auto) [place] # (Auto) Seg Neutrophils % Seg Neutrophils # PT INR D-Dimer ABG pH 7.532 H POC ABG pO2 ABG pO2 ABG HCO3 ABG O2 Saturation ABG Hemoglobin 10.0 L ABG Oxyhemoglobin ABG Sodium ABG Potassium ABG Chloride 112.0 H ABG Glucose 115 H Carboxyhemoglobin Sodium Potassium Chloride 107.8 H Carbon Dioxide 33 H BUN 32 H Creatinine 0.7 L Glucose 108 H POC Glucose Calcium Phosphorus Magnesium Direct Bilirubin Total Protein Albumin Arterial Blood Glucose 115 H Arterial Blood Ionized Calcium 5.5 H Urine WBC (Auto) 10/11/20 11:51 WBC RBC Hgb Hct RDW Lymph % (Auto) [place]er % (Auto) Lymph # (Auto) [place] # (Auto) Seg Neutrophils % Seg Neutrophils # PT INR D-Dimer ABG pH POC ABG pO2 ABG pO2 ABG HCO3 ABG O2 Saturation ABG Hemoglobin ABG Oxyhemoglobin ABG Sodium ABG Potassium ABG Chloride ABG Glucose Carboxyhemoglobin Sodium Potassium Chloride Carbon Dioxide BUN Creatinine Glucose POC Glucose 127 H Calcium Phosphorus Magnesium Direct Bilirubin Total Protein Albumin Arterial Blood Glucose Arterial Blood Ionized Calcium Urine WBC (Auto) Chest x-ray: pending Allied health notes reviewed: nursing
--- NOTE | 2020-10-11 13:50 | Progress Note ---
<VALERIEIGLESIA BeaverRonnie - Last Filed: 10/11/20 13:44> Assessment and Plan Assessment and plan: This is a 80 year old male with Vascular Dementia, Cerebral Atherosclerosis, with malnutrition admitted post cardiac arrest, acute hypoxic respiratory failure now s/p cardio-resp arrest on 10/05 and again on 10/08 Neuro: Vascular Dementia -10/02 CT head shows disproportionate temporal and parietal lobe atrophy suggests possibility of Alzheimer's dementia, moderate global parenchymal atrophy, no acute intracranial abnormalities are identified. -Fall aspiration precautions -Resume home Aricept -nodding appropriately -pt has hx CVA with baseline right sided weakness -will need aggressive pt/ot -family updated on plan of care CV: s/p cardiac arrest -Cardiology consulted, appreciate recommendations -10/04 Echo shows EF 55-60%, transmitral Doppler flow pattern suggests impaired LV function Afib -amio drip dc due to bradycardia -Cardiology consulted -Remains off pressors Respiratory: s/p Cardio respiratory arrest on 10/05 -reintubated 10/05, extuabted 10/08 -10/05 when extubated pt was drooling and unable to control secretions. He had generalized weakness and a weak cough. speech did see and initially failed him then pt passed to puree diet -Patient received trach with surgery on 10/11 Acute hypoxemic respiratory failure -CCM consulted, appreciate recommendations -Extubated 10/04 but reintubated 10/05, extubated 10/08 -VAP bundle -10/05 Tracheal aspirate culture usual respiratory ramone -trend chest xray -10/11 tracheostomy placed with surgery FEN/GI Malnutrition -Ntr consult for TF; ST had cleared for pureed diet but will hold off PO for a couple more days -10/11 patient received PEG tube with surgery -IVF n.p.o., resume tube feedings once cleared by surgery Hypophosphatemia, resolved -Replete phosphate -Trend phosphate Urinary Retention hx -Resume home Proscar and Flomax -strict I/O Heme -VTE lovenox and SCD -trend CBC ID -cultures NGTD -MRSA swab negative -Cefpime and vancomycin stopped; 10/05 xray concerning for aspiration event Endo -SSI, accucheck q 6 -avoid hypoglycemia GI/DVT prophylaxis: PPI, lovenox subq, SCDs to BLE while in bed Dispo: ICU Lines: L IJ TLC (10/06), Right radial joao (10/05). The high probability of a clinically significant, sudden or life threatening deterioration of the [neuro, pulmonary,] system(s) required my full and direct attention, intervention and personal management. The aggregate critical care time was [35] minutes. This time is in addition to time spent performing repor concepcion procedures but includes the following: [x] Data Review and interpretation [x] Patient assessment and monitoring of vital signs [x] Documentation [x] Medication orders and management History Interval history: 80 YO Male with Vascular Dementia, Cerebral Atherosclerosis, Malnutrition who presented to the ED on 10/02 via EMS after being found unresponsive by family and upon arrival the patient was found to be in distress and subsequently developed cardiac arrest and was treated with ACLS protocol with eventual return of perfusing cardiac rhythm and transported to [facility]. Upon arrival to the ED he was found to be in acute respiratory failure secondary to cardiac arrest and unable able to protect his airway. Patient was intubated and placed on ventilatory support. Patient admitted to ICU for further care and evaluation. Critical care team consulted in ED. 10/03: Continue supportive care, noted leukoctosis, ?reactive. Will continue to assess, consult cardiology in am. 10/04: Continues on full ventilatory support awake alert oriented will attempt extubation today according to the nursing staff plan discussed with rail loader. Selling Underwriter consulted for further input considering out of hospital cardiac arrest. Echocardiogram completed awaiting results 10/05: Patient was extubated yesterday and was cleared for puree diet by [facility] ent was to be downgraded from the ICU. This evening the patient was noted to be SB and responded to atropine. Patient was gargling and dopamine gtt was started briefly and stopped r/t tachycardia, short runs of vtach then the patient was noted to be in PEA. See code sheet and event note for details. I updated daughter over phone of current events. Started on empiric abx, femoral TLC and joao placed. Cultures sent. No cardio ordered amio and mag was given. 10/06 nodding appropriately; CPAP trials 10/07: failed PSV on PS 20 so [facility] decreased PS to 10 and will obtain ABG 1300, CCM will try to extubate tomorrow. Hypophostemia repleted. 10/08: Trial extubation per [facility]. Hypophosphatemia to be treated. No acute events overnight. 10/09: Patient had a cardio-resp arrest yesterday evening and was reintubated. He has hypophosphatemia and hyperchloremia. No acute events noted overnight. 10/10: Patient is not n.p.o. after midnight and family has decided to move forward with PEG/trach. Hypophosphatemia repleted. Patient scheduled for trach/PEG tomorrow with surgery. 10/11: T-max overnight 101.8, patient received trach/PEG with surgery today. Patient has leukocytosis, hyperchloremia and metabolic acidosis today on BMP. Nephrology team has resolved Hospitalist Physical - Constitutional Vitals: Temp Pulse Resp BP Pulse Ox 97.7 F 56 L 20 129/69 100 10/11/20 12:00 10/11/20 13:00 10/11/20 13:00 10/11/20 13:00 10/11/20 13:00 General appearance: Present: no acute distress, other (resting on vent) - EENT Eyes: Present: EOM intact ENT: hearing intact, clear oral mucosa - Neck Neck: Present: normal ROM - Respiratory Respiratory effort: normal Respiratory: bilateral: CTA - Cardiovascular Rhythm: regular Heart Sounds: Present: S1 & S2. Absent: systolic murmur, diastolic murmur - Extremities Extremities: no ischemia, pulses intact, pulses symmetrical, No edema, normal temperature, normal color Peripheral Pulses: within normal limits - Abdominal General gastrointestinal: soft, non-tender, non-distended, normal bowel sounds - Integumentary Integumentary: Present: clear, warm, dry - Psychiatric Psychiatric: cooperative - Neurologic Neurologic: CNII-XII intact - Allied Health Allied health notes reviewed: nursing, RT HEART Score - HEART Score EKG: Normal Age: < 45 Risk factors: No known risk factors Troponin: Troponin T 0.015 ng/mL (0.00-0.029) 10/09/20 10:50 Troponin: < normal limit Results - Labs CBC & Chem 7: 10/11/20 08:15 10/11/20 08:15 Labs: Laboratory Last Values WBC 13.3 K/mm3 (4.5-11.0) H 10/11/20 08:15 RBC 3.31 M/mm3 (3.65-5.03) L 10/11/20 08:15 Hgb 10.0 gm/dl (11.8-15.2) L 10/11/20 08:15 Hct 30.0 % (35.5-45.6) L 10/11/20 08:15 MCV 91 fl (84-94) 10/11/20 08:15 MCH 30 pg (28-32) 10/11/20 08:15 MCHC 33 % (32-34) 10/11/20 08:15 RDW 15.8 % (13.2-15.2) H 10/11/20 08:15 Plt Count 255 K/mm3 (140-440) 10/11/20 08:15 Lymph % (Auto) 8.3 % (13.4-35.0) L 10/05/20 15:34 Phillips % (Auto) 8.4 % (0.0-7.3) H 10/05/20 15:34 Eos % (Auto) 0.1 % (0.0-4.3) 10/05/20 15:34 Baso % (Auto) 0.4 % (0.0-1.8) 10/05/20 15:34 Lymph # (Auto) 1.0 K/mm3 (1.2-5.4) L 10/05/20 15:34 Phillips # (Auto) 1.0 K/mm3 (0.0-0.8) H 10/05/20 15:34 Eos # (Auto) 0.0 K/mm3 (0.0-0.4) 10/05/20 15:34 Baso # (Auto) 0.0 K/mm3 (0.0-0.1) 10/05/20 15:34 Seg Neutrophils % 82.8 % (40.0-70.0) H 10/05/20 15:34 Seg Neutrophils # 10.2 K/mm3 (1.8-7.7) H 10/05/20 15:34 PT 15.8 Sec. (12.2-14.9) H 10/05/20 15:36 INR 1.21 (0.87-1.13) H 10/05/20 15:36 D-Dimer 5468.25 ng/mlDDU (0-234) H 10/02/20 13:45 ABG pH 7.532 (7.320-7.450) H 10/11/20 04:00 POC ABG pCO2 36.0 mmHg (32.0-48.0) 10/11/20 04:00 ABG pCO2 56.3 mm Hg 10/08/20 16:20 POC ABG pO2 86.8 mmHg (83-108) 10/11/20 04:00 ABG pO2 263.1 mm Hg (80.0-90.0) H 10/08/20 16:20 POC ABG HCO3 29.5 10/11/20 04:00 ABG HCO3 29.2 mmol/L (20.0-26.0) H 10/08/20 16:20 ABG O2 Saturation 97.5 (0-100) 10/11/20 04:00 ABG O2 Content 19.2 (0.0-44) 10/08/20 16:20 POC ABG Base Excess 6.6 10/11/20 04:00 ABG Base Excess 2.1 mmol/L (-2.0-3.0) 10/08/20 16:20 ABG Hemoglobin 10.0 (12.0-17.5) L 10/11/20 04:00 ABG Oxyhemoglobin 96.5 (94-98) 10/11/20 04:00 ABG Carboxyhemoglobin 1.1 % (0.0-5.0) 10/08/20 16:20 ABG Methemoglobin 0.3 (0.0-1.5) 10/11/20 04:00 ABG Sodium 140.8 mmol/L (136.0-145.0) 10/11/20 04:00 ABG Potassium 4.0 mmol/L (3.40-4.50) 10/11/20 04:00 ABG Chloride 112.0 mmol/L (98-107) H 10/11/20 04:00 ABG Glucose 115 mg/dL (65-95) H 10/11/20 04:00 ABG Lactate 1.32 (0.18-30.0) 10/02/20 14:00 Oxyhemoglobin 97.8 % (95.0-99.0) 10/08/20 16:20 Carboxyhemoglobin 0.7 (0.5-1.5) 10/11/20 04:00 FiO2 80 % 10/08/20 16:20 FiO2 % 30.0 10/11/20 04:00 Sodium 144 mmol/L (137-145) 10/11/20 08:15 Potassium 4.1 mmol/L (3.6-5.0) 10/11/20 08:15 Chloride 107.8 mmol/L (98-107) H 10/11/20 08:15 Carbon Dioxide 33 mmol/L (22-30) H 10/11/20 08:15 Anion Gap 7 mmol/L 10/11/20 08:15 BUN 32 mg/dL (9-20) H 10/11/20 08:15 Creatinine 0.7 mg/dL (0.8-1.3) L 10/11/20 08:15 Estimated GFR > 60 ml/min 10/11/20 08:15 BUN/Creatinine Ratio 46 % 10/11/20 08:15 Glucose 108 mg/dL (75-100) H 10/11/20 08:15 POC Glucose 127 mg/dL (70-105) H 10/11/20 11:51 Calcium 10.1 mg/dL (8.4-10.2) 10/11/20 08:15 Phosphorus 3.00 mg/dL (2.5-4.5) D 10/11/20 08:15 Magnesium 2.40 mg/dL (1.7-2.3) H 10/09/20 10:50 Total Bilirubin 0.50 mg/dL (0.1-1.2) 10/07/20 05:20 Direct Bilirubin 0.3 mg/dL (0-0.2) H 10/05/20 15:36 Indirect Bilirubin 0.5 mg/dL 10/05/20 15:36 AST 22 units/L (5-40) 10/07/20 05:20 ALT 15 units/L (7-56) 10/07/20 05:20 Alkaline Phosphatase 66 units/L (35-129) 10/07/20 05:20 Troponin T 0.015 ng/mL (0.00-0.029) 10/09/20 10:50 NT-Pro-B Natriuret Pep 208.4 pg/mL (0-900) 10/02/20 13:45 Total Protein 5.8 g/dL (6.3-8.2) L 10/07/20 05:20 Albumin 2.5 g/dL (3.9-5) L 10/07/20 05:20 Albumin/Globulin Ratio 0.8 % 10/07/20 05:20 Arterial Blood Glucose 115 mg/dL (65-95) H 10/11/20 04:00 Arterial Blood Ionized Calcium 5.5 mg/dL (4.6-5.3) H 10/11/20 04:00 Urine Color Yellow (Yellow) 10/06/20 14:20 Urine Turbidity Clear (Clear) 10/06/20 14:20 Urine pH 6.0 (5.0-7.0) 10/06/20 14:20 Ur Specific [place] 1.030 (1.003-1.030) 10/06/20 14:20 Urine Protein <15 mg/dl mg/dL (Negative) 10/06/20 14:20 Urine Glucose (UA) Neg mg/dL (Negative) 10/06/20 14:20 Urine Ketones Neg mg/dL (Negative) 10/06/20 14:20 Urine Blood Mod (Negative) 10/06/20 14:20 Urine Nitrite Neg (Negative) 10/06/20 14:20 Urine Bilirubin Neg (Negative) 10/06/20 14:20 Urine Urobilinogen < 2.0 mg/dL (<2.0) 10/06/20 14:20 Ur Leukocyte Esterase Neg (Negative) 10/06/20 14:20 Urine WBC (Auto) 10.0 /HPF (0.0-6.0) H 10/06/20 14:20 Urine RBC (Auto) 7.0 /HPF (0.0-6.0) 10/06/20 14:20 U Epithel Cells (Auto) < 1.0 /HPF (0-13.0) 10/02/20 14:00 Urine Mucus 1+ /HPF 10/06/20 14:20 Nasal Screen MRSA (PCR) Negative (Negative) 10/06/20 14:40 Urine Opiates Screen Negative 10/02/20 14:00 Urine Methadone Screen Negative 10/02/20 14:00 Ur Barbiturates Screen Negative 10/02/20 14:00 Ur Phencyclidine Scrn Negative 10/02/20 14:00 Ur Amphetamines Screen Negative 10/02/20 14:00 U Benzodiazepines Scrn Presumptive positive 10/02/20 14:00 Urine Cocaine Screen Negative 10/02/20 14:00 U Marijuana (THC) Screen Negative 10/02/20 14:00 Drugs of Abuse Note Disclamer 10/02/20 14:00 Microbiology: Microbiology 10/05/20 15:34 Peripheral/Venous Blood Culture - Final NO GROWTH AFTER 5 DAYS 10/05/20 15:34 Peripheral/Venous Blood Culture - Final NO GROWTH AFTER 5 DAYS De Los Santos/IV: Voiding Method Indwelling Catheter Active Medications - Current Medications Current Medications: Generic Name Dose Route Start Last Admin Trade Name Freq PRN Reason Stop Dose Admin Acetaminophen 650 mg 10/02/20 15:30 10/11/20 03:51 Acetaminophen 650 Mg Rect Supp [place] 650 mg Q6H PRN Administration Pain MILD(1-3)/Fever >100.5/HERNANDEZ Albuterol 2.5 mg 10/02/20 17:00 Albuterol 2.5 Mg/3 Ml Nebu IH Q3HRT PRN Shortness Of Breath Lipase/Protease/Amylase 1 each 10/06/20 09:38 Lipase 10,500/Protease 25,000/Amylase 43,750 (Units) Dr Sumner FEEDTUBE PRN PRN For Clogged Feeding Tube Docusate Sodium 100 mg 10/06/20 22:00 10/11/20 10:16 Docusate Sodium 100 Mg/10 Ml Oral Liqd PO Not Given BID MARCIE Donepezil HCl 10 mg 10/06/20 22:00 10/10/20 21:48 Donepezil 10 Mg Tab PO 10 mg QHS MARCIE Administration Enoxaparin Sodium 40 mg 10/06/20 10:00 10/10/20 10:09 Enoxaparin 40 Mg/0.4 Ml Inj SUB-Q 40 mg QDAY@1000 MARCIE Administration Protocol Famotidine 20 mg 10/08/20 10:00 10/11/20 10:17 Famotidine 20 Mg Tab PO Not Given BID MARCIE Fentanyl 50 mcg 10/08/20 14:50 10/08/20 15:30 Fentanyl 100 Mcg/2 Ml Inj IV 50 mcg Q10MIN PRN Administration ANALGESIA Finasteride 5 mg 10/08/20 13:00 10/11/20 10:17 Finasteride 5 Mg Tab PO Not Given QDAY MARCIE Hydralazine HCl 10 mg 10/03/20 15:17 10/04/20 03:40 Hydralazine 10 Mg Tab PO 10 mg Q6H PRN Administration Hypertension SBP > 160 Hydromorphone HCl 0.5 mg 10/07/20 21:31 10/08/20 05:14 Hydromorphone 1 Mg/1 Ml Inj IV 0.5 mg Q3H PRN Administration Pain, Moderate (4-6) Hydrophilic Ointment 1 applic 10/02/20 16:00 Lip Therapy Vaseline TP Q2HR PRN Dry Lips Fentanyl Citrate 2,000 mcg in 100 mls @ 3.1 mls/hr 10/08/20 15:00 10/11/20 08:51 Fentanyl Drip Premix IV 2 mcg/kg/hr TITR MARCIE 6.2 mls/hr Administration Protocol 1 MCG/KG/HR Dextrose/Sodium Chloride 1,000 mls @ 42 mls/hr 10/11/20 00:00 10/11/20 00:48 D5/0.45ns IV 42 mls/hr DIRECT MARCIE Administration Multi-Ingred Cream/Lotion/Oil/Oint 1 applic 10/02/20 15:30 Mineral Oil/Petrolatum, White Ophth Oint 3.5 Gm OU Q4H PRN Dry Eye(s) Scopolamine 1 each 10/08/20 15:00 10/08/20 15:18 Scopolamine Transdermal Patch 72 Hr TD 1 each Q72H MARCIE Administration Simple Syrup 15 ml 10/06/20 09:38 Simple Syrup 15 Ml FEEDTUBE PRN PRN Hypoglycemia Simple Syrup 30 ml 10/06/20 09:38 Simple Syrup 15 Ml FEEDTUBE PRN PRN Hypoglycemia Sodium Bicarbonate 325 mg 10/06/20 09:38 Sodium Bicarbonate 325 Mg Tab FEEDTUBE PRN PRN For Clogged Feeding Tube Sodium Chloride 10 ml 10/02/20 22:00 10/10/20 10:12 Sodium Chloride 0.9% 10 Ml Flush Syringe IV 10 ml BID MARCIE Administration Sodium Chloride 10 ml 10/02/20 15:30 Sodium Chloride 0.9% 10 Ml Flush Syringe IV PRN PRN LINE FLUSH Tamsulosin HCl 0.8 mg 10/08/20 13:00 10/11/20 10:17 Tamsulosin 0.4 Mg Cap PO Not Given QDAY MARCIE Nutrition/Malnutrition Assess - Dietary Evaluation Nutrition/Malnutrition Findings: Nutrition Notes Start: 10/03/20 12:08 Freq: Status: Active Protocol: Document 10/08/20 10:55 (Rec: 10/08/20 10:58 [id number]) Nutrition Notes Initial or Follow up Reassessment Current Diagnosis Respiratory Failure Other Pertinent Diagnosis cardiac arrest, malnutrition, alzheimer's Current Diet Vital AF 1.2 at 65 ml/hr Labs/Tests Na 146 BUN 30 Cr 0.7 Phos 2.3 Pertinent Medications Phos Nak Height 5 ft 11 in Weight 62 kg [place] Body Weight (kg) 78.18 BMI 19.1 Weight Status Underweight Subjective/Other Information Observed TF running at goal rate. Pt tolerating. Pt may be extubated today. Percent of energy/protein needs met: 100%/100% Burn Absent Trauma Absent GI Symptoms None Difficulty In Swallowing Current % PO Negligible Minimum of two criteria No physical signs of malnutrition #1 Nutrition Diagnosis Inadequate oral intake Diagnosis Progress(for reassessment Continues documentation) Is patient on ventilator? Yes Is Patient Ambulatory and/or Out of Bed No REE-([facility]-confined to bed) 1623.588 Kcal/Kg value to use for calculation 30 Approximate Energy Requirements Using 1860 kcal/Kg Calculation Used for Recommendations Kcal/kg Additional Notes protein needs: 74-123 g (1.2- 2g/kg) fluids needs: 1 ml/kcal or per MD Nutrition Intervention Nutrition Support: Vital AF at 65 ml/hr with a free water flush of 100 ml q4h . Kcal 1,872 Protein (gm) 117 Fluid (mL) 1,265 Goal #1 Meet at least 75% of kcal and protein needs via TF regimen Anticipated Discharge Needs: unable to determine at this time Follow-Up By: 10/13/20 Additional Comments FU for TF tolerance or extubation <ALIZA SIMS - Last Filed: 10/12/20 17:12> Assessment and Plan Assessment and plan: Patient seen and examined after trach and PEG placed. No complications with surgery, plans for LTAC transfer. Hospitalist Physical - Constitutional Vitals: Temp Pulse Resp BP Pulse Ox 97.2 F L 54 L 10 L 108/48 100 10/12/20 16:00 10/12/20 16:28 10/12/20 16:01 10/12/20 16:28 10/12/20 16:28 HEART Score - HEART Score Troponin: Troponin T 0.015 ng/mL (0.00-0.029) 10/09/20 10:50 Results - Labs CBC & Chem 7: 10/12/20 07:10 10/11/20 08:15 Labs: Laboratory Last Values WBC 13.4 K/mm3 (4.5-11.0) H 10/12/20 07:10 RBC 3.36 M/mm3 (3.65-5.03) L 10/12/20 07:10 Hgb 10.0 gm/dl (11.8-15.2) L 10/12/20 07:10 Hct 30.8 % (35.5-45.6) L 10/12/20 07:10 MCV 92 fl (84-94) 10/12/20 07:10 MCH 30 pg (28-32) 10/12/20 07:10 MCHC 33 % (32-34) 10/12/20 07:10 RDW 15.9 % (13.2-15.2) H 10/12/20 07:10 Plt Count 234 K/mm3 (140-440) 10/12/20 07:10 Lymph % (Auto) 8.3 % (13.4-35.0) L 10/05/20 15:34 Phillips % (Auto) 8.4 % (0.0-7.3) H 10/05/20 15:34 Eos % (Auto) 0.1 % (0.0-4.3) 10/05/20 15:34 Baso % (Auto) 0.4 % (0.0-1.8) 10/05/20 15:34 Lymph # (Auto) 1.0 K/mm3 (1.2-5.4) L 10/05/20 15:34 Phillips # (Auto) 1.0 K/mm3 (0.0-0.8) H 10/05/20 15:34 Eos # (Auto) 0.0 K/mm3 (0.0-0.4) 10/05/20 15:34 Baso # (Auto) 0.0 K/mm3 (0.0-0.1) 10/05/20 15:34 Seg Neutrophils % 82.8 % (40.0-70.0) H 10/05/20 15:34 Seg Neutrophils # 10.2 K/mm3 (1.8-7.7) H 10/05/20 15:34 PT 15.8 Sec. (12.2-14.9) H 10/05/20 15:36 INR 1.21 (0.87-1.13) H 10/05/20 15:36 D-Dimer 5468.25 ng/mlDDU (0-234) H 10/02/20 13:45 ABG pH 7.532 (7.320-7.450) H 10/11/20 04:00 POC ABG pCO2 36.0 mmHg (32.0-48.0) 10/11/20 04:00 ABG pCO2 56.3 mm Hg 10/08/20 16:20 POC ABG pO2 86.8 mmHg (83-108) 10/11/20 04:00 ABG pO2 263.1 mm Hg (80.0-90.0) H 10/08/20 16:20 POC ABG HCO3 29.5 10/11/20 04:00 ABG HCO3 29.2 mmol/L (20.0-26.0) H 10/08/20 16:20 ABG O2 Saturation 97.5 (0-100) 10/11/20 04:00 ABG O2 Content 19.2 (0.0-44) 10/08/20 16:20 POC ABG Base Excess 6.6 10/11/20 04:00 ABG Base Excess 2.1 mmol/L (-2.0-3.0) 10/08/20 16:20 ABG Hemoglobin 10.0 (12.0-17.5) L 10/11/20 04:00 ABG Oxyhemoglobin 96.5 (94-98) 10/11/20 04:00 ABG Carboxyhemoglobin 1.1 % (0.0-5.0) 10/08/20 16:20 ABG Methemoglobin 0.3 (0.0-1.5) 10/11/20 04:00 ABG Sodium 140.8 mmol/L (136.0-145.0) 10/11/20 04:00 ABG Potassium 4.0 mmol/L (3.40-4.50) 10/11/20 04:00 ABG Chloride 112.0 mmol/L (98-107) H 10/11/20 04:00 ABG Glucose 115 mg/dL (65-95) H 10/11/20 04:00 ABG Lactate 1.32 (0.18-30.0) 10/02/20 14:00 Oxyhemoglobin 97.8 % (95.0-99.0) 10/08/20 16:20 Carboxyhemoglobin 0.7 (0.5-1.5) 10/11/20 04:00 FiO2 80 % 10/08/20 16:20 FiO2 % 30.0 10/11/20 04:00 Sodium 144 mmol/L (137-145) 10/11/20 08:15 Potassium 4.1 mmol/L (3.6-5.0) 10/11/20 08:15 Chloride 107.8 mmol/L (98-107) H 10/11/20 08:15 Carbon Dioxide 33 mmol/L (22-30) H 10/11/20 08:15 Anion Gap 7 mmol/L 10/11/20 08:15 BUN 32 mg/dL (9-20) H 10/11/20 08:15 Creatinine 0.7 mg/dL (0.8-1.3) L 10/11/20 08:15 Estimated GFR > 60 ml/min 10/11/20 08:15 BUN/Creatinine Ratio 46 % 10/11/20 08:15 Glucose 108 mg/dL (75-100) H 10/11/20 08:15 POC Glucose 114 mg/dL (70-105) H 10/12/20 11:36 Calcium 10.1 mg/dL (8.4-10.2) 10/11/20 08:15 Phosphorus 3.00 mg/dL (2.5-4.5) D 10/11/20 08:15 Magnesium 2.40 mg/dL (1.7-2.3) H 10/09/20 10:50 Total Bilirubin 0.50 mg/dL (0.1-1.2) 10/07/20 05:20 Direct Bilirubin 0.3 mg/dL (0-0.2) H 10/05/20 15:36 Indirect Bilirubin 0.5 mg/dL 10/05/20 15:36 AST 22 units/L (5-40) 10/07/20 05:20 ALT 15 units/L (7-56) 10/07/20 05:20 Alkaline Phosphatase 66 units/L (35-129) 10/07/20 05:20 Troponin T 0.015 ng/mL (0.00-0.029) 10/09/20 10:50 NT-Pro-B Natriuret Pep 208.4 pg/mL (0-900) 10/02/20 13:45 Total Protein 5.8 g/dL (6.3-8.2) L 10/07/20 05:20 Albumin 2.5 g/dL (3.9-5) L 10/07/20 05:20 Albumin/Globulin Ratio 0.8 % 10/07/20 05:20 Arterial Blood Glucose 115 mg/dL (65-95) H 10/11/20 04:00 Arterial Blood Ionized Calcium 5.5 mg/dL (4.6-5.3) H 10/11/20 04:00 Urine Color Yellow (Yellow) 10/06/20 14:20 Urine Turbidity Clear (Clear) 10/06/20 14:20 Urine pH 6.0 (5.0-7.0) 10/06/20 14:20 Ur Specific [place] 1.030 (1.003-1.030) 10/06/20 14:20 Urine Protein <15 mg/dl mg/dL (Negative) 10/06/20 14:20 Urine Glucose (UA) Neg mg/dL (Negative) 10/06/20 14:20 Urine Ketones Neg mg/dL (Negative) 10/06/20 14:20 Urine Blood Mod (Negative) 10/06/20 14:20 Urine Nitrite Neg (Negative) 10/06/20 14:20 Urine Bilirubin Neg (Negative) 10/06/20 14:20 Urine Urobilinogen < 2.0 mg/dL (<2.0) 10/06/20 14:20 Ur Leukocyte Esterase Neg (Negative) 10/06/20 14:20 Urine WBC (Auto) 10.0 /HPF (0.0-6.0) H 10/06/20 14:20 Urine RBC (Auto) 7.0 /HPF (0.0-6.0) 10/06/20 14:20 U Epithel Cells (Auto) < 1.0 /HPF (0-13.0) 10/02/20 14:00 Urine Mucus 1+ /HPF 10/06/20 14:20 Nasal Screen MRSA (PCR) Negative (Negative) 10/06/20 14:40 Urine Opiates Screen Negative 10/02/20 14:00 Urine Methadone Screen Negative 10/02/20 14:00 Ur Barbiturates Screen Negative 10/02/20 14:00 Ur Phencyclidine Scrn Negative 10/02/20 14:00 Ur Amphetamines Screen Negative 10/02/20 14:00 U Benzodiazepines Scrn Presumptive positive 10/02/20 14:00 Urine Cocaine Screen Negative 10/02/20 14:00 U Marijuana (THC) Screen Negative 10/02/20 14:00 Drugs of Abuse Note Disclamer 10/02/20 14:00 De [place]/IV: Voiding Method Indwelling Catheter Active Medications - Current Medications Current Medications: Generic Name Dose Route Start Last Admin Trade Name Freq PRN Reason Stop Dose Admin Acetaminophen 650 mg 10/02/20 15:30 10/11/20 03:51 Acetaminophen 650 Mg Rect Supp [place] 650 mg Q6H PRN Administration Pain MILD(1-3)/Fever >100.5/HERNANDEZ Albuterol 2.5 mg 10/02/20 17:00 Albuterol 2.5 Mg/3 Ml Nebu IH Q3HRT PRN Shortness Of Breath Lipase/Protease/Amylase 1 each 10/06/20 09:38 Lipase 10,500/Protease 25,000/Amylase 43,750 (Units) Dr Sumner FEEDTUBE PRN PRN For Clogged Feeding Tube Enoxaparin Sodium 40 mg 10/06/20 10:00 10/12/20 09:05 Enoxaparin 40 Mg/0.4 Ml Inj SUB-Q 40 mg QDAY@1000 MARCIE Administration Protocol Famotidine 20 mg 10/08/20 10:00 10/12/20 11:47 Famotidine 20 Mg Tab PO 20 mg BID MARCIE Administration Finasteride 5 mg 10/08/20 13:00 10/12/20 11:47 Finasteride 5 Mg Tab PO 5 mg QDAY MARCIE Administration Hydralazine HCl 10 mg 10/03/20 15:17 10/04/20 03:40 Hydralazine 10 Mg Tab PO 10 mg Q6H PRN Administration Hypertension SBP > 160 Hydromorphone HCl 0.5 mg 10/07/20 21:31 10/08/20 05:14 Hydromorphone 1 Mg/1 Ml Inj IV 0.5 mg Q3H PRN Administration Pain, Moderate (4-6) Hydrophilic Ointment 1 applic 10/02/20 16:00 Lip Therapy Vaseline TP Q2HR PRN Dry Lips Multi-Ingred Cream/Lotion/Oil/Oint 1 applic 10/02/20 15:30 Mineral Oil/Petrolatum, White Ophth Oint 3.5 Gm OU Q4H PRN Dry Eye(s) Oxycodone/Acetaminophen 1 tab 10/12/20 11:55 Oxycodone /Acetaminophen 5-325mg Tab PO Q4H PRN Pain, Moderate (4-6) Scopolamine 1 each 10/08/20 15:00 10/11/20 15:47 Scopolamine Transdermal Patch 72 Hr TD 1 each Q72H MARCIE Administration Senna/Docusate Sodium 2 tab 10/12/20 12:00 10/12/20 13:15 Sennosides/Docusate Sodium 8.6/50 Mg Tab PO 2 tab BID MARCIE Administration Simple Syrup 15 ml 10/06/20 09:38 Simple Syrup 15 Ml FEEDTUBE PRN PRN Hypoglycemia Simple Syrup 30 ml 10/06/20 09:38 Simple Syrup 15 Ml FEEDTUBE PRN PRN Hypoglycemia Sodium Bicarbonate 325 mg 10/06/20 09:38 Sodium Bicarbonate 325 Mg Tab FEEDTUBE PRN PRN For Clogged Feeding Tube Sodium Chloride 10 ml 10/02/20 22:00 10/12/20 11:47 Sodium Chloride 0.9% 10 Ml Flush Syringe IV 10 ml BID MARCIE Administration Sodium Chloride 10 ml 10/02/20 15:30 Sodium Chloride 0.9% 10 Ml Flush Syringe IV PRN PRN LINE FLUSH Tamsulosin HCl 0.8 mg 10/08/20 13:00 10/12/20 11:47 Tamsulosin 0.4 Mg Cap PO 0.8 mg QDAY MARCIE Administration Nutrition/Malnutrition Assess - Dietary Evaluation Nutrition/Malnutrition Findings: Nutrition Notes Start: 10/03/20 12:08 Freq: Status: Active Protocol: Document 10/08/20 10:55 (Rec: 10/08/20 10:58 MK [id number]) Nutrition Notes Initial or Follow up Reassessment Current Diagnosis Respiratory Failure Other Pertinent Diagnosis cardiac arrest, malnutrition, alzheimer's Current Diet Vital AF 1.2 at 65 ml/hr Labs/Tests Na 146 BUN 30 Cr 0.7 Phos 2.3 Pertinent Medications Phos Nak Height 5 ft 11 in Weight 62 kg [place] Body Weight (kg) 78.18 BMI 19.1 Weight Status Underweight Subjective/Other Information Observed TF running at goal rate. Pt tolerating. Pt may be extubated today. Percent of energy/protein needs met: 100%/100% Burn Absent Trauma Absent GI Symptoms None Difficulty In Swallowing Current % PO Negligible Minimum of two criteria No physical signs of malnutrition #1 Nutrition Diagnosis Inadequate oral intake Diagnosis Progress(for reassessment Continues documentation) Is patient on ventilator? Yes Is Patient Ambulatory and/or Out of Bed No REE-([facility]-confined to bed) 1623.588 Kcal/Kg value to use for calculation 30 Approximate Energy Requirements Using 1860 kcal/Kg Calculation Used for Recommendations Kcal/kg Additional Notes protein needs: 74-123 g (1.2- 2g/kg) fluids needs: 1 ml/kcal or per MD Nutrition Intervention Nutrition Support: Vital AF at 65 ml/hr with a free water flush of 100 ml q4h . Kcal 1,872 Protein (gm) 117 Fluid (mL) 1,265 Goal #1 Meet at least 75% of kcal and protein needs via TF regimen Anticipated Discharge Needs: unable to determine at this time Follow-Up By: 10/13/20 Additional Comments FU for TF tolerance or extubation
[2020-10-11] MEDS: SCOPOLAMINE TRANSDERMAL PATCH 72 HR TD SCH (15:47)
[2020-10-11] MEDS: ENOXAPARIN 40 MG/0.4 ML INJ SUB-Q SCH (15:48)
[2020-10-11] MEDS: DONEPEZIL 10 MG TAB PO SCH (22:48)
[2020-10-12 07:27] LABS: Hematocrit 30.8 % (35.5-45.6); Mean Corpuscular HGB Conc 33 % (32-34); Mean Corpuscular Volume 92 fl (84-94); Platelet Count 234 K/mm3 (140-440); Red Blood Count 3.36 M/mm3 (3.65-5.03); Red Cell Distribution Width 15.9 % (13.2-15.2)
[2020-10-12] MEDS: ENOXAPARIN 40 MG/0.4 ML INJ SUB-Q SCH (09:05)
--- NOTE | 2020-10-12 11:11 | Progress Note ---
Assessment and Plan Acute hypoxemic respiratory failure on MVS (extubated 10/04/2020 Cardiopulmonary arrest with ROSC Protein calorie malnutrition h/o Dementia - get Mg & PO4 levels and address - discontinue Aricept re: arrhythmia - change Docusate to senna/Docusate bid re: constipation - stop IV Fentanyl and add prn Lortabs to current prn Dilaudid fro moderate and severe pain respectively - mag citrate X 1 now - LTAC evaluation ongoing - continue care as below otherwise; - continue to wean supplemental oxygen for target O2 sat's > 90% acutely - VAP bundle addressed - continue lung protective strategies - continue bronchodilators with pulmonary hygiene per RT - wean per pulmonary driven protocols otherwise - continue accuchecks with glycemic control per SSI (While critically ill target blood glucose of 140-180 mg/dL; avoid hypoglycemia) - sedation prn for target RASS 0 to -1 - avoid nephrotoxins, renally dose all medications - continue to avoid benzodiazepine's, reduce the possibility of delirium - complete AB's per ID rec's - prn analgesia per CPOT score - supportive transfusions to keep HgB >7g/dL - mobility, off loading with frequent turning per facility protocol for pressure ulcer prevention - continue chronic home medications as clinically indicated - Maintenance of sleep-wake cycle, avoid delirium - continue enteral nutritional support at goal rate as tolerated - G.I. & VTE prophylaxis - PT/OT/ROM exercises - continue mobility protocols for pressure ulcer prophylaxis - Monitor hemodynamics closely - continue other care per attending / other consultants - discharge planning ongoing concurrently COVID SPECIFIC INTERVENTIONS - COVID-19 PCR negative .... Re-evaluate in am & prn CONDITION: CRITICAL PROGNOSIS: GUARDED CODE STATUS: FULL CODE The high probability of a clinically significant, sudden or life threatening deterioration of the [pulmonary,cardiovascular, neurology] system(s) required my full and direct attention, intervention and personal management. The aggregate critical care time was [35] minutes. This time is in addition to time spent performing reported procedures but includes the following: [x] Data Review and interpretation [x] Patient assessment and monitoring of vital signs [x] Documentation [x] Medication orders and management Subjective Date of service: 10/12/20 Principal diagnosis: Ac. hypoxemic resp failure; Cardiac arrest with ROSC; Dementia Interval history: Patient is seen today for: Ac. hypoxemic resp failure on MVS; Cardiopulmonary arrest with ROSC; Protein calorie malnutrition; h/o Dementia Seen and examined at bedside; 24hour events reviewed; nursing and respiratory care staff consulted; no adverse overnight events reported to me; resting in bed; remains on MVS; no gross trach site bleeding; on SBT and tolerating well; + bradycardia with pulse in 50's Objective Vital Signs - 12hr 10/12/20 10/12/20 10/12/20 00:00 00:20 01:00 Temperature 98.3 F Pulse Rate 66 61 64 Pulse Rate [ 66 From Monitor] Respiratory 20 20 Rate Blood Pressure 127/72 113/50 120/68 O2 Sat by Pulse 100 100 100 Oximetry O2 Sat by Pulse Oximetry [ Assessment] 10/12/20 10/12/20 10/12/20 02:00 03:00 03:56 Temperature 97.8 F Pulse Rate 82 63 Pulse Rate [ From Monitor] Respiratory 22 20 Rate Blood Pressure 125/78 120/63 O2 Sat by Pulse 100 100 Oximetry O2 Sat by Pulse Oximetry [ Assessment] 10/12/20 10/12/20 10/12/20 04:00 04:16 05:00 Temperature Pulse Rate 66 63 60 Pulse Rate [ 66 From Monitor] Respiratory 17 0 L 16 Rate Blood Pressure 125/65 110/50 122/60 O2 Sat by Pulse 100 100 100 Oximetry O2 Sat by Pulse Oximetry [ Assessment] 10/12/20 10/12/20 10/12/20 06:00 07:00 07:10 Temperature Pulse Rate 63 55 L 56 L Pulse Rate [ 56 L From Monitor] Respiratory 16 16 16 Rate Blood Pressure 123/65 116/70 O2 Sat by Pulse 100 100 100 Oximetry O2 Sat by Pulse Oximetry [ Assessment] 10/12/20 10/12/20 10/12/20 07:33 08:00 09:00 Temperature 97.5 F L Pulse Rate 60 54 L Pulse Rate [ From Monitor] Respiratory 16 16 Rate Blood Pressure 119/56 121/64 O2 Sat by Pulse 100 100 Oximetry O2 Sat by Pulse 100 Oximetry [ Assessment] Constitutional: no acute distress, other (elderly male with mildly increased respiratory effort at rest on MVS) Eyes: non-icteric ENT: oropharynx moist, other (+ midline tracheostomy) Neck: supple, no lymphadenopathy, no JVD Effort: mildly labored Ascultation: Bilateral: diminished breath sounds, rhonchi (scant) Percussion: Bilateral: not dull Cardiovascular: regular rate and rhythm, other (S1,S2) Gastrointestinal: normoactive bowel sounds, soft, non-tender, non-distended Integumentary: normal Extremities: no cyanosis, no edema, pulses normal, no ischemia or petechiae Neurologic: non-focal exam (grossly), pupils equal and round, CN II-XII normal, motor strength normal and, other (sedated) Psychiatric: other (unable to assess re: AMS) CBC and BMP: 10/12/20 07:10 10/11/20 08:15 ABG, PT/INR, D-dimer: ABG ABG pH 7.532 (7.320-7.450) H 10/11/20 04:00 POC ABG pCO2 36.0 mmHg (32.0-48.0) 10/11/20 04:00 ABG pCO2 56.3 mm Hg 10/08/20 16:20 POC ABG pO2 86.8 mmHg (83-108) 10/11/20 04:00 ABG pO2 263.1 mm Hg (80.0-90.0) H 10/08/20 16:20 POC ABG HCO3 29.5 10/11/20 04:00 ABG O2 Saturation 97.5 (0-100) 10/11/20 04:00 PT/INR, D-dimer PT 15.8 Sec. (12.2-14.9) H 10/05/20 15:36 INR 1.21 (0.87-1.13) H 10/05/20 15:36 D-Dimer 5468.25 ng/mlDDU (0-234) H 10/02/20 13:45 Abnormal lab findings: Abnormal Labs 10/02/20 10/02/20 10/02/20 13:45 13:45 13:45 WBC RBC Hgb Hct RDW 16.2 H Lymph % (Auto) 7.6 L Wolfe % (Auto) 9.1 H Lymph # (Auto) 0.5 L Wolfe # (Auto) Seg Neutrophils % 82.6 H Seg Neutrophils # PT INR D-Dimer 5468.25 H ABG pH POC ABG pO2 ABG pO2 ABG HCO3 ABG O2 Saturation ABG Hemoglobin ABG Oxyhemoglobin ABG Sodium ABG Potassium ABG Chloride ABG Glucose Carboxyhemoglobin Sodium Potassium 3.4 L Chloride Carbon Dioxide 21 L BUN Creatinine Glucose 112 H POC Glucose Calcium Phosphorus Magnesium Direct Bilirubin Total Protein 5.7 L Albumin 3.1 L Arterial Blood Glucose Arterial Blood Ionized Calcium Urine WBC (Auto) 10/02/20 10/03/20 10/03/20 14:00 03:04 04:35 WBC 13.2 H RBC Hgb Hct RDW 15.9 H Lymph % (Auto) 5.1 L Wolfe % (Auto) 7.9 H Lymph # (Auto) 0.7 L Wolfe # (Auto) 1.0 H Seg Neutrophils % 86.8 H Seg Neutrophils # 11.5 H PT INR D-Dimer ABG pH 7.478 H POC ABG pO2 543.4 H 173.1 H ABG pO2 ABG HCO3 ABG O2 Saturation ABG Hemoglobin 11.7 L ABG Oxyhemoglobin 99.4 H 98.8 H ABG Sodium 131.7 L ABG Potassium 3.3 L ABG Chloride 110.0 H ABG Glucose 102 H 124 H Carboxyhemoglobin 0.3 L Sodium Potassium Chloride Carbon Dioxide BUN Creatinine Glucose POC Glucose Calcium Phosphorus Magnesium Direct Bilirubin Total Protein Albumin Arterial Blood Glucose 102 H 124 H Arterial Blood Ionized Calcium Urine WBC (Auto) 10/03/20 10/03/20 10/03/20 04:35 11:20 23:18 WBC RBC Hgb Hct RDW Lymph % (Auto) Wolfe % (Auto) Lymph # (Auto) Wolfe # (Auto) Seg Neutrophils % Seg Neutrophils # PT INR D-Dimer ABG pH POC ABG pO2 ABG pO2 109.5 H ABG HCO3 ABG O2 Saturation ABG Hemoglobin 11.7 L ABG Oxyhemoglobin ABG Sodium ABG Potassium ABG Chloride ABG Glucose Carboxyhemoglobin Sodium Potassium Chloride Carbon Dioxide BUN Creatinine 0.7 L Glucose 109 H POC Glucose 110 H Calcium 10.3 H Phosphorus Magnesium Direct Bilirubin Total Protein Albumin 3.4 L Arterial Blood Glucose Arterial Blood Ionized Calcium Urine WBC (Auto) 10/04/20 10/04/20 10/05/20 08:32 08:32 04:43 WBC 12.8 H RBC Hgb Hct RDW 15.4 H 15.5 H Lymph % (Auto) 8.5 L Wolfe % (Auto) 12.7 H Lymph # (Auto) 0.8 L Wolfe # (Auto) 1.2 H Seg Neutrophils % 78.4 H Seg Neutrophils # PT INR D-Dimer ABG pH POC ABG pO2 ABG pO2 ABG HCO3 ABG O2 Saturation ABG Hemoglobin ABG Oxyhemoglobin ABG Sodium ABG Potassium ABG Chloride ABG Glucose Carboxyhemoglobin Sodium Potassium Chloride Carbon Dioxide BUN Creatinine 0.7 L Glucose POC Glucose Calcium 10.3 H Phosphorus Magnesium Direct Bilirubin Total Protein Albumin Arterial Blood Glucose Arterial Blood Ionized Calcium Urine WBC (Auto) 10/05/20 10/05/20 10/05/20 04:43 14:49 15:34 WBC 12.3 H RBC Hgb Hct RDW 15.4 H Lymph % (Auto) 8.3 L Wolfe % (Auto) 8.4 H Lymph # (Auto) 1.0 L Wolfe # (Auto) 1.0 H Seg Neutrophils % 82.8 H Seg Neutrophils # 10.2 H PT INR D-Dimer ABG pH POC ABG pO2 ABG pO2 ABG HCO3 ABG O2 Saturation ABG Hemoglobin ABG Oxyhemoglobin ABG Sodium ABG Potassium ABG Chloride ABG Glucose Carboxyhemoglobin Sodium Potassium Chloride Carbon Dioxide BUN 24 H Creatinine 0.7 L Glucose 104 H POC Glucose 139 H Calcium Phosphorus Magnesium Direct Bilirubin Total Protein Albumin Arterial Blood Glucose Arterial Blood Ionized Calcium Urine WBC (Auto) 10/05/20 10/05/20 10/05/20 15:36 15:36 15:36 WBC RBC Hgb Hct RDW Lymph % (Auto) Wolfe % (Auto) Lymph # (Auto) Wolfe # (Auto) Seg Neutrophils % Seg Neutrophils # PT 15.8 H INR 1.21 H D-Dimer ABG pH POC ABG pO2 ABG pO2 ABG HCO3 ABG O2 Saturation ABG Hemoglobin ABG Oxyhemoglobin ABG Sodium ABG Potassium ABG Chloride ABG Glucose Carboxyhemoglobin Sodium Potassium Chloride Carbon Dioxide BUN 26 H Creatinine Glucose 142 H POC Glucose Calcium Phosphorus 4.70 H Magnesium Direct Bilirubin Total Protein 6.0 L Albumin 2.8 L Arterial Blood Glucose Arterial Blood Ionized Calcium Urine WBC (Auto) 10/05/20 10/05/20 10/05/20 15:36 16:15 23:15 WBC RBC Hgb Hct RDW Lymph % (Auto) Wolfe % (Auto) Lymph # (Auto) Wolfe # (Auto) Seg Neutrophils % Seg Neutrophils # PT INR D-Dimer ABG pH POC ABG pO2 228.0 H ABG pO2 ABG HCO3 ABG O2 Saturation ABG Hemoglobin ABG Oxyhemoglobin 98.9 H ABG Sodium ABG Potassium ABG Chloride ABG Glucose 154 H Carboxyhemoglobin Sodium Potassium Chloride Carbon Dioxide BUN 27 H Creatinine Glucose 113 H POC Glucose Calcium Phosphorus Magnesium Direct Bilirubin 0.3 H Total Protein 5.7 L Albumin 2.9 L Arterial Blood Glucose 154 H Arterial Blood Ionized Calcium Urine WBC (Auto) 10/05/20 10/06/20 10/06/20 23:26 04:00 09:11 WBC RBC Hgb Hct RDW Lymph % (Auto) Wolfe % (Auto) Lymph # (Auto) Wolfe # (Auto) Seg Neutrophils % Seg Neutrophils # PT INR D-Dimer ABG pH POC ABG pO2 170.7 H ABG pO2 ABG HCO3 ABG O2 Saturation ABG Hemoglobin ABG Oxyhemoglobin 98.8 H ABG Sodium 134.3 L ABG Potassium ABG Chloride ABG Glucose 115 H Carboxyhemoglobin 0.4 L Sodium Potassium Chloride Carbon Dioxide BUN 31 H Creatinine Glucose 110 H POC Glucose 116 H Calcium 10.7 H Phosphorus 2.30 L D Magnesium Direct Bilirubin Total Protein Albumin Arterial Blood Glucose 115 H Arterial Blood Ionized Calcium 5.5 H Urine WBC (Auto) 10/06/20 10/06/20 10/06/20 11:48 14:20 15:40 WBC RBC Hgb Hct RDW Lymph % (Auto) Wolfe % (Auto) Lymph # (Auto) Wolfe # (Auto) Seg Neutrophils % Seg Neutrophils # PT INR D-Dimer ABG pH POC ABG pO2 ABG pO2 ABG HCO3 ABG O2 Saturation ABG Hemoglobin ABG Oxyhemoglobin ABG Sodium 134.1 L ABG Potassium ABG Chloride ABG Glucose 113 H Carboxyhemoglobin Sodium Potassium Chloride Carbon Dioxide BUN Creatinine Glucose POC Glucose 115 H Calcium Phosphorus Magnesium Direct Bilirubin Total Protein Albumin Arterial Blood Glucose 113 H Arterial Blood Ionized Calcium 5.4 H Urine WBC (Auto) 10.0 H 10/06/20 10/07/20 10/07/20 17:16 04:00 05:20 WBC RBC Hgb 11.3 L Hct 34.0 L RDW 15.4 H Lymph % (Auto) Wolfe % (Auto) Lymph # (Auto) Wolfe # (Auto) Seg Neutrophils % Seg Neutrophils # PT INR D-Dimer ABG pH 7.468 H POC ABG pO2 ABG pO2 ABG HCO3 ABG O2 Saturation ABG Hemoglobin 11.9 L ABG Oxyhemoglobin ABG Sodium ABG Potassium ABG Chloride 109.0 H ABG Glucose 112 H Carboxyhemoglobin Sodium Potassium Chloride Carbon Dioxide BUN Creatinine Glucose POC Glucose 110 H Calcium Phosphorus Magnesium Direct Bilirubin Total Protein Albumin Arterial Blood Glucose 112 H Arterial Blood Ionized Calcium 5.6 H Urine WBC (Auto) 10/07/20 10/07/20 10/08/20 05:20 13:00 06:13 WBC RBC Hgb Hct RDW Lymph % (Auto) Wolfe % (Auto) Lymph # (Auto) Wolfe # (Auto) Seg Neutrophils % Seg Neutrophils # PT INR D-Dimer ABG pH 7.456 H POC ABG pO2 ABG pO2 ABG HCO3 ABG O2 Saturation ABG Hemoglobin 11.3 L ABG Oxyhemoglobin ABG Sodium ABG Potassium ABG Chloride 109.0 H ABG Glucose 109 H Carboxyhemoglobin 0.4 L Sodium 146 H Potassium Chloride 108.4 H 110.7 H Carbon Dioxide 33 H D BUN 32 H 30 H Creatinine 0.7 L 0.7 L Glucose 116 H POC Glucose Calcium Phosphorus 2.10 L 2.30 L Magnesium Direct Bilirubin Total Protein 5.8 L Albumin 2.5 L Arterial Blood Glucose 109 H Arterial Blood Ionized Calcium 5.5 H Urine WBC (Auto) 10/08/20 10/08/20 10/08/20 11:51 12:04 16:20 WBC RBC Hgb Hct RDW Lymph % (Auto) Wolfe % (Auto) Lymph # (Auto) Wolfe # (Auto) Seg Neutrophils % Seg Neutrophils # PT INR D-Dimer ABG pH 7.333 L POC ABG pO2 77.5 L ABG pO2 263.1 H ABG HCO3 29.2 H ABG O2 Saturation 99.4 H ABG Hemoglobin 13.5 L ABG Oxyhemoglobin ABG Sodium ABG Potassium ABG Chloride 109.0 H ABG Glucose 113 H Carboxyhemoglobin Sodium Potassium Chloride Carbon Dioxide BUN Creatinine Glucose POC Glucose 106 H Calcium Phosphorus Magnesium Direct Bilirubin Total Protein Albumin Arterial Blood Glucose 113 H Arterial Blood Ionized Calcium 5.6 H Urine WBC (Auto) 10/09/20 10/09/20 10/09/20 03:33 04:30 06:30 WBC RBC Hgb Hct RDW Lymph % (Auto) Wolfe % (Auto) Lymph # (Auto) Wolfe # (Auto) Seg Neutrophils % Seg Neutrophils # PT INR D-Dimer ABG pH POC ABG pO2 ABG pO2 ABG HCO3 ABG O2 Saturation ABG Hemoglobin 11.6 L ABG Oxyhemoglobin ABG Sodium ABG Potassium ABG Chloride 109.0 H ABG Glucose 116 H Carboxyhemoglobin Sodium Potassium Chloride 108.5 H Carbon Dioxide BUN 33 H Creatinine Glucose 115 H POC Glucose 115 H Calcium Phosphorus 2.30 L Magnesium Direct Bilirubin Total Protein Albumin Arterial Blood Glucose 116 H Arterial Blood Ionized Calcium 5.5 H Urine WBC (Auto) 10/09/20 10/09/20 10/10/20 10:50 17:31 03:46 WBC RBC Hgb Hct RDW Lymph % (Auto) Wolfe % (Auto) Lymph # (Auto) Wolfe # (Auto) Seg Neutrophils % Seg Neutrophils # PT INR D-Dimer ABG pH 7.483 H POC ABG pO2 ABG pO2 ABG HCO3 ABG O2 Saturation ABG Hemoglobin 10.1 L ABG Oxyhemoglobin ABG Sodium ABG Potassium ABG Chloride 111.0 H ABG Glucose 114 H Carboxyhemoglobin Sodium Potassium Chloride Carbon Dioxide BUN Creatinine Glucose POC Glucose 106 H Calcium Phosphorus Magnesium 2.40 H Direct Bilirubin Total Protein Albumin Arterial Blood Glucose 114 H Arterial Blood Ionized Calcium 5.5 H Urine WBC (Auto) 10/10/20 10/10/20 10/10/20 04:40 04:40 23:34 WBC 12.8 H RBC 3.35 L Hgb 9.9 L Hct 30.4 L RDW 15.7 H Lymph % (Auto) Wolfe % (Auto) Lymph # (Auto) Wolfe # (Auto) Seg Neutrophils % Seg Neutrophils # PT INR D-Dimer ABG pH POC ABG pO2 ABG pO2 ABG HCO3 ABG O2 Saturation ABG Hemoglobin ABG Oxyhemoglobin ABG Sodium ABG Potassium ABG Chloride ABG Glucose Carboxyhemoglobin Sodium Potassium Chloride 111.2 H Carbon Dioxide BUN 35 H Creatinine Glucose 103 H POC Glucose 108 H Calcium Phosphorus 2.40 L Magnesium Direct Bilirubin Total Protein Albumin Arterial Blood Glucose Arterial Blood Ionized Calcium Urine WBC (Auto) 10/11/20 10/11/20 10/11/20 04:00 08:15 08:15 WBC 13.3 H RBC 3.31 L Hgb 10.0 L Hct 30.0 L RDW 15.8 H Lymph % (Auto) Wolfe % (Auto) Lymph # (Auto) Wolfe # (Auto) Seg Neutrophils % Seg Neutrophils # PT INR D-Dimer ABG pH 7.532 H POC ABG pO2 ABG pO2 ABG HCO3 ABG O2 Saturation ABG Hemoglobin 10.0 L ABG Oxyhemoglobin ABG Sodium ABG Potassium ABG Chloride 112.0 H ABG Glucose 115 H Carboxyhemoglobin Sodium Potassium Chloride 107.8 H Carbon Dioxide 33 H BUN 32 H Creatinine 0.7 L Glucose 108 H POC Glucose Calcium Phosphorus Magnesium Direct Bilirubin Total Protein Albumin Arterial Blood Glucose 115 H Arterial Blood Ionized Calcium 5.5 H Urine WBC (Auto) 10/11/20 10/11/20 10/12/20 11:51 17:08 05:38 WBC RBC Hgb Hct RDW Lymph % (Auto) Wolfe % (Auto) Lymph # (Auto) Wolfe # (Auto) Seg Neutrophils % Seg Neutrophils # PT INR D-Dimer ABG pH POC ABG pO2 ABG pO2 ABG HCO3 ABG O2 Saturation ABG Hemoglobin ABG Oxyhemoglobin ABG Sodium ABG Potassium ABG Chloride ABG Glucose Carboxyhemoglobin Sodium Potassium Chloride Carbon Dioxide BUN Creatinine Glucose POC Glucose 127 H 113 H 112 H Calcium Phosphorus Magnesium Direct Bilirubin Total Protein Albumin Arterial Blood Glucose Arterial Blood Ionized Calcium Urine WBC (Auto) 10/12/20 07:10 WBC 13.4 H RBC 3.36 L Hgb 10.0 L Hct 30.8 L RDW 15.9 H Lymph % (Auto) Wolfe % (Auto) Lymph # (Auto) Wolfe # (Auto) Seg Neutrophils % Seg Neutrophils # PT INR D-Dimer ABG pH POC ABG pO2 ABG pO2 ABG HCO3 ABG O2 Saturation ABG Hemoglobin ABG Oxyhemoglobin ABG Sodium ABG Potassium ABG Chloride ABG Glucose Carboxyhemoglobin Sodium Potassium Chloride Carbon Dioxide BUN Creatinine Glucose POC Glucose Calcium Phosphorus Magnesium Direct Bilirubin Total Protein Albumin Arterial Blood Glucose Arterial Blood Ionized Calcium Urine WBC (Auto) Chest x-ray: pending Allied health notes reviewed: nursing
[2020-10-12] MEDS: DOCUSATE SODIUM 100 MG/10 ML ORAL LIQD PO SCH (11:46)
[2020-10-12] MEDS: TAMSULOSIN 0.4 MG CAP PO SCH (11:47)
[2020-10-12] MEDS: FAMOTIDINE 20 MG TAB PO SCH (11:47)
[2020-10-12] MEDS: FINASTERIDE 5 MG TAB PO SCH (11:47)
[2020-10-12] MEDS ORDERED: oxyCODONE /ACETAMINOPHEN 5-325MG TAB PO PRN (11:55)
[2020-10-12] MEDS ORDERED: SENNOSIDES/DOCUSATE SODIUM 8.6/50 MG TAB PO SCH (12:00)
[2020-10-12] MEDS ORDERED: MAGNESIUM CITRATE 300 ML ORAL LIQD PO ONE (12:00)
--- NOTE | 2020-10-12 12:15 | Progress Note ---
<AURESHONA Hodan - Last Filed: 10/12/20 15:43> Assessment and Plan Assessment and plan: This is a 80 year old male with Vascular Dementia, Cerebral Atherosclerosis, with malnutrition admitted post cardiac arrest, acute hypoxic respiratory failure now s/p cardio-resp arrest on 10/05 and again on 10/08 Neuro: Vascular Dementia; critical care myopathy; frail elderly -10/02 CT head shows disproportionate temporal and parietal lobe atrophy suggests possibility of Alzheimer's dementia, moderate global parenchymal atrophy, no acute intracranial abnormalities are identified. -pt has hx CVA with baseline right sided weakness -aricept d/c due it cardiac side effects -PRN pain medications -will need aggressive pt/ot -generalized weakness; opens eyes to voice; tracking around room; pupils 3 b and reactive -family updated on plan of care CV: s/p cardiac arrest-PEA/bradycardia; hx HTN -Cardiology consulted, appreciate recommendations -10/04 Echo shows EF 55-60%, transmitral Doppler flow pattern suggests impaired LV function -hx Afib- was on amio but d/c due to donna -Has persistent bradycardia rate to 57-65; no ectopy -resume home bp meds when appropriate -PRN antihypertensives Respiratory: Resp failure requiring trach CCM following s/p Cardio respiratory arrest on 10/05 Acute hypoxemic respiratory failure- improving -Scopolamine for secretions - have not been an issue the last few day s -reintubated 10/05, extubated 10/08 but reintubated -10/11 tracheostomy placed with surgery -trach care per nursing staff -albuterol nebs -wean as tolerated tolerating PS GI Malnutrition; constipation -nutrition following -10/11 patient received PEG tube with surgery -Ok to use PEG per surgery -resume feeds -resume FWF -dc IVF -bowel reg with no BM in several days -increased bowel reg today -mg citrate x 1 today Urinary Retention hx; hx hypophos -Resume home Proscar and Flomax -strict I/O -Mg and Phos in AM -follow and replace electrolytes as needed Heme- NAP -VTE lovenox and SCD -trend CBC -AM labs ordered ID leukocytosis -cultures remain neg- continue to monitor -MRSA swab negative -no skin breakdown Endo: hyperglycemia likely stress induced -SSI, accucheck q 6 -avoid hypoglycemia POSSIBLE TRANSFER TO LTAC THIS EVENING for ongoing conditioning/vent weaning History Interval history: 80 YO Male with Vascular Dementia, Cerebral Atherosclerosis, Malnutrition who presented to the ED on 10/02 via EMS after being found unresponsive by family and upon arrival the patient was found to be in distress and subsequently developed cardiac arrest and was treated with ACLS protocol with eventual return of per fusing cardiac rhythm and transported to [facility]. Upon arrival to the ED he was found to be in acute respiratory failure secondary to cardiac arrest and unable able to protect his airway. Patient was intubated and placed on ventilatory support. Patient admitted to ICU for further care and evaluation. Critical care team consulted in ED. 10/03: Continue supportive care, noted leukoctosis, 10/04: Continues on full ventilatory support awake alert oriented will attempt extubation today according to the nursing staff plan discussed with hospital pharmacy director. In House Cra consulted for further input considering out of hospital cardiac arrest. 10/05: Patient was extubated yesterday and was cleared for puree diet by . Patient was to be downgraded from the ICU. This evening the patient was noted to be SB and responded to atropine. Patient was gargling and dopamine gtt was started briefly and stopped r/t tachycardia, short runs of vtach then the patient was noted to be in PEA. See code sheet and event note for details. I updated daughter over phone of current events. Started on empiric abx, femoral TLC and joao placed. Cultures sent. No cardio ordered amio and mag was given. 10/06 nodding appropriately; CPAP trials 10/07: failed PSV on PS 20 so CCM decreased PS to 10 and will obtain ABG 1300, CCM will try to extubate tomorrow. Hypophostemia repleted. 10/08: Trial extubation per [facility]. Hypophosphatemia to be treated. 10/09: Patient had a cardio-resp arrest yesterday evening and was reintubated. He has hypophosphatemia and hyperchloremia. No acute events noted overnight. 10/10: Patient is not n.p.o. after midnight and family has decided to move forward with PEG/trach. Hypophosphatemia repleted. Patient scheduled for trach/PEG tomorrow with surgery. 10/11: T-max overnight 101.8, patient received trach/PEG with surgery today. Patient has leukocytosis, hyperchloremia and metabolic acidosis today on BMP. Nephrology team has resolved 7-19 SULY. no further fevers Disposition Plan: LTAC Total Time Spent with Patient (Minutes): 60 History Interval history: no acute overnight events Hospitalist Physical - Constitutional Vitals: Temp Pulse Resp BP Pulse Ox 97.3 F L 53 L 17 119/71 100 10/12/20 12:00 10/12/20 12:00 10/12/20 12:00 10/12/20 12:00 10/12/20 12:00 General appearance: Present: no acute distress, other (resting on vent) - EENT Eyes: Present: PERRL, EOM intact ENT: hearing intact, clear oral mucosa - Neck Neck: Present: supple - Respiratory Respiratory effort: normal, other (vent) Respiratory: bilateral: diminished - Cardiovascular Rhythm: regular Heart Sounds: Present: S1 & S2 - Extremities Extremities: no ischemia Peripheral Pulses: within normal limits - Abdominal General gastrointestinal: soft, non-tender - Integumentary Integumentary: Present: clear, warm, dry - Psychiatric Psychiatric: other (trach) - Neurologic Neurologic: other (hx cva; tracking; not following commands at time of exam ) - Allied Health Allied health notes reviewed: nursing, RT, social work, case management HEART Score - HEART Score Troponin: Troponin T 0.015 ng/mL (0.00-0.029) 10/09/20 10:50 Results - Labs CBC & Chem 7: 10/12/20 07:10 10/11/20 08:15 Labs: Laboratory Last Values WBC 13.4 K/mm3 (4.5-11.0) H 10/12/20 07:10 RBC 3.36 M/mm3 (3.65-5.03) L 10/12/20 07:10 Hgb 10.0 gm/dl (11.8-15.2) L 10/12/20 07:10 Hct 30.8 % (35.5-45.6) L 10/12/20 07:10 MCV 92 fl (84-94) 10/12/20 07:10 MCH 30 pg (28-32) 10/12/20 07:10 MCHC 33 % (32-34) 10/12/20 07:10 RDW 15.9 % (13.2-15.2) H 10/12/20 07:10 Plt Count 234 K/mm3 (140-440) 10/12/20 07:10 Lymph % (Auto) 8.3 % (13.4-35.0) L 10/05/20 15:34 Randall % (Auto) 8.4 % (0.0-7.3) H 10/05/20 15:34 Eos % (Auto) 0.1 % (0.0-4.3) 10/05/20 15:34 Baso % (Auto) 0.4 % (0.0-1.8) 10/05/20 15:34 Lymph # (Auto) 1.0 K/mm3 (1.2-5.4) L 10/05/20 15:34 Randall # (Auto) 1.0 K/mm3 (0.0-0.8) H 10/05/20 15:34 Eos # (Auto) 0.0 K/mm3 (0.0-0.4) 10/05/20 15:34 Baso # (Auto) 0.0 K/mm3 (0.0-0.1) 10/05/20 15:34 Seg Neutrophils % 82.8 % (40.0-70.0) H 10/05/20 15:34 Seg Neutrophils # 10.2 K/mm3 (1.8-7.7) H 10/05/20 15:34 PT 15.8 Sec. (12.2-14.9) H 10/05/20 15:36 INR 1.21 (0.87-1.13) H 10/05/20 15:36 D-Dimer 5468.25 ng/mlDDU (0-234) H 10/02/20 13:45 ABG pH 7.532 (7.320-7.450) H 10/11/20 04:00 POC ABG pCO2 36.0 mmHg (32.0-48.0) 10/11/20 04:00 ABG pCO2 56.3 mm Hg 10/08/20 16:20 POC ABG pO2 86.8 mmHg (83-108) 10/11/20 04:00 ABG pO2 263.1 mm Hg (80.0-90.0) H 10/08/20 16:20 POC ABG HCO3 29.5 10/11/20 04:00 ABG HCO3 29.2 mmol/L (20.0-26.0) H 10/08/20 16:20 ABG O2 Saturation 97.5 (0-100) 10/11/20 04:00 ABG O2 Content 19.2 (0.0-44) 10/08/20 16:20 POC ABG Base Excess 6.6 10/11/20 04:00 ABG Base Excess 2.1 mmol/L (-2.0-3.0) 10/08/20 16:20 ABG Hemoglobin 10.0 (12.0-17.5) L 10/11/20 04:00 ABG Oxyhemoglobin 96.5 (94-98) 10/11/20 04:00 ABG Carboxyhemoglobin 1.1 % (0.0-5.0) 10/08/20 16:20 ABG Methemoglobin 0.3 (0.0-1.5) 10/11/20 04:00 ABG Sodium 140.8 mmol/L (136.0-145.0) 10/11/20 04:00 ABG Potassium 4.0 mmol/L (3.40-4.50) 10/11/20 04:00 ABG Chloride 112.0 mmol/L (98-107) H 10/11/20 04:00 ABG Glucose 115 mg/dL (65-95) H 10/11/20 04:00 ABG Lactate 1.32 (0.18-30.0) 10/02/20 14:00 Oxyhemoglobin 97.8 % (95.0-99.0) 10/08/20 16:20 Carboxyhemoglobin 0.7 (0.5-1.5) 10/11/20 04:00 FiO2 80 % 10/08/20 16:20 FiO2 % 30.0 10/11/20 04:00 Sodium 144 mmol/L (137-145) 10/11/20 08:15 Potassium 4.1 mmol/L (3.6-5.0) 10/11/20 08:15 Chloride 107.8 mmol/L (98-107) H 10/11/20 08:15 Carbon Dioxide 33 mmol/L (22-30) H 10/11/20 08:15 Anion Gap 7 mmol/L 10/11/20 08:15 BUN 32 mg/dL (9-20) H 10/11/20 08:15 Creatinine 0.7 mg/dL (0.8-1.3) L 10/11/20 08:15 Estimated GFR > 60 ml/min 10/11/20 08:15 BUN/Creatinine Ratio 46 % 10/11/20 08:15 Glucose 108 mg/dL (75-100) H 10/11/20 08:15 POC Glucose 114 mg/dL (70-105) H 10/12/20 11:36 Calcium 10.1 mg/dL (8.4-10.2) 10/11/20 08:15 Phosphorus 3.00 mg/dL (2.5-4.5) D 10/11/20 08:15 Magnesium 2.40 mg/dL (1.7-2.3) H 10/09/20 10:50 Total Bilirubin 0.50 mg/dL (0.1-1.2) 10/07/20 05:20 Direct Bilirubin 0.3 mg/dL (0-0.2) H 10/05/20 15:36 Indirect Bilirubin 0.5 mg/dL 10/05/20 15:36 AST 22 units/L (5-40) 10/07/20 05:20 ALT 15 units/L (7-56) 10/07/20 05:20 Alkaline Phosphatase 66 units/L (35-129) 10/07/20 05:20 Troponin T 0.015 ng/mL (0.00-0.029) 10/09/20 10:50 NT-Pro-B Natriuret Pep 208.4 pg/mL (0-900) 10/02/20 13:45 Total Protein 5.8 g/dL (6.3-8.2) L 10/07/20 05:20 Albumin 2.5 g/dL (3.9-5) L 10/07/20 05:20 Albumin/Globulin Ratio 0.8 % 10/07/20 05:20 Arterial Blood Glucose 115 mg/dL (65-95) H 10/11/20 04:00 Arterial Blood Ionized Calcium 5.5 mg/dL (4.6-5.3) H 10/11/20 04:00 Urine Color Yellow (Yellow) 10/06/20 14:20 Urine Turbidity Clear (Clear) 10/06/20 14:20 Urine pH 6.0 (5.0-7.0) 10/06/20 14:20 Ur Specific Carmen 1.030 (1.003-1.030) 10/06/20 14:20 Urine Protein <15 mg/dl mg/dL (Negative) 10/06/20 14:20 Urine Glucose (UA) Neg mg/dL (Negative) 10/06/20 14:20 Urine Ketones Neg mg/dL (Negative) 10/06/20 14:20 Urine Blood Mod (Negative) 10/06/20 14:20 Urine Nitrite Neg (Negative) 10/06/20 14:20 Urine Bilirubin Neg (Negative) 10/06/20 14:20 Urine Urobilinogen < 2.0 mg/dL (<2.0) 10/06/20 14:20 Ur Leukocyte Esterase Neg (Negative) 10/06/20 14:20 Urine WBC (Auto) 10.0 /HPF (0.0-6.0) H 10/06/20 14:20 Urine RBC (Auto) 7.0 /HPF (0.0-6.0) 10/06/20 14:20 U Epithel Cells (Auto) < 1.0 /HPF (0-13.0) 10/02/20 14:00 Urine Mucus 1+ /HPF 10/06/20 14:20 Nasal Screen MRSA (PCR) Negative (Negative) 10/06/20 14:40 Urine Opiates Screen Negative 10/02/20 14:00 Urine Methadone Screen Negative 10/02/20 14:00 Ur Barbiturates Screen Negative 10/02/20 14:00 Ur Phencyclidine Scrn Negative 10/02/20 14:00 Ur Amphetamines Screen Negative 10/02/20 14:00 U Benzodiazepines Scrn Presumptive positive 10/02/20 14:00 Urine Cocaine Screen Negative 10/02/20 14:00 U Marijuana (THC) Screen Negative 10/02/20 14:00 Drugs of Abuse Note Disclamer 10/02/20 14:00 - Imaging and Cardiology EKG: other (9-18) Imaging and Cardiology: 7-15 echo see report De Los Santos/IV: Voiding Method Indwelling Catheter Active Medications - Current Medications Current Medications: Generic Name Dose Route Start Last Admin Trade Name Freq PRN Reason Stop Dose Admin Acetaminophen 650 mg 10/02/20 15:30 10/11/20 03:51 Acetaminophen 650 Mg Rect Supp [place] 650 mg Q6H PRN Administration Pain MILD(1-3)/Fever >100.5/HERNANDEZ Albuterol 2.5 mg 10/02/20 17:00 Albuterol 2.5 Mg/3 Ml Nebu IH Q3HRT PRN Shortness Of Breath Lipase/Protease/Amylase 1 each 10/06/20 09:38 Lipase 10,500/Protease 25,000/Amylase 43,750 (Units) Dr Sumner FEEDTUBE PRN PRN For Clogged Feeding Tube Enoxaparin Sodium 40 mg 10/06/20 10:00 10/12/20 09:05 Enoxaparin 40 Mg/0.4 Ml Inj SUB-Q 40 mg QDAY@1000 MARCIE Administration Protocol Famotidine 20 mg 10/08/20 10:00 10/12/20 11:47 Famotidine 20 Mg Tab PO 20 mg BID MARCIE Administration Finasteride 5 mg 10/08/20 13:00 10/12/20 11:47 Finasteride 5 Mg Tab PO 5 mg QDAY MARCIE Administration Hydralazine HCl 10 mg 10/03/20 15:17 10/04/20 03:40 Hydralazine 10 Mg Tab PO 10 mg Q6H PRN Administration Hypertension SBP > 160 Hydromorphone HCl 0.5 mg 10/07/20 21:31 10/08/20 05:14 Hydromorphone 1 Mg/1 Ml Inj IV 0.5 mg Q3H PRN Administration Pain, Moderate (4-6) Hydrophilic Ointment 1 applic 10/02/20 16:00 Lip Therapy Vaseline TP Q2HR PRN Dry Lips Multi-Ingred Cream/Lotion/Oil/Oint 1 applic 10/02/20 15:30 Mineral Oil/Petrolatum, White Ophth Oint 3.5 Gm OU Q4H PRN Dry Eye(s) Oxycodone/Acetaminophen 1 tab 10/12/20 11:55 Oxycodone /Acetaminophen 5-325mg Tab PO Q4H PRN Pain, Moderate (4-6) Scopolamine 1 each 10/08/20 15:00 10/11/20 15:47 Scopolamine Transdermal Patch 72 Hr TD 1 each Q72H MARCIE Administration Senna/Docusate Sodium 2 tab 10/12/20 12:00 Sennosides/Docusate Sodium 8.6/50 Mg Tab PO BID MARCIE Simple Syrup 15 ml 10/06/20 09:38 Simple Syrup 15 Ml FEEDTUBE PRN PRN Hypoglycemia Simple Syrup 30 ml 10/06/20 09:38 Simple Syrup 15 Ml FEEDTUBE PRN PRN Hypoglycemia Sodium Bicarbonate 325 mg 10/06/20 09:38 Sodium Bicarbonate 325 Mg Tab FEEDTUBE PRN PRN For Clogged Feeding Tube Sodium Chloride 10 ml 10/02/20 22:00 10/12/20 11:47 Sodium Chloride 0.9% 10 Ml Flush Syringe IV 10 ml BID MARCIE Administration Sodium Chloride 10 ml 10/02/20 15:30 Sodium Chloride 0.9% 10 Ml Flush Syringe IV PRN PRN LINE FLUSH Tamsulosin HCl 0.8 mg 10/08/20 13:00 10/12/20 11:47 Tamsulosin 0.4 Mg Cap PO 0.8 mg QDAY MARCIE Administration Nutrition/Malnutrition Assess - Dietary Evaluation Nutrition/Malnutrition Findings: Nutrition Notes Start: 10/03/20 12:08 Freq: Status: Active Protocol: Document 10/08/20 10:55 (Rec: 10/08/20 10:58 [email or web address]) Nutrition Notes Initial or Follow up Reassessment Current Diagnosis Respiratory Failure Other Pertinent Diagnosis cardiac arrest, malnutrition, alzheimer's Current Diet Vital AF 1.2 at 65 ml/hr Labs/Tests Na 146 BUN 30 Cr 0.7 Phos 2.3 Pertinent Medications Phos Nak Height 5 ft 11 in Weight 62 kg Velma Body Weight (kg) 78.18 BMI 19.1 Weight Status Underweight Subjective/Other Information Observed TF running at goal rate. Pt tolerating. Pt may be extubated today. Percent of energy/protein needs met: 100%/100% Burn Absent Trauma Absent GI Symptoms None Difficulty In Swallowing Current % PO Negligible Minimum of two criteria No physical signs of malnutrition #1 Nutrition Diagnosis Inadequate oral intake Diagnosis Progress(for reassessment Continues documentation) Is patient on ventilator? Yes Is Patient Ambulatory and/or Out of Bed No REE-([facility]-confined to bed) 1623.588 Kcal/Kg value to use for calculation 30 Approximate Energy Requirements Using 1860 kcal/Kg Calculation Used for Recommendations Kcal/kg Additional Notes protein needs: 74-123 g (1.2- 2g/kg) fluids needs: 1 ml/kcal or per MD Nutrition Intervention Nutrition Support: Vital AF at 65 ml/hr with a free water flush of 100 ml q4h . Kcal 1,872 Protein (gm) 117 Fluid (mL) 1,265 Goal #1 Meet at least 75% of kcal and protein needs via TF regimen Anticipated Discharge Needs: unable to determine at this time Follow-Up By: 10/13/20 Additional Comments FU for TF tolerance or extubation - Attestation Statement I have reviewed and agreed w/ Malnutrition eval & tx plan: Yes <ALIZA SIMS - Last Filed: 10/12/20 17:11> Assessment and Plan Assessment and plan: Agree with assessment and plan as outlined by nurse practitioner as above. Patient status post trach and PEG, patient to go to LTAC today. Hospitalist Physical - Constitutional Vitals: Temp Pulse Resp BP Pulse Ox 97.2 F L 54 L 10 L 108/48 100 10/12/20 16:00 10/12/20 16:28 10/12/20 16:01 10/12/20 16:28 10/12/20 16:28 HEART Score - HEART Score Troponin: Troponin T 0.015 ng/mL (0.00-0.029) 10/09/20 10:50 Results - Labs CBC & Chem 7: 10/12/20 07:10 10/11/20 08:15 Labs: Laboratory Last Values WBC 13.4 K/mm3 (4.5-11.0) H 10/12/20 07:10 RBC 3.36 M/mm3 (3.65-5.03) L 10/12/20 07:10 Hgb 10.0 gm/dl (11.8-15.2) L 10/12/20 07:10 Hct 30.8 % (35.5-45.6) L 10/12/20 07:10 MCV 92 fl (84-94) 10/12/20 07:10 MCH 30 pg (28-32) 10/12/20 07:10 MCHC 33 % (32-34) 10/12/20 07:10 RDW 15.9 % (13.2-15.2) H 10/12/20 07:10 Plt Count 234 K/mm3 (140-440) 10/12/20 07:10 Lymph % (Auto) 8.3 % (13.4-35.0) L 10/05/20 15:34 Randall % (Auto) 8.4 % (0.0-7.3) H 10/05/20 15:34 Eos % (Auto) 0.1 % (0.0-4.3) 10/05/20 15:34 Baso % (Auto) 0.4 % (0.0-1.8) 10/05/20 15:34 Lymph # (Auto) 1.0 K/mm3 (1.2-5.4) L 10/05/20 15:34 Randall # (Auto) 1.0 K/mm3 (0.0-0.8) H 10/05/20 15:34 Eos # (Auto) 0.0 K/mm3 (0.0-0.4) 10/05/20 15:34 Baso # (Auto) 0.0 K/mm3 (0.0-0.1) 10/05/20 15:34 Seg Neutrophils % 82.8 % (40.0-70.0) H 10/05/20 15:34 Seg Neutrophils # 10.2 K/mm3 (1.8-7.7) H 10/05/20 15:34 PT 15.8 Sec. (12.2-14.9) H 10/05/20 15:36 INR 1.21 (0.87-1.13) H 10/05/20 15:36 D-Dimer 5468.25 ng/mlDDU (0-234) H 10/02/20 13:45 ABG pH 7.532 (7.320-7.450) H 10/11/20 04:00 POC ABG pCO2 36.0 mmHg (32.0-48.0) 10/11/20 04:00 ABG pCO2 56.3 mm Hg 10/08/20 16:20 POC ABG pO2 86.8 mmHg (83-108) 10/11/20 04:00 ABG pO2 263.1 mm Hg (80.0-90.0) H 10/08/20 16:20 POC ABG HCO3 29.5 10/11/20 04:00 ABG HCO3 29.2 mmol/L (20.0-26.0) H 10/08/20 16:20 ABG O2 Saturation 97.5 (0-100) 10/11/20 04:00 ABG O2 Content 19.2 (0.0-44) 10/08/20 16:20 POC ABG Base Excess 6.6 10/11/20 04:00 ABG Base Excess 2.1 mmol/L (-2.0-3.0) 10/08/20 16:20 ABG Hemoglobin 10.0 (12.0-17.5) L 10/11/20 04:00 ABG Oxyhemoglobin 96.5 (94-98) 10/11/20 04:00 ABG Carboxyhemoglobin 1.1 % (0.0-5.0) 10/08/20 16:20 ABG Methemoglobin 0.3 (0.0-1.5) 10/11/20 04:00 ABG Sodium 140.8 mmol/L (136.0-145.0) 10/11/20 04:00 ABG Potassium 4.0 mmol/L (3.40-4.50) 10/11/20 04:00 ABG Chloride 112.0 mmol/L (98-107) H 10/11/20 04:00 ABG Glucose 115 mg/dL (65-95) H 10/11/20 04:00 ABG Lactate 1.32 (0.18-30.0) 10/02/20 14:00 Oxyhemoglobin 97.8 % (95.0-99.0) 10/08/20 16:20 Carboxyhemoglobin 0.7 (0.5-1.5) 10/11/20 04:00 FiO2 80 % 10/08/20 16:20 FiO2 % 30.0 10/11/20 04:00 Sodium 144 mmol/L (137-145) 10/11/20 08:15 Potassium 4.1 mmol/L (3.6-5.0) 10/11/20 08:15 Chloride 107.8 mmol/L (98-107) H 10/11/20 08:15 Carbon Dioxide 33 mmol/L (22-30) H 10/11/20 08:15 Anion Gap 7 mmol/L 10/11/20 08:15 BUN 32 mg/dL (9-20) H 10/11/20 08:15 Creatinine 0.7 mg/dL (0.8-1.3) L 10/11/20 08:15 Estimated GFR > 60 ml/min 10/11/20 08:15 BUN/Creatinine Ratio 46 % 10/11/20 08:15 Glucose 108 mg/dL (75-100) H 10/11/20 08:15 POC Glucose 114 mg/dL (70-105) H 10/12/20 11:36 Calcium 10.1 mg/dL (8.4-10.2) 10/11/20 08:15 Phosphorus 3.00 mg/dL (2.5-4.5) D 10/11/20 08:15 Magnesium 2.40 mg/dL (1.7-2.3) H 10/09/20 10:50 Total Bilirubin 0.50 mg/dL (0.1-1.2) 10/07/20 05:20 Direct Bilirubin 0.3 mg/dL (0-0.2) H 10/05/20 15:36 Indirect Bilirubin 0.5 mg/dL 10/05/20 15:36 AST 22 units/L (5-40) 10/07/20 05:20 ALT 15 units/L (7-56) 10/07/20 05:20 Alkaline Phosphatase 66 units/L (35-129) 10/07/20 05:20 Troponin T 0.015 ng/mL (0.00-0.029) 10/09/20 10:50 NT-Pro-B Natriuret Pep 208.4 pg/mL (0-900) 10/02/20 13:45 Total Protein 5.8 g/dL (6.3-8.2) L 10/07/20 05:20 Albumin 2.5 g/dL (3.9-5) L 10/07/20 05:20 Albumin/Globulin Ratio 0.8 % 10/07/20 05:20 Arterial Blood Glucose 115 mg/dL (65-95) H 10/11/20 04:00 Arterial Blood Ionized Calcium 5.5 mg/dL (4.6-5.3) H 10/11/20 04:00 Urine Color Yellow (Yellow) 10/06/20 14:20 Urine Turbidity Clear (Clear) 10/06/20 14:20 Urine pH 6.0 (5.0-7.0) 10/06/20 14:20 Ur Specific Carmen 1.030 (1.003-1.030) 10/06/20 14:20 Urine Protein <15 mg/dl mg/dL (Negative) 10/06/20 14:20 Urine Glucose (UA) Neg mg/dL (Negative) 10/06/20 14:20 Urine Ketones Neg mg/dL (Negative) 10/06/20 14:20 Urine Blood Mod (Negative) 10/06/20 14:20 Urine Nitrite Neg (Negative) 10/06/20 14:20 Urine Bilirubin Neg (Negative) 10/06/20 14:20 Urine Urobilinogen < 2.0 mg/dL (<2.0) 10/06/20 14:20 Ur Leukocyte Esterase Neg (Negative) 10/06/20 14:20 Urine WBC (Auto) 10.0 /HPF (0.0-6.0) H 10/06/20 14:20 Urine RBC (Auto) 7.0 /HPF (0.0-6.0) 10/06/20 14:20 U Epithel Cells (Auto) < 1.0 /HPF (0-13.0) 10/02/20 14:00 Urine Mucus 1+ /HPF 10/06/20 14:20 Nasal Screen MRSA (PCR) Negative (Negative) 10/06/20 14:40 Urine Opiates Screen Negative 10/02/20 14:00 Urine Methadone Screen Negative 10/02/20 14:00 Ur Barbiturates Screen Negative 10/02/20 14:00 Ur Phencyclidine Scrn Negative 10/02/20 14:00 Ur Amphetamines Screen Negative 10/02/20 14:00 U Benzodiazepines Scrn Presumptive positive 10/02/20 14:00 Urine Cocaine Screen Negative 10/02/20 14:00 U Marijuana (THC) Screen Negative 10/02/20 14:00 Drugs of Abuse Note Disclamer 10/02/20 14:00 De Los Santos/IV: Voiding Method Indwelling Catheter Active Medications - Current Medications Current Medications: Generic Name Dose Route Start Last Admin Trade Name Freq PRN Reason Stop Dose Admin Acetaminophen 650 mg 10/02/20 15:30 10/11/20 03:51 Acetaminophen 650 Mg Rect Supp [place] 650 mg Q6H PRN Administration Pain MILD(1-3)/Fever >100.5/HERNANDEZ Albuterol 2.5 mg 10/02/20 17:00 Albuterol 2.5 Mg/3 Ml Nebu IH Q3HRT PRN Shortness Of Breath Lipase/Protease/Amylase 1 each 10/06/20 09:38 Lipase 10,500/Protease 25,000/Amylase 43,750 (Units) Dr Sumner FEEDTUBE PRN PRN For Clogged Feeding Tube Enoxaparin Sodium 40 mg 10/06/20 10:00 10/12/20 09:05 Enoxaparin 40 Mg/0.4 Ml Inj SUB-Q 40 mg QDAY@1000 MARCIE Administration Protocol Famotidine 20 mg 10/08/20 10:00 10/12/20 11:47 Famotidine 20 Mg Tab PO 20 mg BID MARCIE Administration Finasteride 5 mg 10/08/20 13:00 10/12/20 11:47 Finasteride 5 Mg Tab PO 5 mg QDAY MARCIE Administration Hydralazine HCl 10 mg 10/03/20 15:17 10/04/20 03:40 Hydralazine 10 Mg Tab PO 10 mg Q6H PRN Administration Hypertension SBP > 160 Hydromorphone HCl 0.5 mg 10/07/20 21:31 10/08/20 05:14 Hydromorphone 1 Mg/1 Ml Inj IV 0.5 mg Q3H PRN Administration Pain, Moderate (4-6) Hydrophilic Ointment 1 applic 10/02/20 16:00 Lip Therapy Vaseline TP Q2HR PRN Dry Lips Multi-Ingred Cream/Lotion/Oil/Oint 1 applic 10/02/20 15:30 Mineral Oil/Petrolatum, White Ophth Oint 3.5 Gm OU Q4H PRN Dry Eye(s) Oxycodone/Acetaminophen 1 tab 10/12/20 11:55 Oxycodone /Acetaminophen 5-325mg Tab PO Q4H PRN Pain, Moderate (4-6) Scopolamine 1 each 10/08/20 15:00 10/11/20 15:47 Scopolamine Transdermal Patch 72 Hr TD 1 each Q72H MARCIE Administration Senna/Docusate Sodium 2 tab 10/12/20 12:00 10/12/20 13:15 Sennosides/Docusate Sodium 8.6/50 Mg Tab PO 2 tab BID MARCIE Administration Simple Syrup 15 ml 10/06/20 09:38 Simple Syrup 15 Ml FEEDTUBE PRN PRN Hypoglycemia Simple Syrup 30 ml 10/06/20 09:38 Simple Syrup 15 Ml FEEDTUBE PRN PRN Hypoglycemia Sodium Bicarbonate 325 mg 10/06/20 09:38 Sodium Bicarbonate 325 Mg Tab FEEDTUBE PRN PRN For Clogged Feeding Tube Sodium Chloride 10 ml 10/02/20 22:00 10/12/20 11:47 Sodium Chloride 0.9% 10 Ml Flush Syringe IV 10 ml BID MARCIE Administration Sodium Chloride 10 ml 10/02/20 15:30 Sodium Chloride 0.9% 10 Ml Flush Syringe IV PRN PRN LINE FLUSH Tamsulosin HCl 0.8 mg 10/08/20 13:00 10/12/20 11:47 Tamsulosin 0.4 Mg Cap PO 0.8 mg QDAY MARCIE Administration Nutrition/Malnutrition Assess - Dietary Evaluation Nutrition/Malnutrition Findings: Nutrition Notes Start: 10/03/20 12:08 Freq: Status: Active Protocol: Document 10/08/20 10:55 (Rec: 10/08/20 10:58 [email or web address]) Nutrition Notes Initial or Follow up Reassessment Current Diagnosis Respiratory Failure Other Pertinent Diagnosis cardiac arrest, malnutrition, alzheimer's Current Diet Vital AF 1.2 at 65 ml/hr Labs/Tests Na 146 BUN 30 Cr 0.7 Phos 2.3 Pertinent Medications Phos Nak Height 5 ft 11 in Weight 62 kg Velma Body Weight (kg) 78.18 BMI 19.1 Weight Status Underweight Subjective/Other Information Observed TF running at goal rate. Pt tolerating. Pt may be extubated today. Percent of energy/protein needs met: 100%/100% Burn Absent Trauma Absent GI Symptoms None Difficulty In Swallowing Current % PO Negligible Minimum of two criteria No physical signs of malnutrition #1 Nutrition Diagnosis Inadequate oral intake Diagnosis Progress(for reassessment Continues documentation) Is patient on ventilator? Yes Is Patient Ambulatory and/or Out of Bed No REE-([facility]-confined to bed) 1623.588 Kcal/Kg value to use for calculation 30 Approximate Energy Requirements Using 1860 kcal/Kg Calculation Used for Recommendations Kcal/kg Additional Notes protein needs: 74-123 g (1.2- 2g/kg) fluids needs: 1 ml/kcal or per MD Nutrition Intervention Nutrition Support: Vital AF at 65 ml/hr with a free water flush of 100 ml q4h . Kcal 1,872 Protein (gm) 117 Fluid (mL) 1,265 Goal #1 Meet at least 75% of kcal and protein needs via TF regimen Anticipated Discharge Needs: unable to determine at this time Follow-Up By: 10/13/20 Additional Comments FU for TF tolerance or extubation
--- NOTE | 2020-10-12 14:06 | Progress Note ---
Assessment and Plan S/p cardiac arrest with ROSC * Patient is s/p trach and PEG placement after multiple cardiac arrest events attributed to aspiration. Review of telemetry shows sinus rhythm with no episodes of ventricular ectopy. * Mental status is difficult to assess due to significant history of dementia * Echocardiogram 10/03/2020: LVEF is 55 to 60%. LV normal size. LV SF is normal. RV SF is normal. LA and RA are normal sized, no evidence for ASD. Patient is currently stable cardiac status. He is awaiting LTAC placement. Nothing further from cardiac standpoint. Will follow on as-needed basis. This patient was seen in conjunction with Dr Guzman who agrees with this assessment and plan of care - Patient Problems (1) Acute hypoxemic respiratory failure Current Visit: Yes Status: Acute (2) Alzheimer's dementia Current Visit: Yes Status: Chronic (3) Cardiac arrest Current Visit: Yes Status: Acute (4) DVT prophylaxis Current Visit: Yes Status: Acute Subjective Date of service: 10/12/20 Principal diagnosis: Ac. hypoxemic resp failure; Cardiac arrest with ROSC; Dementia Interval history: Patient resting in bed, s/p trach and PEG. Review of telemetry shows sinus rhythm 50s to 60s. No events Objective Last Vital Signs Temp 97.3 F L 10/12/20 12:00 Pulse 51 L 10/12/20 13:00 Resp 17 10/12/20 13:00 BP 123/66 10/12/20 13:00 Pulse Ox 100 10/12/20 13:00 - Physical Examination General: No Apparent Distress HEENT: Positive: Normocephaly, Mucus Membranes Moist Neck: Positive: neck supple, trachea midline Cardiac: Positive: Reg Rate and Rhythm, S1/S2 Lungs: Positive: Ventilated Respirations Neuro: Positive: Grossly Intact Abdomen: Positive: Unremarkable, Soft Skin: Negative: Rash Musculoskeletal: No Pain Extremities: Present: upper extr. pulses, lower extr. pulses. Absent: edema - Labs and Meds CBC 10/12/20 Range/Units 07:10 WBC 13.4 H (4.5-11.0) K/mm3 RBC 3.36 L (3.65-5.03) M/mm3 Hgb 10.0 L (11.8-15.2) gm/dl Hct 30.8 L (35.5-45.6) % Plt Count 234 (140-440) K/mm3 - Imaging and Cardiology EKG: report reviewed, image reviewed Echo: report reviewed (Echocardiogram 10/03/2020: LVEF is 55 to 60%. LV normal size. LV SF normal. RV SF normal. No valvular abnormalities) - Telemetry EKG Rhythm: Sinus Rhythm - EKG Sinus rhythms and dysrhythmias: sinus rhythm - Allied health notes Allied health notes reviewed: nursing
--- NOTE | 2020-10-12 15:30 | Discharge Summary ---
Providers - Providers Date of Admission: 10/02/20 14:58 Date of discharge: 10/12/20 Attending physician: ALIZA SIMS MD 10/02/20 14:58 Consult to Physician [CONS] Routine Comment: Consulting Provider: KAREN LIRA Physician Instructions: Reason For Exam: Cardiac arrest/Respiratory failure 10/04/20 07:52 Consult to Physician [CONS] Routine Comment: Consulting Provider: FELISHA DANIELS Physician Instructions: Reason For Exam: cardiac arrest 10/04/20 11:24 Speech Therapy Evaluation and Treat [CONS] Routine Reason For Exam: swallow evaluation 10/06/20 13:52 Consult to Dietitian/Nutrition [CONS] Routine Physician Instructions: needs TF Reason For Exam: reintubated Reason for Consult: Write/Manage Tube Feeding 10/09/20 15:02 Consult to Physician [CONS] Routine Comment: Consulting Provider: KEI TOTH Physician Instructions: Reason For Exam: needs Tracheostomy and PEG 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 Hospitalization Reason for admission: status post cardiopulmonary arrest Condition: Stable Pertinent studies: Head CT 10/02 atrophy; no infarct bleed Chest xray 10/07 no consolidation or infiltrate Procedures: trach and peg 10-11 Hospital course: Interval history: 80 YO Male with Vascular Dementia, Cerebral Atherosclerosis, Malnutrition who presented to the ED on 10/02 via EMS after being found unresponsive by family and upon arrival the patient was found to be in distress and subsequently developed cardiac arrest and was treated with ACLS protocol with eventual return of perfusing cardiac rhythm and transported to [facility]. Upon arrival to the ED he was found to be in acute respiratory failure secondary to cardiac arrest and unable able to protect his airway. Patient was intubated and placed on ventilatory support. Patient admitted to ICU for further care and evaluation. Consults: critical care cardiology general surg for trach and peg speech nutrition 10/04 pt extubated 10/05 reintubated after a hypoxic event and PEA arrest 10/06 nodding appropriately; CPAP trials 10/07 failed PS trial 10/08 Trial extubation per CCM. 10/09 reintubated sp cardiopulmonary arrest 10/11 trach and peg 10/12 transferring to LTAC MEDICATIONS AT TIME OF DISCHARGE PRN ALBUTEROL PRN TYLENOL proscar flomax pepcid 20 mg bid for GI prophylaxis scopolamine patch every 72 hours colace/senna bid enoxaparin 40 mg daily for DVT prophylaxis Disposition: [id number] Final Discharge Diagnosis (Prints w/discharge instructions): Chronic resp failure requiring trach; sp cardiopulmonary arrest Time spent for discharge: 60 - Discharge Diagnoses (1) Acute hypoxemic respiratory failure Status: Acute (2) Cardiac arrest Status: Acute (3) Alzheimer's dementia Status: Chronic Qualifiers: Alzheimer's disease onset: unspecified onset (4) Malnutrition Status: Acute Qualifiers: Protein-calorie malnutrition severity: moderate Core Measure Documentation - Palliative Care Palliative Care/ Comfort Measures: Not Applicable - Core Measures Any of the following diagnoses?: none - VTE Discharge Requirements Deep Vein Thrombosis/Pulmonary Embolism Present on Admission: Yes Has pt received <5 days of overlap therapy or INR<2.0: No Anticoagulant overlap therapy prescribed at discharge: Yes - Acute DE Discharge Requirements Aspirin at discharge: No Reason for no aspirin on DC: Medical contraindication NICKI/ARB for LVSD if EF <40%: No Reason for no NICKI/ARB: Medical contraindication Beta venu at discharge: No Reason for no beta venu on DC: Medical contraindication Statin for LDL = or >100 mg/dl on DC: No Reason for no statin on DC: Medical contraindication - Heart Failure Discharge Requirements NICKI/ARB for LVSD if EF <40%: Not Applicable Reason for no NICKI/ARB: Medical contraindication Beta venu at discharge: No Reason for no beta venu on DC: Patient refusal - Stroke Discharge Requirements Statin for LDL = or >70 mg/dl on DC: Not Applicable Exam - Constitutional Vitals: Temp Pulse Resp BP Pulse Ox 97.3 F L 58 L 16 143/83 100 10/12/20 12:00 10/12/20 15:00 10/12/20 15:00 10/12/20 15:00 10/12/20 15:00 General appearance: Present: no acute distress - EENT Eyes: Present: PERRL ENT: clear oral mucosa - Neck Neck: Present: supple - Respiratory Respiratory effort: normal - Cardiovascular Rhythm: regular Heart Sounds: Present: S1 & S2 Peripheral Pulses: within normal limits - Abdominal General gastrointestinal: Present: soft Male genitourinary: Present: normal - Integumentary Integumentary: Present: clear, warm, dry - Allied Health Allied health notes reviewed: nursing, RT, social work, case management Plan Activity: advance as tolerated Weight Bearing Status: Weight Bear as Tolerated Diet: advance as tolerated, other (TF- PEG) Wound: per wound nurse instructions Care Plan Goals: wean from ventilator physical rehab- will need PT/OT/speech therapy maximize rehab potential Plan of Treatment: conditioning and weaning/liberating from vent Health Concerns: debility, advanced age, dementia and malnutrition complicate patient rehab Assessment: Neuro: Vascular Dementia; critical care myopathy; frail elderly -10/02 CT head shows disproportionate temporal and parietal lobe atrophy suggests possibility of Alzheimer's dementia, moderate global parenchymal atrophy, no acute intracranial abnormalities are identified. -pt has hx CVA with baseline right sided weakness -aricept d/c due it cardiac side effects -PRN pain medications -will need aggressive pt/ot -generalized weakness; opens eyes to voice; tracking around room; pupils 3 b and reactive -family updated on plan of care CV: s/p cardiac arrest-PEA/bradycardia; hx HTN -Cardiology consulted, appreciate recommendations -10/04 Echo shows EF 55-60%, transmitral Doppler flow pattern suggests impaired LV function -hx Afib- was on amio but d/c due to donna -Has persistent bradycardia rate to 57-65; no ectopy -resume home bp meds when appropriate -PRN antihypertensives Respiratory: Resp failure requiring trach CCM following s/p Cardio respiratory arrest on 10/05 Acute hypoxemic respiratory failure- improving -Scopolamine for secretions - have not been an issue the last few day s -reintubated 10/05, extubated 10/08 but reintubated -10/11 tracheostomy placed with surgery -trach care per nursing staff -albuterol nebs -wean as tolerated tolerating PS GI Malnutrition; constipation -nutrition following -10/11 patient received PEG tube with surgery -Ok to use PEG per surgery -resume feeds -resume FWF -dc IVF -bowel reg with no BM in several days -increased bowel reg today -mg citrate x 1 today Urinary Retention hx; hx hypophos -Resume home Proscar and Flomax -strict I/O -follow and replace electrolytes as needed Heme- NAP -VTE lovenox and SCD -trend CBC ID leukocytosis -cultures remain neg- continue to monitor -MRSA swab negative -no skin breakdown Endo: hyperglycemia likely stress induced -SSI, accucheck q 6 -avoid hypoglycemia Follow up with: PRIMARY CARE, [Primary Care Provider] - 7 Days Prescriptions: Tamsulosin [Flomax] 0.8 mg PO QDAY #30 cap Finasteride [Proscar] 5 mg PO QDAY #30
[2020-10-12 17:33] VITALS: BP 110/52
== END 2020-10-12 17:53 | DRG 4 ==
LOC: ED 13:36 → CC1 14:58
PROVIDERS: ADMIT Internal Medicine; ATTEND Family Medicine
PROC: 5A1955Z Respiratory Ventilation, Greater than 96 Consecutive Hours (ICD-10-PCS; 2020-10-02)
PROC: 0BH17EZ Insertion of Endotracheal Airway into Trachea, Via Natural or Artificial Opening (ICD-10-PCS; 2020-10-02)
PROC: 06HM03Z Insertion of Infusion Device into Right Femoral Vein, Open Approach (ICD-10-PCS; 2020-10-05)
PROC: B54BZZA Ultrasonography of Right Lower Extremity Veins, Guidance (ICD-10-PCS; 2020-10-05)
PROC: 03HB33Z Insertion of Infusion Device into Right Radial Artery, Percutaneous Approach (ICD-10-PCS; 2020-10-05)
PROC: B54MZZA Ultrasonography of Right Upper Extremity Veins, Guidance (ICD-10-PCS; 2020-10-05)
PROC: 02HV33Z Insertion of Infusion Device into Superior Vena Cava, Percutaneous Approach (ICD-10-PCS; 2020-10-06)
PROC: B548ZZA Ultrasonography of Superior Vena Cava, Guidance (ICD-10-PCS; 2020-10-06)
PROC: 4A033R1 Measurement of Arterial Saturation, Peripheral, Percutaneous Approach (ICD-10-PCS; 2020-10-07)
PROC: 5A12012 Performance of Cardiac Output, Single, Manual (ICD-10-PCS; 2020-10-08)
PROC: 0BH17EZ Insertion of Endotracheal Airway into Trachea, Via Natural or Artificial Opening (ICD-10-PCS; 2020-10-08)
PROC: 5A1945Z Respiratory Ventilation, 24-96 Consecutive Hours (ICD-10-PCS; 2020-10-08)
PROC: 0B110F4 Bypass Trachea to Cutaneous with Tracheostomy Device, Open Approach (ICD-10-PCS; principal; 2020-10-11)
PROC: 5A1935Z Respiratory Ventilation, Less than 24 Consecutive Hours (ICD-10-PCS; 2020-10-11)
PROC: 0DH63UZ Insertion of Feeding Device into Stomach, Percutaneous Approach (ICD-10-PCS; 2020-10-11)
DX: J96.21 Acute and chronic respiratory failure with hypoxia (principal); I46.9 Cardiac arrest, cause unspecified; G72.81 Critical illness myopathy; E44.0 Moderate protein-calorie malnutrition; I48.20 Chronic atrial fibrillation, unspecified; E87.2 Acidosis; G30.9 Alzheimer's disease, unspecified; F02.80 Dementia in other diseases classified elsewhere, unspecified severity, without behavioral disturbance, psychotic disturbance, mood disturbance, and anxiety; I95.9 Hypotension, unspecified; E83.39 Other disorders of phosphorus metabolism; Z68.21 Body mass index [BMI] 21.0-21.9, adult; F01.50 Vascular dementia, unspecified severity, without behavioral disturbance, psychotic disturbance, mood disturbance, and anxiety; I10 Essential (primary) hypertension; K59.00 Constipation, unspecified; R73.9 Hyperglycemia, unspecified; D72.829 Elevated white blood cell count, unspecified
CPT/HCPCS: 36415; 36600; 70450; 71045; 71275; 74018; 80048; 80053; 80076; 80307; 81001; 82803; 82805; 82962; 83735; 83880; 84100; 84484; 85025; 85027; 85379; 85610; 87040; 87070; 87086; 87205; 87641; 93005; 93306; 94002; 94003; G0378; J0171; J0282; J0330; J0461; J0692; J1100; J1170; J1265; J1650; J2060; J2250; J2370; J2405; J2704; J3010; J3370; J3475; J7040; J7050; J7060; J7120; Q9967